=== PATIENT | male | born 1960 | race Two or more races ===

== ENCOUNTER 2020-01-08 14:11 | Outpatient (REF) | payer MEDICAID, SELFPAY ==
--- NOTE | 2020-01-08 14:20 | XR_ITS ---
EXAMINATION: XR KNEE, RIGHT CLINICAL INFORMATION: Pain COMPARISON: None TECHNIQUE: Four views of the right knee. FINDINGS: No acute fracture or dislocation. Moderate medial tibiofemoral compartment joint space narrowing, with associated subchondral sclerosis within the medial femoral condyle and medial tibial plateau.. Small tricompartmental marginal osteophytes. Small quadriceps tendon enthesophyte. IMPRESSION: No acute fracture or dislocation. Tricompartmental degenerative changes, worst within the medial tibiofemoral compartment as described.
== END 2020-01-08 14:12 | disposition home or self-care (01) ==
LOC: HO.XRAY 14:11
PROVIDERS: PCP Internal Medicine Geriatric Medicine; Visit Provider Internal Medicine Geriatric Medicine
DX: M25.561 Pain in right knee (principal)
CPT/HCPCS: 73564

== ENCOUNTER 2020-01-24 11:15 | Outpatient (REF) | payer MEDICAID, SELFPAY ==
--- NOTE | 2020-01-24 11:17 | XR_ITS ---
EXAMINATION: XR KNEE AP STANDING CLINICAL INFORMATION: Unilateral primary osteoarthritis, right knee. COMPARISON: 01/08/2020 TECHNIQUE: AP bilateral standing view of the knees was obtained. FINDINGS: No acute fracture or dislocation is evident on this single AP film. There is mild narrowing of the medial joint space compartment of the left knee with moderate narrowing of the medial space compartment of the right knee. There is some mild spurring about the right medial joint space compartment with marginal sclerosis.. XR/XR knee standing BI IMPRESSION: Mild left and moderate right medial joint space compartment degenerative change.
== END 2020-01-24 11:16 | disposition home or self-care (01) ==
LOC: HO.HOSX 11:15
PROVIDERS: Visit Provider Orthopaedic Surgery
DX: M17.11 Unilateral primary osteoarthritis, right knee (principal); M95.8 Other specified acquired deformities of musculoskeletal system
CPT/HCPCS: 73565; 99212

== ENCOUNTER → 2020-02-11 08:37 | Outpatient (BNVA) | payer MEDICAID, SELFPAY | PROVIDERS: Visit Provider Orthopaedic Surgery | DX: M17.11 Unilateral primary osteoarthritis, right knee (principal); M95.8 Other specified acquired deformities of musculoskeletal system | CPT/HCPCS: 20610; 99202; J1100 ==

== ENCOUNTER → 2020-06-20 11:06 | Outpatient (BNVA) | payer MEDICAID, SELFPAY | PROVIDERS: PCP Internal Medicine Geriatric Medicine; Visit Provider Orthopaedic Surgery | DX: Z13.89 Encounter for screening for other disorder (principal) | CPT/HCPCS: 99212 ==

== ENCOUNTER 2020-07-04 17:59 | Outpatient (REF) | payer MEDICAID, SELFPAY ==
--- NOTE | ~2020-07-04 | MR_ITS ---
EXAMINATION: MR KNEE WITHOUT CONTRAST, RIGHT CLINICAL INFORMATION: Right knee pain. History of meniscal surgery. COMPARISON: Radiographs 01/08/2020 TECHNIQUE: MRI of the knee without contrast was performed using routine sequences on a high-field scanner. FINDINGS: MENISCI: Medial Meniscus: Inner margin blunting at the junction of the body and posterior horn likely represents the postsurgical result. No definite recurrent tear. Lateral Meniscus: Intact LIGAMENTS: Cruciate: Intact Collateral: Intact EXTENSOR MECHANISM: Intact ARTICULAR CARTILAGE/BONE: Patellofemoral Compartment: Mild cartilage thinning and surface irregularity throughout the patella. Medial Compartment: Cartilage thinning and surface irregularity throughout the weightbearing femoral condyle with foci of near full-thickness loss. There is a region of mild surface flattening with degenerative cysts and marrow edema possibly the sequela of a remote subchondral insufficiency fracture. Peripheral cartilage thinning of the tibia medially. Lateral Compartment: Normal JOINT FLUID AND BURSAE: No significant joint effusion. Incidental note is made of mild/moderate fatty infiltration of the biceps femoris muscle as well as the medial and lateral gastrocnemius, soleus and popliteus muscles. MR/MR knee RT wo con IMPRESSION: Postsurgical changes of the medial meniscus with no definite meniscal tear. Moderate medial compartment osteoarthritis with subtle surface flattening and irregularity at the central weightbearing aspect of the femoral condyle, possibly the sequela of a prior subchondral insufficiency fracture. No significant joint effusion. Incidental note is made of mild/moderate fatty atrophy of the biceps femoris muscle and the visualized posterior calf muscles.
== END 2020-07-04 18:00 | disposition home or self-care (01) ==
LOC: HO.MRI 17:59
PROVIDERS: Visit Provider Orthopaedic Surgery
DX: M95.8 Other specified acquired deformities of musculoskeletal system (principal)
CPT/HCPCS: 73721

== ENCOUNTER → 2020-07-17 09:55 | Outpatient (BNVA) | payer MEDICAID, SELFPAY | PROVIDERS: PCP Internal Medicine Geriatric Medicine; Visit Provider Orthopaedic Surgery | DX: Z01.812 Encounter for preprocedural laboratory examination (principal); Z01.810 Encounter for preprocedural cardiovascular examination; M17.11 Unilateral primary osteoarthritis, right knee | CPT/HCPCS: 36415; 80048; 85025; 93005 ==

== ENCOUNTER 2020-08-08 15:00 | Outpatient (RCR) | payer MEDICAID, SELFPAY ==
--- NOTE | 2020-08-01 12:33 | MHC.PT.EP ---
[facility] [place] Office [place] Office [place] Office [address] [phone] F: [phone] F: [phone] F: [phone] F: [phone] Physical Therapy Plan of Care Date of Evaluation: Date of Surgery: 08/19/20 Diagnosis: OA R KNEE. PREHAB FOR UKA 08/19/20 Assessment: Pt IS 50 YO M REFERRED TO PT FROM [facility] FOR PREHAB R UKA ON July PER DR ASHFORD. Pt PRESENTS WITH LIMITED R KNEE FLEX AND LIMITED ANKLE PF STRENGTH. Pt LIVES WITH HIS DTR 3 STEPS WITH 2 RAILS TO GET IN. I WITH ADLS, DRIVES, SHOULD BENEFIT FROM 1-2 MORE PRE-OP VISITS TO REV TKR PROTOCOL, EXS, TRANSF, STAIRS, USE CANE AND WW. Frequency and Duration: The patient will be seen 1-2 VISITS Short Term Goals: 1. I HEP FOR UKA EXS 2. MOD I GT WITH WW AND ST CANE 3. MOD I STAIRS WITH 2 RAILS/1 RAIL AND CANE 4. Pt WITH UNDERSTANDING OF PO UKA KNEE CARE Shelter Goals: Treatment Plan: Modalities to reduce pain, spasms and effusion. Manual therapy to restore motion and function. Therapeutic exercise to improve strength and flexibility. Neuromuscular re-education for posture and balance. Therapeutic activities to return to functional activities of daily living. Electronically signed by: KIZZY SERRANO PT Please sign and return to therapist. Thank you for your referral.
--- NOTE | 2020-09-26 16:27 | MHC.PT.DC ---
[facility] [place] Office [place] Office [place] Office [address] Shasha Smith [address] [phone] F: [phone] F: [phone] F: [phone] F: [phone] Physical Therapy Discharge Report Diagnosis: OA R KNEE. PREHAB FOR UKA 08/19/20 Date of Surgery: 08/19/20 Date of Evaluation: 08/01/20 Date of Discharge: 08/08/20 Treatments to Date: 2 Cancellations to Date: No Shows to Date: Discharge Status: Independent with HEP Discharge Summary: Pt LAST SEEN FOR PRE-HAB VISIT ON 08/08/20. PER THAT NOTE BY LETICIA POTTS,PT,DPT[- Pt arrived with no new complaints. He has been performing his HEPs and has no issues with them. All exercises reviewed with him again today. Transfer training and stair training reviewed as well. Pt demonstrates good understanding of this. Review transfers, gait training and teach standing exercises in next session. No adverse response noted to any exercise.] OF NOTE, Pt HAS BEGUN PT PO UKA Electronically signed by: KIZZY SERRANO PT Please sign and return to therapist. Thank you for your referral.
== END 2020-09-26 16:27 | disposition home or self-care (01) ==
LOC: HO.PT 15:00
PROVIDERS: PCP Internal Medicine Geriatric Medicine; Visit Provider Orthopaedic Surgery
DX: M17.11 Unilateral primary osteoarthritis, right knee (principal)
CPT/HCPCS: 97110; 97116; 97161; 97530

== ENCOUNTER → 2020-08-14 13:07 | Outpatient (BNVA) | payer MEDICAID, SELFPAY | PROVIDERS: Visit Provider Physician Assistant | DX: Z96.651 Presence of right artificial knee joint (principal); M17.11 Unilateral primary osteoarthritis, right knee; M25.561 Pain in right knee; M95.8 Other specified acquired deformities of musculoskeletal system; E78.00 Pure hypercholesterolemia, unspecified; I10 Essential (primary) hypertension; R73.03 Prediabetes; Z88.8 Allergy status to other drugs, medicaments and biological substances; Z79.899 Other long term (current) drug therapy | CPT/HCPCS: 99212 ==

== ENCOUNTER 2020-08-19 10:41 | Inpatient (IN) | payer MEDICAID, SELFPAY ==
--- NOTE | 2020-07-17 11:06 | ECG_ITS ---
Test Reason : PREOP Blood Pressure : / mmHG Vent. Rate : 081 BPM Atrial Rate : 081 BPM P-R Int : 196 ms QRS Dur : 088 ms QT Int : 358 ms P-R-T Axes : 054 -15 012 degrees QTc Int : 415 ms Normal sinus rhythm Minimal voltage criteria for LVH, may be normal variant Borderline ECG When compared with ECG of 14-DEC-2019 12:32, No significant change was found Referred By: Abran Jones Electronically Signed By:Grover Gustafson
[2020-07-17 12:04] LABS: MANUAL DIFF FLAG NO
[2020-07-17 12:12] LABS: Basophils Percent Auto 0.5 % (0-2); Eosinophils Absolute Auto 0.2 X10*3/uL (0.0-0.4); Eosinophils Percent Auto 3.4 % (0-4); Hematocrit 45.8 % (42-52); Hemoglobin 15.3 g/dl (14.0-18.0); Imm Gran Abs Auto 0.02 X10*3/uL (0.00-0.03); Imm Gran Pct Auto 0.4 % (0.0-0.4); Lymphocytes Absolute Auto 1.6 X10*3/uL (1.2-4.9); Lymphocytes Percent Auto 27.9 % (20-40); Mean Corpuscular HGB Conc 33.4 g/dl (31.0-36.0); Mean Corpuscular Volume 92.9 fL (80-98); Mean Platelet Volume 9.3 fL (9.4-12.4); Monocytes Absolute Auto 0.7 X10*3/uL (0.1-1.2); Monocytes Percent Auto 12.9 % (2-11); Neutrophils Absolute Auto 3.1 X10*3/uL (2.0-8.3); Neutrophils Percent Auto 54.9 % (45-73); Platelet Count 236 X10*3/uL (160-400); Red Blood Count 4.93 X10*6/uL (4.60-5.80); Red Cell Distribution Width 12.7 % (11.0-16.0); White Blood Count 5.6 X10*3/uL (4.8-10.8)
[2020-07-17 13:51] LABS: Anion Gap 13 (12-20); Blood Urea Nitrogen 13 mg/dL (9-16); Calcium 10.1 mg/dL (8.4-10.2); Carbon Dioxide 25 mmol/L (22-29); Chloride 104 mmol/L (96-108); Estimated Glomerular Filt Rate > 60; Glucose Random 101 mg/dL (60-115); Potassium 4.5 mmol/L (3.3-5.1); Sodium 137 mmol/L (135-145)
--- NOTE | 2020-08-15 09:51 | P.CONAN_ITS ---
Documented by User: Viri Mccann 08/18/20 09:34 HPI - Anesthesia Eval Consult details Narrative: 59yo M for Right Uni-Compartmental Knee Replacement PCP Cleared Murmur noted at PAT. No hx. Not noted on clearance. Pt asymptomatic. Reviewed with Dr Prisca ball to proceed. [facility] Active Problems Active Problems: All Active Problems (Updated 08/14/20 @ 09:25 by Susan Pacheco) Osteochondral defect of femoral condyle (Acute) Osteoarthritis of right knee (Acute) Past Medical History Medical History Arthritis Asthma COVID-19 vaccine administered Elevated cholesterol GERD (gastroesophageal reflux disease) Heart murmur History of BPH HTN (hypertension) Hx of varicose veins Osteoarthritis of right knee Osteochondral defect of femoral condyle Pre-diabetes Family History Family History Mother No problems noted. Father No problems noted. Family history of problems with anesthesia: No Surgical History Surgical History H/O colonoscopy History of right knee surgery Hx of meniscectomy of right knee History of Problems with Anesthesia: No Social History Social History Are you a primary career center director to a significant other at home: No Alcohol intake: current Alcohol intake frequency: holidays/special occasions only Smoking Status: Never smoker Use of substances other than those prescribed or required for medical reasons: No Have you been hit, kicked, punched, or otherwise hurt by someone within the past year? If so, by whom?: No Are you DNR?: No Advance Directives: No Advance Directives Information Provided: No Recently lost weight without trying: No Eating poorly because of decreased appetite: No Nutrition Risks: No Nutritional Risk Poor oral hygiene: No Current occupational status: unemployed Current occupation: right handed Narrative Narrative: No recent illness. No CP/SOB with walking Meds Allergies Allergy/AdvReac Type Severity Reaction Status Date / Time amlodipine AdvReac Intermediate Nausea Verified 08/14/20 13:16 Home Medications Medication Instructions Recorded Confirmed Last Taken Type famotidine 20 mg PO BID PRN 08/14/20 08/19/20 08/19/20 10:30 History lisinopril 5 mg PO DAILY 08/14/20 08/14/20 Unknown History tamsulosin [Flomax] 0.4 mg PO QAM 08/14/20 08/15/20 Unknown History ascorbic acid (vitamin C) [Vitamin 1,000 mg PO DAILY 08/15/20 08/15/20 Unknown History C] aspirin [Aspirin Low Dose] 81 mg PO DAILY 08/15/20 08/15/20 Unknown History cholecalciferol (vitamin D3) 50 mcg PO DAILY 08/15/20 08/15/20 Unknown History [Vitamin D3] cyanocobalamin (vitamin B-12) 50 mcg PO DAILY 08/15/20 08/15/20 Unknown History [Vitamin B-12] montelukast [Singulair] 10 mg PO DAILY PRN 08/15/20 08/15/20 Unknown History rosuvastatin [Crestor] 10 mg PO DAILY 08/15/20 08/15/20 Unknown History zinc 50 mg PO DAILY 08/15/20 08/15/20 Unknown History Exam Exam Date and Time: August 15, 2020 0991 Pertinent Lab Results Pertinent Lab Results: Lab Results 07/17/20 07/17/20 08/15/20 Range/Units 11:35 11:35 12:30 WBC 5.6 (4.8-10.8) X10*3/uL RBC 4.93 (4.60-5.80) X10*6/uL Hgb 15.3 (14.0-18.0) g/dl Hct 45.8 (42-52) % MCV 92.9 (80-98) fL MCH 31.0 (27.0-33.0) pg MCHC 33.4 (31.0-36.0) g/dl RDW 12.7 (11.0-16.0) % Plt Count 236 (160-400) X10*3/uL MPV 9.3 L (9.4-12.4) fL Immature Gran % (Auto) 0.4 (0.0-0.4) % Neut % (Auto) 54.9 (45-73) % Lymph % (Auto) 27.9 (20-40) % [place] % (Auto) 12.9 H (2-11) % Eos % (Auto) 3.4 (0-4) % Baso % (Auto) 0.5 (0-2) % Lymph # (Auto) 1.6 (1.2-4.9) X10*3/uL [place] # (Auto) 0.7 (0.1-1.2) X10*3/uL Eos # (Auto) 0.2 (0.0-0.4) X10*3/uL Baso # (Auto) 0.0 (0.0-0.2) X10*3/uL Abs Immat Gran (auto) 0.02 (0.00-0.03) X10*3/uL Absolute Neuts (auto) 3.1 (2.0-8.3) X10*3/uL Absolute Nucleated RBC 0.000 (0.0-0.012) X10*3/uL Nucleated RBC % (auto) 0.0 (0.0-0.2) /100WBC Sodium 137 (135-145) mmol/L Potassium 4.5 (3.3-5.1) mmol/L Chloride 104 (96-108) mmol/L Carbon Dioxide 25 (22-29) mmol/L Anion Gap 13 (12-20) BUN 13 (9-16) mg/dL Creatinine 0.75 (0.5-1.4) mg/dL Estim Creat Clear Calc TNP Estimated GFR > 60 Random Glucose 101 (60-115) mg/dL Calcium 10.1 (8.4-10.2) mg/dL Nasal Screen MRSA (PCR) NEGATIVE (Negative) Nasal S. aureus Screen NEGATIVE (Negative) Nasal MRSA/S.aureus Interp SEE NOTE Blood Type Antibody Screen 08/15/20 Range/Units 13:50 WBC (4.8-10.8) X10*3/uL RBC (4.60-5.80) X10*6/uL Hgb (14.0-18.0) g/dl Hct (42-52) % MCV (80-98) fL MCH (27.0-33.0) pg MCHC (31.0-36.0) g/dl RDW (11.0-16.0) % Plt Count (160-400) X10*3/uL MPV (9.4-12.4) fL Immature Gran % (Auto) (0.0-0.4) % Neut % (Auto) (45-73) % Lymph % (Auto) (20-40) % [place] % (Auto) (2-11) % Eos % (Auto) (0-4) % Baso % (Auto) (0-2) % Lymph # (Auto) (1.2-4.9) X10*3/uL [place] # (Auto) (0.1-1.2) X10*3/uL Eos # (Auto) (0.0-0.4) X10*3/uL Baso # (Auto) (0.0-0.2) X10*3/uL Abs Immat Gran (auto) (0.00-0.03) X10*3/uL Absolute Neuts (auto) (2.0-8.3) X10*3/uL Absolute Nucleated RBC (0.0-0.012) X10*3/uL Nucleated RBC % (auto) (0.0-0.2) /100WBC Sodium (135-145) mmol/L Potassium (3.3-5.1) mmol/L Chloride (96-108) mmol/L Carbon Dioxide (22-29) mmol/L Anion Gap (12-20) BUN (9-16) mg/dL Creatinine (0.5-1.4) mg/dL Estim Creat Clear Calc Estimated GFR Random Glucose (60-115) mg/dL Calcium (8.4-10.2) mg/dL Nasal Screen MRSA (PCR) (Negative) Nasal S. aureus Screen (Negative) Nasal MRSA/S.aureus Interp Blood Type A Positive Antibody Screen NEGATIVE Narrative Narrative: EKG 06/2020 Vent. Rate : 081 BPM Atrial Rate : 081 BPM P-R Int : 196 ms QRS Dur : 088 ms QT Int : 358 ms P-R-T Axes : 054 -15 012 degrees QTc Int : 415 ms Normal sinus rhythm Minimal voltage criteria for LVH, may be normal variant Borderline ECG When compared with ECG of 14-DEC-2019 12:32, No significant change was found Airway Mallampati Class: II TM Dist: >3cm Neck ROM: Full Loose/Missing/Broken Teeth: No (Crowned molars) Heart: RRR +M Lungs: CTAB Assessment and Plan Assessment Anesthesia Assessment: Anesthesia Plan Discussed and PAT Visit Documented by User: Zackery Sullivan MD 08/19/20 13:34 PMFSH Past Medical History Medical History Arthritis Asthma COVID-19 vaccine administered Elevated cholesterol GERD (gastroesophageal reflux disease) Heart murmur History of BPH HTN (hypertension) Hx of varicose veins Osteoarthritis of right knee Osteochondral defect of femoral condyle Pre-diabetes Family History Family History Mother No problems noted. Father No problems noted. Surgical History Surgical History H/O colonoscopy History of right knee surgery Hx of meniscectomy of right knee Social History Social History Are you a primary career center director to a significant other at home: No Alcohol intake: current Alcohol intake frequency: holidays/special occasions only Smoking Status: Never smoker Use of substances other than those prescribed or required for medical reasons: No Have you been hit, kicked, punched, or otherwise hurt by someone within the past year? If so, by whom?: No Are you DNR?: No Advance Directives: No Advance Directives Information Provided: No Recently lost weight without trying: No Eating poorly because of decreased appetite: No Nutrition Risks: No Nutritional Risk Poor oral hygiene: No Current occupational status: unemployed Current occupation: right handed Meds Allergies Allergy/AdvReac Type Severity Reaction Status Date / Time amlodipine AdvReac Intermediate Nausea Verified 08/14/20 13:16 Home Medications Medication Instructions Recorded Confirmed Last Taken Type famotidine 20 mg PO BID PRN 08/14/20 08/19/20 08/19/20 10:30 History lisinopril 5 mg PO DAILY 08/14/20 08/14/20 Unknown History tamsulosin [Flomax] 0.4 mg PO QAM 08/14/20 08/15/20 Unknown History ascorbic acid (vitamin C) [Vitamin 1,000 mg PO DAILY 08/15/20 08/15/20 Unknown History C] aspirin [Aspirin Low Dose] 81 mg PO DAILY 08/15/20 08/15/20 Unknown History cholecalciferol (vitamin D3) 50 mcg PO DAILY 08/15/20 08/15/20 Unknown History [Vitamin D3] cyanocobalamin (vitamin B-12) 50 mcg PO DAILY 08/15/20 08/15/20 Unknown History [Vitamin B-12] montelukast [Singulair] 10 mg PO DAILY PRN 08/15/20 08/15/20 Unknown History rosuvastatin [Crestor] 10 mg PO DAILY 08/15/20 08/15/20 Unknown History zinc 50 mg PO DAILY 08/15/20 08/15/20 Unknown History Assessment and Plan Assessment Anesthesia Assessment: Anesthesia Plan Discussed and Chart Reviewed Final Anesthetic Review NPO: Yes ASA Class: II Final Preanesthetic Review: No Changes in Pt Med Stat, Meds/Allgs Chart Reviewed, Consent Obtained/Reviewed and Anes Risks/Benef Reviewed Patient Risk: Intermediate Procedure Risk: Low Anesthetic Plan Anesthetic Plan: MAC: and Regional Block Disposition: Standard PACU
[2020-08-15 11:59] VITALS: BP 137/92; PULSE 96; RESP 20; BMI 36.0
[2020-08-16 09:30] LABS: MRSA Nasal PCR NEGATIVE (Negative); SA Nasal PCR NEGATIVE (Negative)
[2020-08-19] VITALS (11 sets, daily range): BP systolic 117–137; BP diastolic 71–86; PULSE 75–112; RESP 12–18; TEMP 36.2–37; O2SAT 94–97
--- NOTE | ~2020-08-19 | XR_ITS ---
EXAMINATION: XR KNEE, RIGHT CLINICAL INFORMATION: Status post right UKA COMPARISON: None TECHNIQUE: 2 of the right knee. FINDINGS: Status post knee replacement of the medial femoral tibial joint of the right knee. Orthopedic components in place. No fracture. Surgical clips in the skin in the anterior knee. Air in the joint space from surgery. There is spur of the patella the patellofemoral joint. XR/XR knee RT 2V IMPRESSION: Status post knee replacement of the medial femoral tibial joint.
[2020-08-19] MEDS: Gabapentin 600 MG TABLET PO (11:33)
[2020-08-19 11:53] LABS: COVID-19 Test Negative (Negative)
[2020-08-19] MEDS: Lactated Ringers 1,000 ML 100 ML IVCONT (12:26)
--- NOTE | 2020-08-19 12:58 | MHC.SHP ---
Pre-Procedural Eval Section A The patient is an INPATIENT: No Changes since office visit: Yes Patient answered all questions; No Cold of Flu in the past 2 weeks, No New Medical Problems and No Changes in Medication The History & Physical has been completed within 30 days and I have reviewed it.: Yes Section B Chief Complaint: s/p unicompartmental knee replacement right Allergies: Allergies Allergy/AdvReac Type Severity Reaction Status Date / Time amlodipine AdvReac Intermediate Nausea Verified 08/14/20 13:16 Plan I have reviewed the history and physical and performed a pertinent physical examination on my patient. No changes have occurred unless specified.
--- NOTE | 2020-08-19 15:28 | PM.OP ---
Brief Operative Note Date of Service: 08/19/20 Pre-op diagnosis: right knee OA Post-op diagnosis: same Procedure: Right UKA Implants: [employer]hew Surgeon: Abran Jones MD Anesthesia: regional and spinal Was an Cargo Checker used for this Procedure?: Yes Cargo Checker: Clayton Torres Estimated blood loss (mL): 50 Tourniquet time (min): 78 IV fluids (mL): 1,000 Pathology: other Condition: stable Disposition: PACU
[2020-08-19] MEDS: Ketorolac Tromethamine 15 MG/ML VIAL IVPUSH (15:48)
[2020-08-19] MEDS: 0.9 % Sodium Chloride Flush 3 ML SYRINGE IVFLUSH (17:14)
[2020-08-19] MEDS: Dextrose 5 % and 0.45 % NaCl 1,000 ML 80 ML IVCONT (17:14)
[2020-08-19] MEDS: ceFAZolin Sodium/Dextrose,Iso 2 GM/50 ML PIGGYBACK IV (18:35)
[2020-08-19] MEDS: Celecoxib 200 MG CAPSULE PO (20:30)
[2020-08-19] MEDS: Docusate Sodium 100 MG CAPSULE PO (20:30)
[2020-08-19] MEDS: oxyCODONE HCl ER 10 MG TAB.ER.12H PO (20:30)
[2020-08-20] MEDS: Dextrose 5 % and 0.45 % NaCl 1,000 ML 80 ML IVCONT ×2 (05:05→16:58)
[2020-08-20 07:00] LABS: MANUAL DIFF FLAG NO
[2020-08-20 07:08] LABS: Basophils Percent Auto 0.2 % (0-2); Eosinophils Percent Auto 0.1 % (0-4); Hematocrit 39.2 % (42-52); Hemoglobin 13.1 g/dl (14.0-18.0); Imm Gran Abs Auto 0.05 X10*3/uL (0.00-0.03); Imm Gran Pct Auto 0.4 % (0.0-0.4); Lymphocytes Absolute Auto 1.2 X10*3/uL (1.2-4.9); Lymphocytes Percent Auto 9.6 % (20-40); Mean Corpuscular HGB Conc 33.4 g/dl (31.0-36.0); Mean Corpuscular Hemoglobin 30.9 pg (27.0-33.0); Mean Corpuscular Volume 92.5 fL (80-98); Mean Platelet Volume 9.3 fL (9.4-12.4); Monocytes Absolute Auto 1.2 X10*3/uL (0.1-1.2); Monocytes Percent Auto 8.9 % (2-11); Neutrophils Absolute Auto 10.4 X10*3/uL (2.0-8.3); Neutrophils Percent Auto 80.8 % (45-73); Platelet Count 250 X10*3/uL (160-400); Red Blood Count 4.24 X10*6/uL (4.60-5.80); Red Cell Distribution Width 12.4 % (11.0-16.0); White Blood Count 12.9 X10*3/uL (4.8-10.8)
[2020-08-20 07:27] VITALS: BP 128/71; PULSE 93; RESP 17; TEMP 36.8; O2SAT 95
[2020-08-20 07:33] LABS: Anion Gap 12 (12-20); Blood Urea Nitrogen 12 mg/dL (9-16); Calcium 8.9 mg/dL (8.4-10.2); Carbon Dioxide 23 mmol/L (22-29); Chloride 105 mmol/L (96-108); Creatinine Clr Calc Pharmacy 147.7; Estimated Glomerular Filt Rate > 60; Glucose Fasting 184 mg/dL (60-99); Potassium 4.5 mmol/L (3.3-5.1); Sodium 135 mmol/L (135-145)
--- NOTE | 2020-08-20 07:48 | P.PNOP_ITS ---
Subjective Subjective Date of Service: 08/20/20 Interval history: Postop day 1 status post right UKA No overnight events. Resting in bed comfortably. Has minimal pain. Tolerating medication. Denies chest pain shortness of breath or palpitations. Physical Exam Vital Signs: Vital Signs: Last Vital Signs Temp 98.2 F 08/20/20 07:27 Pulse 93 08/20/20 07:27 Resp 17 08/20/20 07:27 BP 128/71 08/20/20 07:27 Pulse Ox 95 08/20/20 07:27 Body Mass Index 36.0 Const: General: cooperative, healthy appearing and no acute distress Resp: Effort & Inspection: normal respiratory effort and able to speak in complete sentences Cardio: Rate: regular rate Peripheral pulses: Peripheral pulses 2+ throughout GI: Palpation (GI): Soft to palpation Skin: General skin exam: no rashes or lesions noted Extrem: Other: Right knee bandage clean dry and intact. No erythema. Mild swelling. Calf supple nontender. Neurovascularly intact. Progress Note: A&P Assessment and plan (1) Status post unicompartmental knee replacement, right: Status: Acute Assessment and Plan: * Continue pain mgmnt * Begin Aspirin for dvt ppx * begin PT for RT TKA * Dispo planning-Pending PT eval, pain mgmnt Fall Risk Details Current Medications: Current Medications Generic Name Dose Route Start Last Admin Trade Name Freq PRN Reason Stop Dose Admin Acetaminophen 650 mg 08/19/20 16:54 Acetaminophen 325 Mg Tablet PO Q6H PRN Pain, Mild (Pain Scale 1-3) Celecoxib 200 mg 08/19/20 21:00 08/19/20 20:30 Celecoxib 200 Mg Capsule PO 200 mg BID DONA Administration Docusate Sodium 100 mg 08/19/20 21:00 08/19/20 20:30 Docusate Sodium 100 Mg Capsule PO 100 mg BID DONA Administration Hydromorphone HCl 0.25 mg 08/19/20 16:54 Hydromorphone Hcl 0.5 Mg/0.5 Ml Syringe IVPUSH Q4H PRN Pain, Severe (Pain Scale 7-10) Dextrose/Sodium Chloride 1,000 mls @ 80 mls/hr 08/19/20 16:54 08/20/20 05:05 D51/2ns IVCONT 80 mls/hr .[id number] DONA Administration Montelukast Sodium 10 mg 08/19/20 16:54 Montelukast Sodium 10 Mg Tablet PO DAILY PRN Wheezing Naloxone HCl 0.2 mg 08/19/20 16:54 Naloxone Hcl 0.4 Mg/Ml Vial IVPUSH Q2M PRN Excessive sedation or RR < 8 Ondansetron HCl 4 mg 08/19/20 16:54 Ondansetron Hcl 4 Mg/2 Ml Vial IVPUSH Q8H PRN Nausea and Vomiting Oxycodone HCl 5 mg 08/19/20 16:54 Oxycodone Hcl Immed Release 5 Mg Tablet PO Q4H PRN Pain, Moderate (Pain Scale 4-6 Oxycodone HCl 10 mg 08/19/20 21:00 08/19/20 20:30 Oxycodone Hcl Er 10 Mg Tab.Er.12h PO 10 mg BID DONA Administration Sodium Chloride 3 ml 08/19/20 16:54 08/20/20 00:32 0.9 % Sodium Chloride Flush 3 Ml Syringe IVFLUSH Not Given QSHIFT [facility] Zinc Sulfate 220 mg 08/20/20 09:00 Zinc Sulfate 220 Mg Capsule PO DAILY [facility] Time Spent With Patient Time: Total time spent is greater than 50% in coordination of care (as documented) at patient's floor/unit and/or counseling patient: Time with patient: less than 15 minutes Procedures Date of Service Date of Service: 08/20/20
[2020-08-20] MEDS: Celecoxib 200 MG CAPSULE PO ×2 (07:49→20:23)
[2020-08-20] MEDS: oxyCODONE HCl ER 10 MG TAB.ER.12H PO ×2 (07:49→20:23)
[2020-08-20] MEDS: Docusate Sodium 100 MG CAPSULE PO ×2 (07:49→20:23)
--- NOTE | 2020-08-20 08:21 | W.PM.OPN ---
Operative Note Operative Note Date of Service: 08/20/20 Narrative: Pre-op diagnosis: right knee OA Post-op diagnosis: same Procedure: Right UKA Implants: [employer]hew Surgeon: Abran Jones MD Anesthesia: regional and spinal Was an Cardiothoracic Anesthesia Technician used for this Procedure?: Yes Cardiothoracic Anesthesia Technician: Clayton Torres Estimated blood loss (mL): 50 Tourniquet time (min): 78 IV fluids (mL): 1,000 Pathology: other Condition: stable Disposition: PACU Procedure in detail: Patient was brought to the operating room and placed supine on the surgical table. He was prepped and draped in standard sterile fashion and a time out was called to identify proper site, proper procedure and IV antibiotics per weight were administered. I began by making a medial parapatellar incision, approximately 5 cm long over the medial compartment just medial to the patellar tendon and patella. An arthrotomy was performed and a medial peel and a Z retractor was placed. I performed a medial meniscectomy and then examined the anterior and lateral compartment and they were free of chondral damage. The medial femoral condyle was notable for a large central defect with chondromalacia and area of scattered eburnation. Using the tibial guide I made my tibial cut in line with the tibial crest and the third ray. 4 mm of medial bone was removed I then made my saggital cut just medial to the ACL insertion and removed all excess bone. An 8 mm ext block was placed and alignment with checked with a chente. My distal femoral cutting guide was placed and the distal femoral cut was made. The knee was flexed up and all excess bone was removed. I then sized a 6 femur which was 2-3 mm from the throchlear cartilage. My chamfer cuts were performed and a size 7 tibial trial was placed with full tibial coverage. With the femoral trial in place the knee was taken through a full range of motion. There was no overcorrection of his varus deformity and there was stability as all ranges with no change in PF tracking. I then drilled by femoral and tibial lug holes and mixed one bag of Pal[place]os bone cement on the back table. I then cemented in the tibia and femur in standard fashion and axial compression was performed until the cement was dry. All excess cement was removed and an 8 and 9 poly were trialed and the 9 was selected. The final polyethylene implant was placed and the tourniquet was let down. There was no brisk bleeding. A 3 minute iodine soak and 1 gm of local TXA was applied. Closure with #2 Quill, 2.0 Vicryl and flora was performed. Sterile dressings were applied and the patient was extubated and brought to the recovery room in stable condition. there were no known complications.
[2020-08-20] MEDS: Tamsulosin HCL 0.4 MG CAPSULE PO (09:21)
[2020-08-20] MEDS: Aspirin 81 MG TAB.CHEW PO ×2 (09:21→20:23)
[2020-08-20] MEDS: Famotidine 20 MG TABLET PO (09:28)
[2020-08-20] MEDS: HYDROmorphone HCl 0.5 MG/0.5 ML SYRINGE 0.25 MG IVPUSH (09:28)
--- NOTE | 2020-08-20 09:51 | MHC.CM.PN ---
nurse interior plant caretaker note electronic medical record reviewed along with case discussed with staff nurse. met with patient . confirmed his pcp dr fareed chan, he lives with his son in [place], independently in all adls and mobility, he will be going to his daughters house s/p r-tka once discharged [place] [phone], [address] [facility] (house). he had no vna /no dme services in the home. reviewed vna agencies and he chose the [place] [facility] since he will be in [place] and had his surgery hEre. iniated referral to them discharge plan home to stay at his dtrs house (see address above) WITH NEW REFERRAL TO THE [facility] FOR HOME PHYSICAL [facility]APRY (PATIENT WILL ONLY BE ON ASA, FOR ANTICOAGULANT PCP DR NICOLÁS [place], ORTHOPEDIC SURGICAL FOLLOW UP PER DISCHARGE INSTRUCTIONS TRANSP -FAMILY
--- NOTE | 2020-08-20 10:45 | PM.IMCN ---
History of Present Illness Data of Consult Service Date: 08/20/20 Primary Care Provider: Irvin Elena MD HPI Reason for consult: Medical management A 59 years old patient with PMH of HTN, HLD, BPH and GERD who presented to the hospital for elective knee surgery. Medical team was asked to evaluate the patient for medical problems. The patient reported that he feels well overall with no complaints of chest pain, shortness of breath or lethargy recently. Review of Systems Review of Systems: No fever, chills or weakness No chest pain, palpitation No shortness of breath or coughing No abdominal pain, nausea or vomiting No urinary symptoms No any rash or wounds PMFSH Medical History (Updated 08/20/20 @ 10:48 by Halima Snow MD) Arthritis Asthma COVID-19 vaccine administered Elevated cholesterol GERD (gastroesophageal reflux disease) Heart murmur History of BPH HTN (hypertension) Hx of varicose veins Osteoarthritis of right knee Osteochondral defect of femoral condyle Pre-diabetes Family History Mother No problems noted. Father No problems noted. Surgical History H/O colonoscopy History of right knee surgery Hx of meniscectomy of right knee Social History Household Members: Family Housing: House Are you a primary care manager to a significant other at home: No Alcohol intake: current Alcohol intake frequency: holidays/special occasions only Substance Use Type: Marijuana service: No Current occupational status: unemployed Current occupation: right handed Meds Allergies Allergy/AdvReac Type Severity Reaction Status Date / Time amlodipine AdvReac Intermediate Nausea Verified 08/14/20 13:16 Active Medications: Current Medications Generic Name Dose Route Start Last Admin Trade Name Freq PRN Reason Stop Dose Admin Acetaminophen 650 mg 08/19/20 16:54 Acetaminophen 325 Mg Tablet PO Q6H PRN Pain, Mild (Pain Scale 1-3) Aspirin 81 mg 08/20/20 10:00 08/20/20 09:21 Aspirin 81 Mg Tab.Chew PO 81 mg BID DONA Administration Celecoxib 200 mg 08/19/20 21:00 08/20/20 07:49 Celecoxib 200 Mg Capsule PO 200 mg BID DONA Administration Docusate Sodium 100 mg 08/19/20 21:00 08/20/20 07:49 Docusate Sodium 100 Mg Capsule PO 100 mg BID DONA Administration Famotidine 20 mg 08/20/20 08:12 08/20/20 09:28 Famotidine 20 Mg Tablet PO 20 mg BID PRN Administration Acid Reflux Hydromorphone HCl 0.25 mg 08/19/20 16:54 08/20/20 09:28 Hydromorphone Hcl 0.5 Mg/0.5 Ml Syringe IVPUSH 0.25 mg Q4H PRN Administration Pain, Severe (Pain Scale 7-10) Dextrose/Sodium Chloride 1,000 mls @ 80 mls/hr 08/19/20 16:54 08/20/20 05:05 D51/2ns IVCONT 80 mls/hr .[id number] DONA Administration Montelukast Sodium 10 mg 08/19/20 16:54 Montelukast Sodium 10 Mg Tablet PO DAILY PRN Wheezing Naloxone HCl 0.2 mg 08/19/20 16:54 Naloxone Hcl 0.4 Mg/Ml Vial IVPUSH Q2M PRN Excessive sedation or RR < 8 Ondansetron HCl 4 mg 08/19/20 16:54 Ondansetron Hcl 4 Mg/2 Ml Vial IVPUSH Q8H PRN Nausea and Vomiting Oxycodone HCl 5 mg 08/19/20 16:54 Oxycodone Hcl Immed Release 5 Mg Tablet PO Q4H PRN Pain, Moderate (Pain Scale 4-6 Oxycodone HCl 10 mg 08/19/20 21:00 08/20/20 07:49 Oxycodone Hcl Er 10 Mg Tab.Er.12h PO 10 mg BID [facility] Administration Sodium Chloride 3 ml 08/19/20 16:54 08/20/20 07:50 0.9 % Sodium Chloride Flush 3 Ml Syringe IVFLUSH Not Given QSHIFT [facility] Tamsulosin HCl 0.4 mg 08/20/20 08:15 08/20/20 09:24 Tamsulosin Hcl 0.4 Mg Capsule PO Not Given DAILY [facility] Zinc Sulfate 220 mg 08/20/20 09:00 08/20/20 07:54 Zinc Sulfate 220 Mg Capsule PO Not Given DAILY [facility] Home Medications Medication Instructions Recorded Confirmed Last Taken Type famotidine 20 mg PO BID PRN 08/14/20 08/19/20 08/19/20 10:30 History lisinopril 5 mg PO DAILY 08/14/20 08/19/20 08/18/20 09:00 History tamsulosin [Flomax] 0.4 mg PO QAM 08/14/20 08/19/20 08/19/20 10:30 History ascorbic acid (vitamin C) [Vitamin 1,000 mg PO DAILY 08/15/20 08/19/20 08/18/20 09:00 History C] aspirin [Aspirin Low Dose] 81 mg PO DAILY 08/15/20 08/19/20 08/11/20 09:00 History cholecalciferol (vitamin D3) 50 mcg PO DAILY 08/15/20 08/19/20 08/18/20 09:00 History [Vitamin D3] cyanocobalamin (vitamin B-12) 50 mcg PO DAILY 08/15/20 08/19/20 08/18/20 09:00 History [Vitamin B-12] montelukast [Singulair] 10 mg PO DAILY PRN 08/15/20 08/19/20 08/09/20 22:00 History rosuvastatin [Crestor] 10 mg PO DAILY 08/15/20 08/19/20 08/19/20 09:00 History Physical Exam Vital Signs and Narrative: Vital Signs: Last Vital Signs Temp 98.2 F 08/20/20 07:27 Pulse 93 08/20/20 07:27 Resp 17 08/20/20 07:27 BP 128/71 08/20/20 07:27 Pulse Ox 95 08/20/20 07:27 Body Mass Index 36.0 Const: Other: Constitutional : Alert, oriented, not in distress Neck : Normal inspection, Supple Cardiovascular : RRR, S1 S2, no lower extremity edema Respiratory : Good bilateral air entry, no crackles, wheezes or rhonchi Gastrointestinal: soft, lax, Normal bowel sounds, Non tender Skin : Warm/Dry, No rash, right knee covered with dressing with no drainage noted Neurological : Alert & oriented x3, No focal deficit Results Labs CBC and Chem 7: 08/20/20 06:25 08/20/20 06:25 Labs: Laboratory Results - last 24 hr 08/19/20 08/20/20 08/20/20 11:24 06:25 06:25 MCV 92.5 MCH 30.9 MCHC 33.4 RDW 12.4 Plt Count 250 MPV 9.3 L Immature Gran % (Auto) 0.4 Neut % (Auto) 80.8 H Lymph % (Auto) 9.6 L [place] % (Auto) 8.9 Eos % (Auto) 0.1 Baso % (Auto) 0.2 Lymph # (Auto) 1.2 [place] # (Auto) 1.2 Eos # (Auto) 0.0 Baso # (Auto) 0.0 Abs Immat Gran (auto) 0.05 H Absolute Neuts (auto) 10.4 H Absolute Nucleated RBC 0.000 Nucleated RBC % (auto) 0.0 Anion Gap 12 Estim Creat Clear Calc 147.7 Estimated GFR > 60 Fasting Glucose 184 H Calcium 8.9 D COVID-19 (BABATUNDE) Negative COVID-19 Clin Com See Note Imaging Radiologist's Impressions: Impressions Knee X-Ray 08/19/20 15:56 IMPRESSION: Status post knee replacement of the medial femoral tibial joint. Assessment and Plan (1) Asthma: Status: Acute (2) Status post unicompartmental knee replacement, right: Status: Acute (3) Osteoarthritis of right knee: Status: Acute A 59 years old patient with PMH of HTN, HLD, BPH and GERD who presented to the hospital for elective knee surgery. Post knee surgery Management per surgical team Asthma Not in exacerbation Use inhaler as needed p.r.n. HTN, HLD Continue lisinopril, aspirin and statin BPH Continue tamsulosin DVT PPX Aspirin per orthopedic team Thank you for the consult, will continue to monitor the patient with you.
[2020-08-20 11:10] VITALS: BP 131/66; PULSE 90; RESP 18; TEMP 36.6; O2SAT 97
--- NOTE | 2020-08-20 13:51 | HO.POSTANES ---
Post Anesthesia Evaluation Post Anesthesia Evaluation Vital Signs: Vital Signs Temp Pulse Resp BP Pulse Ox 08/20/20 11:10 97.8 F 90 18 131/66 97 08/20/20 07:27 98.2 F 93 17 128/71 95 Anesthesia: Spinal and Nerve Block Mental Status: Awake Pain Control: Satisfactory Nausea/Vomiting: None Hydration: Adequate Anesthesia-Related Issues: No Anes. Related Issues
[2020-08-20 15:47] VITALS: BP 143/68; PULSE 89; RESP 18; TEMP 36.4; O2SAT 96
[2020-08-20] MEDS: oxyCODONE HCl Immed Release 5 MG TABLET PO (16:31)
[2020-08-20 19:43] VITALS: BP 130/70; PULSE 92; RESP 16; TEMP 36.7; O2SAT 94
[2020-08-20 23:36] VITALS: BP 133/74; PULSE 78; RESP 18; TEMP 36.4; O2SAT 95
[2020-08-21 03:05] VITALS: BP 142/82; PULSE 73; RESP 18; TEMP 36.2; O2SAT 96
[2020-08-21] MEDS: Dextrose 5 % and 0.45 % NaCl 1,000 ML 80 ML IVCONT (05:05)
[2020-08-21 07:12] LABS: Anion Gap 12 (12-20); Blood Urea Nitrogen 10 mg/dL (9-16); Calcium 8.4 mg/dL (8.4-10.2); Carbon Dioxide 24 mmol/L (22-29); Chloride 105 mmol/L (96-108); Creatinine Clr Calc Pharmacy 145.5; Estimated Glomerular Filt Rate > 60; Glucose Fasting 118 mg/dL (60-99); Potassium 4.3 mmol/L (3.3-5.1); Sodium 137 mmol/L (135-145)
[2020-08-21 07:40] VITALS: BP 158/74; PULSE 84; RESP 19; TEMP 37.1; O2SAT 96
[2020-08-21] MEDS: Celecoxib 200 MG CAPSULE PO (08:02)
[2020-08-21] MEDS: Acetaminophen 325 MG TABLET 650 MG PO (08:02)
[2020-08-21] MEDS: oxyCODONE HCl ER 10 MG TAB.ER.12H PO (08:02)
[2020-08-21] MEDS: Docusate Sodium 100 MG CAPSULE PO (08:02)
[2020-08-21] MEDS: Famotidine 20 MG TABLET PO (08:02)
[2020-08-21] MEDS: Tamsulosin HCL 0.4 MG CAPSULE PO (08:02)
[2020-08-21] MEDS: Aspirin 81 MG TAB.CHEW PO (08:02)
--- NOTE | 2020-08-21 08:25 | P.DS_ITS ---
DS: Providers Provider Date of Service: 08/21/20 Date of admission: 08/19/20 10:41 Primary care physician: Irvin Elena MD Consults: 08/19/20 16:54 Consult to Hospitalist Routine Consulting Provider: Hospitalist Reason For Exam: post op medical managment DS: Diagnosis Discharge Diagnosis (1) Status post unicompartmental knee replacement, right: Status: Acute Problem details: This is a 59-year-old gentleman who was seen in our office for right knee pain. He was found to have right knee unicompartmental osteoarthritis. He had failed all conservative measures and continued to have difficulty with ambulation and 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 therefore he had consented to move forward with right knee arthroplasty. DS: Medications Discharge Medications Home Medications: Home Medications Medication Instructions Recorded Confirmed famotidine 20 mg PO BID PRN 08/14/20 08/19/20 lisinopril 5 mg PO DAILY 08/14/20 08/19/20 tamsulosin [Flomax] 0.4 mg PO QAM 08/14/20 08/19/20 Vitamin B-12 50 mcg PO DAILY 08/15/20 08/19/20 ascorbic acid (vitamin C) [Vitamin 1,000 mg PO DAILY 08/15/20 08/19/20 C] cholecalciferol (vitamin D3) 50 mcg PO DAILY 08/15/20 08/19/20 [Vitamin D3] montelukast [Singulair] 10 mg PO DAILY PRN 08/15/20 08/19/20 rosuvastatin [Crestor] 10 mg PO DAILY 08/15/20 08/19/20 Previous Rx's Medication Instructions Recorded walker #1 ea 07/17/20 acetaminophen 650 mg PO Q6H PRN 30 Days #240 tab 08/21/20 aspirin 81 mg PO BID 42 Days #84 tab 08/21/20 docusate sodium 100 mg PO BID 14 Days #28 cap 08/21/20 oxycodone 5 mg PO Q4H PRN 7 Days #42 tab 08/21/20 DS: Summary Hospital Course Hospital Course: The patient underwent a successful right knee unicompartmental arthroplasty, was transferred to PACU and then to the floor to recover. During their stay, their vitals were stable, afebrile at 98.7. Labs were unremarkable, H/H 13.1/39.2. POD 1 he was started on aspirin 81 mg tabs twice a day for DVT ppx, they also received physical therapy services twice a day. Prior to discharge, their dressing was change, incision clean dry and intact, new Aquacel dressing applied and the plan was to be discharged home with VNA services Time Spent with Patient Time attestation: Total time spent providing and/or coordinating discharge services: Discharge coordination time: Less than 30 minutes Quality: Stroke Does the patient have a stroke diagnosis?: No Physical Exam Vital Signs: Vital Signs: Last Vital Signs Temp 98.7 F 08/21/20 07:40 Pulse 84 08/21/20 07:40 Resp 19 08/21/20 07:40 BP 158/74 H 08/21/20 07:40 Pulse Ox 96 08/21/20 07:40 Body Mass Index 36.0 Const: General: cooperative, healthy appearing and no acute distress Resp: Effort & Inspection: normal respiratory effort and able to speak in complete sentences Cardio: Rate: regular rate Peripheral pulses: Peripheral pulses 2+ throughout GI: Palpation (GI): Soft to palpation Skin: General skin exam: no rashes or lesions noted Extrem: Other: Right knee incision clean dry and intact. [place] intact. No erythema or joint effusion. Calf supple nontender. Neurovascularly intact. DS: Data Data Completed and Pending Pending studies at discharge: Pending at discharge 08/19/20 15:21 Surgical [PTH] Routine Labs on day of discharge: Laboratory Results - last 24 hr 08/21/20 05:56 Sodium 137 Potassium 4.3 Chloride 105 Carbon Dioxide 24 Anion Gap 12 BUN 10 Creatinine 0.67 Estim Creat Clear Calc 145.5 Estimated GFR > 60 Fasting Glucose 118 H D Calcium 8.4 Discharge Plan Discharge Patient Disposition: Home Health Service Discharge Diagnosis: S/P UKA right knee Referrals: [facility] [Outside] - 1 Day (DISCHARGED TO YOUR DAUGHTERS HOME WITH NEW REFERRAL TO THE [facility] FOR HOME PHYSICAL [place] PCP DR ELENA . PLEASE CALL FOR [facility] DISCHARGE FOR FOLLOW UP TRANSPORTATION FAMILY ) Alondra Saez PA-C [Physician Neonatal Nurse] - 2 Weeks (09/05/20 12:45 [facility] [place] [facility] Surgeons Alondra Saez PA-C) Discharge Medications: New acetaminophen 325 mg Tablet 650 mg PO Q6H PRN (Reason: Pain, Mild (Pain Scale 1-3)) 30 Days Qty: 240 RF: 0 docusate sodium 100 mg Capsule 100 mg PO BID 14 Days Qty: 28 RF: 0 aspirin 81 mg Tablet,Chewable 81 mg PO BID 42 Days Qty: 84 RF: 0 oxycodone 5 mg Tablet 5 mg PO Q4H PRN (Reason: Pain, Moderate (Pain Scale 4-6) 7 Days Qty: 42 RF: 0 Continued famotidine 20 mg Tablet 20 mg PO BID PRN (Reason: Acid Reflux) RF: 0 tamsulosin [Flomax] 0.4 mg Capsule 0.4 mg PO QAM RF: 0 lisinopril 5 mg Tablet 5 mg PO DAILY RF: 0 ascorbic acid (vitamin C) [Vitamin C] 1,000 mg Tablet 1,000 mg PO DAILY RF: 0 rosuvastatin [Crestor] 10 mg Tablet 10 mg PO DAILY RF: 0 cholecalciferol (vitamin D3) [Vitamin D3] 50 mcg (2,000 unit) Capsule 50 mcg PO DAILY RF: 0 Vitamin B-12 50 mcg Tablet 50 mcg PO DAILY RF: 0 montelukast [Singulair] 10 mg Tablet 10 mg PO DAILY PRN (Reason: Wheezing) RF: 0 [facility] Inst[facility] .MEDSUPPLY Qty: 1 RF: 0 Discontinued aspirin [Aspirin Low Dose] 81 mg Tablet,Delayed Release (Dr/Ec) 81 mg PO DAILY RF: 0 Discharge Orders: Discharge Order (Routine); Ordered 08/21/20 Ordered By: Clayton Torres Diet: regular diet Activity on Discharge: Use cane or walker Stand Alone Forms: Patient Portal Discharge page Care Plan Goals: Restore function of joint Health Concerns: none Plan of Treatment: Physical Therapy Pain management DVT prophylaxis Assessment: * Physical Therapy for Total knee arthroplasty: gait training, ROM 0-12, quad strength * Limit stair climbing * No showering, no tub bath-keep dressing clean, dry and intact * No driving x6 weeks * Continue Aspirin twice a day x 6 weeks * Follow up with [facility] Orthopedics in 2 weeks
--- NOTE | 2020-08-21 08:25 | W.MHC.F2F ---
Service Date Service Date: 08/21/20 Reasons for Services Reason for physical therapy: home safety and mobility, therapeutic exercises, restore joint function, gait/transfer training and ADL training Reason for occupational therapy: home safety and mobility, therapeutic exercises, restore joint function, gait/transfer training and ADL training Overseeing Care: Abran Jones Homebound: Leaving the home is medically contraindicated at this time without the asist of a device and/or another person due th the listed conditions above and below. Reason homebound: unsteady gait / fall risk, pain with ambulation, poor balance / fall risk and unable to drive Homebound supporting statement: Pt. is considered home bound due to recent surgery. Unable to drive, poor balance, poor gait mechanics. Certification: Based on the above findings, I certify that this patient is confined to the home and needs intermittent nursing home care, physical therapy and/or speech therapy, or continues to need occupational therapy. The patient is under my care, and I have initiated the establishment of the plan of care. The patient will be followed by a physician who will periodically review the plan of care.
[2020-08-21] MEDS: HYDROmorphone HCl 0.5 MG/0.5 ML SYRINGE 0.25 MG IVPUSH (08:47)
--- NOTE | 2020-08-21 09:03 | MHC.CM.PN ---
NURSE DESKTOP SUPPORT CONSULTANT NOTE ELECTRONIC MEDICAL RECORD REVIEWED ALONG WITH CASE DISCUSSED WITH ORTHOPEDIC SURGICAL PA , MET WITH PATIENT AWARE THAT HE WILL BE DISCHARGED TODAY AND HE WILL STAYING WITH HIS DAUGHTER AND THE ADDRESS WRITTEN IN THE PRIOR NOT TRANSPORTATION FAMILY PCP NAME PATIENT INSTRUCTED TO CALL FOR APPOINTMENT POST HOSPITAL DISCHARGE
--- NOTE | 2020-08-21 09:51 | HO.PM.IMPN ---
Subjective Subjective Date of Service: 08/21/20 Interval History: Patient right leg pain improved after physical therapy, complaining of allergy symptoms due to pollen, denies shortness of breath does not have home O2 or updraft treatments at home. 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 Neck is supple no JVD. CVS regular rate rhythm, Respiratory lungs clear to auscultation, no respiratory distress, no wheeze, no rhonchi. Gastrointestinal abdomen soft, nontender, bowel sounds audible, no guarding , no rigidity. Extremities right knee mild swelling, dressing in place, no peripheral edema . Neuro nonfocal Skin no rash Objective Data Current Medications Generic Name Dose Route Start Last Admin Trade Name Freq PRN Reason Stop Dose Admin Acetaminophen 650 mg 08/19/20 16:54 08/21/20 08:02 Acetaminophen 325 Mg Tablet PO 650 mg Q6H PRN Administration Pain, Mild (Pain Scale 1-3) Aspirin 81 mg 08/20/20 10:00 08/21/20 08:02 Aspirin 81 Mg Tab.Chew PO 81 mg BID DONA Administration Celecoxib 200 mg 08/19/20 21:00 08/21/20 08:02 Celecoxib 200 Mg Capsule PO 200 mg BID DONA Administration Docusate Sodium 100 mg 08/19/20 21:00 08/21/20 08:02 Docusate Sodium 100 Mg Capsule PO 100 mg BID DONA Administration Famotidine 20 mg 08/20/20 08:12 08/21/20 08:02 Famotidine 20 Mg Tablet PO 20 mg BID PRN Administration Acid Reflux Hydromorphone HCl 0.25 mg 08/19/20 16:54 08/21/20 08:47 Hydromorphone Hcl 0.5 Mg/0.5 Ml Syringe IVPUSH 0.25 mg Q4H PRN Administration Pain, Severe (Pain Scale 7-10) Dextrose/Sodium Chloride 1,000 mls @ 80 mls/hr 08/19/20 16:54 08/21/20 05:05 D51/2ns IVCONT 80 mls/hr .[id number] DONA Administration Montelukast Sodium 10 mg 08/19/20 16:54 Montelukast Sodium 10 Mg Tablet PO DAILY PRN Wheezing Naloxone HCl 0.2 mg 08/19/20 16:54 Naloxone Hcl 0.4 Mg/Ml Vial IVPUSH Q2M PRN Excessive sedation or RR < 8 Ondansetron HCl 4 mg 08/19/20 16:54 Ondansetron Hcl 4 Mg/2 Ml Vial IVPUSH Q8H PRN Nausea and Vomiting Oxycodone HCl 5 mg 08/19/20 16:54 08/20/20 16:31 Oxycodone Hcl Immed Release 5 Mg Tablet PO 5 mg Q4H PRN Administration Pain, Moderate (Pain Scale 4-6 Oxycodone HCl 10 mg 08/19/20 21:00 08/21/20 08:02 Oxycodone Hcl Er 10 Mg Tab.Er.12h PO 10 mg BID DONA Administration Sodium Chloride 3 ml 08/19/20 16:54 08/21/20 08:03 0.9 % Sodium Chloride Flush 3 Ml Syringe IVFLUSH Not Given QSHIFT DONA Tamsulosin HCl 0.4 mg 08/20/20 08:15 08/21/20 08:02 Tamsulosin Hcl 0.4 Mg Capsule PO 0.4 mg DAILY DONA Administration Zinc Sulfate 220 mg 08/20/20 09:00 08/21/20 08:02 Zinc Sulfate 220 Mg Capsule PO Not Given DAILY DONA Labs CBC & Chem 7: 08/20/20 06:25 08/21/20 05:56 Assessment and Plan (1) Asthma: Status: Acute (2) Status post unicompartmental knee replacement, right: Status: Acute (3) Hypertension: Status: Acute Assessment and Plan: 59 years old patient with PMH of HTN, HLD, BPH and GERD who presented to the hospital for elective knee surgery. Asthma no acute exacerbation knee noted, history of seasonal allergies recommend to take anti allergy medication and singular Use albuterol inhaler p.r.n. for shortness of breath, recommend incentive spirometry HTN, Elevated blood pressure, will DC IV fluids tolerating diet well, recommend to resume home medication lisinopril 5 mg daily Status post right knee surgery Good pain control continue physical therapy BPH Continue tamsulosin DVT PPX Aspirin per orthopedic team
[2020-08-21 11:19] VITALS: BP 144/78; PULSE 86; RESP 17; TEMP 36.7; O2SAT 95
[2020-08-21] MEDS: oxyCODONE HCl Immed Release 5 MG TABLET PO (14:37)
== END 2020-08-21 14:57 | disposition home health service (06) | DRG 302 ==
LOC: HO.SSSA 11:03 → HO.S3 14:40
PROVIDERS: Physician Assistant; Admitting Provider Orthopaedic Surgery; PCP Internal Medicine Geriatric Medicine; Visit Provider Hospitalist
PROC: 0SRC0L9 Replacement of Right Knee Joint with Medial Unicondylar Synthetic Substitute, Cemented, Open Approach (ICD-10-PCS; CPT 27446; principal; 2020-08-19 12:30)
DX: M17.11 Unilateral primary osteoarthritis, right knee (principal); E78.5 Hyperlipidemia, unspecified; J45.909 Unspecified asthma, uncomplicated; I10 Essential (primary) hypertension; N40.0 Benign prostatic hyperplasia without lower urinary tract symptoms; K21.9 Gastro-esophageal reflux disease without esophagitis; Z20.822 Contact with and (suspected) exposure to COVID-19; Z79.899 Other long term (current) drug therapy
CPT/HCPCS: 36415; 73560; 80048; 85025; 86850; 86900; 86901; 87635; 87640; 87641; 88305; 88311; 97110; 97116; 97161; C1713; C1776; J0690; J1100; J1170; J1885; J2250

== ENCOUNTER → 2020-09-04 13:00 | Outpatient (BNVA) | payer MEDICAID, SELFPAY | PROVIDERS: Visit Provider Physician Assistant | DX: Z47.1 Aftercare following joint replacement surgery (principal); Z96.651 Presence of right artificial knee joint | CPT/HCPCS: 99212 ==

== ENCOUNTER → 2020-10-09 11:41 | Outpatient (BNVA) | payer MEDICAID, SELFPAY | PROVIDERS: PCP Internal Medicine Geriatric Medicine; Visit Provider Orthopaedic Surgery | DX: Z96.651 Presence of right artificial knee joint (principal); M17.11 Unilateral primary osteoarthritis, right knee; I10 Essential (primary) hypertension; E78.00 Pure hypercholesterolemia, unspecified; R73.03 Prediabetes | CPT/HCPCS: 99212 ==

== ENCOUNTER 2020-10-28 10:00 | Outpatient (RCR) | payer MEDICAID, SELFPAY ==
--- NOTE | 2020-09-23 12:34 | MHC.PT.EP ---
[facility] [place] Office [place] Office [place] Office [address] Shasha Smith [address] [phone] F: [phone] F: [phone] F: [phone] F: [phone] Physical Therapy Plan of Care Date of Evaluation: Date of Surgery: 08/19/20 Diagnosis: s/p R UKA Assessment: 59 y/o M s/p R UKA on 08/19/20. Pt received home PT for 4 weeks. 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 Examination shows decreased knee ROM 0-8-120, decreased strength of hip/knee musculature, impaired gait mechanics, edema, and decreased HS/ gastroc length. Recommend PT 2x/week for 5 weeks to address impairments, implement HEP, and optimize functional mobility. Frequency and Duration: The patient will be seen 2x/week for 5 weeks Short Term Goals: 2 weeks: 1. I with HEP 2. Demonstrate 0* R knee extension Dismantler Goals: 5 weeks: 1. I with HEP and self-management of sx 2. Pt will demonstrate step-through pattern ascending/descending stairs 3. Pt will be able to step into/out of bathtub with <3/10 pain with use of grab bars Treatment Plan: Modalities to reduce pain, spasms and effusion. Manual therapy to restore motion and function. Therapeutic exercise to improve strength and flexibility. Neuromuscular re-education for posture and balance. Therapeutic activities to return to functional activities of daily living. Electronically signed by: Razia Paul PT Please sign and return to therapist. Thank you for your referral.
--- NOTE | 2020-10-30 10:35 | MHC.PT.DC ---
[facility] [place] Office [place] Office [place] Office [address] Shasha Smith [address] [phone] F: [phone] F: [phone] F: [phone] F: [phone] Physical Therapy Discharge Report Diagnosis: s/p R UKA Date of Surgery: 08/19/20 Date of Evaluation: 09/23/20 Date of Discharge: 10/30/20 Treatments to Date: 10 Cancellations to Date: 0 No Shows to Date: 0 Discharge Status: Achieved Goals Improved Function Independent with HEP Discharge Summary: Pt is appropriate for d/c secondary to meeting goals, ROM WFL, and I with HEP. Electronically signed by: Razia Paul PT Please sign and return to therapist. Thank you for your referral.
== END 2020-10-30 10:35 | disposition home or self-care (01) ==
LOC: HO.PT 10:00
PROVIDERS: Visit Provider Orthopaedic Surgery
DX: Z96.651 Presence of right artificial knee joint (principal)
CPT/HCPCS: 97110; 97161; 97530

== ENCOUNTER 2020-11-20 08:51 | Outpatient (REF) | payer MEDICAID, SELFPAY ==
--- NOTE | ~2020-11-20 | XR_ITS ---
EXAMINATION: XR KNEE STANDING, BILATERAL XR KNEE, RIGHT CLINICAL INFORMATION: Pain right knee. COMPARISON: None TECHNIQUE: AP bilateral knees standing. Right knee 2 views. FINDINGS: AP BILATERAL KNEE: There is a partial medial compartment prosthesis right knee in normal alignment. There is mild reduction in medial and lateral compartment joint space left knee. No loose bodies seen. RIGHT KNEE: There is mild reduction in the medial compartment joint space right knee with periarticular spurring. There is mild suprapatellar joint effusion. No loose body seen. No bony erosive changes. XR/XR knee RT 2V IMPRESSION: Partial prosthesis medial compartment right knee in alignment. Mild degenerative changes medial and lateral compartment left knee and patellofemoral compartment right knee with mild suprapatellar joint effusion in right knee. No loose body seen.
--- NOTE | ~2020-11-20 | XR_ITS ---
EXAMINATION: XR KNEE STANDING, BILATERAL XR KNEE, RIGHT CLINICAL INFORMATION: Pain right knee. COMPARISON: None TECHNIQUE: AP bilateral knees standing. Right knee 2 views. FINDINGS: AP BILATERAL KNEE: There is a partial medial compartment prosthesis right knee in normal alignment. There is mild reduction in medial and lateral compartment joint space left knee. No loose bodies seen. RIGHT KNEE: There is mild reduction in the medial compartment joint space right knee with periarticular spurring. There is mild suprapatellar joint effusion. No loose body seen. No bony erosive changes. XR/XR knee standing BI IMPRESSION: Partial prosthesis medial compartment right knee in alignment. Mild degenerative changes medial and lateral compartment left knee and patellofemoral compartment right knee with mild suprapatellar joint effusion in right knee. No loose body seen.
== END 2020-11-20 08:52 | disposition home or self-care (01) ==
LOC: HO.HOSX 08:51
PROVIDERS: Visit Provider Orthopaedic Surgery
DX: Z47.1 Aftercare following joint replacement surgery (principal); Z96.651 Presence of right artificial knee joint
CPT/HCPCS: 73560; 73565; 99212

== ENCOUNTER → 2021-02-11 10:36 | Outpatient (BNVA) | payer MEDICAID, SELFPAY | PROVIDERS: PCP Internal Medicine Geriatric Medicine; Referring Provider Internal Medicine Geriatric Medicine; Visit Provider Nurse Practitioner Family | DX: K21.9 Gastro-esophageal reflux disease without esophagitis (principal); Z88.8 Allergy status to other drugs, medicaments and biological substances; Z79.891 Long term (current) use of opiate analgesic; Z79.899 Other long term (current) drug therapy | CPT/HCPCS: 99202 ==

== ENCOUNTER 2021-04-02 08:14 | Day surgery (SDC) | payer MEDICAID, SELFPAY ==
--- NOTE | 2021-04-01 13:15 | P.CONAN_ITS ---
Documented by User: Viri Mccann NP 04/01/21 13:16 HPI - Anesthesia Eval Consult details Narrative: 60yo M for Upper Endoscopy and Colonoscopy s/p TKA 07/2020 with spinal/block PMFSH Active Problems Active Problems: All Active Problems (Updated 08/22/20 @ 00:02 by Javier Hinojosa) Arthritis (Acute) Status post unicompartmental knee replacement, right (Acute) Osteochondral defect of femoral condyle (Acute) Past Medical History Medical History Arthritis Asthma COVID-19 vaccine administered Elevated cholesterol GERD (gastroesophageal reflux disease) Heart murmur History of BPH HTN (hypertension) Hx of varicose veins Hypertension Osteoarthritis of right knee Osteochondral defect of femoral condyle Pre-diabetes Family History Family History Mother No problems noted. Father No problems noted. Family history of problems with anesthesia: No Surgical History Surgical History H/O colonoscopy History of right knee surgery Hx of meniscectomy of right knee History of Problems with Anesthesia: No Social History Social History Household Members: Family Housing: House Are you a primary complex care nurse practitioner to a significant other at home: No Alcohol intake: current Alcohol intake frequency: holidays/special occasions only Patient Tobacco Use Status: Never used Tobacco Use of substances other than those prescribed or required for medical reasons: No Substance Use Type: Marijuana Are you DNR?: No Advance Directives: No Advance Directives Information Provided: Yes service: No Current occupational status: unemployed Current occupation: right handed Meds Allergies Allergy/AdvReac Type Severity Reaction Status Date / Time amlodipine AdvReac Intermediate Nausea Verified 11/20/20 11:00 Home Medications Medication Instructions Recorded Confirmed Last Taken Type famotidine 20 mg tablet 20 mg PO BID PRN 08/14/20 08/19/20 08/19/20 10:30 History lisinopril 5 mg tablet 5 mg PO DAILY 08/14/20 08/19/20 04/02/21 07:00 History tamsulosin 0.4 mg capsule (Flomax) 0.4 mg PO QAM 08/14/20 08/19/20 08/19/20 10:30 History ascorbic acid (vitamin C) 1,000 mg 1,000 mg PO DAILY 08/15/20 08/19/20 08/18/20 09:00 History tablet (Vitamin C) cholecalciferol (vitamin D3) 50 50 mcg PO DAILY 08/15/20 08/19/20 08/18/20 09:00 History mcg (2,000 unit) capsule (Vitamin D3) cyanocobalamin (vitamin B-12) 50 50 mcg PO DAILY 08/15/20 08/19/20 08/18/20 09:00 History mcg tablet (Vitamin B-12) montelukast 10 mg tablet 10 mg PO DAILY PRN 08/15/20 08/19/20 08/09/20 22:00 History (Singulair) rosuvastatin 10 mg tablet (Crestor) 10 mg PO DAILY 08/15/20 08/19/20 08/19/20 09:00 History Exam Exam Date and Time: April 01, 2021 1315 Narrative Narrative: EKG 07/2020 Vent. Rate : 081 BPM ? ? Atrial Rate : 081 BPM ?? P-R Int : 196 ms? QRS Dur : 088 ms ? ? QT Int : 358 ms ? ? ? P-R-T Axes : 054 -15 012 degrees ?? QTc Int : 415 ms ? Normal sinus rhythm Minimal voltage criteria for LVH, may be normal variant Borderline ECG When compared with ECG of 14-DEC-2019 12:32, No significant change was found Assessment and Plan Assessment Anesthesia Assessment: Chart Reviewed Final Anesthetic Review Family History of Problems with Anesthesia: No History of Problems with Anesthesia: No Documented by User: Yesica Martinez MD 04/02/21 09:13 [facility] Past Medical History Medical History Arthritis Asthma COVID-19 vaccine administered Elevated cholesterol GERD (gastroesophageal reflux disease) Heart murmur History of BPH HTN (hypertension) Hx of varicose veins Hypertension Osteoarthritis of right knee Osteochondral defect of femoral condyle Pre-diabetes Family History Family History Mother No problems noted. Father No problems noted. Surgical History Surgical History H/O colonoscopy History of right knee surgery Hx of meniscectomy of right knee Social History Social History Household Members: Family Housing: House Are you a primary complex care nurse practitioner to a significant other at home: No Alcohol intake: current Alcohol intake frequency: holidays/special occasions only Patient Tobacco Use Status: Never used Tobacco Use of substances other than those prescribed or required for medical reasons: No Substance Use Type: Marijuana Are you DNR?: No Advance Directives: No Advance Directives Information Provided: Yes service: No Current occupational status: unemployed Current occupation: right handed Meds Allergies Allergy/AdvReac Type Severity Reaction Status Date / Time amlodipine AdvReac Intermediate Nausea Verified 11/20/20 11:00 Home Medications Medication Instructions Recorded Confirmed Last Taken Type famotidine 20 mg tablet 20 mg PO BID PRN 08/14/20 08/19/20 08/19/20 10:30 History lisinopril 5 mg tablet 5 mg PO DAILY 08/14/20 08/19/20 04/02/21 07:00 History tamsulosin 0.4 mg capsule (Flomax) 0.4 mg PO QAM 08/14/20 08/19/20 08/19/20 10:30 History ascorbic acid (vitamin C) 1,000 mg 1,000 mg PO DAILY 08/15/20 08/19/20 08/18/20 09:00 History tablet (Vitamin C) cholecalciferol (vitamin D3) 50 50 mcg PO DAILY 08/15/20 08/19/20 08/18/20 09:00 History mcg (2,000 unit) capsule (Vitamin D3) cyanocobalamin (vitamin B-12) 50 50 mcg PO DAILY 08/15/20 08/19/20 08/18/20 09:00 History mcg tablet (Vitamin B-12) montelukast 10 mg tablet 10 mg PO DAILY PRN 08/15/20 08/19/20 08/09/20 22:00 History (Singulair) rosuvastatin 10 mg tablet (Crestor) 10 mg PO DAILY 08/15/20 08/19/20 08/19/20 09:00 History Exam Airway Mallampati Class: III TM Dist: >3cm Neck ROM: Full Loose/Missing/Broken Teeth: No Heart: RRR Lungs: CTA Assessment and Plan Assessment Anesthesia Assessment: Anesthesia Plan Discussed Final Anesthetic Review NPO: Yes ASA Class: II Final Preanesthetic Review: Meds/Allgs Chart Reviewed, Consent Obtained/Reviewed and Anes Risks/Benef Reviewed Patient Risk: Low Procedure Risk: Intermediate Anesthetic Plan Anesthetic Plan: MAC: Disposition: Standard PACU
[2021-04-02 08:41] VITALS: BP 138/84; PULSE 96; RESP 16; TEMP 36.8; O2SAT 97; BMI 36.3
[2021-04-02] MEDS: Lactated Ringers 1,000 ML 100 ML IVCONT (08:50)
--- NOTE | 2021-04-02 09:04 | P.HPSUR_ITS ---
Pre-Procedural Eval Section A Date of Service: 04/02/21 Section B Chief Complaint: screening,reflux disease Relevant Family History (Specify if Yes): No Relevant Social History: Other (specify) (THC) Present Medications: see Short Stay Collaborative assessment Medical History: Significant History (Arthritis Asthma COVID-19 vaccine administered Elevated cholesterol GERD (gastroesophageal reflux disease) Heart murmur History of BPH HTN (hypertension) Hx of varicose veins Hypertension Osteoarthritis of right knee Osteochondral defect of femoral condyle Pre- diabetes) History of Previous Operations: Relevant previous surgery/procedure and date(s) (H/O colonoscopy History of right knee surgery Hx of meniscectomy of right knee) Allergies: Allergies Allergy/AdvReac Type Severity Reaction Status Date / Time amlodipine AdvReac Intermediate Nausea Verified 11/20/20 11:00 Review of Systems Sugical H&P ROS: Negative: Constitution, Cardiovascular, Respiratory, Neurological, Psychiatric, Hem-Onc, Allergic/Immunologic, Gastrointestinal, Genitourinary, Musculoskeletal, Integumentary, Endocrine and Eyes/Ears/Nose/Throat Exam Surgical H&P Exam: Normal: HEENT, Normal: Heart, Normal: Lungs, Normal: Extremities, Normal: Abdomen, Normal: Skin and Normal: Neurological Plan Diagnosis/Plan: Unchanged I have reviewed the history and physical and performed a pertinent physical examination on my patient. No changes have occurred unless specified.
--- NOTE | 2021-04-02 09:35 | P.BOP_ITS ---
Brief Operative Note Date of Service: 04/02/21 Pre-op diagnosis: gerd, adn colon screening Post-op diagnosis: same Procedure: see op note Surgeon: Raffi King MD Anesthesia: MAC Was an Training Consultant used for this Procedure?: No Estimated blood loss (mL): 0 Condition: stable Disposition: PACU
--- NOTE | 2021-04-02 09:35 | W.PM.OPN ---
Operative Note Operative Note Date of Service: 04/02/21 Narrative: Operative Information Procedure Description: EGD, Colonoscopy FLEXIBLE TRANSORAL UPPER GASTROINTESTINAL ENDOSCOPY AND COLONOSCOPY PROCEDURE NOTE UPPER ENDOSCOPY Consent: Indications for the procedure and potential complications of bleeding, perforation, reaction to medications and missed diagnosis were discussed with the patient and informed consent was obtained. Instrument: Olympus GIF H 190 J mid size upper endoscope Monitoring: Vital signs and clinical assessment, continuous EKG monitoring, Pulse oximetry, Carbon Dioxide monitoring and blood pressure monitoring were done throughout the procedure. Procedure: The patient was placed in the left lateral decubitis position and pre-procedure medications were administered and a bite block was placed. The endoscope was inserted into the mouth and advanced under direct vision to the third part of duodenum. A careful inspection was made as the upper endoscope was withdrawn including a retroflexed examination of the proximal stomach; Findings and interventions are described below. Findings: Larynx:normal Esophagus: GE junction at 41 cm, diaphragm hiatus at 43 cm, consistent with 2 cm sliding hiatal hernia, bogginess and edema with erythema at GEJ, bx taken as well as random esophagus in separate jars. Stomach: Patchy erythema and linear erosions. Biopsies were obtained. Grade 2 flap valve on retroflexed examination of the cardia. Duodenum: Normal bulb and descending duodenum, Intervention: Biopsies as noted above COLONOSCOPY Instrument: Olympus variable stiffness pediatric scope 190L Colonoscopy Monitoring: Vital signs and clinical assessment, continuous EKG monitoring, Pulse oximetry, Carbon Dioxide monitoring and blood pressure monitoring were done throughout the procedure. Colon withdrawal time was 17 minutes. Procedure: The patient was placed in the left lateral decubitis position and pre-procedure medications were administered. After a digital rectal examination of the ano-rectum, the video colonoscope was inserted into the rectum and advanced through the colon to the cecum/TI. The colonoscope was slowly withdrawn in a retrograde panoramic fashion and the colon mucosa was carefully examined including a retroflexed view of the rectum. Findings and interventions are described below. Procedure Difficulty:moderate, pressure applied RLQ Findings: Terminal Ileum-normal Cecum:normal Ascending Colon:x 3 sessile polyps removed, ranging from 5-12 mm. x 2 removed with forceps and x 1 with cold snare Transverse Colon - x 1 sessile polyp 10 mm removed with cold snare, x 1 small lipoma noted. Descending Colon: x 1 sessile polyp removed with cold snare, 10 mm Sigmoid Colon: normal Rectum: Retroflexion with small internal hemorrhoids, grade I, 10 mm sessile polyp removed with cold snare Anorectum - normal Colon preparation: [place] Bowel Preparation Scale Right colon; 2 Transverse colon: 2 Left colon; 2 (0 = Unprepared colon segment with mucosa not seen due to solid stool that cannot be cleared. 1 = Portion of mucosa of the colon segment seen, but other areas of the colon segment not well seen due to staining, residual stool and/or opaque liquid. 2 = Minor amount of residual staining, small fragments of stool and/or opaque liquid, but mucosa of colon segment seen well. 3 = Entire mucosa of colon segment seen well with no residual staining, small fragments of stool or opaque liquid) Impression and Post Procedure Diagnosis: Endoscopy Findings: esophagitis hiatal hernia gastritis Colonoscopy Findings: polyps internal hemorrhoids Plan: Await Pathology results Repeat Colonoscopy in 1-2 years due to polyp volume or earlier if clinically indicated High fiber diet leaflet avoid straining at stool, epsom salts and sitz bath, anusol supps or cream reflux precautions, if h pylori pos treat Above findings were reviewed with the patient and relevant handouts were provided if indicated.
[2021-04-02 10:12] VITALS: BP 105/64; PULSE 83; RESP 18; TEMP 37.1; O2SAT 97
[2021-04-02 10:30] VITALS: BP 113/71; PULSE 80; RESP 16; TEMP 37.1; O2SAT 96
== END 2021-04-02 11:30 | disposition home or self-care (01) ==
PROVIDERS: PCP Internal Medicine Geriatric Medicine; Visit Provider Internal Medicine Gastroenterology
PROC: (CPT 45385; principal; 2021-04-02 09:20)
DX: Z12.11 Encounter for screening for malignant neoplasm of colon (principal); D12.2 Benign neoplasm of ascending colon; D12.3 Benign neoplasm of transverse colon; D12.8 Benign neoplasm of rectum; K64.0 First degree hemorrhoids; D17.5 Benign lipomatous neoplasm of intra-abdominal organs; K21.9 Gastro-esophageal reflux disease without esophagitis; K29.60 Other gastritis without bleeding; K20.80 Other esophagitis without bleeding; K44.9 Diaphragmatic hernia without obstruction or gangrene; I10 Essential (primary) hypertension; E78.00 Pure hypercholesterolemia, unspecified; J45.909 Unspecified asthma, uncomplicated; R73.03 Prediabetes; Z79.82 Long term (current) use of aspirin; Z79.899 Other long term (current) drug therapy; F12.90 Cannabis use, unspecified, uncomplicated; Z88.8 Allergy status to other drugs, medicaments and biological substances
CPT/HCPCS: 45385; 45380; 43239; 88305; 88342; J2250; J2405

== ENCOUNTER → 2021-04-06 10:04 | Outpatient (BNVA) | payer MEDICAID, SELFPAY | PROVIDERS: PCP Internal Medicine Geriatric Medicine; Visit Provider Orthopaedic Surgery | DX: Z47.1 Aftercare following joint replacement surgery (principal); Z96.651 Presence of right artificial knee joint | CPT/HCPCS: 99212 ==

== ENCOUNTER → 2021-04-16 08:30 | Outpatient (BNVA) | payer MEDICAID, SELFPAY | PROVIDERS: PCP Internal Medicine Geriatric Medicine; Referring Provider Internal Medicine Geriatric Medicine; Visit Provider Nurse Practitioner Family | DX: K21.9 Gastro-esophageal reflux disease without esophagitis (principal); D36.9 Benign neoplasm, unspecified site; Z98.890 Other specified postprocedural states | CPT/HCPCS: 99212 ==

== ENCOUNTER 2021-05-15 11:00 | Outpatient (RCR) | payer MEDICAID, SELFPAY ==
--- NOTE | 2021-04-17 13:00 | MHC.PT.EP ---
[facility] [place] Office [place] Office [place] Office [address] [place] [address] [address] [phone] F: [phone] F: [phone] F: [phone] F: [phone] Physical Therapy Plan of Care Date of Evaluation: Date of Surgery: R UKA 08/20/20 Diagnosis: R TKR (UKA)08/20/20 Assessment: Pt IS 60 YO M REFERRED TO PT FROM [facility] (DR ASHFORD) S/P R UKA 08/20/20. REPORTS HE WAS DOING WELL UNTIL ABOUT 1.5 MONTH AGO WHEN HE STARTED TO FEEL IMBALANCE (Pt ALSO REPORTS HE ALSO FELL AROUND THAT TIME..MISSED A STEP). PRESENTS WITH SIGNIF WEAKNESS IN CALF MMS (?Pt REPORTS HE HAS HERNIATED DISC..?S1 INVOLVEMENT). SLIGHT LLD (L APPEARS LONGER, DECREASED FULL EXTENSION ON R)Pt WITH ANTALGIC GT (NO PF) AND LIMITED SLS BALANCE. SOME DECREASED HIP/CORE STRENGTH. SHOULD BENEFIT FROM PT TO ADDRESS THESE ISSUE WITH LE STRETCH/STRENGTHEN, GT TRNG, BAL TRNG MAY BENEFIT FROM NEURO CONSULT IF NO SIGNIF CHANGE IN CALF STRENGTH/GT NOTED Frequency and Duration: The patient will be seen 2X/WK X 6 WKS Short Term Goals: 1. Pt ABLE TO PERF B HEEL RAISE WITHOUT SUPPORT 2. I HEP WITH DC EX PLAN (Pt TO TRANSITION STRENGTHENING EXS TO GYM) Fdc Goals: 1. DECREASED IMBALANCE FEELING WITH GT REPORTED 2. IMPROVED GT PATTERN (INCREASED PF) 3. IMPROVED LEFI Treatment Plan: Modalities to reduce pain, spasms and effusion. Manual therapy to restore motion and function. Therapeutic exercise to improve strength and flexibility. Neuromuscular re-education for posture and balance. Therapeutic activities to return to functional activities of daily living. Electronically signed by: KIZZY SERRANO PT Please sign and return to therapist. Thank you for your referral.
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
== END 2021-06-11 14:13 | disposition home or self-care (01) ==
LOC: HO.PT 11:00
PROVIDERS: PCP Internal Medicine Geriatric Medicine; Visit Provider Orthopaedic Surgery
DX: Z96.651 Presence of right artificial knee joint (principal)
CPT/HCPCS: 97110; 97116; 97162; 97530; 97535

== ENCOUNTER 2021-06-08 09:23 | Outpatient (REF) | payer MEDICAID, SELFPAY ==
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
== END 2021-06-08 09:24 | disposition home or self-care (01) ==
LOC: HO.SH 09:23
PROVIDERS: Visit Provider Nurse Practitioner
DX: Z01.118 Encounter for examination of ears and hearing with other abnormal findings (principal); H90.3 Sensorineural hearing loss, bilateral; H93.11 Tinnitus, right ear
CPT/HCPCS: 92557; 92567

== ENCOUNTER 2021-08-07 08:56 | Outpatient (REF) | payer MEDICAID, SELFPAY | END 2021-08-07 08:57 | disposition home or self-care (01) | LOC: HO.MRI 08:56 | PROVIDERS: Visit Provider Internal Medicine Geriatric Medicine | DX: Z13.89 Encounter for screening for other disorder (principal) ==

== ENCOUNTER 2021-08-10 07:09 | Outpatient (REF) | payer MEDICAID, SELFPAY ==
--- NOTE | ~2021-08-10 | XR_ITS ---
EXAMINATION: XR knee RT 2V, XR knee standing BI CLINICAL INFORMATION: Reason for Exam M25.569 - Pain in unspecified knee COMPARISON: 11/20/2020 TECHNIQUE: Standing AP view both knees, lateral and sunrise views of the right knee FINDINGS: Status post medial hemiarthroplasty of the right knee. Components in the expected positions. No evidence of hardware failure or complication. Mild narrowing of the medial tibiofemoral compartment joint space on the left. Moderate right patellofemoral compartment marginal osteophytes and small lateral tibiofemoral compartment marginal osteophytes. Small joint effusion. XR/XR knee standing BI IMPRESSION: * No acute fracture or traumatic malalignment. * Stable right medial tibiofemoral compartment hemiarthroplasty. * Small right knee joint effusion. * Degenerative changes as described.
--- NOTE | ~2021-08-10 | XR_ITS ---
EXAMINATION: XR knee RT 2V, XR knee standing BI CLINICAL INFORMATION: Reason for Exam M25.569 - Pain in unspecified knee COMPARISON: 11/20/2020 TECHNIQUE: Standing AP view both knees, lateral and sunrise views of the right knee FINDINGS: Status post medial hemiarthroplasty of the right knee. Components in the expected positions. No evidence of hardware failure or complication. Mild narrowing of the medial tibiofemoral compartment joint space on the left. Moderate right patellofemoral compartment marginal osteophytes and small lateral tibiofemoral compartment marginal osteophytes. Small joint effusion. XR/XR knee RT 2V IMPRESSION: * No acute fracture or traumatic malalignment. * Stable right medial tibiofemoral compartment hemiarthroplasty. * Small right knee joint effusion. * Degenerative changes as described.
== END 2021-08-10 07:10 | disposition home or self-care (01) ==
LOC: HO.HOSX 07:09
PROVIDERS: Visit Provider Orthopaedic Surgery
DX: Z96.651 Presence of right artificial knee joint (principal)
CPT/HCPCS: 73560; 73565; 99212

== ENCOUNTER 2021-10-01 09:28 | Outpatient (REF) | payer MEDICAID, SELFPAY ==
--- NOTE | 2021-10-01 09:30 | EMG_ITS ---
Bilateral tibial and peroneal motor studies were performed. Bilateral superficial peroneal and sural sensory studies were performed. Bilateral tibial H reflexes were obtained and paraspinal muscles were tested with a needle. 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 A formal neurological consultation is recommended for further evaluation and exploration for causes. MD JONATHON Kenyon/MILO / [phone]
== END 2021-10-01 09:29 | disposition home or self-care (01) ==
LOC: HO.NEURO 09:28
PROVIDERS: Visit Provider Internal Medicine Geriatric Medicine
DX: M62.81 Muscle weakness (generalized) (principal)
CPT/HCPCS: 95886; 95911

== ENCOUNTER → 2021-11-03 10:13 | Outpatient (BNVA) | payer MEDICAID, SELFPAY | PROVIDERS: PCP Internal Medicine Geriatric Medicine; Referring Provider Internal Medicine Geriatric Medicine; Visit Provider Nurse Practitioner Family | DX: K21.9 Gastro-esophageal reflux disease without esophagitis (principal); D12.2 Benign neoplasm of ascending colon; D12.3 Benign neoplasm of transverse colon; D12.4 Benign neoplasm of descending colon | CPT/HCPCS: 99212 ==

== ENCOUNTER 2021-11-04 14:55 | Outpatient (REF) | payer MEDICAID, SELFPAY ==
[2021-11-04 16:19] LABS: Erythrocyte Sedimentation Rate 2 MM/HR (0-15)
[2021-11-04 16:38] LABS: Folate 15.7 ng/mL (> or = 4.0); Vitamin B12 582 pg/mL (200-900)
[2021-11-05 13:26] LABS: Lyme Abs Screen <0.90 index
[2021-11-06 22:17] LABS: IgA 213 mg/dL (47-310); IgG 875 mg/dL (600-1640); IgM 29 mg/dL (50-300)
[2021-11-10 14:57] LABS: Anti Nuclear Antibody Pattern Nuclear, Homogeneous; Anti Nuclear Antibody Screen POSITIVE (NEGATIVE); Anti Nuclear Antibody Titer 1:40 titer
== END 2021-11-04 14:56 | disposition home or self-care (01) ==
LOC: HO.LAB 14:55
PROVIDERS: PCP Internal Medicine Geriatric Medicine; Visit Provider Psychiatry & Neurology Neurology
DX: G62.9 Polyneuropathy, unspecified (principal)
CPT/HCPCS: 36415; 82607; 82746; 82784; 85652; 86038; 86039; 86334; 86617; 86618

== ENCOUNTER 2021-11-11 11:02 | Outpatient (REF) | payer MEDICAID, SELFPAY ==
[2021-11-14 16:21] LABS: Arsenic, 24H Urine <10 mcg/L (<=80); Cadmium, 24H Urine <0.5 mcg/L (<=5.0); Lead, 24H Urine <10 mcg/L (<80); Mercury, 24H Urine <4 mcg/L (<=20)
== END 2021-11-11 11:03 | disposition home or self-care (01) ==
LOC: HO.LNP 11:02
PROVIDERS: Visit Provider Psychiatry & Neurology Neurology
DX: G62.9 Polyneuropathy, unspecified (principal)
CPT/HCPCS: 82175; 82300; 83655; 83825

== ENCOUNTER 2022-02-23 10:19 | Outpatient (REF) | payer MEDICAID, SELFPAY | END 2022-02-23 10:20 | disposition home or self-care (01) | LOC: HO.SH 10:19 | PROVIDERS: Visit Provider Internal Medicine Geriatric Medicine | DX: Z13.89 Encounter for screening for other disorder (principal) ==

== ENCOUNTER 2022-03-11 14:49 | Outpatient (REF) | payer MEDICAID, SELFPAY ==
--- NOTE | ~2022-03-11 | XR_ITS ---
EXAMINATION: XR CHEST CLINICAL INFORMATION: Chest pain COMPARISON: Chest radiographs 12/14/2019 TECHNIQUE: 2 views of the chest were obtained. FINDINGS: No pneumothorax or pleural reaction. No subcutaneous emphysema. The lungs are clear and there is no airspace consolidation or groundglass opacity or effusion. Heart size normal. Vascularity normal. The hilar and mediastinal contours are unremarkable. No acute bony abnormality. XR/XR chest 2V IMPRESSION: Unremarkable examination.
== END 2022-03-11 14:50 | disposition home or self-care (01) ==
LOC: HO.XRAY 14:49
PROVIDERS: PCP Family Medicine; Visit Provider Family Medicine
DX: R07.9 Chest pain, unspecified (principal)
CPT/HCPCS: 71046

== ENCOUNTER → 2022-04-21 09:29 | Outpatient (BNVA) | payer MEDICAID, SELFPAY | PROVIDERS: PCP Internal Medicine Geriatric Medicine; Visit Provider Urology | DX: N52.9 Male erectile dysfunction, unspecified (principal) | CPT/HCPCS: 99202 ==

== ENCOUNTER 2022-06-09 09:22 | Outpatient (REF) | payer MEDICAID, SELFPAY | END 2022-06-09 09:23 | disposition home or self-care (01) | LOC: HO.SH 09:22 | PROVIDERS: Visit Provider Internal Medicine Geriatric Medicine | DX: Z01.118 Encounter for examination of ears and hearing with other abnormal findings (principal); H90.3 Sensorineural hearing loss, bilateral; H93.11 Tinnitus, right ear | CPT/HCPCS: 92557 ==

== ENCOUNTER → 2022-07-05 10:06 | Outpatient (BNVA) | payer MEDICAID, SELFPAY | PROVIDERS: PCP Internal Medicine Geriatric Medicine; Visit Provider Nurse Practitioner Family | DX: K21.9 Gastro-esophageal reflux disease without esophagitis (principal); Z79.899 Other long term (current) drug therapy | CPT/HCPCS: 99212 ==

== ENCOUNTER 2022-07-18 07:33 | Emergency (ER) | payer MEDICAID, SELFPAY ==
--- NOTE | ~2022-07-18 | XR_ITS ---
EXAMINATION: XR CHEST CLINICAL INFORMATION: Chest discomfort. COMPARISON: 03/11/2022 chest radiographs. TECHNIQUE: Frontal view of the chest was obtained. FINDINGS: No significant abnormality is noted involving the heart, lungs, mediastinum, bony thorax or soft tissues. XR/XR chest 1V IMPRESSION: No acute cardiopulmonary process.
--- NOTE | 2022-07-18 07:37 | ECG_ITS ---
Test Reason : Chest Pain Blood Pressure : / mmHG Vent. Rate : 078 BPM Atrial Rate : 078 BPM P-R Int : 194 ms QRS Dur : 096 ms QT Int : 368 ms P-R-T Axes : 042 -19 008 degrees QTc Int : 419 ms Normal sinus rhythm Minimal voltage criteria for LVH, may be normal variant ( R in aVL ) Borderline ECG When compared with ECG of 17-JUL-2020 10:14, No significant change was found Referred By: Generic ED Physician Electronically Signed By:ATIF MEEK
[2022-07-18 07:40] VITALS: BP 153/79; PULSE 75; RESP 19; TEMP 36.6; O2SAT 98; BMI 36.6
[2022-07-18 07:46] VITALS: BP 146/81; PULSE 77; RESP 20; O2SAT 95
[2022-07-18 09:27] LABS: MANUAL DIFF FLAG NO
[2022-07-18 09:28] LABS: Basophils Percent Auto 0.7 % (0-2); Eosinophils Absolute Auto 0.1 X10*3/uL (0.0-0.4); Eosinophils Percent Auto 2.4 % (0-4); Hematocrit 44.4 % (42.0-52.0); Hemoglobin 14.9 g/dl (14.0-18.0); Imm Gran Abs Auto 0.01 X10*3/uL (0.00-0.03); Imm Gran Pct Auto 0.2 % (0.0-0.4); Lymphocytes Absolute Auto 1.3 X10*3/uL (1.2-4.9); Lymphocytes Percent Auto 32.2 % (20-40); Mean Corpuscular HGB Conc 33.6 g/dl (31.0-36.0); Mean Corpuscular Hemoglobin 30.8 pg (27.0-33.0); Mean Corpuscular Volume 91.9 fL (80.0-98.0); Mean Platelet Volume 9.1 fL (9.4-12.4); Monocytes Absolute Auto 0.4 X10*3/uL (0.1-1.2); Monocytes Percent Auto 10.2 % (2-11); Neutrophils Absolute Auto 2.2 x10*3/uL (2.0-8.3); Neutrophils Percent Auto 54.3 % (45-73); Platelet Count 234 X10*3/uL (160-400); Red Blood Count 4.83 X10*6/uL (4.60-5.80); Red Cell Distribution Width 13.2 % (11.0-16.0); White Blood Count 4.1 X10*3/uL (4.8-10.8)
[2022-07-18 09:36] LABS: D Dimer High Sensitivity < 150 NG/ML
[2022-07-18 09:42] LABS: Alanine Aminotransferase 38 U/L (0-40); Albumin Level 4.6 g/dL (3.5-5.0); Alkaline Phosphatase 89 U/L (39-117); Anion Gap 11 (12-20); Aspartate Amino Transferase 23 U/L (5-37); Bilirubin Total 1.4 mg/dL (0.0-1.0); Blood Urea Nitrogen 12 mg/dL (9-16); Calcium 9.6 mg/dL (8.4-10.2); Carbon Dioxide 27 mmol/L (22-29); Chloride 107 mmol/L (96-108); Estimated Glomerular Filt Rate > 60; Glucose Random 112 mg/dL (60-115); Magnesium 2.1 mg/dL (1.6-2.6); Potassium 4.6 mmol/L (3.3-5.1); Sodium 140 mmol/L (135-145); Total Protein 6.6 g/dL (6.5-8.0)
[2022-07-18 09:49] LABS: Troponin-I High Sensitivity < 2.7 ng/L (<3.5-35.0)
--- NOTE | 2022-07-18 10:10 | PC.NURSE ---
pt AOx3, reporting intermiitant upper back and neck pain that radiates to his chest, tender on palpation. cardiac rn on, vitals stable.
--- NOTE | 2022-07-18 10:15 | ED_ITS ---
HPI - General Adult General Chief complaint: General Medical Stated complaint: HBP/Neck pain & Chest pain Time Seen by Provider: 07/18/22 08:11 Source: patient Mode of arrival: ambulatory Limitations: language barrier History of Present Illness HPI narrative: 61-year-old male with a past medical history GERD, HTN, known cardiac murmur, arthritis, and asthma presents to the emergency department with complaints of right-sided neck and anterior shoulder pain radiating into his right chest since Tuesday. He describes the pain as an ache that is reproducible with palpation, 3/10 on the pain score. He denies taking any talk-eqw-[id number] analgesics to manage chest discomfort. He is unaware of any known trauma, injury, or strenuous activity that could have caused discomfort. He denies any upper respiratory symptoms such as cough, nasal congestion, rhinorrhea fever, chills. He otherwise denies shortness of breath, nausea, vomiting, diarrhea, constipation, melena, hematochezia, headache, vision changes, paresthesias, or weakness. Pertinent positives and negatives discussed in HPI. Related Data Home Medications Medication Instructions Recorded Confirmed lisinopril 5 mg tablet 5 mg PO DAILY 08/14/20 08/19/20 tamsulosin 0.4 mg capsule (Flomax) 0.4 mg PO QAM 08/14/20 08/19/20 ascorbic acid (vitamin C) 1,000 mg 1,000 mg PO DAILY 08/15/20 08/19/20 tablet (Vitamin C) cholecalciferol (vitamin D3) 50 50 mcg PO DAILY 08/15/20 08/19/20 mcg (2,000 unit) capsule (Vitamin D3) cyanocobalamin (vitamin B-12) 50 50 mcg PO DAILY 08/15/20 08/19/20 mcg tablet (Vitamin B-12) montelukast 10 mg tablet 10 mg PO DAILY PRN Wheezing 08/15/20 08/19/20 (Singulair) rosuvastatin 10 mg tablet (Crestor) 10 mg PO DAILY 08/15/20 08/19/20 lisinopril 10 mg tablet 10 mg PO DAILY 04/21/22 Previous Rx's Medication Instructions Recorded walker #1 ea 07/17/20 acetaminophen 325 mg tablet 650 mg PO Q6H PRN Pain, Mild (Pain 08/21/20 Scale 1-3) 30 days #240 tabs aspirin 81 mg chewable tablet 81 mg PO BID 42 days #84 tabs 08/21/20 docusate sodium 100 mg capsule 100 mg PO BID 14 days #28 caps 08/21/20 hydrocortisone 2.5 % topical cream 1 appl [place] BID-QID PRN hemorrhoids 04/16/21 with perineal applicator #30 grams (Proctosol HC) omeprazole 40 mg capsule,delayed 40 mg PO DAILY #90 caps 07/05/22 release Allergies Allergy/AdvReac Type Severity Reaction Status Date / Time amlodipine AdvReac Intermediate Nausea Verified 07/18/22 07:40 Review of Systems Review of Systems: Yes all other systems are reviewed and are negative PMFSH Past Medical History Attestation statement: The following information was validated with the patient. Source: old records reviewed and nursing notes reviewed Medical History Arthritis Asthma COVID-19 vaccine administered Elevated cholesterol GERD (gastroesophageal reflux disease) Heart murmur History of BPH HTN (hypertension) Hx of varicose veins Hypertension Osteoarthritis of right knee Osteochondral defect of femoral condyle Pre-diabetes Surgical History H/O colonoscopy History of esophagogastroduodenoscopy (EGD) History of right knee surgery Hx of meniscectomy of right knee Family History Family History Mother No problems noted. Father No problems noted. Social History Social History Household Members: Family Housing: House Are you a primary primary care nurse practitioner to a significant other at home: No Alcohol intake: never Patient Tobacco Use Status: Never used Tobacco Smoked in Last 30 Days: No Use of substances other than those prescribed or required for medical reasons: No Substance Use Type: Marijuana Advance Directives: No Advance Directives Information Provided: No service: No Current occupational status: unemployed Current occupation: right handed Physical Exam ED Vital Signs: Vital Signs - 24 hr 07/18/22 07:40 07/18/22 07:46 07/18/22 10:52 Temperature 98 F 98.3 F Pulse Rate 75 77 75 Respiratory Rate 19 20 23 H Blood Pressure 153/79 H 146/81 H 144/79 H Pulse Oximetry 98 95 96 Oxygen Delivery Method Room Air Room Air Room Air 07/18/22 11:15 Temperature Pulse Rate 78 Respiratory Rate Blood Pressure 141/81 H Pulse Oximetry 96 Oxygen Delivery Method BMI result Body Mass Index 36.6 Nursing notes and vital signs reviewed. GENERAL APPEARANCE: A&0 x 4, generally well appearing, no acute distress HENMT: Normal to inspection, atraumatic, face symmetrical. Normal external ears, nose, and oropharynx clear. EYE: PERRLA, EOM intact, structures appear normal NECK: Supple without lymphadenopathy. No stiffness or restricted ROM. CHEST: Normal to inspection, right chest tender with palpation HEART: Normal rate and regular rhythm, normal S1/S2, no M/R/G LUNGS: LS CTA, moving air well. Able to speak in complete sentences. No crackles, wheezes, or rhonchi auscultated ABDOMEN: Soft, nontender, nondistended. Normal bowel sounds noted BACK: No CVAT, no obvious deformity EXTREMITIES: Moving all extremities without difficulty. No cyanosis, clubbing, or edema. Normal capillary refill. NEUROLOGICAL: Alert and oriented, moving all 4 extremities with equal strength. CN not formally tested but appearing grossly intact. Observed to ambulate with normal gait. Cognition normal SKIN: Warm and dry without any lesions, rash, or visible sores PSYCH: Cooperative, normal affect, normal thought process Medical Decision Making Medical Decision Making MDM Narrative: 0900: Old records reviewed for previous imaging, lab studies, ECGs, or notes. Patient was assessed the emergency department. No acute distress or toxicity noted. Patient is A&O x4, LS CTA, KAUR x4 with good strength. Based on HPI and PE plan for CXR in blood work including troponin and D-dimer. EKG completed prior to patient cyst min. A have independently interpreted this EKG is normal sinus rhythm at 70 beats per minute with no signs of acute ischemic changes. When compared to previous EKG done on 07/18/2020 no significant changes noted. 0940: I have independently interpreted the chest x-ray as negative for acute cardiopulmonary processes. 1030: Hematology showing slight leukopenia with WBC is 4.1, otherwise unremarkable without signs of anemia or thrombocytopenia. Chemistries showing slight elevation in total bilirubin. Troponin less than 2.7. Heart score 2 indicating low risk of major adverse cardiac event. D-dimer less than 150. Wells score for PE low risk. Based on heart score and wells score, no further workup needed for cardiac event or PE. Patient is safe for discharge at this time with plan for [id number] Tylenol and/or NSAID such as ibuprofen or naproxen for fever/discomfort with dosing as per packaging. HPI, PE, diagnostics, and plan discussed with patient with no unanswered questions at this time. Strict return precautions given to return to the emergency department with new, worsening, or concerning emergent symptoms. Recommended to follow-up with there primary care provider in 24-48 hours for further treatment and management. Differential Diagnosis Differential Diagnoses: The differential diagnosis associated with the presentation includes Atypical chest pain Admission/Observation Consideration of admission/observation: Escalation of care including admission/observation considered Based on HPI, PE, and diagnostics admission was considered been deemed unnecessary at this time. Lab Data MDM Lab Attestation statement: I reviewed the patient's lab results. 07/18/22 09:07/18/22 09:23 Labs: Lab Results 07/18/22 07/18/22 07/18/22 Range/Units 09:23 09:23 09:23 WBC 4.1 L (4.8-10.8) X10*3/uL RBC 4.83 (4.60-5.80) X10*6/uL Hgb 14.9 (14.0-18.0) g/dl Hct 44.4 (42.0-52.0) % MCV 91.9 (80.0-98.0) fL MCH 30.8 (27.0-33.0) pg MCHC 33.6 (31.0-36.0) g/dl RDW 13.2 (11.0-16.0) % Plt Count 234 (160-400) X10*3/uL MPV 9.1 L (9.4-12.4) fL Immature Gran % (Auto) 0.2 (0.0-0.4) % Neut % (Auto) 54.3 (45-73) % Lymph % (Auto) 32.2 (20-40) % [place] % (Auto) 10.2 (2-11) % Eos % (Auto) 2.4 (0-4) % Baso % (Auto) 0.7 (0-2) % Lymph # (Auto) 1.3 (1.2-4.9) X10*3/uL [place] # (Auto) 0.4 (0.1-1.2) X10*3/uL Eos # (Auto) 0.1 (0.0-0.4) X10*3/uL Baso # (Auto) 0.0 (0.0-0.2) X10*3/uL Abs Immat Gran (auto) 0.01 (0.00-0.03) X10*3/uL Absolute Neuts (auto) 2.2 (2.0-8.3) x10*3/uL Absolute Nucleated RBC 0.000 (0.0-0.012) X10*3/uL Nucleated RBC % (auto) 0.0 (0.0-0.2) /100WBC D-Dimer High Sensitivty < 150 NG/ML Sodium 140 (135-145) mmol/L Potassium 4.6 (3.3-5.1) mmol/L Chloride 107 (96-108) mmol/L Carbon Dioxide 27 (22-29) mmol/L Anion Gap 11 L (12-20) BUN 12 (9-16) mg/dL Creatinine 0.71 (0.5-1.4) mg/dL Estim Creat Clear Calc 135.0 Estimated GFR > 60 Random Glucose 112 (60-115) mg/dL Calcium 9.6 D (8.4-10.2) mg/dL Magnesium 2.1 (1.6-2.6) mg/dL Total Bilirubin 1.4 H (0.0-1.0) mg/dL AST 23 (5-37) U/L ALT 38 (0-40) U/L Alkaline Phosphatase 89 (39-117) U/L Troponin I High Sens (<3.5-35.0) ng/L Total Protein 6.6 (6.5-8.0) g/dL Albumin 4.6 (3.5-5.0) g/dL 07/18/22 Range/Units 09:23 WBC (4.8-10.8) X10*3/uL RBC (4.60-5.80) X10*6/uL Hgb (14.0-18.0) g/dl Hct (42.0-52.0) % MCV (80.0-98.0) fL MCH (27.0-33.0) pg MCHC (31.0-36.0) g/dl RDW (11.0-16.0) % Plt Count (160-400) X10*3/uL MPV (9.4-12.4) fL Immature Gran % (Auto) (0.0-0.4) % Neut % (Auto) (45-73) % Lymph % (Auto) (20-40) % [place] % (Auto) (2-11) % Eos % (Auto) (0-4) % Baso % (Auto) (0-2) % Lymph # (Auto) (1.2-4.9) X10*3/uL [place] # (Auto) (0.1-1.2) X10*3/uL Eos # (Auto) (0.0-0.4) X10*3/uL Baso # (Auto) (0.0-0.2) X10*3/uL Abs Immat Gran (auto) (0.00-0.03) X10*3/uL Absolute Neuts (auto) (2.0-8.3) x10*3/uL Absolute Nucleated RBC (0.0-0.012) X10*3/uL Nucleated RBC % (auto) (0.0-0.2) /100WBC D-Dimer High Sensitivty NG/ML Sodium (135-145) mmol/L Potassium (3.3-5.1) mmol/L Chloride (96-108) mmol/L Carbon Dioxide (22-29) mmol/L Anion Gap (12-20) BUN (9-16) mg/dL Creatinine (0.5-1.4) mg/dL Estim Creat Clear Calc Estimated GFR Random Glucose (60-115) mg/dL Calcium (8.4-10.2) mg/dL Magnesium (1.6-2.6) mg/dL Total Bilirubin (0.0-1.0) mg/dL AST (5-37) U/L ALT (0-40) U/L Alkaline Phosphatase (39-117) U/L Troponin I High Sens < 2.7 (<3.5-35.0) ng/L Total Protein (6.5-8.0) g/dL Albumin (3.5-5.0) g/dL Independent Interpretation I performed an independent interpretation of an: Plain X-Ray Radiology Impression Discussion of test interpretation with radiology: I have reviewed the radiologist's reading. Discharge Plan Discharge Clinical Impression: Atypical chest pain Patient Disposition: Home, Self-Care Instructions: Noncardiac Chest Pain (ED), Chest Wall Pain (ED) Additional Instructions: Your seen in the emergency department for concerns of chest pain. Your blood work showed no signs of blood clots or cardiac muscle damage. Her EKG was normal with no signs heart attack. Your chest x-ray was normal with no signs of infection or abnormalities. Your chest pain is most likely due to a muscle/skeletal strain as your pain can be reproduced when touching your chest. You are safe for discharge at this time with plan for management of fever or discomfort with [id number] Tylenol and/or NSAID such as ibuprofen or naproxen with dosing as per packaging. Please return to the emergency department with new, worsening, or concerning emergent symptoms. Recommended to follow-up with your primary care provider in 24-48 hours for further treatment and management. Thank you for choosing [facility]. Prescriptions: No Action tamsulosin [Flomax] 0.4 mg Capsule 0.4 mg PO QAM lisinopril 5 mg Tablet 5 mg PO DAILY ascorbic acid (vitamin C) [Vitamin C] 1,000 mg Tablet 1,000 mg PO DAILY rosuvastatin [Crestor] 10 mg Tablet 10 mg PO DAILY cholecalciferol (vitamin D3) [Vitamin D3] 50 mcg (2,000 unit) Capsule 50 mcg PO DAILY Vitamin B-12 50 mcg Tablet 50 mcg PO DAILY montelukast [Singulair] 10 mg Tablet 10 mg PO DAILY PRN (Reason: Wheezing) acetaminophen 325 mg Tablet 650 mg PO Q6H PRN (Reason: Pain, Mild (Pain Scale 1-3)) 30 Days Qty: 240 0RF docusate sodium 100 mg Capsule 100 mg PO BID 14 Days Qty: 28 0RF aspirin 81 mg Tablet,Chewable 81 mg PO BID 42 Days Qty: 84 0RF (DME) [facility] [place]MEDSUPPLY Qty: 1 0RF Rx Instructions: Nick Front wheeled walker omeprazole 40 mg capsule,delayed release(DR/EC) 40 mg PO DAILY Qty: 90 3RF lisinopril 10 mg tablet 10 mg PO DAILY hydrocortisone [Proctosol HC] 2.5 % cream with perineal applicator 1 appl [place] BID-QID PRN (Reason: hemorrhoids) Qty: 30 0RF Referrals: Name,MD Irvin [Primary Care Provider] - Interventions: ED Discharge Assessment Last Done: 07/18/22 11:17 Print Language: Kazakh
[2022-07-18 10:52] VITALS: BP 144/79; PULSE 75; RESP 23; TEMP 36.8; O2SAT 96
[2022-07-18 11:15] VITALS: BP 141/81; PULSE 78; O2SAT 96
== END 2022-07-18 11:17 | disposition home or self-care (01) ==
PROVIDERS: Nurse Practitioner Family; Emergency Provider Emergency Medicine Emergency Medical Services; PCP Internal Medicine Geriatric Medicine
DX: R07.89 Other chest pain (principal); M54.2 Cervicalgia; I10 Essential (primary) hypertension; Z79.899 Other long term (current) drug therapy
CPT/HCPCS: 36415; 71045; 80053; 83735; 84484; 85025; 85379; 93005; 99284

== ENCOUNTER 2022-09-30 07:53 | Outpatient (REF) | payer MEDICAID, SELFPAY | END 2022-09-30 07:54 | disposition home or self-care (01) | LOC: HO.MAMMO 07:53 | PROVIDERS: PCP Family Medicine; Visit Provider Family Medicine | DX: Z13.820 Encounter for screening for osteoporosis (principal); I73.9 Peripheral vascular disease, unspecified; M85.89 Other specified disorders of bone density and structure, multiple sites | CPT/HCPCS: 77080; 93923; 93925 ==

== ENCOUNTER 2022-10-01 09:11 | Emergency (ER) | payer MEDICAID, SELFPAY ==
[2022-10-01 10:18] VITALS: BP 129/73; PULSE 68; RESP 16; TEMP 36.6; O2SAT 96; BMI 36.7
--- NOTE | 2022-10-01 10:29 | PC.NURSE ---
pt alert and oriented, vss, ic designer custom used for inital assessment, pt states that he has a 7/10 pain in the right side of his neck as well as the inside of his right ear, call neville placed within reach.
--- NOTE | 2022-10-01 10:33 | ED.GENADULT ---
HPI - General Adult General Chief complaint: General Medical Stated complaint: neck pain 1x week Time Seen by Provider: 10/01/22 09:29 History of Present Illness HPI narrative: Patient is a 61-year-old male with a history of right-sided neck pain. The pain is been ongoing. Patient denies any fever chills. No chest pain or shortness of breath. The pain is worse with movement. There is no pain on flexion of the neck. Pain is way worse with turning his head to the left and right. Been seen for the same pain at [facility] for the last week. Patient initially had some earache as well. Was given amoxicillin. State that the antibiotic and medication was not helping. Came to the ED for further evaluation. Related Data Home Medications Medication Instructions Recorded Confirmed lisinopril 5 mg tablet 5 mg PO DAILY 08/14/20 08/19/20 tamsulosin 0.4 mg capsule (Flomax) 0.4 mg PO QAM 08/14/20 08/19/20 ascorbic acid (vitamin C) 1,000 mg 1,000 mg PO DAILY 08/15/20 08/19/20 tablet (Vitamin C) cholecalciferol (vitamin D3) 50 50 mcg PO DAILY 08/15/20 08/19/20 mcg (2,000 unit) capsule (Vitamin D3) cyanocobalamin (vitamin B-12) 50 50 mcg PO DAILY 08/15/20 08/19/20 mcg tablet (Vitamin B-12) montelukast 10 mg tablet 10 mg PO DAILY PRN Wheezing 08/15/20 08/19/20 (Singulair) rosuvastatin 10 mg tablet (Crestor) 10 mg PO DAILY 08/15/20 08/19/20 lisinopril 10 mg tablet 10 mg PO DAILY 04/21/22 Previous Rx's Medication Instructions Recorded walker #1 ea 07/17/20 acetaminophen 325 mg tablet 650 mg PO Q6H PRN Pain, Mild (Pain 08/21/20 Scale 1-3) 30 days #240 tabs aspirin 81 mg chewable tablet 81 mg PO BID 42 days #84 tabs 08/21/20 docusate sodium 100 mg capsule 100 mg PO BID 14 days #28 caps 08/21/20 hydrocortisone 2.5 % topical cream 1 appl [place] BID-QID PRN hemorrhoids 04/16/21 with perineal applicator #30 grams (Proctosol HC) omeprazole 40 mg capsule,delayed 40 mg PO DAILY #90 caps 07/05/22 release cyclobenzaprine 10 mg tablet 10 mg PO TID PRN pain #14 tabs 10/01/22 Allergies Allergy/AdvReac Type Severity Reaction Status Date / Time amlodipine AdvReac Intermediate Nausea Verified 10/01/22 10:10 Review of Systems Review of Systems: Positive pain to the right neck Yes all other systems are reviewed and are negative [facility] Past Medical History Attestation statement: The following information was validated with the patient. Medical History Arthritis Asthma COVID-19 vaccine administered Elevated cholesterol GERD (gastroesophageal reflux disease) Heart murmur History of BPH HTN (hypertension) Hx of varicose veins Hypertension Osteoarthritis of right knee Osteochondral defect of femoral condyle Pre-diabetes Surgical History H/O colonoscopy History of esophagogastroduodenoscopy (EGD) History of right knee surgery Hx of meniscectomy of right knee Family History Family History Mother No problems noted. Father No problems noted. Social History Social History Household Members: Family Housing: House Are you a primary day care aide to a significant other at home: No Alcohol intake: never Patient Tobacco Use Status: Never used Tobacco Smoked in Last 30 Days: No Use of substances other than those prescribed or required for medical reasons: No Substance Use Type: Marijuana Advance Directives: No service: No Current occupational status: unemployed Current occupation: right handed Physical Exam ED Vital Signs: Vital Signs - 24 hr 10/01/22 10:18 Temperature 97.9 F Pulse Rate 68 Respiratory Rate 16 Blood Pressure 129/73 Pulse Oximetry 96 Oxygen Delivery Method Room Air BMI result Body Mass Index 36.7 Appearance: Alert. Oriented X3. No acute distress. Eyes: Pupils equal, round and reactive to light. ENT: Pharynx normal. TMs intact bilaterally. Light reflex present bilaterally. There is pain in the sternocleidomastoid muscle on the right side. There is no spinal tenderness elicited. The neck was supple. Neck: Normal inspection. Neck supple. No lymph nodes noted. No crepitus CVS: Normal heart rate and rhythm. Pulses normal. Normal S1 and S2 Respiratory: No respiratory distress. Breath sounds normal. No Wheezing. No rales Abdomen: Soft and nontender. No rigidity. No distention. good BS x4 Skin: Skin warm and dry. Normal skin color. Normal skin turgor. Extremities: No lower extremity edema. Neurovascular intact to all extremities. No Lacerations. No Rash Neuro: Oriented X 3. No motor deficit. No sensory deficit. Moving all extermities. No slurred speech Medical Decision Making Medical Decision Making MDM Narrative: Patient has symptoms consistent with torticollis. Will give some muscle relaxant. Patient has a long history of gastritis will try to avoid giving patient NSAIDs as patient has been getting worse reflux while being on NSAIDs. Small meals. In stable condition. Follow up on an outpatient basis Differential Diagnosis Otitis media, torticollis, meningitis Prescription Management I considered prescription management with: Pain Medication Discharge Plan Discharge Clinical Impression: Torticollis Patient Disposition: Home, Self-Care Instructions: Neck Pain (ED) Prescriptions: New cyclobenzaprine 10 mg tablet 10 mg PO TID PRN (Reason: pain) Qty: 14 0RF No Action tamsulosin [Flomax] 0.4 mg Capsule 0.4 mg PO QAM lisinopril 5 mg Tablet 5 mg PO DAILY ascorbic acid (vitamin C) [Vitamin C] 1,000 mg Tablet 1,000 mg PO DAILY rosuvastatin [Crestor] 10 mg Tablet 10 mg PO DAILY cholecalciferol (vitamin D3) [Vitamin D3] 50 mcg (2,000 unit) Capsule 50 mcg PO DAILY Vitamin B-12 50 mcg Tablet 50 mcg PO DAILY montelukast [Singulair] 10 mg Tablet 10 mg PO DAILY PRN (Reason: Wheezing) acetaminophen 325 mg Tablet 650 mg PO Q6H PRN (Reason: Pain, Mild (Pain Scale 1-3)) 30 Days Qty: 240 0RF docusate sodium 100 mg Capsule 100 mg PO BID 14 Days Qty: 28 0RF aspirin 81 mg Tablet,Chewable 81 mg PO BID 42 Days Qty: 84 0RF (DME) walker Misc See Rx Instructions .MEDSUPPLY Qty: 1 0RF Rx Instructions: Folding Front wheeled walker omeprazole 40 mg capsule,delayed release(DR/EC) 40 mg PO DAILY Qty: 90 3RF lisinopril 10 mg tablet 10 mg PO DAILY hydrocortisone [Proctosol HC] 2.5 % cream with perineal applicator 1 appl [place] BID-QID PRN (Reason: hemorrhoids) Qty: 30 0RF Referrals: Carmina Narayan MD [Primary Care Provider] - 10/04/22 Print Language: Russian
== END 2022-10-01 11:37 | disposition home or self-care (01) ==
PROVIDERS: Emergency Provider Emergency Medicine Emergency Medical Services; PCP Family Medicine
DX: M43.6 Torticollis (principal); M54.2 Cervicalgia; Z79.899 Other long term (current) drug therapy
CPT/HCPCS: 99283; 99284

== ENCOUNTER 2022-10-04 16:11 | Outpatient (REF) | payer MEDICAID, SELFPAY ==
--- NOTE | ~2022-10-04 | XR_ITS ---
EXAMINATION: XR CERVICAL SPINE CLINICAL INFORMATION: Right-sided neck pain for one week and headaches COMPARISON: None available. TECHNIQUE: 6 views of the cervical spine, inclusive of flexion and extension views, were obtained. FINDINGS: Despite swimmer's view, there is still inadequate evaluation of C7. Mild vertebral body height losses of C5 and C6 likely degenerative. C5-C6 disc space narrowing is seen. Moderately severe C5-C6 neuroforaminal narrowings are seen, right greater than left. Odontoid is intact, posterior elements are aligned and no prevertebral soft tissue swelling is seen. XR/XR cervical spine 5V IMPRESSION: C5-C6 disc space narrowing and bilateral moderately severe C5-C6 neuroforaminal narrowings.
== END 2022-10-04 16:12 | disposition home or self-care (01) ==
LOC: HO.HHCX 16:11
PROVIDERS: Visit Provider Family Medicine
DX: R51.9 Headache, unspecified (principal); M54.2 Cervicalgia
CPT/HCPCS: 72050

== ENCOUNTER 2022-10-05 15:11 | Inpatient (IN) | payer MEDICAID, SELFPAY ==
--- NOTE | ~2022-10-05 | XR_ITS ---
EXAMINATION: XR CHEST CLINICAL INFORMATION: Shortness of breath. COMPARISON: Chest radiograph 07/18/2022. TECHNIQUE: Frontal view of the chest was obtained. FINDINGS: Stable prominence of the cardiomediastinal silhouette. Diffuse interstitial thickening, not significantly changed. No new focal airspace opacity, pleural effusion or pneumothorax. No acute osseous findings. The visualized upper abdomen is within normal limits. XR/XR chest 1V IMPRESSION: Mild chronic interstitial thickening, not significantly changed. No acute cardiopulmonary findings.
--- NOTE | ~2022-10-05 | CT_ITS ---
EXAMINATION: CT ABDOMEN AND PELVIS WITH CONTRAST CLINICAL INFORMATION: Hypotension, UTI COMPARISON: None available. TECHNIQUE: Multidetector volumetric images were obtained from the superior aspect of the liver through the pubic symphysis following administration 85 mL of Omnipaque 350 intravenous contrast. Sagittal and coronal reformatted images were obtained on the technologist's workstation. Oral contrast: No This CT examination was performed using dose optimization techniques as appropriate, variously including the following: *Automated exposure control *Adjustment of mA and/or kV according to patient size (this includes techniques or standardized protocols for targeted exams where dose is matched to indication/reason for exam; i.e. extremities or head) *Use of iterative reconstruction technique DLP: 2274 mGy-cm FINDINGS: LUNG BASES: Dependent bibasilar atelectasis. LIVER, GALLBLADDER, AND BILIARY TREE: The liver is normal in size, shape, and attenuation. No focal hepatic lesion or biliary ductal dilatation is present. The gallbladder is unremarkable with no evidence of radiopaque gallstones, gallbladder wall thickening, or obvious pericholecystic inflammatory changes. PANCREAS: Unremarkable. SPLEEN: Unremarkable. ADRENAL GLANDS: Unremarkable. KIDNEYS AND URETERS: No hydronephrosis or obstructing calculus identified bilaterally. A few tiny bilateral renal calculi are noted. Small hypoattenuating focus in the right kidney statistically favors a cyst; no follow-up recommended. Bilateral nephrograms appear symmetric, and there is bilateral perinephric stranding. BLADDER: Minimally distended, with a thick-walled appearance. GASTROINTESTINAL TRACT: No evidence of bowel obstruction or significant wall thickening. The appendix is unremarkable. No free fluid or free air is seen. ABDOMINAL WALL: No significant hernia is appreciated. LYMPH NODES: Normal. VASCULAR: Scattered atherosclerotic calcifications. PELVIC VISCERA: The prostate gland is enlarged, measuring 6.9 cm in transverse diameter. OSSEOUS STRUCTURES: Degenerative changes are noted in the spine. CT/CT abdomen pelvis w IV con IMPRESSION: 1. Thick-walled appearance of the urinary bladder, which could be secondary to cystitis in the proper clinical setting. Bilateral perinephric stranding is nonspecific and could be indicative of pyelonephritis. Correlation with urinalysis and laboratory values is recommended. 2. Enlarged prostate gland. 3. Tiny bilateral renal calculi without hydronephrosis.
--- NOTE | ~2022-10-05 | CT_ITS ---
EXAMINATION: CT HEAD WITHOUT CONTRAST CLINICAL INFORMATION: Headache COMPARISON: 12/14/2019 TECHNIQUE: Contiguous axial imaging was performed from the skull base to vertex without intravenous administration of contrast. This CT examination was performed using dose optimization techniques as appropriate, variously including the following: *Automated exposure control *Adjustment of mA and/or kV according to patient size (this includes techniques or standardized protocols for targeted exams where dose is matched to indication/reason for exam; i.e. extremities or head) *Use of iterative reconstruction technique DLP: 2274 mGy-cm FINDINGS: There is no evidence of acute intracranial hemorrhage or territorial infarction. No abnormal mass-effect or midline shift is seen. Parmar to white matter differentiation is well preserved. No extra-axial fluid collections are identified. The ventricles are normal in size. There is no abnormal attenuation within the brain parenchyma. The osseous structures and soft tissues are normal. Slight mucosal thickening of the maxillary sinuses. The mastoid air cells are well-aerated. CT/CT head/brain wo IV con IMPRESSION: No acute intracranial pathology.
[2022-10-05 15:17] VITALS: BP 127/72; PULSE 135; RESP 19; TEMP 36.8; O2SAT 97; BMI 36.2
--- NOTE | 2022-10-05 15:28 | ECG_ITS ---
Test Reason : TACHY Blood Pressure : / mmHG Vent. Rate : 127 BPM Atrial Rate : 127 BPM P-R Int : 178 ms QRS Dur : 080 ms QT Int : 276 ms P-R-T Axes : 027 -15 062 degrees QTc Int : 401 ms Sinus tachycardia Minimal voltage criteria for LVH, may be normal variant ( R in aVL ) Possible Anterior infarct , age undetermined Abnormal ECG When compared with ECG of 18-JUL-2022 07:51, Vent. rate has increased BY 49 BPM T wave inversion no longer evident in Inferior leads Referred By: Generic ED Physician Electronically Signed By:KIKO CLARK MD
--- NOTE | 2022-10-05 15:36 | ED.GENADULT ---
HPI - General Adult General Chief complaint: General Medical Stated complaint: Neck pain/back pain Time Seen by Provider: 10/06/22 01:22 Source: patient Mode of arrival: ambulatory Limitations: no limitations History of Present Illness HPI narrative: Patient been having neck muscle spasm taking baclofen today toward his lower back pain with frequency and dysuria shivering and low-grade fever no abdominal pain no nausea no vomiting patient came to the ER at 15:00 of 10/05 evaluated by me at at 01:22 of 10/06 at the time of my examination patient temperature was 101.8 degrees pulse rate of 110 with white count of 15.7 meeting the criteria for sepsis with urine showing WBC no history of frequent UTIs in the past Related Data Home Medications Medication Instructions Recorded Confirmed lisinopril 5 mg tablet 5 mg PO DAILY 08/14/20 08/19/20 tamsulosin 0.4 mg capsule (Flomax) 0.4 mg PO QAM 08/14/20 08/19/20 ascorbic acid (vitamin C) 1,000 mg 1,000 mg PO DAILY 08/15/20 08/19/20 tablet (Vitamin C) cholecalciferol (vitamin D3) 50 50 mcg PO DAILY 08/15/20 08/19/20 mcg (2,000 unit) capsule (Vitamin D3) cyanocobalamin (vitamin B-12) 50 50 mcg PO DAILY 08/15/20 08/19/20 mcg tablet (Vitamin B-12) montelukast 10 mg tablet 10 mg PO DAILY PRN Wheezing 08/15/20 08/19/20 (Singulair) rosuvastatin 10 mg tablet (Crestor) 10 mg PO DAILY 08/15/20 08/19/20 lisinopril 10 mg tablet 10 mg PO DAILY 04/21/22 Previous Rx's Medication Instructions Recorded walker #1 ea 07/17/20 acetaminophen 325 mg tablet 650 mg PO Q6H PRN Pain, Mild (Pain 08/21/20 Scale 1-3) 30 days #240 tabs aspirin 81 mg chewable tablet 81 mg PO BID 42 days #84 tabs 08/21/20 docusate sodium 100 mg capsule 100 mg PO BID 14 days #28 caps 08/21/20 hydrocortisone 2.5 % topical cream 1 appl VA BID-QID PRN hemorrhoids 04/16/21 with perineal applicator #30 grams (Proctosol HC) omeprazole 40 mg capsule,delayed 40 mg PO DAILY #90 caps 07/05/22 release cyclobenzaprine 10 mg tablet 10 mg PO TID PRN pain #14 tabs 10/01/22 Allergies Allergy/AdvReac Type Severity Reaction Status Date / Time amlodipine AdvReac Intermediate Nausea Verified 10/01/22 10:10 Review of Systems Review of Systems: Yes all other systems are reviewed and are negative [facility] Past Medical History Medical History Arthritis Asthma COVID-19 vaccine administered Elevated cholesterol GERD (gastroesophageal reflux disease) Heart murmur History of BPH HTN (hypertension) Hx of varicose veins Hypertension Osteoarthritis of right knee Osteochondral defect of femoral condyle Pre-diabetes Surgical History H/O colonoscopy History of esophagogastroduodenoscopy (EGD) History of right knee surgery Hx of meniscectomy of right knee Family History Family History Mother No problems noted. Father No problems noted. Social History Social History Household Members: Family Housing: House Are you a primary palliative care specialist to a significant other at home: No Alcohol intake: never Patient Tobacco Use Status: Never used Tobacco Smoked in Last 30 Days: No Use of substances other than those prescribed or required for medical reasons: No Substance Use Type: Marijuana Advance Directives: No Advance Directives Information Provided: No service: No Current occupational status: unemployed Current occupation: right handed Physical Exam ED Vital Signs: Vital Signs - 24 hr 10/05/22 15:17 10/06/22 00:12 10/06/22 01:02 Temperature 98.2 F 98.8 F 99.8 F Pulse Rate 135 H 121 H 106 H Pulse Rate [Monitor] Respiratory Rate 19 18 18 Blood Pressure 127/72 135/72 123/72 Pulse Oximetry 97 97 98 Oxygen Delivery Method Room Air Room Air 10/06/22 01:07 10/06/22 02:00 10/06/22 06:16 Temperature 99.9 F 99.0 F Pulse Rate 111 H 91 Pulse Rate [Monitor] 107 H Respiratory Rate 16 18 Blood Pressure 107/77 107/60 Pulse Oximetry 98 Oxygen Delivery Method Room Air Room Air 10/06/22 06:38 10/06/22 06:39 10/06/22 06:41 Temperature Pulse Rate 86 86 93 Pulse Rate [Monitor] Respiratory Rate Blood Pressure 106/59 L 114/59 L 91/58 L Pulse Oximetry Oxygen Delivery Method BMI result Body Mass Index 36.2 Appearance: Alert. Oriented X3. No acute distress. ENT: Pharynx normal. Oral Mucosa moist Neck: Normal inspection. Neck supple. No midline tenderness slight tenderness at base of skull CVS: Normal heart rate and rhythm. Pulses normal. Respiratory: No respiratory distress. Equal air entry bilateral, no wheezing/rales/rhonchi Abdomen: Soft and nontender. Bowel sounds are present, no mass palpable, mild right CVA and lumbar spinal tenderness Skin: Skin warm and dry. Normal skin color. Normal skin turgor. Extremities: No lower extremity edema. No calf tenderness Neuro: Oriented X 3. No motor deficit. No sensory deficit.No cerebellar signs , cranial nerves II-XII intact Course Course Course Narrative: This is an RME: Additional HPI, ROS, PE not included below will be deferred to primary provider.61-year-old male presenting with neck pain and headache for the past 7 days, seen here recently for the same complaint. Also reporting lower back pain, Center, and frequent urination. Patient is noted to be tachycardic there for EKG ordered. No history of kidney stones. Plan urine, labs. Medications Administered Discontinued Medications Generic Name Dose Route Start Last Admin Trade Name Evanq PRN Reason Stop Dose Admin Acetaminophen 650 mg 10/06/22 01:29 10/06/22 01:51 Acetaminophen 325 Mg Tablet PO 10/06/22 01:30 650 mg ONCE ONE Administration Sodium Chloride 1,000 mls @ 999 mls/hr 10/06/22 01:23 10/06/22 05:47 Ns IV 10/06/22 02:23 Infused .Q1H1M ONE Infusion Ceftriaxone Sodium 1 gm/ 50 mls @ 100 mls/hr 10/06/22 01:23 10/06/22 05:47 Sodium Chloride IV 10/06/22 01:52 Infused ONCE ONE Infusion Sodium Chloride 1,000 mls @ 999 mls/hr 10/06/22 01:37 10/06/22 05:47 Ns IV 10/06/22 02:37 Infused .Q1H1M ONE Infusion Sodium Chloride 1,000 mls @ 999 mls/hr 10/06/22 05:09 10/06/22 05:47 Ns IV 10/06/22 06:09 999 mls/hr .Q1H1M ONE Administration Iohexol 85 ml 10/06/22 06:16 10/06/22 06:17 Iohexol 350 Mg/Ml 100 Ml Infus..Btl IV 10/06/22 06:17 85 ml ONCE ONE Administration Ketorolac Tromethamine 30 mg 10/06/22 01:29 10/06/22 01:51 Ketorolac Tromethamine 30 Mg/Ml Vial IVPUSH 10/06/22 01:30 30 mg ONCE ONE Administration Medical Decision Making Medical Decision Making [facility] Narrative: Patient with persistent hypertension spite of receiving 3 L of IV fluids and antibiotics orthostatic was positive patient had CT was negative after CT was also negative except for thick urinary bladder wall. Will admit patient for persistent hypotension SIRS Differential Diagnosis Differential Diagnoses: The differential diagnosis associated with the presentation includes UTI/sepsis/SIRS/hypotension Consult Healthcare Provider Management of the patient was discussed with: Hospitalist Lab Data [facility] Lab Attestation statement: I reviewed the patient's lab results. 10/05/22 15:42 10/05/22 15:42 Labs: Lab Results 10/05/22 10/05/22 10/05/22 Range/Units 15:42 15:42 15:48 WBC 15.7 H (4.8-10.8) X10*3/uL RBC 4.98 (4.60-5.80) X10*6/uL Hgb 15.4 (14.0-18.0) g/dl Hct 45.5 (42.0-52.0) % MCV 91.4 (80.0-98.0) fL MCH 30.9 (27.0-33.0) pg MCHC 33.8 (31.0-36.0) g/dl RDW 12.9 (11.0-16.0) % Plt Count 233 (160-400) X10*3/uL MPV 9.4 (9.4-12.4) fL Immature Gran % (Auto) 0.4 (0.0-0.4) % Neut % (Auto) 82.4 H (45-73) % Lymph % (Auto) 7.8 L (20-40) % [place] % (Auto) 9.0 (2-11) % Eos % (Auto) 0.1 (0-4) % Baso % (Auto) 0.3 (0-2) % Lymph # (Auto) 1.2 (1.2-4.9) X10*3/uL [place] # (Auto) 1.4 H (0.1-1.2) X10*3/uL Eos # (Auto) 0.0 (0.0-0.4) X10*3/uL Baso # (Auto) 0.0 (0.0-0.2) X10*3/uL Abs Immat Gran (auto) 0.06 H (0.00-0.03) X10*3/uL Absolute Neuts (auto) 13.0 H (2.0-8.3) x10*3/uL Absolute Nucleated RBC 0.000 (0.0-0.012) X10*3/uL Nucleated RBC % (auto) 0.0 (0.0-0.2) /100WBC Sodium 136 (135-145) mmol/L Potassium 4.0 (3.3-5.1) mmol/L Chloride 104 (96-108) mmol/L Carbon Dioxide 24 (22-29) mmol/L Anion Gap 12 (12-20) BUN 15 (9-16) mg/dL Creatinine 0.82 (0.5-1.4) mg/dL Estim Creat Clear Calc 116.2 Estimated GFR > 60 Random Glucose 110 (60-115) mg/dL Lactic Acid (0.5-2.0) mmol/L Calcium 10.5 H D (8.4-10.2) mg/dL Total Bilirubin 2.2 H (0.0-1.0) mg/dL Direct Bilirubin 0.6 H (0.0-0.5) mg/dL AST 20 (5-37) U/L ALT 33 (0-40) U/L Alkaline Phosphatase 90 (39-117) U/L Total Creatine Kinase 106 (38-174) U/L Troponin I High Sens (<3.5-35.0) ng/L Total Protein 7.2 (6.5-8.0) g/dL Albumin 4.6 (3.5-5.0) g/dL Lipase 11 (8-78) U/L Urine Color Yellow Urine Appearance Cloudy Urine pH 6.0 (5.0-9.0) Ur Specific [place] 1.020 (1.005-1.025) Urine Protein Trace (Neg-Trace) mg/dL Urine Glucose (UA) Negative (Negative) mg/dL Urine Ketones Trace (Negative) mg/dL Urine Blood Small (1+) H (Negative) Urine Nitrite Positive H (Negative) Ur Leukocyte Esterase Large (3+) H (Negative) Urine RBC 11-20 H (0-2) /HPF Urine WBC >50 H (0-5) /HPF Ur Squamous Epith Cells 0-2 (0-2) /HPF Calcium Oxalate Crystal Present Urine Bacteria 2+ (None Seen) Hyaline Casts 3-5 (0-2) /LPF 10/06/22 10/06/22 10/06/22 Range/Units 01:50 05:43 05:44 WBC (4.8-10.8) X10*3/uL RBC (4.60-5.80) X10*6/uL Hgb (14.0-18.0) g/dl Hct (42.0-52.0) % MCV (80.0-98.0) fL MCH (27.0-33.0) pg MCHC (31.0-36.0) g/dl RDW (11.0-16.0) % Plt Count (160-400) X10*3/uL MPV (9.4-12.4) fL Immature Gran % (Auto) (0.0-0.4) % Neut % (Auto) (45-73) % Lymph % (Auto) (20-40) % [place] % (Auto) (2-11) % Eos % (Auto) (0-4) % Baso % (Auto) (0-2) % Lymph # (Auto) (1.2-4.9) X10*3/uL [place] # (Auto) (0.1-1.2) X10*3/uL Eos # (Auto) (0.0-0.4) X10*3/uL Baso # (Auto) (0.0-0.2) X10*3/uL Abs Immat Gran (auto) (0.00-0.03) X10*3/uL Absolute Neuts (auto) (2.0-8.3) x10*3/uL Absolute Nucleated RBC (0.0-0.012) X10*3/uL Nucleated RBC % (auto) (0.0-0.2) /100WBC Sodium (135-145) mmol/L Potassium (3.3-5.1) mmol/L Chloride (96-108) mmol/L Carbon Dioxide (22-29) mmol/L Anion Gap (12-20) BUN (9-16) mg/dL Creatinine (0.5-1.4) mg/dL Estim Creat Clear Calc Estimated GFR Random Glucose (60-115) mg/dL Lactic Acid 1.1 1.6 (0.5-2.0) mmol/L Calcium (8.4-10.2) mg/dL Total Bilirubin (0.0-1.0) mg/dL Direct Bilirubin (0.0-0.5) mg/dL AST (5-37) U/L ALT (0-40) U/L Alkaline Phosphatase (39-117) U/L Total Creatine Kinase (38-174) U/L Troponin I High Sens < 2.7 (<3.5-35.0) ng/L Total Protein (6.5-8.0) g/dL Albumin (3.5-5.0) g/dL Lipase (8-78) U/L Urine Color Urine Appearance Urine pH (5.0-9.0) Ur Specific [place] (1.005-1.025) Urine Protein (Neg-Trace) mg/dL Urine Glucose (UA) (Negative) mg/dL Urine Ketones (Negative) mg/dL Urine Blood (Negative) Urine Nitrite (Negative) Ur Leukocyte Esterase (Negative) Urine RBC (0-2) /HPF Urine WBC (0-5) /HPF Ur Squamous Epith Cells (0-2) /HPF Calcium Oxalate Crystal Urine Bacteria (None Seen) Hyaline Casts (0-2) /LPF Discharge Plan Discharge Clinical Impression: Acute UTI, SIRS (systemic inflammatory response syndrome) Patient Disposition: Admitted As Inpatient
[2022-10-05 15:46] LABS: MANUAL DIFF FLAG NO
[2022-10-05 16:03] LABS: Appearance Urine Cloudy; Color Urine Yellow; Glucose Urine UA Negative (Negative); Leukocyte Esterase Urine Large (3+) (Negative); Nitrite Urine Positive (Negative); UMIC TRIGGER UACC YES; Urine Blood Small (1+) (Negative); Urine Ketones Trace mg/dL (Negative); Urine Protein Trace mg/dL (Neg-Trace)
[2022-10-05 16:07] LABS: Basophils Percent Auto 0.3 % (0-2); Eosinophils Percent Auto 0.1 % (0-4); Hematocrit 45.5 % (42.0-52.0); Hemoglobin 15.4 g/dl (14.0-18.0); Imm Gran Abs Auto 0.06 X10*3/uL (0.00-0.03); Imm Gran Pct Auto 0.4 % (0.0-0.4); Lymphocytes Absolute Auto 1.2 X10*3/uL (1.2-4.9); Lymphocytes Percent Auto 7.8 % (20-40); Mean Corpuscular HGB Conc 33.8 g/dl (31.0-36.0); Mean Corpuscular Hemoglobin 30.9 pg (27.0-33.0); Mean Corpuscular Volume 91.4 fL (80.0-98.0); Mean Platelet Volume 9.4 fL (9.4-12.4); Monocytes Absolute Auto 1.4 X10*3/uL (0.1-1.2); Neutrophils Percent Auto 82.4 % (45-73); Platelet Count 233 X10*3/uL (160-400); Red Blood Count 4.98 X10*6/uL (4.60-5.80); Red Cell Distribution Width 12.9 % (11.0-16.0); White Blood Count 15.7 X10*3/uL (4.8-10.8)
[2022-10-05 16:18] LABS: Alanine Aminotransferase 33 U/L (0-40); Albumin Level 4.6 g/dL (3.5-5.0); Alkaline Phosphatase 90 U/L (39-117); Anion Gap 12 (12-20); Aspartate Amino Transferase 20 U/L (5-37); Bilirubin Direct 0.6 mg/dL (0.0-0.5); Bilirubin Total 2.2 mg/dL (0.0-1.0); Blood Urea Nitrogen 15 mg/dL (9-16); Calcium 10.5 mg/dL (8.4-10.2); Carbon Dioxide 24 mmol/L (22-29); Chloride 104 mmol/L (96-108); Creatinine Clr Calc Pharmacy 116.2; Estimated Glomerular Filt Rate > 60; Glucose Random 110 mg/dL (60-115); Lipase 11 U/L (8-78); Sodium 136 mmol/L (135-145); Total Protein 7.2 g/dL (6.5-8.0)
[2022-10-05 16:20] LABS: Bacteria Urine 2+ (None Seen); Calcium Oxalate Crystals Urine Present; Squamous Epithelial Cell Urine 0-2 /HPF (0-2); UACC Culture Trigger YES; WBC Urine >50 /HPF (0-5)
[2022-10-06] VITALS (13 sets, daily range): BP systolic 91–135; BP diastolic 58–77; PULSE 83–121; RESP 16–29; TEMP 37.1–37.9; O2SAT 94–99
--- NOTE | 2022-10-06 01:19 | PC.NURSE ---
Assumed care of patient at 0107. Patient alert and oriented. Reports urinary incontinence and dribbling that began 10/05/22. Labs drawn. Patient WBC 15.7, temp 99.8, pulse 107. Dr. Pruitt and charge nurse aware. No new orders at this time. Will continue to follow plan of care
[2022-10-06] MEDS: cefTRIAXone sodium 1 GM in 0.9 % Sodium Chloride 50 ML IV ×2 (01:50→23:40)
[2022-10-06] MEDS: Ketorolac Tromethamine 30 MG/ML VIAL IVPUSH (01:51)
[2022-10-06] MEDS: Acetaminophen 325 MG TABLET 650 MG PO ×4 (01:51→23:44)
[2022-10-06] MEDS: 0.9 % Sodium Chloride 1,000 ML 999 ML IV ×3 (01:51→05:47)
--- NOTE | 2022-10-06 01:56 | MHC.EDTECH ---
PATIENT 1ST SETS OF BLOOD CULTURE AND LACTIC ACID DRAWN AND SENT TO LAB ,VITALS SIGN TAKEN ,RN IN ROOM PUTTING IN IV LINE .
[2022-10-06 02:09] LABS: Lactic Acid 1.1 mmol/L (0.5-2.0)
--- NOTE | 2022-10-06 02:17 | PC.NURSE ---
Patient alert and oriented. 20 gauge IV placed in left AC- patent and intact. Labs drawn,medications administered as per MAY. Will continue to follow plan of care
--- NOTE | 2022-10-06 02:26 | MHC.EDTECH ---
PATIENT 2ND SETS OF BLOOD CULTURE DRAWN AND SENT TO LAB .
--- NOTE | 2022-10-06 04:07 | PC.NURSE ---
Addendum entered by Marcella Markhamarnacion 10/06/22 04:14: Added to note- IV positional and slow to ifused. Second bag now running. Will continue to follow plan of care Original Note: Patient alert and oriented. o2 at 92%, placed pt on nasal cannula 2lpm, pulse 95, bp 90/56. aware
--- NOTE | 2022-10-06 05:22 | ECG_ITS ---
Test Reason : low bp Blood Pressure : / mmHG Vent. Rate : 090 BPM Atrial Rate : 090 BPM P-R Int : 206 ms QRS Dur : 100 ms QT Int : 358 ms P-R-T Axes : 020 -14 033 degrees QTc Int : 437 ms Normal sinus rhythm Normal ECG When compared with ECG of 05-OCT-2022 15:47, No significant change was found Referred By: Jamshid Mike Electronically Signed By:KIKO CLARK MD
--- NOTE | 2022-10-06 05:49 | PC.NURSE ---
third bag of fluids infusing. bp 104/58 patient in trendelenburg postion
[2022-10-06 05:59] LABS: Lactic Acid 1.6 mmol/L (0.5-2.0)
[2022-10-06 06:12] LABS: Troponin-I High Sensitivity < 2.7 ng/L (<3.5-35.0)
[2022-10-06] MEDS: iohexoL 350 MG/ML 100 ML INFUS..BTL 85 ML IV (06:17)
--- NOTE | 2022-10-06 07:30 | PC.NURSE ---
Patient alert and oriented, patient requesting to use bathroom, walked with staff to the bathroom without incident.
--- NOTE | 2022-10-06 09:50 | PC.NURSE ---
Patient requesting coffee which was provided for him. Hospitalist seeing patient now.
--- NOTE | 2022-10-06 10:36 | P.HPHOSP_ITS ---
History of Present Illness Date of Service: 10/06/22 Attending physician on admission: Rajinder English Chief Complaint: sepsis ,pyelonephritis 61-year-old male with history of asthma, arthritis, HLP, BPH, hypertension-came to the hospital because of back pain, dysuria. He says that the he is having these symptoms from few days. As per ED note from yesterday-patient also has fever tachycardia and was having leukocytosis and meeting criteria for sepsis, he says that he had UTI history but many years ago. In addition patient has neck pain/headaches and he also says has uncontrolled blood pressure-he was in ED few days back and was given muscle relaxant and NSAIDs-he still has neck muscle pain. has suprpubic discomfort. Denies any new complaint of chest pain or shortness of breath or abdominal pain or fever or chills or nausea or vomiting or visual changes or dizziness . Denies any cough Denies any weakness or numbness. Labs, imaging reviewed:10/05/22: CBC: WBC is 15.7, sodium 136 BUN 15 creatinine 0.82 calcium 10.5 Total bilirubin 2.2 and [address]ure[address]irubin 0[address]6 [address]/CT head/brain wo IV con IMPRESSION: No acute intracranial pathology. CT/CT abdomen pelvis w IV con IMPRESSION: 1.? Thick-walled appearance of the urinary bladder, which could be secondary to cystitis in the proper clinical setting. Bilateral perinephric stranding is nonspecific and could be indicative of pyelonephritis. Correlation with urinalysis and laboratory values is recommended. 2.? Enlarged prostate gland. 3.? Tiny bilateral renal calculi without hydronephrosis Review of Systems Review of Systems: as above. [facility] Medical History Arthritis Asthma COVID-19 vaccine administered Elevated cholesterol GERD (gastroesophageal reflux disease) Heart murmur History of BPH HTN (hypertension) Hx of varicose veins Hypertension Osteoarthritis of right knee Osteochondral defect of femoral condyle Pre-diabetes Family History Mother No problems noted. Father No problems noted. Surgical History H/O colonoscopy History of esophagogastroduodenoscopy (EGD) History of right knee surgery Hx of meniscectomy of right knee Social History Household Members: Family Housing: House Are you a primary critical care clinical nurse specialist to a significant other at home: No Alcohol intake: never Patient Tobacco Use Status: Never used Tobacco Smoked in Last 30 Days: No Use of substances other than those prescribed or required for medical reasons: No Substance Use Type: Marijuana Advance Directives: No Advance Directives Information Provided: No service: No Current occupational status: unemployed Current occupation: right handed Meds Allergies Allergy/AdvReac Type Severity Reaction Status Date / Time amlodipine AdvReac Intermediate Nausea Verified 10/01/22 10:10 Active Medications: Current Medications Acetaminophen (Acetaminophen 325 Mg Tablet) 650 mg PO Q6H PRN PRN Reason: Pain, Mild (Pain Scale 1-3) Albuterol Sulfate (Albuterol Sulfate 90 Mcg 8 Gm Inhaler) 2 puff INHALE Q4H PRN PRN Reason: wheezing Ascorbic Acid (Ascorbic Acid 500 Mg Tablet) 1,000 mg PO DAILY [facility] Aspirin (Aspirin Enteric Coated 81 Mg Tablet.) 81 mg PO QAM [facility] Docusate Sodium (Docusate Sodium 100 Mg Capsule) 100 mg PO BID [facility] Enoxaparin Sodium (Enoxaparin Sodium 40 Mg/0.4 Ml Syringe) 40 mg SUBCUT Q24H DONA Hydrocortisone (Hydrocortisone 2.5 % Rectal Cr 30 Gm Tube) 1 appl [place] BID-QID PRN PRN Reason: hemorrhoids Ceftriaxone Sodium 1 gm/ (Sodium Chloride) 50 mls @ 100 mls/hr IV Q24H DONA Loratadine (Loratadine 10 Mg Tablet) 10 mg PO QAM DONA Montelukast Sodium (Montelukast Sodium 10 Mg Tablet) 10 mg PO DAILY PRN PRN Reason: Wheezing Non-Formulary Medication (Calcium Carbonate [Calcium 600]) 600 mg PO DAILY [facility] Non-Formulary Medication (Lidocaine) 1 patch TOPICAL DAILY [facility] Non-Formulary Medication (Rosuvastatin [Crestor]) 10 mg PO DAILY DONA Omeprazole (Omeprazole 40 Mg Capsule.) 40 mg PO DAILY PRN PRN Reason: Gastric Reflux Sodium Chloride (0.9 % Sodium Chloride Flush 3 Ml Syringe) 3 ml IVFLUSH QSHIFT DONA Tamsulosin HCl (Tamsulosin Hcl 0.4 Mg Capsule) 0.4 mg PO QAM DONA Vitamin D (Cholecalciferol (Vitamin D3) 25 Mcg Tablet) 50 mcg PO DAILY [facility] Home Medications Medication Instructions Recorded Confirmed Last Taken Type tamsulosin 0.4 mg capsule (Flomax) 0.4 mg PO QAM 08/14/20 10/06/22 08/19/20 10:30 History ascorbic acid (vitamin C) 1,000 mg 1,000 mg PO DAILY 08/15/20 10/06/22 08/18/20 09:00 History tablet (Vitamin C) cholecalciferol (vitamin D3) 50 50 mcg PO DAILY 08/15/20 10/06/22 08/18/20 09:00 History mcg (2,000 unit) capsule (Vitamin D3) montelukast 10 mg tablet 10 mg PO DAILY PRN Wheezing 08/15/20 10/06/22 08/09/20 22:00 History (Singulair) rosuvastatin 10 mg tablet (Crestor) 10 mg PO DAILY 08/15/20 10/06/22 08/19/20 09:00 History albuterol sulfate 90 mcg/actuation 2 puff inhalation Q4H PRN wheezing 10/06/22 10/06/22 Unknown History aerosol inhaler (Ventolin HFA) aspirin 81 mg tablet,delayed 81 mg PO QAM 10/06/22 10/06/22 Unknown History release baclofen 10 mg tablet 10 mg PO TID PRN Muscle Spasm 10/06/22 10/06/22 Unknown History calcium carbonate 600 mg calcium 600 mg PO DAILY 10/06/22 10/06/22 Unknown History (1,500 mg) tablet (Calcium) cetirizine 10 mg tablet 10 mg PO QAM 10/06/22 10/06/22 Unknown History ibuprofen 600 mg tablet 600 mg PO TID PRN Pain 10/06/22 10/06/22 Unknown History lidocaine 5 % topical patch 1 patch topical DAILY 10/06/22 10/06/22 Unknown History lisinopril 20 mg tablet 20 mg PO QAM 10/06/22 10/06/22 Unknown History omeprazole 40 mg capsule,delayed 40 mg PO DAILY PRN Gastric Reflux 10/06/22 10/06/22 Unknown History release Physical Exam Vital Signs and Narrative: Vital Signs: Last Vital Signs Temp 98.9 F 10/06/22 09:38 Pulse 107 H 10/06/22 09:38 Resp 22 H 10/06/22 09:38 BP 101/60 10/06/22 09:38 Pulse Ox 98 10/06/22 09:38 O2 Del Method Room Air 10/06/22 09:38 BMI result Body Mass Index 36.2 Appearance: Alert.? Oriented X3.? not in distress.? Eyes: Pupils equal, round and reactive to light.? Sclera nonicteric.? ENT: Pharynx normal.? Moist mucous membranes. neck -pain with movement ,more muscular , rom -limited. cvs: [id number], [id number] . res: clear to auscultation ,no rhonchii or wheezing abd: no rebound or guarding ,nt, bs present. cva mild dicomfort b/l , lower back muscle area pain . ext pulses present , no cyanosis . neuro: axo3 , nonfocal. Results Labs 10/05/22 15:42 10/05/22 15:42 Labs: Laboratory Results - last 24 hr 10/05/22 10/05/22 10/05/22 15:42 15:42 15:48 MCV 91.4 MCH 30.9 MCHC 33.8 RDW 12.9 Plt Count 233 MPV 9.4 Immature Gran % (Auto) 0.4 Neut % (Auto) 82.4 H Lymph % (Auto) 7.8 L [place] % (Auto) 9.0 Eos % (Auto) 0.1 Baso % (Auto) 0.3 Lymph # (Auto) 1.2 [place] # (Auto) 1.4 H Eos # (Auto) 0.0 Baso # (Auto) 0.0 Abs Immat Gran (auto) 0.06 H Absolute Neuts (auto) 13.0 H Absolute Nucleated RBC 0.000 Nucleated RBC % (auto) 0.0 Anion Gap 12 Estim Creat Clear Calc 116.2 Estimated GFR > 60 Random Glucose 110 Lactic Acid Calcium 10.5 H D Total Bilirubin 2.2 H Direct Bilirubin 0.6 H AST 20 ALT 33 Alkaline Phosphatase 90 Total Creatine Kinase 106 Troponin I High Sens Total Protein 7.2 Albumin 4.6 Lipase 11 Urine Color Yellow Urine Appearance Cloudy Urine pH 6.0 Ur Specific [place] 1.020 Urine Protein Trace Urine Glucose (UA) Negative Urine Ketones Trace Urine Blood Small (1+) H Urine Nitrite Positive H Ur Leukocyte Esterase Large (3+) H Urine RBC 11-20 H Urine WBC >50 H Ur Squamous Epith Cells 0-2 Calcium Oxalate Crystal Present Urine Bacteria 2+ Hyaline Casts 3-5 10/06/22 10/06/22 10/06/22 01:50 05:43 05:44 MCV MCH MCHC RDW Plt Count MPV Immature Gran % (Auto) Neut % (Auto) Lymph % (Auto) [place] % (Auto) Eos % (Auto) Baso % (Auto) Lymph # (Auto) [place] # (Auto) Eos # (Auto) Baso # (Auto) Abs Immat Gran (auto) Absolute Neuts (auto) Absolute Nucleated RBC Nucleated RBC % (auto) Anion Gap Estim Creat Clear Calc Estimated GFR Random Glucose Lactic Acid 1.1 1.6 Calcium Total Bilirubin Direct Bilirubin AST ALT Alkaline Phosphatase Total Creatine Kinase Troponin I High Sens < 2.7 Total Protein Albumin Lipase Urine Color Urine Appearance Urine pH Ur Specific [place] Urine Protein Urine Glucose (UA) Urine Ketones Urine Blood Urine Nitrite Ur Leukocyte Esterase Urine RBC Urine WBC Ur Squamous Epith Cells Calcium Oxalate Crystal Urine Bacteria Hyaline Casts Imaging Radiologist's Impressions: Impressions Abdomen/Pelvis CT 10/06/22 06:10 IMPRESSION: 1. Thick-walled appearance of the urinary bladder, which could be secondary to cystitis in the proper clinical setting. Bilateral perinephric stranding is nonspecific and could be indicative of pyelonephritis. Correlation with urinalysis and laboratory values is recommended. 2. Enlarged prostate gland. 3. Tiny bilateral renal calculi without hydronephrosis. Head CT 10/06/22 06:10 IMPRESSION: No acute intracranial pathology. Assessment and Plan (1) Acute UTI: Status: Acute (2) Sepsis: Status: Acute Plan 61-year-old male with history of asthma, arthritis, HLP, BPH, hypertension-came to the hospital because of back pain, dysuria. sepsis -pyelonephritis Has leukocytosis, tachycardia ua-pyuria ,bacteruria Lactic acid normal ct abd:Thick-walled appearance of the urinary bladder, which could be secondary to cystitis in the proper clinical setting. Bilateral perinephric stranding is nonspecific and could be indicative of pyelonephritis. Urine culture and blood culture pending Patient is started on IV antibiotics, will add urology evaluation Neck pain: will add ativan ,continue baclofen added nsaids for pain htn : hold lisinopril, bp patline. HLP: contineu statin. bph:continue flomax. asthma :seems stable. continue home albuterol. dvt prophylax: s/c lovenox. Patient has sepsis and pyelonephritis-need IV antibiotics as well as workup including blood cultures and urine culture. Patient will benefit from 2 to midnight stays. Time Spent With Patient Time: Total time managing care of this patient today ____ minutes. Quality Stroke Does the patient have a stroke diagnosis?: No VTE Prior VTE?: No VTE Risk Level:: Medical - moderate - high VTE Device Contraindication: N/A - Device Ordered VTE Drug Contraindication: N/A - Med Ordered
--- NOTE | 2022-10-06 10:38 | PHA.MEDREC ---
Pharmacy Consult ? Medication Reconciliation Pharmacy has completed the medication reconciliation. Patient confirmed medicaitons. 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 Kristin Anthony, PharmD
[2022-10-06] MEDS: Aspirin Enteric Coated 81 MG TABLET.DR PO (11:30)
[2022-10-06] MEDS: Enoxaparin Sodium 40 MG/0.4 ML SYRINGE SUBCUT (11:30)
[2022-10-06] MEDS: Loratadine 10 MG TABLET PO (11:30)
[2022-10-06] MEDS: Tamsulosin HCL 0.4 MG CAPSULE PO (11:31)
[2022-10-06] MEDS: Lactated Ringers 1,000 ML 80 ML IVCONT ×2 (11:34→23:42)
[2022-10-06] MEDS: Omeprazole 40 MG CAPSULE.DR PO (18:05)
[2022-10-07 03:22] VITALS: BP 107/56; PULSE 84; RESP 20; TEMP 37.1; O2SAT 95
[2022-10-07] MEDS: Omeprazole 40 MG CAPSULE.DR PO ×2 (05:34→17:20)
[2022-10-07 06:57] LABS: Basophils Percent Auto 0.2 % (0-2); Eosinophils Percent Auto 0.2 % (0-4); Hematocrit 38.5 % (42.0-52.0); Imm Gran Pct Auto 1.1 % (0.0-0.4); Lymphocytes Absolute Auto 1.1 X10*3/uL (1.2-4.9); Lymphocytes Percent Auto 6.3 % (20-40); MANUAL DIFF FLAG SCAN; Mean Corpuscular HGB Conc 33.8 g/dl (31.0-36.0); Mean Corpuscular Volume 91.7 fL (80.0-98.0); Mean Platelet Volume 9.3 fL (9.4-12.4); Monocytes Absolute Auto 1.5 X10*3/uL (0.1-1.2); Monocytes Percent Auto 8.5 % (2-11); Neutrophils Percent Auto 83.7 % (45-73); Red Cell Distribution Width 13.4 % (11.0-16.0); SCAN SMEAR FLAG 1
[2022-10-07 07:41] LABS: Anion Gap 9 (12-20); Blood Urea Nitrogen 17 mg/dL (9-16); Calcium 9.2 mg/dL (8.4-10.2); Carbon Dioxide 22 mmol/L (22-29); Chloride 105 mmol/L (96-108); Creatinine Clr Calc Pharmacy 128.8; Estimated Glomerular Filt Rate > 60; Glucose Random 133 mg/dL (60-115); Potassium 4.2 mmol/L (3.3-5.1); Sodium 132 mmol/L (135-145)
[2022-10-07 07:52] VITALS: BP 121/65; PULSE 82; RESP 20; TEMP 37.2; O2SAT 95
[2022-10-07 07:56] LABS: Platelet Count 138 X10*3/uL (160-400)
[2022-10-07 07:57] LABS: SLIDE REVIEW VERIFIED
[2022-10-07] MEDS: Cholecalciferol (Vitamin D3) 25 MCG TABLET 50 MCG PO (09:56)
[2022-10-07] MEDS: Atorvastatin Calcium 40 MG TABLET PO (09:57)
[2022-10-07] MEDS: Aspirin Enteric Coated 81 MG TABLET.DR PO (09:57)
[2022-10-07] MEDS: Ascorbic Acid 500 MG TABLET 1000 MG PO (09:57)
[2022-10-07] MEDS: Loratadine 10 MG TABLET PO (09:57)
[2022-10-07] MEDS: Tamsulosin HCL 0.4 MG CAPSULE PO (09:57)
[2022-10-07] MEDS: Docusate Sodium 100 MG CAPSULE PO ×2 (09:58→21:49)
[2022-10-07] MEDS: Enoxaparin Sodium 40 MG/0.4 ML SYRINGE SUBCUT (10:00)
[2022-10-07] MEDS: 0.9 % Sodium Chloride Flush 3 ML SYRINGE IVFLUSH ×2 (10:02→21:57)
--- NOTE | 2022-10-07 11:02 | MHC.CM.PN ---
EMR REVIEWED, PT ADMITTED W/UIT/SEPSIS. CM MET W/PT VIA [employer], PT REPORTS HE LIVES ALONE, IS INDEP W/ALL CARE, DENIES USE OF DME/HOME SERVICES, PT DENIES NEED FOR SERVICES ON D/C AND WILL LIKELY D/C HOME NO SERVICES W/ORAL ABX. PT VERIFIES COVID VACC X3, PCP KESHAV AMBROCIO AND PT HAS BEEN EDUCATED ON AND COMPLETED A HCP NAMING HIS DTR GISELA [phone] HIS [facility] AND SON HEAVEN AMAYA [phone] HIS ALTERNATE, PT PROVIDED W/ESTONIAN HANDOUT, ORIGINAL AND 2 COPIES, AND COPY UPLOADED TO [facility] AND PLACED IN CHART.
[2022-10-07 11:27] VITALS: BP 131/71; PULSE 96; RESP 18; TEMP 36.8; O2SAT 94
--- NOTE | 2022-10-07 13:39 | HO.PM.IMPN ---
Subjective Subjective Date of Service: 10/07/22 Interval History: sepsis ,pyelonephritis Review of Systems dysuria and pain seems slightly improvin no fevers Physical Exam Vital Signs: Vital Signs: Last Vital Signs Temp 98.2 F 10/07/22 11:27 Pulse 96 10/07/22 11:27 Resp 18 10/07/22 11:27 BP 131/71 10/07/22 11:27 Pulse Ox 94 10/07/22 11:27 O2 Del Method Room Air 10/07/22 11:27 BMI result Body Mass Index 36.2 Appearance: Alert.? Oriented X3.? not in distress.? neck -pain with movement ,more muscular , rom -improving. cvs: rrr, [id number] . res: clear to auscultation ,no rhonchii or wheezing abd: no rebound or guarding ,nt, bs present. cva mild dicomfort b/l , lower back muscle area pain . ext pulses present , no cyanosis . neuro: axo3 , nonfocal. Objective Data Active Medications Acetaminophen (Acetaminophen 325 Mg Tablet) 650 mg PO Q6H PRN PRN Reason: Pain, Mild (Pain Scale 1-3) Last Admin: 10/06/22 23:44 Dose: 650 mg Documented By: ARIK Albuterol Sulfate (Albuterol Sulfate 90 Mcg 8 Gm Inhaler) 2 puff INHALE Q4H PRN PRN Reason: wheezing Ascorbic Acid (Ascorbic Acid 500 Mg Tablet) 1,000 mg PO DAILY [facility] Last Admin: 10/07/22 09:57 Dose: 1,000 mg Documented By: MANDI Aspirin (Aspirin Enteric Coated 81 Mg Tablet.) 81 mg PO DAILY [facility] Last Admin: 10/07/22 09:57 Dose: 81 mg Documented By: MANDI Atorvastatin Calcium (Atorvastatin Calcium 40 Mg Tablet) 40 mg PO DAILY [facility] Last Admin: 10/07/22 09:57 Dose: 40 mg Documented By: MANDI Baclofen (Baclofen 10 Mg Tablet) 10 mg PO TID PRN PRN Reason: Muscle Spasm Calcium Carbonate (Calcium Carbonate 500 Mg Tablet) 500 mg PO DAILY [facility] Last Admin: 10/07/22 09:57 Dose: 500 mg Documented By: MANDI Docusate Sodium (Docusate Sodium 100 Mg Capsule) 100 mg PO BID [facility] Last Admin: 10/07/22 09:58 Dose: 100 mg Documented By: MANDI Enoxaparin Sodium (Enoxaparin Sodium 40 Mg/0.4 Ml Syringe) 40 mg SUBCUT Q24H [facility] Last Admin: 10/07/22 10:00 Dose: 40 mg Documented By: MANDI Hydrocortisone (Hydrocortisone 2.5 % Rectal Cr 30 Gm Tube) 1 appl [place] QID PRN PRN Reason: hemorrhoids Ceftriaxone Sodium 1 gm/ (Sodium Chloride) 50 mls @ 100 mls/hr IV Q24H [facility] Last Infusion: 10/07/22 00:16 Dose: 0 mls/hr Documented By: ARIK Lactated Ringer's (Lr) 1,000 mls @ 80 mls/hr IVCONT .[id number] [facility] Last Admin: 10/06/22 23:42 Dose: 80 mls/hr Documented By: ARIK Lidocaine (Lidocaine 4 % Patch Adh..Patch) 1 patch TRANSDERMA DAILY [facility] Last Admin: 10/07/22 10:03 Dose: Not Given Documented By: MANDI Non-Admin Reason: Patient Refused Loratadine (Loratadine 10 Mg Tablet) 10 mg PO DAILY [facility] Last Admin: 10/07/22 09:57 Dose: 10 mg Documented By: MANDI Montelukast Sodium (Montelukast Sodium 10 Mg Tablet) 10 mg PO DAILY PRN PRN Reason: Wheezing Omeprazole (Omeprazole 40 Mg Capsule.Dr) 40 mg PO BID@0630,1630 [facility] Last Admin: 10/07/22 05:34 Dose: 40 mg Documented By: EDWARD Sodium Chloride (0.9 % Sodium Chloride Flush 3 Ml Syringe) 3 ml IVFLUSH QSHIFT [facility] Last Admin: 10/07/22 10:02 Dose: 3 ml Documented By: MANDI Tamsulosin HCl (Tamsulosin Hcl 0.4 Mg Capsule) 0.4 mg PO DAILY [facility] Last Admin: 10/07/22 09:57 Dose: 0.4 mg Documented By: MANDI Vitamin D (Cholecalciferol (Vitamin D3) 25 Mcg Tablet) 50 mcg PO DAILY [facility] Last Admin: 10/07/22 09:56 Dose: 50 mcg Documented By: MANDI Labs 10/07/22 06:42 10/07/22 06:42 Labs: Laboratory Results - last 24 hr 10/07/22 10/07/22 06:42 06:42 MCV 91.7 MCH 31.0 MCHC 33.8 RDW 13.4 Plt Count 138 L D MPV 9.3 L Immature Gran % (Auto) 1.1 H Neut % (Auto) 83.7 H Lymph % (Auto) 6.3 L [place] % (Auto) 8.5 Eos % (Auto) 0.2 Baso % (Auto) 0.2 Lymph # (Auto) 1.1 L [place] # (Auto) 1.5 H Eos # (Auto) 0.0 Baso # (Auto) 0.0 Abs Immat Gran (auto) 0.20 H Absolute Neuts (auto) 15.0 H Absolute Nucleated RBC 0.000 Nucleated RBC % (auto) 0.0 Smear Tech's Comments VERIFIED Anion Gap 9 L Estim Creat Clear Calc 128.8 Estimated GFR > 60 Random Glucose 133 H Calcium 9.2 D Microbiology Microbiology Results: Microbiology 10/05/22 16:21 Urine Culture - Final Urine clean catch - Urine miles top Escherichia coli 10/06/22 02:25 Blood Culture - Preliminary Blood - Venous No growth after 24 hours. 10/06/22 01:50 Blood Culture - Preliminary Blood - Venous No growth after 24 hours. Assessment and Plan (1) Acute UTI: Status: Acute (2) Sepsis: Status: Acute Plan 61-year-old male with history of asthma, arthritis, HLP, BPH, hypertension-came to the hospital because of back pain, dysuria. ?sepsis -pyelonephritis Has leukocytosis, tachycardia ua-pyuria ,bacteruria Lactic acid normal ct abd:Thick-walled appearance of the urinary bladder, which could be secondary to cystitis in the proper clinical setting. Bilateral perinephric stranding is nonspecific and could be indicative of pyelonephritis. Urine culture and blood culture pending Patient is started on IV antibiotics, w urology evaluation Neck pain: ativan prn ,continue baclofen, nsaids for pain htn : hold lisinopril, bp boderline. HLP: continue statin. bph:continue flomax. asthma :seems stable. continue home albuterol. dvt? prophylax: s/c lovenox. Patient has sepsis and pyelonephritis-need IV antibiotics as well as workup including blood cultures and urine culture. Time Spent With Patient Time: Total time managing care of this patient today ____ minutes. Quality Stroke Does the patient have a stroke diagnosis?: No VTE Prior VTE?: No VTE Risk Level:: Medical - moderate - high VTE Device Contraindication: N/A - Device Ordered VTE Drug Contraindication: N/A - Med Ordered
[2022-10-07] MEDS: Acetaminophen 325 MG TABLET 650 MG PO ×2 (14:06→21:48)
[2022-10-07 15:30] VITALS: BP 131/69; PULSE 90; RESP 15; TEMP 37.5; O2SAT 94
[2022-10-07 19:30] VITALS: BP 131/64; PULSE 90; RESP 14; TEMP 36.6; O2SAT 94
[2022-10-07] MEDS: Lactated Ringers 1,000 ML 80 ML IVCONT (21:49)
[2022-10-07] MEDS: Baclofen 10 MG TABLET PO (21:49)
[2022-10-07] MEDS: cefTRIAXone sodium 1 GM in 0.9 % Sodium Chloride 50 ML IV (22:39)
[2022-10-07 23:55] VITALS: BP 135/80; PULSE 98; RESP 20; TEMP 36.9; O2SAT 95
[2022-10-08 03:19] VITALS: BP 130/78; PULSE 86; RESP 20; TEMP 37; O2SAT 94
[2022-10-08] MEDS: Omeprazole 40 MG CAPSULE.DR PO ×2 (05:31→17:04)
[2022-10-08 07:55] VITALS: BP 150/89; PULSE 89; RESP 20; TEMP 36.9; O2SAT 95
[2022-10-08] MEDS: Docusate Sodium 100 MG CAPSULE PO ×2 (08:56→20:05)
[2022-10-08] MEDS: Tamsulosin HCL 0.4 MG CAPSULE PO (08:56)
[2022-10-08] MEDS: Cholecalciferol (Vitamin D3) 25 MCG TABLET 50 MCG PO (08:56)
[2022-10-08] MEDS: Loratadine 10 MG TABLET PO (08:57)
[2022-10-08] MEDS: Acetaminophen 325 MG TABLET 650 MG PO ×2 (08:57→20:05)
[2022-10-08] MEDS: Aspirin Enteric Coated 81 MG TABLET.DR PO (08:57)
[2022-10-08] MEDS: Ascorbic Acid 500 MG TABLET 1000 MG PO (08:57)
[2022-10-08] MEDS: 0.9 % Sodium Chloride Flush 3 ML SYRINGE IVFLUSH (08:59)
[2022-10-08] MEDS: Atorvastatin Calcium 40 MG TABLET PO (09:23)
[2022-10-08 11:43] VITALS: BP 142/82; PULSE 84; RESP 20; TEMP 36.7; O2SAT 98
[2022-10-08] MEDS: Enoxaparin Sodium 40 MG/0.4 ML SYRINGE SUBCUT (12:49)
--- NOTE | 2022-10-08 13:32 | P.PNIM_ITS ---
Subjective Subjective Date of Service: 10/08/22 Interval History: sepsis ,pyelonephritis Review of Systems dysuria and pain seems slightly improvin no fevers Physical Exam Vital Signs: Vital Signs: Last Vital Signs Temp 98.0 F 10/08/22 11:43 Pulse 84 10/08/22 11:43 Resp 20 10/08/22 11:43 BP 142/82 H 10/08/22 11:43 Pulse Ox 98 10/08/22 11:43 O2 Del Method Room Air 10/08/22 11:43 BMI result Body Mass Index 36.2 Appearance: Alert.? Oriented X3.? not in distress.? neck -pain with movement ,more muscular , rom -improving. cvs: rrr, [id number] . res: clear to auscultation ,no rhonchii or wheezing abd: no rebound or guarding ,nt, bs present. cva mild dicomfort b/l , lower back muscle area pain . ext pulses present , no cyanosis . neuro: axo3 , nonfocal. Objective Data Active Medications Acetaminophen (Acetaminophen 325 Mg Tablet) 650 mg PO Q6H PRN PRN Reason: Pain, Mild (Pain Scale 1-3) Last Admin: 10/08/22 08:57 Dose: 650 mg Documented By: MANDI Albuterol Sulfate (Albuterol Sulfate 90 Mcg 8 Gm Inhaler) 2 puff INHALE Q4H PRN PRN Reason: wheezing Ascorbic Acid (Ascorbic Acid 500 Mg Tablet) 1,000 mg PO DAILY [facility] Last Admin: 10/08/22 08:57 Dose: 1,000 mg Documented By: MANDI Aspirin (Aspirin Enteric Coated 81 Mg Tablet.) 81 mg PO DAILY [facility] Last Admin: 10/08/22 08:57 Dose: 81 mg Documented By: MANDI Atorvastatin Calcium (Atorvastatin Calcium 40 Mg Tablet) 40 mg PO DAILY [facility] Last Admin: 10/08/22 09:23 Dose: 40 mg Documented By: MANDI Baclofen (Baclofen 10 Mg Tablet) 10 mg PO TID PRN PRN Reason: Muscle Spasm Last Admin: 10/07/22 21:49 Dose: 10 mg Documented By: JOHN Calcium Carbonate (Calcium Carbonate 500 Mg Tablet) 500 mg PO DAILY [facility] Last Admin: 10/08/22 08:57 Dose: 500 mg Documented By: MANDI Docusate Sodium (Docusate Sodium 100 Mg Capsule) 100 mg PO BID [facility] Last Admin: 10/08/22 08:56 Dose: 100 mg Documented By: MANDI Enoxaparin Sodium (Enoxaparin Sodium 40 Mg/0.4 Ml Syringe) 40 mg SUBCUT Q24H [facility] Last Admin: 10/08/22 12:49 Dose: 40 mg Documented By: MANDI Hydrocortisone (Hydrocortisone 2.5 % Rectal Cr 30 Gm Tube) 1 appl [place] QID PRN PRN Reason: hemorrhoids Ceftriaxone Sodium 1 gm/ (Sodium Chloride) 50 mls @ 100 mls/hr IV Q24H [facility] Last Infusion: 10/07/22 23:48 Dose: 0 mls/hr Documented By: JOHN Lactated Ringer's (Lr) 1,000 mls @ 80 mls/hr IVCONT .[id number] [facility] Last Infusion: 10/08/22 12:50 Dose: 0 mls/hr Documented By: MANDI Lidocaine (Lidocaine 4 % Patch Adh..Patch) 1 patch TRANSDERMA DAILY [facility] Last Admin: 10/08/22 10:05 Dose: Not Given Documented By: MANDI Non-Admin Reason: Patient Refused Loratadine (Loratadine 10 Mg Tablet) 10 mg PO DAILY [facility] Last Admin: 10/08/22 08:57 Dose: 10 mg Documented By: MANDI Lorazepam (Lorazepam 0.5 Mg Tablet) 0.5 mg PO Q12H PRN PRN Reason: Anxiety Montelukast Sodium (Montelukast Sodium 10 Mg Tablet) 10 mg PO DAILY PRN PRN Reason: Wheezing Omeprazole (Omeprazole 40 Mg Capsule.) 40 mg PO BID@0630,1630 [facility] Last Admin: 10/08/22 05:31 Dose: 40 mg Documented By: JOHN Sodium Chloride (0.9 % Sodium Chloride Flush 3 Ml Syringe) 3 ml IVFLUSH QSHIFT [facility] Last Admin: 10/08/22 08:59 Dose: 3 ml Documented By: MANDI Tamsulosin HCl (Tamsulosin Hcl 0.4 Mg Capsule) 0.4 mg PO DAILY [facility] Last Admin: 10/08/22 08:56 Dose: 0.4 mg Documented By: HO.DOBROB Vitamin D (Cholecalciferol (Vitamin D3) 25 Mcg Tablet) 50 mcg PO DAILY [facility] Last Admin: 10/08/22 08:56 Dose: 50 mcg Documented By: MANDI Labs 10/07/22 06:42 10/07/22 06:42 Microbiology Microbiology Results: Microbiology 10/06/22 02:25 Blood Culture - Preliminary Blood - Venous No growth after 48 hours. 10/06/22 01:50 Blood Culture - Preliminary Blood - Venous No growth after 48 hours. Assessment and Plan (1) Acute UTI: Status: Acute (2) Sepsis: Status: Acute Plan 61-year-old male with history of asthma, arthritis, HLP, BPH, hypertension-came to the hospital because of back pain, dysuria. ?sepsis -pyelonephritis leukocytosis worsening, tachycardia improved. ua-pyuria ,bacteruria,Lactic acid normal ct abd:Thick-walled appearance of the urinary bladder, which could be secondary to cystitis in the proper clinical setting. Bilateral perinephric stranding is nonspecific and could be indicative of pyelonephritis. Urine culture and blood culture pending Patient is started on IV antibiotics, w urology evaluation Neck pain: ativan prn ,continue baclofen, nsaids for pain htn : hold lisinopril, bp boderline. HLP: continue statin. bph:continue flomax. asthma :seems stable. continue home albuterol. dvt? prophylax: s/c lovenox. Patient has sepsis and pyelonephritis-need IV antibiotics ,need urology input - ?b/l nephric standing /possible prostatitis . Time Spent With Patient Time: Total time managing care of this patient today ____ minutes. Quality Stroke Does the patient have a stroke diagnosis?: No VTE Prior VTE?: No VTE Risk Level:: Medical - moderate - high VTE Device Contraindication: N/A - Device Ordered VTE Drug Contraindication: N/A - Med Ordered
--- NOTE | 2022-10-08 13:37 | MHC.CM.PN ---
EMR REVIEWED, PT W/PYELONEPHRITIS/SEPSIS, PT WILL REMAIN INPT FOR IV ABX/IV FLUIDS, NO PLAN FOR D/C AT THIS TIME, ANTIC PT WILL RETURN HOME NO SERVICES WHEN MEDICALLY CLEARED, CM WILL CONT TO FOLLOW D/C NEEDS.
[2022-10-08] MEDS: Lactated Ringers 1,000 ML 80 ML IVCONT (15:05)
[2022-10-08 16:00] VITALS: BP 129/67; PULSE 83; RESP 15; TEMP 37.1; O2SAT 94
--- NOTE | 2022-10-08 16:33 | P.CNID_ITS ---
History of Present Illness Data of Consult Service Date: 10/08/22 Requesting physician: Rajinder English Primary Care Provider: Carmina Narayan MD [facility] Reason for consult: dysuria He has dysuria and symptoms for three days. Urine E coli and blood cultures negative so far. Review of Systems Review of Systems: Yes all other systems are reviewed and are negative [facility] Past Medical History Medical History Arthritis Asthma COVID-19 vaccine administered Elevated cholesterol GERD (gastroesophageal reflux disease) Heart murmur History of BPH HTN (hypertension) Hx of varicose veins Hypertension Osteoarthritis of right knee Osteochondral defect of femoral condyle Pre-diabetes Family History Family History Mother No problems noted. Father No problems noted. Family history: reviewed and not pertinent Surgical History Surgical History H/O colonoscopy History of esophagogastroduodenoscopy (EGD) History of right knee surgery Hx of meniscectomy of right knee Social History Social History Household Members: None Housing: Apartment Are you a primary critical care physician assistant to a significant other at home: No Do you presently have visiting nurse or other home services: No Alcohol intake: never Patient Tobacco Use Status: Never used Tobacco Smoked in Last 30 Days: No e-Cigarette/Vaping Use: Never Used Use of substances other than those prescribed or required for medical reasons: No Substance Use Type: Marijuana Currently Displaying Signs/Symptoms of Drug Intoxication Withdrawal: No Have you been hit, kicked, punched, or otherwise hurt by someone within the past year? If so, by whom?: No Do you feel safe in your current relationship?: No Current Relationship Is there a partner from a previous relationship who is making you feel unsafe now?: No Are you made to feel afraid or neglected: No Spiritual Healthcare Practices: none [facility] Practices: none Cultural Healthcare Practices: none Advance Directives: No Advance Directives Information Provided: No Do you have thoughts of harming others: None Do you have a plan to hurt others: No Plan Recently lost weight without trying: No How much weight loss: Not applicable Nutrition Risks: No Nutritional Risk Poor oral hygiene: No service: No Current occupational status: unemployed Current occupation: right handed Meds Allergies Allergy/AdvReac Type Severity Reaction Status Date / Time amlodipine AdvReac Intermediate Nausea Verified 10/01/22 10:10 Active Medications: Current Medications Acetaminophen (Acetaminophen 325 Mg Tablet) 650 mg PO Q6H PRN PRN Reason: Pain, Mild (Pain Scale 1-3) Last Admin: 10/08/22 08:57 Dose: 650 mg Albuterol Sulfate (Albuterol Sulfate 90 Mcg 8 Gm Inhaler) 2 puff INHALE Q4H PRN PRN Reason: wheezing Ascorbic Acid (Ascorbic Acid 500 Mg Tablet) 1,000 mg PO DAILY [facility] Last Admin: 10/08/22 08:57 Dose: 1,000 mg Aspirin (Aspirin Enteric Coated 81 Mg Tablet.Dr) 81 mg PO DAILY [facility] Last Admin: 10/08/22 08:57 Dose: 81 mg Atorvastatin Calcium (Atorvastatin Calcium 40 Mg Tablet) 40 mg PO DAILY [facility] Last Admin: 10/08/22 09:23 Dose: 40 mg Baclofen (Baclofen 10 Mg Tablet) 10 mg PO TID PRN PRN Reason: Muscle Spasm Last Admin: 10/07/22 21:49 Dose: 10 mg Calcium Carbonate (Calcium Carbonate 500 Mg Tablet) 500 mg PO DAILY [facility] Last Admin: 10/08/22 08:57 Dose: 500 mg Docusate Sodium (Docusate Sodium 100 Mg Capsule) 100 mg PO BID [facility] Last Admin: 10/08/22 08:56 Dose: 100 mg Enoxaparin Sodium (Enoxaparin Sodium 40 Mg/0.4 Ml Syringe) 40 mg SUBCUT Q24H [facility] Last Admin: 10/08/22 12:49 Dose: 40 mg Hydrocortisone (Hydrocortisone 2.5 % Rectal Cr 30 Gm Tube) 1 appl LA QID PRN PRN Reason: hemorrhoids Lactated Ringer's (Lr) 1,000 mls @ 80 mls/hr IVCONT .[id number] [facility] Last Admin: 10/08/22 15:05 Dose: 80 mls/hr Ceftriaxone Sodium 2 gm/ (Sodium Chloride) 50 mls @ 100 mls/hr IV Q24H [facility] Lidocaine (Lidocaine 4 % Patch Adh..Patch) 1 patch TRANSDERMA DAILY [facility] Last Admin: 10/08/22 10:05 Dose: Not Given Loratadine (Loratadine 10 Mg Tablet) 10 mg PO DAILY [facility] Last Admin: 10/08/22 08:57 Dose: 10 mg Lorazepam (Lorazepam 0.5 Mg Tablet) 0.5 mg PO Q12H PRN PRN Reason: Anxiety Montelukast Sodium (Montelukast Sodium 10 Mg Tablet) 10 mg PO DAILY PRN PRN Reason: Wheezing Omeprazole (Omeprazole 40 Mg Capsule.Dr) 40 mg PO BID@0630,1630 [facility] Last Admin: 10/08/22 05:31 Dose: 40 mg Sodium Chloride (0.9 % Sodium Chloride Flush 3 Ml Syringe) 3 ml IVFLUSH QSHIFT [facility] Last Admin: 10/08/22 15:05 Dose: Not Given Tamsulosin HCl (Tamsulosin Hcl 0.4 Mg Capsule) 0.4 mg PO DAILY [facility] Last Admin: 10/08/22 08:56 Dose: 0.4 mg Vitamin D (Cholecalciferol (Vitamin D3) 25 Mcg Tablet) 50 mcg PO DAILY [facility] Last Admin: 10/08/22 08:56 Dose: 50 mcg Home Medications Medication Instructions Recorded Confirmed Last Taken Type tamsulosin 0.4 mg capsule (Flomax) 0.4 mg PO QA 08/14/20 10/06/22 08/19/20 10:30 History ascorbic acid (vitamin C) 1,000 mg 1,000 mg PO DAILY 08/15/20 10/06/22 08/18/20 09:00 History tablet (Vitamin C) cholecalciferol (vitamin D3) 50 50 mcg PO DAILY 08/15/20 10/06/22 08/18/20 09:00 History mcg (2,000 unit) capsule (Vitamin D3) montelukast 10 mg tablet 10 mg PO DAILY PRN Wheezing 08/15/20 10/06/22 08/09/20 22:00 History (Singulair) rosuvastatin 10 mg tablet (Crestor) 10 mg PO DAILY 08/15/20 10/06/22 08/19/20 09:00 History albuterol sulfate 90 mcg/actuation 2 puff inhalation Q4H PRN wheezing 10/06/22 10/06/22 Unknown History aerosol inhaler (Ventolin HFA) aspirin 81 mg tablet,delayed 81 mg PO QAM 10/06/22 10/06/22 Unknown History release baclofen 10 mg tablet 10 mg PO TID PRN Muscle Spasm 10/06/22 10/06/22 Unknown History calcium carbonate 600 mg calcium 600 mg PO DAILY 10/06/22 10/06/22 Unknown History (1,500 mg) tablet (Calcium) cetirizine 10 mg tablet 10 mg PO QAM 10/06/22 10/06/22 Unknown History ibuprofen 600 mg tablet 600 mg PO TID PRN Pain 10/06/22 10/06/22 Unknown History lidocaine 5 % topical patch 1 patch topical DAILY 10/06/22 10/06/22 Unknown History lisinopril 20 mg tablet 20 mg PO QAM 10/06/22 10/06/22 Unknown History omeprazole 40 mg capsule,delayed 40 mg PO DAILY PRN Gastric Reflux 10/06/22 10/06/22 Unknown History release Physical Exam Vital Signs: Vital Signs: Last Vital Signs Temp 98.7 F 10/08/22 16:00 Pulse 83 10/08/22 16:00 Resp 15 10/08/22 16:00 BP 129/67 10/08/22 16:00 Pulse Ox 94 10/08/22 16:00 O2 Del Method Room Air 10/08/22 16:00 BMI result Body Mass Index 36.2 Const: General: cooperative HEENT: Head: Yes normal to inspection Face and sinus: Yes normal facial exam Mouth: Normal oral and palatal mucosa present Teeth and gingiva: dentition normal Eyes: General: appearance normal, both eyes and all related structures Pupils: Equal, round and reactive pupils present Resp: Effort & Inspection: normal respiratory effort Cardio: Rate: regular rate Rhythm: regular rhythm GI: Palpation (GI): Soft to palpation and nontender : General: Yes no CVA tenderness Back/Spine/Pelvis: Back: no CVA tenderness Skin: General skin exam: no rashes or lesions noted Neuro: General: moves all extremities Cranial nerves: Yes Equal, round and reactive pupils present Extrem: General: Yes normal to inspection Psych: Appearance: grossly normal Results Labs 10/07/22 06:42 10/07/22 06:42 Microbiology Microbiology Results: Microbiology 10/06/22 02:25 Blood - Venous Blood Culture - Preliminary No growth after 48 hours. 10/06/22 01:50 Blood - Venous Blood Culture - Preliminary No growth after 48 hours. 10/05/22 16:21 Urine clean catch - Urine miles top Urine Culture - Final Escherichia coli Assessment and Plan (1) Sepsis: Status: Acute (2) Acute UTI: Status: Acute He may have some prostatis as well NKDA Plan Continue Ceftriaxone Po Ceftin likely three week total treat prostate as well. Time Spent With Patient Time: Total time managing care of this patient today ____ minutes.
--- NOTE | 2022-10-08 18:38 | PC.NURSE ---
At 1600 bladder scan was performed post void and 260ml was noted, reported findings to provider informing also that patient is frequently walking to the bathroom to urinate as well as using urinal without. Per Dr. Pires no need to stray cath at this time. Patient was educated re: urinary retention and we will contiune to monitor.
[2022-10-08 19:18] VITALS: BP 125/66; PULSE 90; RESP 15; TEMP 37; O2SAT 93
--- NOTE | 2022-10-08 22:10 | PC.NURSE ---
Pt out of bed independently. A&X4. Lung sounds dim denies SOB or CP, NSR on tele. BS+X4 abdomen soft non-tender colace given in evening. c/o headache 5/10 tylenol given with good effect. Continues on IV fluids per order. Requesting to take shower. Dr Arriaga paged ok to be off monitor for shower. After shower pt breathing heavy with exertion when asked states he is feeling a little bit more short of breath. 2+ edema noted to feet and ankles. Dr Ceballos notified of findings. Will continue to monitor and report changes
[2022-10-08 23:44] VITALS: BP 122/72; PULSE 89; RESP 20; TEMP 36.8; O2SAT 93
[2022-10-09] MEDS: cefTRIAXone sodium 2 GM in 0.9 % Sodium Chloride 50 ML IV (00:16)
[2022-10-09] MEDS: 0.9 % Sodium Chloride Flush 3 ML SYRINGE IVFLUSH ×2 (00:17→07:52)
[2022-10-09 00:40] LABS: B Type Natriuretic Peptide 31 pg/mL (<100)
[2022-10-09] MEDS: Ibuprofen 600 MG TABLET PO (01:41)
[2022-10-09] MEDS: LORazepam 0.5 MG TABLET PO (01:42)
[2022-10-09 03:28] VITALS: BP 122/69; PULSE 81; RESP 20; TEMP 37; O2SAT 93
[2022-10-09] MEDS: Omeprazole 40 MG CAPSULE.DR PO (05:31)
[2022-10-09] MEDS: Lactated Ringers 1,000 ML 80 ML IVCONT (05:32)
[2022-10-09] MEDS: Loratadine 10 MG TABLET PO (07:48)
[2022-10-09] MEDS: Aspirin Enteric Coated 81 MG TABLET.DR PO (07:48)
[2022-10-09] MEDS: Docusate Sodium 100 MG CAPSULE PO (07:48)
[2022-10-09] MEDS: Cholecalciferol (Vitamin D3) 25 MCG TABLET 50 MCG PO (07:48)
[2022-10-09] MEDS: Atorvastatin Calcium 40 MG TABLET PO (07:48)
[2022-10-09] MEDS: Tamsulosin HCL 0.4 MG CAPSULE PO (07:49)
[2022-10-09] MEDS: Ascorbic Acid 500 MG TABLET 1000 MG PO (07:49)
[2022-10-09] MEDS: Lidocaine 4 % Patch ADH..PATCH 1 PATCH TRANSDERMA (07:52)
[2022-10-09 08:00] VITALS: BP 141/77; PULSE 75; RESP 20; TEMP 36.6; O2SAT 95
[2022-10-09 08:09] LABS: Hematocrit 35.4 % (42.0-52.0); Hemoglobin 12.3 g/dl (14.0-18.0); Mean Corpuscular HGB Conc 34.7 g/dl (31.0-36.0); Mean Corpuscular Hemoglobin 31.5 pg (27.0-33.0); Mean Corpuscular Volume 90.5 fL (80.0-98.0); Mean Platelet Volume 9.8 fL (9.4-12.4); Platelet Count 163 X10*3/uL (160-400); Red Blood Count 3.91 X10*6/uL (4.60-5.80); Red Cell Distribution Width 13.5 % (11.0-16.0); White Blood Count 10.4 X10*3/uL (4.8-10.8)
[2022-10-09 08:22] LABS: Anion Gap 11 (12-20); Blood Urea Nitrogen 12 mg/dL (9-16); Calcium 9.4 mg/dL (8.4-10.2); Carbon Dioxide 25 mmol/L (22-29); Chloride 106 mmol/L (96-108); Creatinine Clr Calc Pharmacy 156.2; Estimated Glomerular Filt Rate > 60; Glucose Random 112 mg/dL (60-115); Potassium 3.9 mmol/L (3.3-5.1); Sodium 138 mmol/L (135-145)
[2022-10-09] MEDS: Furosemide 20 MG/2 ML VIAL IVPUSH (09:21)
--- NOTE | 2022-10-09 09:57 | MHC.CM.PN ---
Patient has been medically cleared for dc to home today, self care.
--- NOTE | 2022-10-09 10:28 | P.DS_ITS ---
DS: Providers Provider Date of Service: 10/09/22 Date of admission: 10/06/22 09:51 Date of discharge: 10/09/22 Primary care physician: Carmina Narayan MD Consults: 10/06/22 10:34 Consult to Urology Routine Consulting Provider: [facility] Reason for consultation: pyelonephritis/sepsis -?prstatitis (hx of bph) Has provider been notified: No 10/08/22 13:34 Consult to Infectious Diseases Routine Consulting Provider: [facility] Reason for consultation: uti/pyelonpehritis Attending physician on discharge: Rajinder English Discharging clinician: Rajinder English DS: Diagnosis Discharge Diagnosis (1) Sepsis: Status: Acute (2) Acute UTI: Status: Acute DS: Summary Hospital Course Hospital Course: 61-year-old male with history of asthma, arthritis, HLP, BPH, hypertension-came to the hospital because of back pain, dysuria.? He says that the he is having these symptoms from few days.? As per ED note from yesterday-patient also has fever tachycardia and was having leukocytosis and meeting criteria for sepsis, he says that he had UTI history but many years ago. In addition patient has neck pain/headaches and he also says has uncontrolled blood pressure-he was in ED few days back and was given muscle relaxant and NSAIDs-he still has neck muscle pain. has suprpubic discomfort. Denies any new complaint of chest pain or shortness of breath or abdominal pain or fever or chills or nausea or vomiting or visual changes or dizziness . Denies any cough Denies any weakness or numbness. Labs, imaging reviewed:10/05/22: CBC:? WBC is 15.7, sodium 136 BUN 15 creatinine 0.82 calcium 10.5 Total bilirubin 2.[address]/CT head/brain wo IV con IMPRESSION: No acute intracranial pathology. CT/CT abdomen pelvis w IV con IMPRESSION: 1.? Thick-walled appearance of the urinary bladder, which could be secondary to cystitis in the proper clinical setting. Bilateral perinephric stranding is nonspecific and could be indicative of pyelonephritis. Correlation with urinalysis and laboratory values is recommended. 2.? Enlarged prostate gland. 3.? Tiny bilateral renal calculi without hydronephrosis hospital course: Patient was admitted for dysuria and back pain- started on IV antibiotics and blood cultures sent, in addition patient had CT abdomen showed bilateral perinephric standing, also UA likely pyuria and bacteriuria-subsequently pain was improved with pain management and also dysuria is improving with IV antibi otics, blood culture negative at 48 hours. Urine culture-E coli sensitive to ceftriaxone. Patient was seen by Urology and ID -for possible prostatitis : Patient is improving recommended to switch to p.o. antibiotics for 3 weeks. Patient is to follow-up with Urology out patiently. Consider monitoring CBC, BMP, LFTs Q weekly while on antibiotics. Neck muscle spasm: Seems significantly better ,range of motion is better: Continue home muscle relaxer and pain medications. Above management discussed with the patient the lengthy understand and in agreement with the above plan, time spent 50 minute. Time Spent with Patient Time attestation: Total time managing care of this patient today ____ minutes. Discharge coordination time: Greater than 30 minutes Quality: Safe Use of Opioids Does Pt have an Active Cancer Diagnosis on the Problem List?: No Quality: Stroke Does the patient have a stroke diagnosis?: No Physical Exam Vital Signs: Vital Signs: Last Vital Signs Temp 97.8 F 10/09/22 08:00 Pulse 75 10/09/22 08:00 Resp 20 10/09/22 08:00 BP 141/77 H 10/09/22 08:00 Pulse Ox 95 10/09/22 08:00 O2 Del Method Room Air 10/09/22 08:00 BMI result Body Mass Index 36.2 Appearance: Alert.? Oriented X3.? not in distress.? neck -pain with movement ,more muscular , rom -improving. cvs: rrr, [id number] . res: clear to auscultation ,no rhonchii or wheezing abd: no rebound or guarding ,nt, bs present. cva mild dicomfort b/l , lower back muscle area pain . ext pulses present , no cyanosis . neuro: axo3 , nonfocal. DS: Data Data Completed and Pending Completed studies during hospitalization [Text1]: Procedures Replacement of Right Knee Joint with Medial Unicondylar Synthetic Substitute, Cemented, Open Approach (08/19/20) Labs on day of discharge: Laboratory Results - last 24 hr 10/08/22 10/09/22 10/09/22 23:35 07:53 07:53 WBC 10.4 RBC 3.91 L Hgb 12.3 L Hct 35.4 L MCV 90.5 MCH 31.5 MCHC 34.7 RDW 13.5 Plt Count 163 MPV 9.8 Absolute Nucleated RBC 0.000 Nucleated RBC % (auto) 0.0 Sodium 138 Potassium 3.9 Chloride 106 Carbon Dioxide 25 Anion Gap 11 L BUN 12 Creatinine 0.61 Estim Creat Clear Calc 156.2 Estimated GFR > 60 Random Glucose 112 Calcium 9.4 B-Natriuretic Peptide 31 Preliminary micro results at discharge 10/06/22 02:25 Blood Culture - Preliminary Blood - Venous No growth after 48 hours. 10/06/22 01:50 Blood Culture - Preliminary Blood - Venous No growth after 48 hours. Imaging Chest x-ray: Radiologist's impression: ITS Impressions Abdomen/Pelvis CT 10/06/22 06:10 IMPRESSION: 1. Thick-walled appearance of the urinary bladder, which could be secondary to cystitis in the proper clinical setting. Bilateral perinephric stranding is nonspecific and could be indicative of pyelonephritis. Correlation with urinalysis and laboratory values is recommended. 2. Enlarged prostate gland. 3. Tiny bilateral renal calculi without hydronephrosis. Head CT 10/06/22 06:10 IMPRESSION: No acute intracranial pathology. Chest X-Ray 10/08/22 23:20 IMPRESSION: Mild chronic interstitial thickening, not significantly changed. No acute cardiopulmonary findings. Discharge Plan Discharge Anticipated Discharge Date/Time: 10/09/22 07:52 Patient Disposition: Home, Self-Care Discharge Diagnosis: sepsis -pyelonephritis, neck muscle spasm Referrals: Tommie Del Cid MD [Physician] - 1 Week Carmina Narayan MD [Primary Care Provider] - 1 Week Discharge Medications: New cefuroxime axetil 500 mg tablet 500 mg PO BID Qty: 40 0RF Continued tamsulosin [Flomax] 0.4 mg Capsule 0.4 mg PO QAM ascorbic acid (vitamin C) [Vitamin C] 1,000 mg Tablet 1,000 mg PO DAILY rosuvastatin [Crestor] 10 mg Tablet 10 mg PO DAILY cholecalciferol (vitamin D3) [Vitamin D3] 50 mcg (2,000 unit) Capsule 50 mcg PO DAILY montelukast [Singulair] 10 mg Tablet 10 mg PO DAILY PRN (Reason: Wheezing) acetaminophen 325 mg Tablet 650 mg PO Q6H PRN (Reason: Pain, Mild (Pain Scale 1-3)) 30 Days Qty: 240 0RF docusate sodium 100 mg Capsule 100 mg PO BID 14 Days Qty: 28 0RF cetirizine 10 mg tablet 10 mg PO QAM lisinopril 20 mg tablet 20 mg PO QAM aspirin 81 mg tablet,delayed release (DR/EC) 81 mg PO QAM lidocaine 5 % adhesive patch,medicated 1 patch topical DAILY ibuprofen 600 mg tablet 600 mg PO TID PRN (Reason: Pain) albuterol sulfate [Ventolin HFA] 90 mcg/actuation HFA aerosol inhaler 2 puff INHALATION Q4H PRN (Reason: wheezing) omeprazole 40 mg capsule,delayed release(DR/EC) 40 mg PO DAILY PRN (Reason: Gastric Reflux) calcium carbonate [Calcium 600] 600 mg calcium (1,500 mg) Tablet 600 mg PO DAILY baclofen 10 mg Tablet 10 mg PO TID PRN (Reason: Muscle Spasm) (DME) rubens Misc See Rx Instructions .MEDSUPPLY Qty: 1 0RF Rx Instructions: Folding Front wheeled walker hydrocortisone [Proctosol HC] 2.5 % cream with perineal applicator 1 appl FL BID-QID PRN (Reason: hemorrhoids) Qty: 30 0RF Discharge Orders: Discharge Order (Routine); Ordered 10/09/22 Ordered By: Rajinder English Diet: Advance to usual diet Activity on Discharge: As tolerated Stand Alone Forms: Patient Portal Discharge page Care Plan Goals: Patient was admitted for dysuria and back pain- started on IV antibiotics and blood cultures sent, in addition patient had CT abdomen showed bilateral perinephric standing, also UA likely pyuria and bacteriuria-subsequently pain was improved with pain management and also dysuria is improving with IV antibiotics, blood culture negative at 48 hours. Urine culture-E coli sensitive to ceftriaxone. Patient was seen by Urology and ID -for possible prostatitis : Patient is improving recommended to switch to p.o. antibiotics for 3 weeks. Patient is to follow-up with Urology out patiently. Consider monitoring CBC, BMP, LFTs Q weekly while on antibiotics. Neck muscle spasm: Seems significantly better ,range of motion is better: Continue home muscle relaxer and pain medication. Health Concerns: As above. Plan of Treatment: As above. Assessment: as above.
[2022-10-09 11:34] VITALS: BP 122/66; PULSE 84; RESP 20; TEMP 37.1; O2SAT 94
[2022-10-09] MEDS: Enoxaparin Sodium 40 MG/0.4 ML SYRINGE SUBCUT (12:14)
== END 2022-10-09 12:48 | disposition home or self-care (01) | DRG 720 ==
LOC: HO.ED 10-06 07:01 → HO.EDOVER 10-06 12:06 → HO.IMC 10-06 15:09
PROVIDERS: Internal Medicine; Admitting Provider Internal Medicine; Emergency Provider Internal Medicine; PCP Family Medicine; Visit Provider Internal Medicine
DX: A41.9 Sepsis, unspecified organism (principal); I10 Essential (primary) hypertension; J45.909 Unspecified asthma, uncomplicated; N40.0 Benign prostatic hyperplasia without lower urinary tract symptoms; B96.20 Unspecified Escherichia coli [E. coli] as the cause of diseases classified elsewhere; N39.0 Urinary tract infection, site not specified; Z79.82 Long term (current) use of aspirin; Z79.899 Other long term (current) drug therapy
CPT/HCPCS: 36415; 70450; 71045; 74177; 80048; 80076; 81001; 81003; 82550; 83605; 83690; 83880; 84484; 85025; 85027; 87040; 87086; 87088; 87186; 93005; 99285; J0696; J1650; J1885; J1940; Q9967

== ENCOUNTER → 2022-10-05 15:28 | Outpatient (BNV) | payer MEDICAID, SELFPAY | PROVIDERS: Emergency Provider Internal Medicine; PCP Family Medicine; Visit Provider Internal Medicine Cardiovascular Disease | DX: R00.0 Tachycardia, unspecified (principal); R94.31 Abnormal electrocardiogram [ECG] [EKG] | CPT/HCPCS: 93010 ==

== ENCOUNTER → 2022-10-06 01:10 | Outpatient (BNV) | payer MEDICAID, SELFPAY | PROVIDERS: Emergency Provider Internal Medicine; PCP Family Medicine; Visit Provider Internal Medicine | DX: N39.0 Urinary tract infection, site not specified (principal); A41.9 Sepsis, unspecified organism | CPT/HCPCS: 99222; 99232; 99239 ==

== ENCOUNTER → 2022-10-06 05:22 | Outpatient (BNV) | payer MEDICAID, SELFPAY | PROVIDERS: Emergency Provider Internal Medicine; PCP Family Medicine; Visit Provider Internal Medicine Cardiovascular Disease | DX: R94.31 Abnormal electrocardiogram [ECG] [EKG] (principal) | CPT/HCPCS: 93010 ==

== ENCOUNTER → 2022-10-06 09:51 | Outpatient (BNV) | payer MEDICAID, SELFPAY | PROVIDERS: Admitting Provider Internal Medicine; Emergency Provider Internal Medicine; PCP Family Medicine; Visit Provider Internal Medicine | DX: A41.9 Sepsis, unspecified organism (principal); N39.0 Urinary tract infection, site not specified | CPT/HCPCS: 99222 ==

== ENCOUNTER 2022-10-11 14:18 | Outpatient (REF) | payer MEDICAID, SELFPAY ==
[2022-10-11 17:44] LABS: MANUAL DIFF FLAG NO
[2022-10-11 17:58] LABS: Basophils Absolute Auto 0.1 X10*3/uL (0.0-0.2); Basophils Percent Auto 0.5 % (0-2); Eosinophils Absolute Auto 0.1 X10*3/uL (0.0-0.4); Eosinophils Percent Auto 1.5 % (0-4); Hematocrit 38.4 % (42.0-52.0); Hemoglobin 13.1 g/dl (14.0-18.0); Imm Gran Abs Auto 0.14 X10*3/uL (0.00-0.03); Imm Gran Pct Auto 1.5 % (0.0-0.4); Lymphocytes Absolute Auto 1.3 X10*3/uL (1.2-4.9); Lymphocytes Percent Auto 14.3 % (20-40); Mean Corpuscular HGB Conc 34.1 g/dl (31.0-36.0); Mean Corpuscular Hemoglobin 31.1 pg (27.0-33.0); Mean Corpuscular Volume 91.2 fL (80.0-98.0); Mean Platelet Volume 9.8 fL (9.4-12.4); Monocytes Absolute Auto 1.1 X10*3/uL (0.1-1.2); Monocytes Percent Auto 11.7 % (2-11); Neutrophils Absolute Auto 6.6 x10*3/uL (2.0-8.3); Neutrophils Percent Auto 70.5 % (45-73); Platelet Count 252 X10*3/uL (160-400); Red Blood Count 4.21 X10*6/uL (4.60-5.80); Red Cell Distribution Width 13.9 % (11.0-16.0); White Blood Count 9.3 X10*3/uL (4.8-10.8)
[2022-10-11 18:32] LABS: Anion Gap 16 (12-20); Blood Urea Nitrogen 11 mg/dL (9-16); Calcium 9.8 mg/dL (8.4-10.2); Carbon Dioxide 22 mmol/L (22-29); Chloride 103 mmol/L (96-108); Estimated Glomerular Filt Rate > 60; Glucose Random 128 mg/dL (60-115); Potassium 3.7 mmol/L (3.3-5.1); Sodium 137 mmol/L (135-145)
== END 2022-10-11 14:19 | disposition home or self-care (01) ==
LOC: HO.CHCLDS 14:18
PROVIDERS: Visit Provider Registered Nurse
DX: N41.0 Acute prostatitis (principal)
CPT/HCPCS: 36415; 80048; 85025

== ENCOUNTER 2022-10-20 09:01 | Outpatient (AMB) | payer MEDICAID, SELFPAY ==
--- NOTE | 2022-10-20 10:02 | A.OFFVIS_ITS ---
Intake Intake Visit Reasons: 6m follow up Intake Note: Patient is present for Follow Up Urology Med: Tamsulosin Antibiotic Allergy: none Blood Thinner: Aspirin Allergies amlodipine Adverse Reaction (Intermediate, Verified 11/23/22 09:58) Nausea terazosin Adverse Reaction (Intermediate, Uncoded 11/23/22 09:58) Hypotension HPI HPI Comments History of Present Illness Details Donny is a pleasant Kinyarwanda-speaking male. He is a patient of Dr. Elena. He is seen for the following urologic conditions - erectile dysfunction - Peyronie's - lower urinary tract symptoms Kinyarwanda translation provided in office by qualified medical consultant Continue with daily 10 mg tadalafil Discussed venous leak May benefit from constriction band Lower urinary tract symptoms Reporting weakness of stream Nocturia x2 No prior prostate medications Trial Flomax Erectile dysfunction Has been progressive Response to Cialis 10 mg on demand Noted to have curvature that he says happened after trauma as a child Is noting that blood flow to penis does not allow maintenance of erection PFSH Medical History Arthritis Asthma COVID-19 vaccine administered Elevated cholesterol GERD (gastroesophageal reflux disease) Heart murmur History of BPH HTN (hypertension) Hx of varicose veins Hypertension Osteoarthritis of right knee Osteochondral defect of femoral condyle Pre-diabetes Surgical History H/O colonoscopy History of esophagogastroduodenoscopy (EGD) History of right knee surgery Hx of meniscectomy of right knee Family History Mother No problems noted. Father No problems noted. Social History Household Members: None Housing: Apartment Are you a primary clinical manager home care to a significant other at home: No Do you presently have visiting nurse or other home services: No Alcohol intake: never Patient Tobacco Use Status: Never used Tobacco e-Cigarette/Vaping Use: Never Used Substance Use Type: Marijuana Advance Directives Date on File: 10/11/22 service: No Current occupational status: unemployed Current occupation: right handed Review of Systems Const Denies chills and Denies fever(s) Card Reports no additional complaints and Denies syncope Resp Denies cough GI Denies abdominal pain and Denies heartburn Reports as per HPI and Denies change in libido Neuro Denies syncope Psych Denies change in libido Endo Denies change in libido Physical Exam Const General: cooperative, healthy appearing, comfortable and no acute distress Orientation/consciousness: patient oriented x3 HEENT Face and sinus: Yes normal facial exam Mouth: moist mucous membranes Neck Neck: Yes normal visual inspection, Yes full ROM and Yes trachea midline Chest Chest palpation & inspection: normal inspection of the chest Resp Effort & Inspection: normal respiratory effort, able to speak in complete sentences and no respiratory distress GI Inspection: Yes normal to inspection Back/Spine/Pelvis Cervical Spine: normal cervical lordosis Thoracic/Lumbar Spine: thoracic and lumbar spine normal to inspection Skin General skin exam: no rashes or lesions noted Neuro General: patient oriented x3, gait normal, tone normal and moves all extremities Extrem General: Yes normal to inspection and Yes capillary refill normal Assessment & Plan Assessment & Plan (1) Bladder outlet obstruction: Code(s): N32.0 - Bladder-neck obstruction Plan Trial terazosin 5 mg Medications: New terazosin 5 mg PO BEDTIME 30 caps 1RF 30 days N32.0 - Bladder-neck obstruction, N40.1 - Benign prostatic hyperplasia with lower urinary tract symptoms, R35.0 - Frequency of micturition Patient Instructions: Imaging studies, laboratory and physical exam results were discussed and reviewed in detail. No major barriers to patient understanding were identified. An opportunity to ask questions regarding the treatment plan was provided. All questions were answered. The patient expressed understanding and agreement with the above treatment plan. The patient is aware they should contact our office by phone for worsening of their current condition or the appearance of new urologic symptoms. Compliance i s encouraged with any medications and followup testing that is ordered. It is a privilege to participate in the urologic care of your patient. If you have any questions or concerns regarding treatment for the above conditions, or other urologic issues, please do not hesitate to contact me. The office telephone contact is [phone]. This note is constructed using voice recognition software. While every effort has been made to ensure accuracy family and consumer science professor errors may have been included. Yours sincerely, Dr Tommie Del Cid MD, ESME [facility] - Urology Providers of Expert, Compassionate Care for the Genitourinary System Coding Level of Care Code Est Pt Level 4 (74074) Diagnoses Bladder outlet obstruction N32.0
== END 2022-10-20 11:32 | disposition home or self-care (01) ==
PROVIDERS: Visit Provider Urology
DX: N32.0 Bladder-neck obstruction (principal)
CPT/HCPCS: 99214

== ENCOUNTER → 2022-10-20 09:01 | Outpatient (BNVA) | payer MEDICAID, SELFPAY | PROVIDERS: Visit Provider Urology | DX: N32.0 Bladder-neck obstruction (principal) | CPT/HCPCS: 99212 ==

== ENCOUNTER 2022-11-05 14:13 | Outpatient (REF) | payer MEDICAID, SELFPAY ==
[2022-11-05 17:55] LABS: Appearance Urine Clear; Color Urine Yellow; Glucose Urine UA Negative (Negative); Leukocyte Esterase Urine Small (1+) (Negative); Nitrite Urine Negative (Negative); PH 8.5 (5.0-9.0); Specific Gravity - Urine 1.015 (1.005-1.025); UMIC TRIGGER UA YES; Urine Blood Negative (Negative); Urine Ketones Negative (Negative); Urine Protein Negative (Neg-Trace)
[2022-11-05 18:00] LABS: Bacteria Urine 3+ (None Seen); Hyaline Casts Urine 0-2 /LPF (0-2); RBC Urine 0-2 /HPF (0-2); Squamous Epithelial Cell Urine 0-2 /HPF (0-2)
== END 2022-11-05 14:14 | disposition home or self-care (01) ==
LOC: HO.CHCLDS 14:13
PROVIDERS: Visit Provider Family Medicine
DX: N12 Tubulo-interstitial nephritis, not specified as acute or chronic (principal)
CPT/HCPCS: 81001; 87086; 87088; 87186

== ENCOUNTER 2022-11-08 13:13 | Outpatient (REF) | payer MEDICAID, SELFPAY | END 2022-11-08 13:14 | disposition home or self-care (01) | LOC: HO.CHCLNP 13:13 | PROVIDERS: Visit Provider Family Medicine | DX: R30.0 Dysuria (principal) | CPT/HCPCS: 87086; 87088; 87186 ==

== ENCOUNTER 2022-11-09 03:23 | Emergency (ER) | payer MEDICAID, SELFPAY ==
[2022-11-09 03:30] VITALS: BP 171/91; PULSE 103; RESP 18; TEMP 37.4; O2SAT 96; BMI 35.9
--- NOTE | 2022-11-09 04:14 | ED.MALEGU ---
HPI - Male Genitourinary General Chief complaint: Urogenital-Male Stated complaint: Low back pain, painful urine Time Seen by Provider: 11/09/22 04:14 Source: patient Mode of arrival: ambulatory Limitations: no limitations History of Present Illness HPI Narrative: Patient history of recurrent UTI had E coli in the culture on 10/17 CT scan of the abdomen was negative for stones comes here for similar symptoms for last 10 days seen PCP yesterday who prescribed antibiotic Bactrim but has not taken it yet. Pain having dysuria frequency for last 10 days now having pain in the right flank area with nausea no fever no chills Related Data Home Medications Medication Instructions Recorded Confirmed ascorbic acid (vitamin C) 1,000 mg 1,000 mg PO DAILY 08/15/20 10/06/22 tablet (Vitamin C) cholecalciferol (vitamin D3) 50 50 mcg PO DAILY 08/15/20 10/06/22 mcg (2,000 unit) capsule (Vitamin D3) montelukast 10 mg tablet 10 mg PO DAILY PRN Wheezing 08/15/20 10/06/22 (Singulair) rosuvastatin 10 mg tablet (Crestor) 10 mg PO DAILY 08/15/20 10/06/22 albuterol sulfate 90 mcg/actuation 2 puff inhalation Q4H PRN wheezing 10/06/22 10/06/22 aerosol inhaler (Ventolin HFA) aspirin 81 mg tablet,delayed 81 mg PO QAM 10/06/22 10/06/22 release baclofen 10 mg tablet 10 mg PO TID PRN Muscle Spasm 10/06/22 10/06/22 calcium carbonate 600 mg calcium 600 mg PO DAILY 10/06/22 10/06/22 (1,500 mg) tablet (Calcium) cetirizine 10 mg tablet 10 mg PO QAM 10/06/22 10/06/22 ibuprofen 600 mg tablet 600 mg PO TID PRN Pain 10/06/22 10/06/22 lidocaine 5 % topical patch 1 patch topical DAILY 10/06/22 10/06/22 lisinopril 20 mg tablet 20 mg PO QAM 10/06/22 10/06/22 omeprazole 40 mg capsule,delayed 40 mg PO DAILY PRN Gastric Reflux 10/06/22 10/06/22 release Previous Rx's Medication Instructions Recorded walker #1 ea 07/17/20 acetaminophen 325 mg tablet 650 mg PO Q6H PRN Pain, Mild (Pain 08/21/20 Scale 1-3) 30 days #240 tabs docusate sodium 100 mg capsule 100 mg PO BID 14 days #28 caps 08/21/20 hydrocortisone 2.5 % topical cream 1 appl ID BID-QID PRN hemorrhoids 04/16/21 with perineal applicator #30 grams (Proctosol HC) cefuroxime axetil 500 mg tablet 500 mg PO BID #40 tabs 10/09/22 tadalafil 5 mg tablet 5 mg PO DAILY 30 days #30 tabs 10/21/22 tamsulosin 0.4 mg capsule 0.4 mg PO DAILY 90 days #90 caps 11/03/22 Allergies Allergy/AdvReac Type Severity Reaction Status Date / Time amlodipine AdvReac Intermediate Nausea Verified 10/20/22 10:07 terazosin AdvReac Intermediate Hypotension Uncoded 11/03/22 11:30 Review of Systems Review of Systems: Yes all other systems are reviewed and are negative [facility] Past Medical History Medical History Arthritis Asthma COVID-19 vaccine administered Elevated cholesterol GERD (gastroesophageal reflux disease) Heart murmur History of BPH HTN (hypertension) Hx of varicose veins Hypertension Osteoarthritis of right knee Osteochondral defect of femoral condyle Pre-diabetes Surgical History H/O colonoscopy History of esophagogastroduodenoscopy (EGD) History of right knee surgery Hx of meniscectomy of right knee Family History Family History Mother No problems noted. Father No problems noted. Social History Social History Household Members: None Housing: Apartment Are you a primary resident care aid to a significant other at home: No Do you presently have visiting nurse or other home services: No Alcohol intake: never Patient Tobacco Use Status: Never used Tobacco e-Cigarette/Vaping Use: Never Used Substance Use Type: Marijuana Advance Directives: No Advance Directives Information Provided: Yes service: No Current occupational status: unemployed Current occupation: right handed Physical Exam Vital Signs: Vital Signs: Last Vital Signs Temp 98.5 F 11/09/22 05:42 Pulse 81 11/09/22 05:42 Resp 17 11/09/22 05:42 BP 152/95 H 11/09/22 05:42 Pulse Ox 95 11/09/22 05:42 O2 Del Method Room Air 11/09/22 05:42 BMI result Body Mass Index 35.9 Appearance: Alert. Oriented X3. No acute distress. ENT: Pharynx normal. Oral Mucosa moist Neck: Normal inspection. Neck supple. CVS: Normal heart rate and rhythm. Pulses normal. Respiratory: No respiratory distress. Equal air entry bilateral, no wheezing/rales/rhonchi Abdomen: Soft and nontender. Bowel sounds are present, no mass palpable, mild right CVA tenderness Skin: Skin warm and dry. Normal skin color. Normal skin turgor. Extremities: No lower extremity edema. No calf tenderness Neuro: Oriented X 3. No motor deficit. Medications Administered Discontinued Medications Generic Name Dose Route Start Last Admin Trade Name Freq PRN Reason Stop Dose Admin Cefuroxime Axetil 500 mg 11/09/22 04:22 11/09/22 05:25 Cefuroxime Axetil 500 Mg Tablet PO 11/09/22 04:23 500 mg ONCE ONE Administration Ondansetron HCl 4 mg 11/09/22 04:22 11/09/22 05:25 Ondansetron Odt 4 Mg Tab.Rapdis TRANSLINGU 11/09/22 04:23 4 mg ONCE ONE Administration Tramadol HCl 50 mg 11/09/22 04:22 11/09/22 05:25 Tramadol Hcl 50 Mg Tablet PO 11/09/22 04:23 50 mg ONCE ONE Administration Medical Decision Making Medical Decision Making [facility] Narrative: Patient with uncomplicated UTI already has a prescription of Bactrim but has not taken it will take the medicine at home Lab Data [facility] Lab Attestation statement: I reviewed the patient's lab results. 11/09/22 04:25 11/09/22 04:25 Labs: Lab Results 11/09/22 11/09/22 11/09/22 Range/Units 04:25 04:25 05:07 WBC 11.7 H (4.8-10.8) X10*3/uL RBC 4.05 L (4.60-5.80) X10*6/uL Hgb 12.5 L (14.0-18.0) g/dl Hct 36.4 L (42.0-52.0) % MCV 89.9 (80.0-98.0) fL MCH 30.9 (27.0-33.0) pg MCHC 34.3 (31.0-36.0) g/dl RDW 13.4 (11.0-16.0) % Plt Count 161 D (160-400) X10*3/uL MPV 8.7 L (9.4-12.4) fL Immature Gran % (Auto) 0.4 (0.0-0.4) % Neut % (Auto) 69.3 (45-73) % Lymph % (Auto) 18.5 L (20-40) % [place] % (Auto) 11.1 H (2-11) % Eos % (Auto) 0.4 (0-4) % Baso % (Auto) 0.3 (0-2) % Lymph # (Auto) 2.2 (1.2-4.9) X10*3/uL [place] # (Auto) 1.3 H (0.1-1.2) X10*3/uL Eos # (Auto) 0.1 (0.0-0.4) X10*3/uL Baso # (Auto) 0.0 (0.0-0.2) X10*3/uL Abs Immat Gran (auto) 0.05 H (0.00-0.03) X10*3/uL Absolute Neuts (auto) 8.1 (2.0-8.3) x10*3/uL Absolute Nucleated RBC 0.000 (0.0-0.012) X10*3/uL Nucleated RBC % (auto) 0.0 (0.0-0.2) /100WBC Sodium 136 (135-145) mmol/L Potassium 3.8 (3.3-5.1) mmol/L Chloride 104 (96-108) mmol/L Carbon Dioxide 24 (22-29) mmol/L Anion Gap 12 (12-20) BUN 12 (9-16) mg/dL Creatinine 0.66 (0.5-1.4) mg/dL Estim Creat Clear Calc 141.9 Estimated GFR > 60 Random Glucose 132 H (60-115) mg/dL Calcium 9.8 (8.4-10.2) mg/dL Total Bilirubin 0.8 (0.0-1.0) mg/dL Direct Bilirubin 0.3 (0.0-0.5) mg/dL AST 17 (5-37) U/L ALT 29 (0-40) U/L Alkaline Phosphatase 60 (39-117) U/L Total Protein 6.6 (6.5-8.0) g/dL Albumin 3.9 (3.5-5.0) g/dL Lipase 14 (8-78) U/L Urine Color Yellow Urine Appearance Turbid Urine pH 7.0 (5.0-9.0) Ur Specific Veteran 1.015 (1.005-1.025) Urine Protein Trace (Neg-Trace) mg/dL Urine Glucose (UA) Negative (Negative) mg/dL Urine Ketones Negative (Negative) mg/dL Urine Blood Large (3+) H (Negative) Urine Nitrite Negative (Negative) Ur Leukocyte Esterase Large (3+) H (Negative) Urine RBC >20 H (0-2) /HPF Urine WBC >50 H (0-5) /HPF Ur Squamous Epith Cells 0-2 (0-2) /HPF Urine Bacteria None Seen (None Seen) Hyaline Casts 0-2 (0-2) /LPF Discharge Plan Discharge Clinical Impression: Urinary tract infection Patient Disposition: Home, Self-Care Instructions: Urinary Tract Infection in Men (ED) Additional Instructions: Drink plenty of fluid Take your antibiotics as prescribed by your PCP Prescriptions: No Action tadalafil 5 mg tablet 5 mg PO DAILY 30 Days Qty: 30 1RF tamsulosin 0.4 mg capsule 0.4 mg PO DAILY 90 Days Qty: 90 1RF ascorbic acid (vitamin C) [Vitamin C] 1,000 mg Tablet 1,000 mg PO DAILY rosuvastatin [Crestor] 10 mg Tablet 10 mg PO DAILY cholecalciferol (vitamin D3) [Vitamin D3] 50 mcg (2,000 unit) Capsule 50 mcg PO DAILY montelukast [Singulair] 10 mg Tablet 10 mg PO DAILY PRN (Reason: Wheezing) acetaminophen 325 mg Tablet 650 mg PO Q6H PRN (Reason: Pain, Mild (Pain Scale 1-3)) 30 Days Qty: 240 0RF docusate sodium 100 mg Capsule 100 mg PO BID 14 Days Qty: 28 0RF cetirizine 10 mg tablet 10 mg PO QAM lisinopril 20 mg tablet 20 mg PO QAM aspirin 81 mg tablet,delayed release (DR/EC) 81 mg PO QAM lidocaine 5 % adhesive patch,medicated 1 patch topical DAILY ibuprofen 600 mg tablet 600 mg PO TID PRN (Reason: Pain) albuterol sulfate [Ventolin HFA] 90 mcg/actuation HFA aerosol inhaler 2 puff INHALATION Q4H PRN (Reason: wheezing) omeprazole 40 mg capsule,delayed release(DR/EC) 40 mg PO DAILY PRN (Reason: Gastric Reflux) calcium carbonate [Calcium 600] 600 mg calcium (1,500 mg) Tablet 600 mg PO DAILY baclofen 10 mg Tablet 10 mg PO TID PRN (Reason: Muscle Spasm) cefuroxime axetil 500 mg tablet 500 mg PO BID Qty: 40 0RF (DME) rub[place] Misc See Rx Instructions .MEDSUPPLY Qty: 1 0RF Rx Instructions: Nick Euceda wheeled [place] hydrocortisone [Proctosol HC] 2.5 % cream with perineal applicator 1 appl ID BID-QID PRN (Reason: hemorrhoids) Qty: 30 0RF
[2022-11-09 04:23] VITALS: BP 144/80; PULSE 90; RESP 16; TEMP 36.9; O2SAT 95
[2022-11-09 04:34] LABS: MANUAL DIFF FLAG NO
[2022-11-09 04:35] LABS: Basophils Percent Auto 0.3 % (0-2); Eosinophils Absolute Auto 0.1 X10*3/uL (0.0-0.4); Eosinophils Percent Auto 0.4 % (0-4); Hematocrit 36.4 % (42.0-52.0); Hemoglobin 12.5 g/dl (14.0-18.0); Imm Gran Abs Auto 0.05 X10*3/uL (0.00-0.03); Imm Gran Pct Auto 0.4 % (0.0-0.4); Lymphocytes Absolute Auto 2.2 X10*3/uL (1.2-4.9); Lymphocytes Percent Auto 18.5 % (20-40); Mean Corpuscular HGB Conc 34.3 g/dl (31.0-36.0); Mean Corpuscular Hemoglobin 30.9 pg (27.0-33.0); Mean Corpuscular Volume 89.9 fL (80.0-98.0); Mean Platelet Volume 8.7 fL (9.4-12.4); Monocytes Absolute Auto 1.3 X10*3/uL (0.1-1.2); Monocytes Percent Auto 11.1 % (2-11); Neutrophils Absolute Auto 8.1 x10*3/uL (2.0-8.3); Neutrophils Percent Auto 69.3 % (45-73); Platelet Count 161 X10*3/uL (160-400); Red Blood Count 4.05 X10*6/uL (4.60-5.80); Red Cell Distribution Width 13.4 % (11.0-16.0); White Blood Count 11.7 X10*3/uL (4.8-10.8)
[2022-11-09 04:49] LABS: Alanine Aminotransferase 29 U/L (0-40); Albumin Level 3.9 g/dL (3.5-5.0); Alkaline Phosphatase 60 U/L (39-117); Anion Gap 12 (12-20); Aspartate Amino Transferase 17 U/L (5-37); Bilirubin Direct 0.3 mg/dL (0.0-0.5); Bilirubin Total 0.8 mg/dL (0.0-1.0); Blood Urea Nitrogen 12 mg/dL (9-16); Calcium 9.8 mg/dL (8.4-10.2); Carbon Dioxide 24 mmol/L (22-29); Chloride 104 mmol/L (96-108); Creatinine Clr Calc Pharmacy 141.9; Estimated Glomerular Filt Rate > 60; Glucose Random 132 mg/dL (60-115); Lipase 14 U/L (8-78); Potassium 3.8 mmol/L (3.3-5.1); Sodium 136 mmol/L (135-145); Total Protein 6.6 g/dL (6.5-8.0)
[2022-11-09 05:12] LABS: Appearance Urine Turbid; Color Urine Yellow; Glucose Urine UA Negative (Negative); Leukocyte Esterase Urine Large (3+) (Negative); Nitrite Urine Negative (Negative); Specific Gravity - Urine 1.015 (1.005-1.025); UMIC TRIGGER UACC YES; Urine Blood Large (3+) (Negative); Urine Ketones Negative (Negative); Urine Protein Trace mg/dL (Neg-Trace)
[2022-11-09 05:20] LABS: Bacteria Urine None Seen (None Seen); Hyaline Casts Urine 0-2 /LPF (0-2); RBC Urine >20 /HPF (0-2); Squamous Epithelial Cell Urine 0-2 /HPF (0-2); UACC Culture Trigger YES; WBC Urine >50 /HPF (0-5)
[2022-11-09] MEDS: traMADoL HCL 50 MG TABLET PO (05:25)
[2022-11-09] MEDS: Ondansetron ODT 4 MG TAB.RAPDIS TRANSLINGU (05:25)
[2022-11-09 05:42] VITALS: BP 152/95; PULSE 81; RESP 17; TEMP 36.9; O2SAT 95
== END 2022-11-09 06:51 | disposition home or self-care (01) ==
PROVIDERS: Emergency Provider Internal Medicine; PCP Family Medicine
DX: N39.0 Urinary tract infection, site not specified (principal); R73.03 Prediabetes; I10 Essential (primary) hypertension; E78.5 Hyperlipidemia, unspecified; Z79.82 Long term (current) use of aspirin; Z79.899 Other long term (current) drug therapy
CPT/HCPCS: 36415; 80048; 80076; 81001; 83690; 85025; 99283

== ENCOUNTER 2022-11-10 15:51 | Outpatient (REF) | payer MEDICAID, SELFPAY | END 2022-11-10 15:52 | disposition home or self-care (01) | LOC: HO.CHCLNP 15:51 | PROVIDERS: Visit Provider General Practice | DX: N30.00 Acute cystitis without hematuria (principal) | CPT/HCPCS: 87086 ==

== ENCOUNTER 2022-11-11 16:44 | Emergency (ER) | payer MEDICAID, SELFPAY ==
--- NOTE | ~2022-11-11 | XR_ITS ---
EXAMINATION: XR CHEST CLINICAL INFORMATION: Chest pain. Shortness of breath. COMPARISON: 10/08/2022 TECHNIQUE: Frontal view of the chest was obtained. FINDINGS: The cardiomediastinal silhouette is normal. There is no focal lung consolidation or pleural effusion. The bony structures and soft tissues are unremarkable. XR/XR chest 1V IMPRESSION: No active cardiopulmonary disease.
--- NOTE | 2022-11-11 16:46 | ECG_ITS ---
Test Reason : cp Blood Pressure : / mmHG Vent. Rate : 125 BPM Atrial Rate : 125 BPM P-R Int : 174 ms QRS Dur : 078 ms QT Int : 280 ms P-R-T Axes : 031 -32 048 degrees QTc Int : 404 ms Sinus tachycardia Left axis deviation Minimal voltage criteria for LVH, may be normal variant ( R in aVL ) Anterior infarct , age undetermined Abnormal ECG When compared with ECG of 06-OCT-2022 05:24, Nonspecific T wave abnormality, improved in Lateral leads Heart rate has increased Referred By: Nidia Saucedo Electronically Signed By:RUI CABRERA
[2022-11-11 17:01] VITALS: BP 113/72; PULSE 127; RESP 19; TEMP 36.4; O2SAT 98; BMI 35.6
[2022-11-11 17:30] LABS: MANUAL DIFF FLAG NO
[2022-11-11 17:35] LABS: Basophils Percent Auto 0.4 % (0-2); Eosinophils Absolute Auto 0.2 X10*3/uL (0.0-0.4); Eosinophils Percent Auto 3.7 % (0-4); Hematocrit 40.5 % (42.0-52.0); Hemoglobin 13.9 g/dl (14.0-18.0); Imm Gran Abs Auto 0.03 X10*3/uL (0.00-0.03); Imm Gran Pct Auto 0.6 % (0.0-0.4); Lymphocytes Absolute Auto 1.4 X10*3/uL (1.2-4.9); Lymphocytes Percent Auto 26.2 % (20-40); Mean Corpuscular HGB Conc 34.3 g/dl (31.0-36.0); Mean Corpuscular Hemoglobin 30.7 pg (27.0-33.0); Mean Corpuscular Volume 89.4 fL (80.0-98.0); Mean Platelet Volume 8.7 fL (9.4-12.4); Monocytes Absolute Auto 0.8 X10*3/uL (0.1-1.2); Monocytes Percent Auto 14.6 % (2-11); Neutrophils Absolute Auto 2.8 x10*3/uL (2.0-8.3); Neutrophils Percent Auto 54.5 % (45-73); Platelet Count 202 X10*3/uL (160-400); Red Blood Count 4.53 X10*6/uL (4.60-5.80); Red Cell Distribution Width 13.3 % (11.0-16.0); White Blood Count 5.2 X10*3/uL (4.8-10.8)
[2022-11-11 17:48] LABS: Alanine Aminotransferase 32 U/L (0-40); Albumin Level 4.4 g/dL (3.5-5.0); Alkaline Phosphatase 69 U/L (39-117); Anion Gap 13 (12-20); Aspartate Amino Transferase 19 U/L (5-37); Bilirubin Direct 0.3 mg/dL (0.0-0.5); Bilirubin Total 0.7 mg/dL (0.0-1.0); Blood Urea Nitrogen 10 mg/dL (9-16); Calcium 10.1 mg/dL (8.4-10.2); Carbon Dioxide 23 mmol/L (22-29); Chloride 102 mmol/L (96-108); Creatinine Clr Calc Pharmacy 109.8; Estimated Glomerular Filt Rate > 60; Glucose Random 242 mg/dL (60-115); Lipase 19 U/L (8-78); Potassium 4.4 mmol/L (3.3-5.1); Sodium 134 mmol/L (135-145); Total Protein 7.3 g/dL (6.5-8.0)
[2022-11-11 18:04] LABS: Troponin-I High Sensitivity < 2.7 ng/L (<3.5-35.0)
[2022-11-11 18:05] VITALS: BP 125/84; PULSE 101; RESP 18; TEMP 36.8; O2SAT 93
--- NOTE | 2022-11-11 18:17 | PC.NURSE ---
This RN spoke with patient, reports having some chest pain x a few days , abdominal pain and recent UTI on abx. Pt placed on monitor, sinus tach on monitor. awaiting MD to evaluate patient at this time. no apparent distress, respirations even and unlabored, skin pwd, alert and oriented x4.
--- NOTE | 2022-11-11 18:42 | ED.GENADULT ---
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 Patient reports that he woke up with the symptoms this morning. He has had these in the past and ?they told me it was stressed. ? He is currently on Bactrim for a UTI He denies any history of coronary artery disease. Denies any leg swelling, history of DVT/PE or recent travel Related Data Home Medications Medication Instructions Recorded Confirmed ascorbic acid (vitamin C) 1,000 mg 1,000 mg PO DAILY 08/15/20 10/06/22 tablet (Vitamin C) cholecalciferol (vitamin D3) 50 50 mcg PO DAILY 08/15/20 10/06/22 mcg (2,000 unit) capsule (Vitamin D3) montelukast 10 mg tablet 10 mg PO DAILY PRN Wheezing 08/15/20 10/06/22 (Singulair) rosuvastatin 10 mg tablet (Crestor) 10 mg PO DAILY 08/15/20 10/06/22 albuterol sulfate 90 mcg/actuation 2 puff inhalation Q4H PRN wheezing 10/06/22 10/06/22 aerosol inhaler (Ventolin HFA) aspirin 81 mg tablet,delayed 81 mg PO QAM 10/06/22 10/06/22 release baclofen 10 mg tablet 10 mg PO TID PRN Muscle Spasm 10/06/22 10/06/22 calcium carbonate 600 mg calcium 600 mg PO DAILY 10/06/22 10/06/22 (1,500 mg) tablet (Calcium) cetirizine 10 mg tablet 10 mg PO QAM 10/06/22 10/06/22 ibuprofen 600 mg tablet 600 mg PO TID PRN Pain 10/06/22 10/06/22 lidocaine 5 % topical patch 1 patch topical DAILY 10/06/22 10/06/22 lisinopril 20 mg tablet 20 mg PO QAM 10/06/22 10/06/22 omeprazole 40 mg capsule,delayed 40 mg PO DAILY PRN Gastric Reflux 10/06/22 10/06/22 release Previous Rx's Medication Instructions Recorded walker #1 ea 07/17/20 acetaminophen 325 mg tablet 650 mg PO Q6H PRN Pain, Mild (Pain 08/21/20 Scale 1-3) 30 days #240 tabs docusate sodium 100 mg capsule 100 mg PO BID 14 days #28 caps 08/21/20 hydrocortisone 2.5 % topical cream 1 appl UT BID-QID PRN hemorrhoids 04/16/21 with perineal applicator #30 grams (Proctosol HC) cefuroxime axetil 500 mg tablet 500 mg PO BID #40 tabs 10/09/22 tadalafil 5 mg tablet 5 mg PO DAILY 30 days #30 tabs 10/21/22 tamsulosin 0.4 mg capsule 0.4 mg PO DAILY 90 days #90 caps 11/03/22 Allergies Allergy/AdvReac Type Severity Reaction Status Date / Time amlodipine AdvReac Intermediate Nausea Verified 10/20/22 10:07 terazosin AdvReac Intermediate Hypotension Uncoded 11/03/22 11:30 Review of Systems Constitutional: Constitutional: Denies chills and Denies fever(s) Cardiovascular: Cardiovascular: Reports chest pain and Reports dyspnea Respiratory: Respiratory: Reports cough and Reports dyspnea Gastrointestinal: Gastrointestinal: Denies abdominal pain, Denies nausea and Denies vomiting Musculoskeletal: Musculoskeletal: Denies back pain Integumentary/Breasts: Skin/Breast: Denies rash PMFSH Past Medical History Medical History Arthritis Asthma COVID-19 vaccine administered Elevated cholesterol GERD (gastroesophageal reflux disease) Heart murmur History of BPH HTN (hypertension) Hx of varicose veins Hypertension Osteoarthritis of right knee Osteochondral defect of femoral condyle Pre-diabetes Surgical History H/O colonoscopy History of esophagogastroduodenoscopy (EGD) History of right knee surgery Hx of meniscectomy of right knee Family History Family History Mother No problems noted. Father No problems noted. Social History Social History Household Members: None Housing: Apartment Are you a primary critical care physician to a significant other at home: No Do you presently have visiting nurse or other home services: No Alcohol intake: never Patient Tobacco Use Status: Never used Tobacco Smoked in Last 30 Days: No e-Cigarette/Vaping Use: Never Used Use of substances other than those prescribed or required for medical reasons: No Substance Use Type: Marijuana Advance Directives: Yes Advance Directives on File: Yes Advance Directives Date on File: 10/11/22 service: No Current occupational status: unemployed Current occupation: right handed Physical Exam ED Vital Signs: Vital Signs - 24 hr 11/11/22 17:01 11/11/22 18:05 Temperature 97.6 F 98.3 F Pulse Rate 127 H 101 H Respiratory Rate 19 18 Blood Pressure 113/72 125/84 Pulse Oximetry 98 93 Oxygen Delivery Method Room Air Room Air BMI result Body Mass Index 35.6 Const General: healthy appearing, comfortable, no acute distress, alert and awake Nutritional Appearance: well nourished Orientation/consciousness: patient oriented x3 HENMT Head: Yes normocephalic and Yes atraumatic Eyes Eyelids: Yes eyelids normal Conjunctivae: conjunctivae normal Sclerae: sclerae normal Corneas: corneas normal Pupils: Equal, round and reactive pupils present EOM: EOMs intact bilaterally Resp Effort & Inspection: normal respiratory effort, able to speak in complete sentences, no audible wheezes and not labored Auscultation: clear to auscultation bilaterally Cardio Rate: regular rate Rhythm: regular rhythm GI Inspection: No distended Palpation (GI): Soft to palpation, not firm, nontender, no guarding and not rigid Skin General skin exam: no rashes or lesions noted and elasticity normal Neuro General: patient oriented x3 Cranial nerves: Yes Equal, round and reactive pupils present and Yes Bilaterally intact EOM present Cognition (Neuro): normal cognition Extrem Other: Moving all extremities well without any obvious deformities Course Reevaluation(s) Reevaluation #1: D-dimer negative, the patient is low risk for PE, he is stable for discharge Time: 20:52 Medical Decision Making Medical Decision Making MDM Narrative: 62-year-old male past medical history significant for hypertension and prediabetes presents for evaluation of chest pain and shortness of breath. His vital signs are stable and he is not hypoxic. Chest x-ray is clear. I will add on a COVID I do now as well as a D-dimer as the patient is somewhat tachycardic. He does not have any risk factors for PE. If negative I feel he can safely be discharged Differential Diagnosis Differential Diagnoses: The differential diagnosis associated with the presentation includes Pneumonia Bronchitis Viral syndrome PE Anxiety Lab Data MDM Lab Attestation statement: I reviewed the patient's lab results. No leukocytosis with a white count of only 5.2. He has a mild anemia that is consistent with his recent labs with a hemoglobin of 13.9 hematocrit of 40.5. Sodium is 134, however given the glucose is 242 this actually corrects to within normal limits. There is no evidence of DKA electrolytes are within normal limits. 11/11/22 17:25 11/11/22 17:25 Labs: Lab Results 11/11/22 11/11/22 11/11/22 Range/Units 17:25 17:25 17:25 WBC 5.2 (4.8-10.8) X10*3/uL RBC 4.53 L (4.60-5.80) X10*6/uL Hgb 13.9 L (14.0-18.0) g/dl Hct 40.5 L (42.0-52.0) % MCV 89.4 (80.0-98.0) fL MCH 30.7 (27.0-33.0) pg MCHC 34.3 (31.0-36.0) g/dl RDW 13.3 (11.0-16.0) % Plt Count 202 D (160-400) X10*3/uL MPV 8.7 L (9.4-12.4) fL Immature Gran % (Auto) 0.6 H (0.0-0.4) % Neut % (Auto) 54.5 (45-73) % Lymph % (Auto) 26.2 (20-40) % [place] % (Auto) 14.6 H (2-11) % Eos % (Auto) 3.7 (0-4) % Baso % (Auto) 0.4 (0-2) % Lymph # (Auto) 1.4 (1.2-4.9) X10*3/uL [place] # (Auto) 0.8 (0.1-1.2) X10*3/uL Eos # (Auto) 0.2 (0.0-0.4) X10*3/uL Baso # (Auto) 0.0 (0.0-0.2) X10*3/uL Abs Immat Gran (auto) 0.03 (0.00-0.03) X10*3/uL Absolute Neuts (auto) 2.8 (2.0-8.3) x10*3/uL Absolute Nucleated RBC 0.000 (0.0-0.012) X10*3/uL Nucleated RBC % (auto) 0.0 (0.0-0.2) /100WBC D-Dimer High Sensitivty NG/ML Sodium 134 L (135-145) mmol/L Potassium 4.4 (3.3-5.1) mmol/L Chloride 102 (96-108) mmol/L Carbon Dioxide 23 (22-29) mmol/L Anion Gap 13 (12-20) BUN 10 (9-16) mg/dL Creatinine 0.85 (0.5-1.4) mg/dL Estim Creat Clear Calc 109.8 Estimated GFR > 60 Random Glucose 242 H (60-115) mg/dL Calcium 10.1 (8.4-10.2) mg/dL Total Bilirubin 0.7 (0.0-1.0) mg/dL Direct Bilirubin 0.3 (0.0-0.5) mg/dL AST 19 (5-37) U/L ALT 32 (0-40) U/L Alkaline Phosphatase 69 (39-117) U/L Troponin I High Sens < 2.7 (<3.5-35.0) ng/L Total Protein 7.3 (6.5-8.0) g/dL Albumin 4.4 (3.5-5.0) g/dL Lipase 19 (8-78) U/L COVID-19 (BABATUNDE) (Negative) COVID-19 Clin Com 11/11/22 11/11/22 Range/Units 19:39 19:41 WBC (4.8-10.8) X10*3/uL RBC (4.60-5.80) X10*6/uL Hgb (14.0-18.0) g/dl Hct (42.0-52.0) % MCV (80.0-98.0) fL MCH (27.0-33.0) pg MCHC (31.0-36.0) g/dl RDW (11.0-16.0) % Plt Count (160-400) X10*3/uL MPV (9.4-12.4) fL Immature Gran % (Auto) (0.0-0.4) % Neut % (Auto) (45-73) % Lymph % (Auto) (20-40) % [place] % (Auto) (2-11) % Eos % (Auto) (0-4) % Baso % (Auto) (0-2) % Lymph # (Auto) (1.2-4.9) X10*3/uL [place] # (Auto) (0.1-1.2) X10*3/uL Eos # (Auto) (0.0-0.4) X10*3/uL Baso # (Auto) (0.0-0.2) X10*3/uL Abs Immat Gran (auto) (0.00-0.03) X10*3/uL Absolute Neuts (auto) (2.0-8.3) x10*3/uL Absolute Nucleated RBC (0.0-0.012) X10*3/uL Nucleated RBC % (auto) (0.0-0.2) /100WBC D-Dimer High Sensitivty 192 NG/ML Sodium (135-145) mmol/L Potassium (3.3-5.1) mmol/L Chloride (96-108) mmol/L Carbon Dioxide (22-29) mmol/L Anion Gap (12-20) BUN (9-16) mg/dL Creatinine (0.5-1.4) mg/dL Estim Creat Clear Calc Estimated GFR Random Glucose (60-115) mg/dL Calcium (8.4-10.2) mg/dL Total Bilirubin (0.0-1.0) mg/dL Direct Bilirubin (0.0-0.5) mg/dL AST (5-37) U/L ALT (0-40) U/L Alkaline Phosphatase (39-117) U/L Troponin I High Sens (<3.5-35.0) ng/L Total Protein (6.5-8.0) g/dL Albumin (3.5-5.0) g/dL Lipase (8-78) U/L COVID-19 (BABATUNDE) Negative (Negative) COVID-19 Clin Com See Note Discharge Plan Discharge Clinical Impression: Acute dyspnea Patient Disposition: Home, Self-Care Instructions: Dyspnea (ED) Additional Instructions: Your workup in the emergency department today was reassuring. Syncope is your EKG, chest x-ray, labs You tested negative for COVID-19 Follow-up with your primary doctor Prescriptions: No Action tadalafil 5 mg tablet 5 mg PO DAILY 30 Days Qty: 30 1RF tamsulosin 0.4 mg capsule 0.4 mg PO DAILY 90 Days Qty: 90 1RF ascorbic acid (vitamin C) [Vitamin C] 1,000 mg Tablet 1,000 mg PO DAILY rosuvastatin [Crestor] 10 mg Tablet 10 mg PO DAILY cholecalciferol (vitamin D3) [Vitamin D3] 50 mcg (2,000 unit) Capsule 50 mcg PO DAILY montelukast [Singulair] 10 mg Tablet 10 mg PO DAILY PRN (Reason: Wheezing) acetaminophen 325 mg Tablet 650 mg PO Q6H PRN (Reason: Pain, Mild (Pain Scale 1-3)) 30 Days Qty: 240 0RF docusate sodium 100 mg Capsule 100 mg PO BID 14 Days Qty: 28 0RF cetirizine 10 mg tablet 10 mg PO QAM lisinopril 20 mg tablet 20 mg PO QAM aspirin 81 mg tablet,delayed release (DR/EC) 81 mg PO QAM lidocaine 5 % adhesive patch,medicated 1 patch topical DAILY ibuprofen 600 mg tablet 600 mg PO TID PRN (Reason: Pain) albuterol sulfate [Ventolin HFA] 90 mcg/actuation HFA aerosol inhaler 2 puff INHALATION Q4H PRN (Reason: wheezing) omeprazole 40 mg capsule,delayed release(DR/EC) 40 mg PO DAILY PRN (Reason: Gastric Reflux) calcium carbonate [Calcium 600] 600 mg calcium (1,500 mg) Tablet 600 mg PO DAILY baclofen 10 mg Tablet 10 mg PO TID PRN (Reason: Muscle Spasm) cefuroxime axetil 500 mg tablet 500 mg PO BID Qty: 40 0RF (DME) [place] Misc See Rx Instructions .MEDSUPPLY Qty: 1 0RF Rx Instructions: Nick Front wheeled [place] hydrocortisone [Proctosol HC] 2.5 % cream with perineal applicator 1 appl [place] BID-QID PRN (Reason: hemorrhoids) Qty: 30 0RF
[2022-11-11 19:57] LABS: D Dimer High Sensitivity 192 NG/ML
[2022-11-11 20:05] LABS: COVID-19 Test Negative (Negative); IDNOW Serial# 55D5AD1C
[2022-11-11 20:58] VITALS: BP 121/76; PULSE 90; RESP 18; TEMP 36.8; O2SAT 97
== END 2022-11-11 21:04 | disposition home or self-care (01) ==
PROVIDERS: Physician Assistant; Emergency Provider Emergency Medicine; PCP Family Medicine
DX: R06.00 Dyspnea, unspecified (principal); Z20.822 Contact with and (suspected) exposure to COVID-19; R00.0 Tachycardia, unspecified; R06.02 Shortness of breath; R73.03 Prediabetes; I10 Essential (primary) hypertension; E78.5 Hyperlipidemia, unspecified; Z79.82 Long term (current) use of aspirin; Z79.899 Other long term (current) drug therapy
CPT/HCPCS: 36415; 71045; 80048; 80076; 83690; 84484; 85025; 85379; 87635; 93005; 99283; 99284

== ENCOUNTER 2022-11-23 09:28 | Outpatient (AMB) | payer MEDICAID, SELFPAY ==
--- NOTE | 2022-11-23 09:55 | A.OFFVIS_ITS ---
Intake Vital Signs 11/23/22 09:56 Height 5 ft 9 in Weight 238 lb 1.588 oz BMI 35.2 BP 124/72 Blood Pressure Location Lt brachial Position Sitting Pulse 82 Intake Visit Reasons: 4 month follow up Intake Note: Donny presents in office as a est.patient for a 4month f/u for GERD PT CC: pt reports having GERD, Nausea , pt denies any other GI Issues Certified Nurse Operating Room Required: Yes Certified Nurse Operating Room Language: Vietnamese Accompanied by: Self / Same As Patient Allergies amlodipine Adverse Reaction (Intermediate, Verified 11/23/22 09:58) Nausea terazosin Adverse Reaction (Intermediate, Uncoded 11/23/22 09:58) Hypotension HPI 4 month follow up HPI Details LAST VISIT: 1) GERD (gastroesophageal reflux disease): ?Code(s): K21.9 - Gastro-esophageal reflux disease without esophagitis ?Qualifiers: ?Esophagitis presence:?esophagitis presence not specified? Qualified Code(s):?K21.9 - Gastro-esophageal reflux disease without esophagitis ?Plan: Continue current therapy with omeprazole.? Patient can stop famotidine.? Discussed with patient avoiding dietary triggers and late night snacking.? Staying upright for minimal 3 hours after meals discussed with patient.? Patient will return in 4 months we will discuss him going for colonoscopy.? Patient is agreeable to this plan and verbalizes understanding of instructions.? He was given the opportunity to ask questions all questions answered TODAY'S VISIT Patient is here today for follow-up and to discuss going for colonoscopy again. Patient is due to go for colonoscopy. Last colonoscopy showed multiple polyps and recommendation was made to repeat colonoscopy in 1-2 years. Patient denies melena, hematochezia, unintentional weight loss or ribbon like stools. Patient denies any dyspepsia, dysphagia or odynophagia.. Patient denies any cardiac or respiratory symptoms. Patient denies any issues with anesthesia in the past. No history of sleep apnea. Patient is on low-dose aspirin. No history of infectious diseases in the past or present. [facility] Medical History Arthritis Asthma COVID-19 vaccine administered Elevated cholesterol GERD (gastroesophageal reflux disease) Heart murmur History of BPH HTN (hypertension) Hx of varicose veins Hypertension Osteoarthritis of right knee Osteochondral defect of femoral condyle Pre-diabetes Surgical History H/O colonoscopy History of esophagogastroduodenoscopy (EGD) History of right knee surgery Hx of meniscectomy of right knee Family History Mother No problems noted. Father No problems noted. Social History Household Members: None Housing: Apartment Are you a primary point of care technician to a significant other at home: No Do you presently have visiting nurse or other home services: No Alcohol intake: never Patient Tobacco Use Status: Never used Tobacco e-Cigarette/Vaping Use: Never Used Substance Use Type: Marijuana Advance Directives Date on File: 10/11/22 service: No Current occupational status: unemployed Current occupation: right handed Review of Systems Const Denies weight gain and Denies weight loss ENT Reports no additional complaints, Denies dysphagia and Denies odynophagia Card Reports no additional complaints Resp Reports no additional complaints GI Denies abdominal pain, Denies belching, Denies melena, Denies bloating, Denies change in bowel habits, Denies dysphagia, Denies excessive flatus, Denies dyspepsia, Denies heartburn, Denies diarrhea, Denies loose stools, Denies nausea, Denies odynophagia and Denies vomiting Reports no additional complaints Musc Reports no additional complaints Neuro Reports no additional complaints Psych Reports no additional complaints Endo Reports no additional complaints Physical Exam Vital Signs: Last Vital Signs Pulse 82 11/23/22 09:56 BP 124/72 11/23/22 09:56 BMI result Body Mass Index 35.2 Const General: healthy appearing, no acute distress and well developed Nutritional Appearance: obese Orientation/consciousness: patient oriented x3 HEENT Head: Yes normal to inspection, Yes normocephalic and Yes atraumatic Face and sinus: Yes normal facial exam Mouth: Normal oral and palatal mucosa present Throat: Yes posterior oropharynx normal, Yes tonsils normal and Yes uvula midline Eyes General: appearance normal, both eyes and all related structures Neck Neck: Yes normal visual inspection, Yes full ROM and Yes trachea midline Thyroid: Thyroid normal Resp Effort & Inspection: normal respiratory effort, able to speak in complete sentences, no tracheal deviation and symmetric chest movement Auscultation: clear to auscultation bilaterally Cardio Rate: regular rate Heart sounds: S1 normal heart sound present and S2 normal heart sound present GI Inspection: Yes normal to inspection, No distended and Yes obesity Palpation (GI): Soft to palpation, not firm, nontender and No hepatosplenomegaly present Auscultation: normal bowel sounds General: Yes no CVA tenderness Back/Spine/Pelvis Back: no CVA tenderness Skin General skin exam: elasticity normal, turgor normal and dry skin Neuro General: patient oriented x3 Psych Appearance: grossly normal Mental Status: mental status grossly normal Speech and movement: Normal speech and movement present Assessment & Plan Assessment & Plan (1) GERD (gastroesophageal reflux disease): Code(s): K21.9 - Gastro-esophageal reflux disease without esophagitis Qualifiers: Esophagitis presence: esophagitis presence not specified Qualified Code(s): K21.9 - Gastro-esophageal reflux disease without esophagitis Plan: Continue omeprazole daily. Patient was encouraged to avoid dietary triggers and late night snacking. Staying upright for minimum 3 hours after meals discussed with patient. (2) Screen for colon cancer: Code(s): Z12.11 - Encounter for screening for malignant neoplasm of colon Plan: Last colonoscopy in March of 2021 multiple medium size polyps. Five polyps show fragments of tubular adenoma. Patient denies melena, hematochezia, unintentional weight loss or ribbon like stools. Patient will be scheduled for colonoscopy. Denies any issues with anesthesia in the past. No history of sleep apnea. Patient is on low-dose aspirin. Denies any cardiac or respiratory symptoms. What to expect before during and after procedure discussed with patient. Discussed with patient the importance of good bowel prep and clear liquid diet day before the procedure. I will see him after the procedure, sooner on as needed basis. He is agreeable to this plan and verbalizes understanding of instructions. He was given the opportunity to ask questions and all questions answered. Thank you for allowing me to participate in his care Medications: New bisacodyl (Dulcolax (bisacodyl)) take 2 tabs at noon the day before your colonoscopy 10 mg (2 x 5 mg) PO ONCE 1 day 2 tabs 0RF Z12.11 - Encounter for screening for malignant neoplasm of colon polyethylene glycol 3350 (Miralax) As directed by gastroenterology department at [facility] 238 grams PO ONCE 238 grams 0RF Z12.11 - Encounter for screening for malignant neop lasm of colon Discontinued omeprazole 40 mg PO DAILY 90 caps 3RF K21.9 - Gastro-esophageal reflux disease without esophagitis Coding Level of Care Code Est Pt Level 3 (07094) Diagnoses GERD (gastroesophageal reflux disease) K21.9 Esophagitis presence: esophagitis presence not specified Screen for colon cancer Z12.11 Time Spent (min) 30 Comment 20 minutes spent with patient and additional 10 minutes spent reviewing his records
[2022-11-23 09:56] VITALS: BP 124/72; PULSE 82; BMI 35.2
== END 2022-11-23 13:29 | disposition home or self-care (01) ==
PROVIDERS: PCP Family Medicine; Visit Provider Nurse Practitioner Family
DX: K21.9 Gastro-esophageal reflux disease without esophagitis (principal); Z12.11 Encounter for screening for malignant neoplasm of colon
CPT/HCPCS: 99213

== ENCOUNTER → 2022-11-23 09:28 | Outpatient (BNVA) | payer MEDICAID, SELFPAY | PROVIDERS: PCP Family Medicine; Visit Provider Nurse Practitioner Family | DX: Z01.818 Encounter for other preprocedural examination (principal); K21.9 Gastro-esophageal reflux disease without esophagitis; Z79.899 Other long term (current) drug therapy | CPT/HCPCS: 99212 ==

== ENCOUNTER 2022-11-24 11:33 | Outpatient (REF) | payer MEDICAID, SELFPAY ==
[2022-11-24 15:41] LABS: Appearance Urine Clear; Color Urine Yellow; Glucose Urine UA Negative (Negative); Leukocyte Esterase Urine Trace (Negative); Nitrite Urine Negative (Negative); UMIC TRIGGER UA YES; Urine Blood Negative (Negative); Urine Ketones Negative (Negative); Urine Protein Negative (Neg-Trace)
[2022-11-24 15:44] LABS: Bacteria Urine None Seen (None Seen); Hyaline Casts Urine 0-2 /LPF (0-2); RBC Urine 0-2 /HPF (0-2); Squamous Epithelial Cell Urine 0-2 /HPF (0-2); WBC Urine 0-5 /HPF (0-5)
== END 2022-11-24 11:34 | disposition home or self-care (01) ==
LOC: HO.CHCLDS 11:33
PROVIDERS: Visit Provider Family Medicine
DX: R30.0 Dysuria (principal)
CPT/HCPCS: 81001; 87086; 87088; 87186

== ENCOUNTER 2022-12-07 10:30 | Outpatient (REF) | payer MEDICAID, SELFPAY ==
[2022-12-07 14:40] LABS: Appearance Urine Clear; Color Urine Yellow; Glucose Urine UA Negative (Negative); Leukocyte Esterase Urine Negative (Negative); Nitrite Urine Negative (Negative); Specific Gravity - Urine 1.015 (1.005-1.025); Urine Blood Negative (Negative); Urine Ketones Negative (Negative); Urine Protein Negative (Neg-Trace)
== END 2022-12-07 10:31 | disposition home or self-care (01) ==
LOC: HO.CHCLDS 10:30
PROVIDERS: Visit Provider Family Medicine
DX: R30.0 Dysuria (principal)
CPT/HCPCS: 81003; 87086

== ENCOUNTER → 2022-12-20 09:04 | Outpatient (REF) | payer MEDICAID, SELFPAY ==
--- NOTE | 2022-12-20 09:16 | HM_ITS ---
* Total monitoring time 1 day. * Underlying rhythm is sinus. Average ventricular rate 80/Min. Range 56 to 114/Min. * Rare supraventricular and ventricular ectopy with minimal burden. * No sustained arrhythmias. * No significant pauses or AV blocks. * No patient markers or events in diary. MTDD
== END ==
LOC: HO.CARD 09:04
PROVIDERS: PCP Family Medicine; Visit Provider Family Medicine
DX: R00.2 Palpitations (principal)
CPT/HCPCS: 93225

== ENCOUNTER 2023-01-13 09:45 | Outpatient (AMB) | payer MEDICAID, SELFPAY ==
--- NOTE | 2023-01-13 09:51 | A.OFFVIS_ITS ---
Intake Intake Visit Reasons: 2m/PVR Intake Note: Patient is Present for Follow Up PVR Urology Medication: Tadalafil, Tamsulosin Antibiotic Allergies:None Blood Thinners: Aspirin Pharmacy: [facility] PVR: 0ml Compliants: Patient states that he is getting twice during the night to urinate Allergies amlodipine Adverse Reaction (Intermediate, Verified 01/13/23 10:02) Nausea terazosin Adverse Reaction (Intermediate, Uncoded 01/13/23 10:02) Hypotension Medication List - Last Reconciled 01/13/23 by Tommie Del Cid MD acetaminophen 650 mg (2 x 325 mg) PO Q6H PRN 30 days albuterol sulfate 90 mcg/actuation (Ventolin HFA) 2 puffs inhalation Q4H PRN ascorbic acid (vitamin C) (Vitamin C) 1,000 mg PO DAILY aspirin 81 mg PO QAM baclofen 10 mg PO TID PRN bisacodyl (Dulcolax (bisacodyl)) 10 mg (2 x 5 mg) PO ONCE 1 day calcium carbonate (Calcium) 600 mg PO DAILY cefuroxime axetil 500 mg PO BID cetirizine 10 mg PO QAM cholecalciferol (vitamin D3) (Vitamin D3) 50 mcg PO DAILY docusate sodium 100 mg PO BID 14 days hydrocortisone 2.5% (Proctosol HC) 1 appl LA BID-QID PRN ibuprofen 600 mg PO TID PRN lidocaine 5% 1 patch topical DAILY lisinopril 20 mg PO QAM montelukast (Singulair) 10 mg PO DAILY PRN nitrofurantoin monohyd/m-cryst 100 mg (Macrobid) 100 mg PO BID 7 days omeprazole 40 mg PO DAILY PRN polyethylene glycol 3350 (Miralax) 238 grams PO ONCE rosuvastatin (Crestor) 10 mg PO DAILY tadalafil 10 mg PO DAILY 90 days tamsulosin 0.4 mg PO DAILY 90 days walker Folding Front wheeled walker HPI HPI Comments History of Present Illness Details Donny is a pleasant Malay-speaking male. He is a patient of Dr. Elena. He is seen for the following urologic conditions - erectile dysfunction - Peyronie's - lower urinary tract symptoms Continue with daily 10 mg tadalafil - good effect Prior discussion - venous leak, constriction band recommended PVR 0 cc Lower urinary tract symptoms Reporting weakness of stream Nocturia x2 No prior prostate medications Continue Flomax Erectile dysfunction Has been progressive Response to Cialis 10 mg daily Noted to have curvature that he says happened after trauma as a child Is noting that blood flow to penis does not allow maintenance of erection PFSH Medical History Arthritis Asthma COVID-19 vaccine administered Elevated cholesterol GERD (gastroesophageal reflux disease) Heart murmur History of BPH HTN (hypertension) Hx of varicose veins Hypertension Osteoarthritis of right knee Osteochondral defect of femoral condyle Pre-diabetes Surgical History H/O colonoscopy History of esophagogastroduodenoscopy (EGD) History of right knee surgery Hx of meniscectomy of right knee Family History Mother No problems noted. Father No problems noted. Social History Household Members: None Housing: Apartment Are you a primary care information associate to a significant other at home: No Do you presently have visiting nurse or other home services: No Alcohol intake: never Patient Tobacco Use Status: Never used Tobacco e-Cigarette/Vaping Use: Never Used Substance Use Type: Marijuana Advance Directives Date on File: 10/11/22 service: No Current occupational status: unemployed Current occupation: right handed Review of Systems Const Denies chills and Denies fever(s) Card Reports no additional complaints and Denies syncope Resp Denies cough GI Denies abdominal pain and Denies heartburn Reports as per HPI and Denies change in libido Neuro Denies syncope Psych Denies change in libido Endo Denies change in libido Physical Exam Const General: cooperative, healthy appearing, comfortable and no acute distress Orientation/consciousness: patient oriented x3 HEENT Face and sinus: Yes normal facial exam Mouth: moist mucous membranes Neck Neck: Yes normal visual inspection, Yes full ROM and Yes trachea midline Chest Chest palpation & inspection: normal inspection of the chest Resp Effort & Inspection: normal respiratory effort, able to speak in complete sentences and no respiratory distress GI Inspection: Yes normal to inspection Back/Spine/Pelvis Cervical Spine: normal cervical lordosis Thoracic/Lumbar Spine: thoracic and lumbar spine normal to inspection Skin General skin exam: no rashes or lesions noted Neuro General: patient oriented x3, gait normal, tone normal and moves all extremities Extrem General: Yes normal to inspection and Yes capillary refill normal Office Procedures Post Void Residual Post Residual Void Post Void Residual (PVR): 0 [id number] Void Residual by ultrasound Results AMB Urinalysis, Automated UA Leukoctes 0 Jose F/uL Last Edit by Kirstie Renteria, [facility] on 01/13/23 10:04 UA Nitrite Negative Last Edit by Kirstie Renteria, A on 01/13/23 10:04 UA Urobilinogen 0.2 mg/dL Last Edit by Kirstie Renteria, A on 01/13/23 10:0 4 UA Protein 0 mg/dL Last Edit by Kirstie Renteria, A on 01/13/23 10:04 UA pH 7.0 Last Edit by Kirstie Renteria, A on 01/13/23 10:04 UA Blood 0 Michael/uL Last Edit by Kirstie Renteria, [facility] on 01/13/23 10:04 UA Specific Pierron 1.020 Last Edit by Kirstie Renteria, [facility] on 01/13/23 10: 04 UA Ketone Negative Last Edit by Kirstie Renteria, [facility] on 01/13/23 10:04 UA Bilirubin 0 mg/dL Last Edit by Kirstie Renteria, A on 01/13/23 10:04 UA Glucose 0 mg/dL Last Edit by Kirstie Renteria, [facility] on 01/13/23 10:04 Assessment & Plan Assessment & Plan (1) Bladder outlet obstruction: Code(s): N32.0 - Bladder-neck obstruction (2) Erectile dysfunction: Code(s): N52.9 - Male erectile dysfunction, unspecified Qualifiers: Erectile dysfunction type: vasculogenic Vasculogenic erectile dysfunction type: due to combined arterial insufficiency and corporo-venous occlusion Qualified Code(s): N52.03 - Combined arterial insufficiency and corporo-venous occlusive erectile dysfunction Plan Six month follow-up Orders: Orders AMB Urinalysis Automated Today Z13.9 - Encounter for screening, unspecified AMB Post Void Residual by ultrasound Today N32.0 - Bladder-neck obstruction Medications: Changed From tadalafil 5 mg PO DAILY 30 days 30 tabs 1RF To tadalafil 10 mg PO DAILY 90 days 90 tabs 1RF Patient Instructions: Imaging studies, laboratory and physical exam results were discussed and reviewed in detail. No major barriers to patient understanding were identified. An opportunity to ask questions regarding the treatment plan was provided. All questions were answered. The patient expressed understanding and agreement with the above treatment plan. The patient is aware they should contact our office by phone for worsening of their current condition or the appearance of new urologic symptoms. Compliance is encouraged with any medications and followup testing that is ordered. It is a privilege to participate in the urologic care of your patient. If you have any questions or concerns regarding treatment for the above conditions, or other urologic issues, please do not hesitate to contact me. The office telephone contact is [phone]. This note is constructed using voice recognition software. While every effort has been made to ensure accuracy blender/braze applicator errors may have been included. Yours sincerely, Dr Tommie Del Cid MD, [facility] - Urology Providers of Expert, Compassionate Care for the Genitourinary System Coding Level of Care Code Est Pt Level 3 (67143) Diagnoses Bladder outlet obstruction N32.0 Combined arterial insufficiency and corporo-venous occlusive erectile dysfunction N52.03 Erectile dysfunction type: vasculogenic Vasculogenic erectile dysfunction type: due to combined arterial insufficiency and corporo-venous occlusion CPT Codes Post Residual Void - PVR CPT Code: [id number]-[id number] Void Residual by ultrasound ([id number])
== END 2023-01-13 10:12 | disposition home or self-care (01) ==
PROVIDERS: PCP Family Medicine; Visit Provider Urology
DX: N32.0 Bladder-neck obstruction (principal); N52.03 Combined arterial insufficiency and corporo-venous occlusive erectile dysfunction; Z13.9 Encounter for screening, unspecified
CPT/HCPCS: 99213

== ENCOUNTER → 2023-01-13 09:45 | Outpatient (BNVA) | payer MEDICAID, SELFPAY | PROVIDERS: PCP Family Medicine; Visit Provider Urology | DX: N32.0 Bladder-neck obstruction (principal); N52.03 Combined arterial insufficiency and corporo-venous occlusive erectile dysfunction | CPT/HCPCS: 51798; 81003; 99212 ==

== ENCOUNTER 2023-02-08 08:14 | Day surgery (SDC) | payer MEDICAID, SELFPAY ==
--- NOTE | 2023-02-07 10:55 | HO.ANESPROP2 ---
Documented by User: Viri Mccann NP 02/07/23 10:58 HPI - Anesthesia Eval Consult details Narrative: 62yo M for Colonoscopy PMFSH Active Problems Active Problems: All Active Problems (Updated 01/13/23 @ 10:13 by Tommie Del Cid MD) Bladder outlet obstruction (Acute) Sepsis (Acute) Acute UTI (Acute) SIRS (systemic inflammatory response syndrome) (Acute) Erectile dysfunction (Acute) Arthritis (Acute) Status post unicompartmental knee replacement, right (Acute) Osteochondral defect of femoral condyle (Acute) Past Medical History Medical History Hypertension Heart murmur Hx of varicose veins Arthritis Asthma Pre-diabetes History of BPH GERD (gastroesophageal reflux disease) Elevated cholesterol HTN (hypertension) COVID-19 vaccine administered Osteochondral defect of femoral condyle Osteoarthritis of right knee Family History Family History Mother No problems noted. Father No problems noted. Family history of problems with anesthesia: No Surgical History Surgical History History of esophagogastroduodenoscopy (EGD) Hx of meniscectomy of right knee H/O colonoscopy History of right knee surgery History of Problems with Anesthesia: No Social History Social History Household Members: None Housing: Apartment Are you a primary medical care administrator to a significant other at home: No Do you presently have visiting nurse or other home services: No Alcohol intake: never Patient Tobacco Use Status: Never used Tobacco e-Cigarette/Vaping Use: Never Used Substance Use Type: Marijuana Advance Directives: No Advance Directives Information Provided: Yes Advance Directives Date on File: 10/11/22 service: No Current occupational status: unemployed Current occupation: right handed Meds Allergies Allergy/AdvReac Type Severity Reaction Status Date / Time amlodipine AdvReac Intermediate Nausea Verified 01/13/23 10:02 terazosin AdvReac Intermediate Hypotension Uncoded 01/13/23 10:02 Home Medications Medication Instructions Recorded Confirmed Last Taken Type ascorbic acid (vitamin C) 1,000 mg 1,000 mg PO DAILY 08/15/20 01/13/23 08/18/20 09:00 History tablet (Vitamin C) cholecalciferol (vitamin D3) 50 50 mcg PO DAILY 08/15/20 01/13/23 08/18/20 09:00 History mcg (2,000 unit) capsule (Vitamin D3) montelukast 10 mg tablet 10 mg PO DAILY PRN Wheezing 08/15/20 01/13/23 08/09/20 22:00 History (Singulair) rosuvastatin 10 mg tablet (Crestor) 10 mg PO DAILY 08/15/20 01/13/23 08/19/20 09:00 History albuterol sulfate 90 mcg/actuation 2 puff inhalation Q4H PRN wheezing 10/06/22 01/13/23 Unknown History aerosol inhaler (Ventolin HFA) aspirin 81 mg tablet,delayed 81 mg PO QAM 10/06/22 01/13/23 Unknown History release baclofen 10 mg tablet 10 mg PO TID PRN Muscle Spasm 10/06/22 01/13/23 Unknown History calcium carbonate 600 mg calcium 600 mg PO DAILY 10/06/22 01/13/23 Unknown History (1,500 mg) tablet (Calcium) cetirizine 10 mg tablet 10 mg PO QAM 10/06/22 01/13/23 Unknown History ibuprofen 600 mg tablet 600 mg PO TID PRN Pain 10/06/22 01/13/23 Unknown History lidocaine 5 % topical patch 1 patch topical DAILY 10/06/22 01/13/23 Unknown History lisinopril 20 mg tablet 20 mg PO QAM 10/06/22 01/13/23 Unknown History omeprazole 40 mg capsule,delayed 40 mg PO DAILY PRN Gastric Reflux 10/06/22 01/13/23 Unknown History release Exam Exam Date and Time: February 07, 2023 1055 Pertinent Lab Results Pertinent Lab Results: Laboratory Tests 11/11/22 17:25 WBC 5.2 Hgb 13.9 L Hct 40.5 L Plt Count 202 D Sodium 134 L Potassium 4.4 Chloride 102 Carbon Dioxide 23 BUN 10 Creatinine 0.85 Narrative Narrative: 24 hour Holter 11/2022 Total monitoring time 1 day. Underlying rhythm is sinus. Average ventricular rate 80/Min. Range 56 to 114/Min. Rare supraventricular and ventricular ectopy with minimal burden. No sustained arrhythmias. No significant pauses or AV blocks. No patient markers or events in diary. EKG 10/2022 Vent. Rate : 125 BPM Atrial Rate : 125 BPM P-R Int : 174 ms QRS Dur : 078 ms QT Int : 280 ms P-R-T Axes : 031 -32 048 degrees QTc Int : 404 ms Sinus tachycardia Left axis deviation Minimal voltage criteria for LVH, may be normal variant ( R in aVL ) Anterior infarct , age undetermined Abnormal ECG When compared with ECG of 06-OCT-2022 05:24, Nonspecific T wave abnormality, improved in Lateral leads Heart rate has increased Assessment and Plan Assessment Anesthesia Assessment: Chart Reviewed Final Anesthetic Review Family History of Problems with Anesthesia: No History of Problems with Anesthesia: No Documented by User: Wilfredo Tolbert MD 02/08/23 09:20 [facility] Past Medical History Medical History Hypertension Heart murmur Hx of varicose veins Arthritis Asthma Pre-diabetes History of BPH GERD (gastroesophageal reflux disease) Elevated cholesterol HTN (hypertension) COVID-19 vaccine administered Osteochondral defect of femoral condyle Osteoarthritis of right knee Family History Family History Mother No problems noted. Father No problems noted. Surgical History Surgical History History of esophagogastroduodenoscopy (EGD) Hx of meniscectomy of right knee H/O colonoscopy History of right knee surgery Social History Social History Household Members: None Housing: Apartment Are you a primary medical care administrator to a significant other at home: No Do you presently have visiting nurse or other home services: No Alcohol intake: never Patient Tobacco Use Status: Never used Tobacco e-Cigarette/Vaping Use: Never Used Substance Use Type: Marijuana Advance Directives: No Advance Directives Information Provided: Yes Advance Directives Date on File: 10/11/22 service: No Current occupational status: unemployed Current occupation: right handed Meds Allergies Allergy/AdvReac Type Severity Reaction Status Date / Time amlodipine AdvReac Intermediate Nausea Verified 01/13/23 10:02 terazosin AdvReac Intermediate Hypotension Uncoded 01/13/23 10:02 Home Medications Medication Instructions Recorded Confirmed Last Taken Type ascorbic acid (vitamin C) 1,000 mg 1,000 mg PO DAILY 08/15/20 01/13/23 08/18/20 09:00 History tablet (Vitamin C) cholecalciferol (vitamin D3) 50 50 mcg PO DAILY 08/15/20 01/13/23 08/18/20 09:00 History mcg (2,000 unit) capsule (Vitamin D3) montelukast 10 mg tablet 10 mg PO DAILY PRN Wheezing 08/15/20 01/13/23 08/09/20 22:00 History (Singulair) rosuvastatin 10 mg tablet (Crestor) 10 mg PO DAILY 08/15/20 01/13/23 08/19/20 09:00 History albuterol sulfate 90 mcg/actuation 2 puff inhalation Q4H PRN wheezing 10/06/22 01/13/23 Unknown History aerosol inhaler (Ventolin HFA) aspirin 81 mg tablet,delayed 81 mg PO QAM 10/06/22 01/13/23 Unknown History release baclofen 10 mg tablet 10 mg PO TID PRN Muscle Spasm 10/06/22 01/13/23 Unknown History calcium carbonate 600 mg calcium 600 mg PO DAILY 10/06/22 01/13/23 Unknown History (1,500 mg) tablet (Calcium) cetirizine 10 mg tablet 10 mg PO QAM 10/06/22 01/13/23 Unknown History ibuprofen 600 mg tablet 600 mg PO TID PRN Pain 10/06/22 01/13/23 Unknown History lidocaine 5 % topical patch 1 patch topical DAILY 10/06/22 01/13/23 Unknown History lisinopril 20 mg tablet 20 mg PO QAM 10/06/22 01/13/23 Unknown History omeprazole 40 mg capsule,delayed 40 mg PO DAILY PRN Gastric Reflux 10/06/22 01/13/23 Unknown History release Exam Airway Mallampati Class: II TM Dist: >3cm Neck ROM: Limited Heart: rrr Lungs: cta Assessment and Plan Assessment Anesthesia Assessment: Anesthesia Plan Discussed Final Anesthetic Review NPO: Yes ASA Class: III Final Preanesthetic Review: No Changes in Pt Med Stat, Meds/Allgs Chart Reviewed, Consent Obtained/Reviewed and Anes Risks/Benef Reviewed Patient Risk: Intermediate Procedure Risk: Low Anesthetic Plan Anesthetic Plan: MAC: Disposition: Standard PACU
[2023-02-08 08:33] VITALS: BP 138/80; PULSE 94; RESP 16; TEMP 37.7; O2SAT 96; BMI 34.7
--- NOTE | 2023-02-08 09:17 | MHC.SHP ---
Pre-Procedural Eval Section A Date of Service: 02/08/23 Section B Chief Complaint: Encounter for screening for malignant neoplasm Relevant Family History (Specify if Yes): No Relevant Social History: None Present Medications: see Short Stay Collaborative assessment Medical History: Significant History (Hypertension Heart murmur Hx of varicose veins Arthritis Asthma Pre-diabetes History of BPH GERD (gastroesophageal reflux disease) Elevated cholesterol HTN (hypertension) COVID-19 vaccine administered Osteochondral defect of femoral condyle Osteoarthritis of right knee) History of Previous Operations: Relevant previous surgery/procedure and date(s) (History of esophagogastroduodenoscopy (EGD) Hx of meniscectomy of right knee H/O colonoscopy History of right knee surgery) Allergies: Allergies Allergy/AdvReac Type Severity Reaction Status Date / Time amlodipine AdvReac Intermediate Nausea Verified 01/13/23 10:02 terazosin AdvReac Intermediate Hypotension Uncoded 01/13/23 10:02 Review of Systems Sugical H&P ROS: Negative: Constitution, Cardiovascular, Respiratory, Neurological, Psychiatric, Hem-Onc, Allergic/Immunologic, Gastrointestinal, Genitourinary, Musculoskeletal, Integumentary, Endocrine and Eyes/Ears/Nose/Throat Exam Surgical H&P Exam: Normal: HEENT, Normal: Heart, Normal: Lungs, Normal: Extremities, Normal: Abdomen, Normal: Skin and Normal: Neurological Plan Diagnosis/Plan: Unchanged I have reviewed the history and physical and performed a pertinent physical examination on my patient. No changes have occurred unless specified. Time Spent With Patient Time: Total time managing care of this patient today ____ minutes.
[2023-02-08 10:03] VITALS: BP 101/67; PULSE 83; RESP 18; TEMP 37; O2SAT 94
--- NOTE | 2023-02-08 10:04 | W.PM.OPN ---
Operative Note Operative Note Date of Service: 02/08/23 Narrative: Operative Information Procedure Description: Colonoscopy Indication: screening Anesthesia: MAC COLONOSCOPY Instrument: Olympus variable stiffness pediatric scope 190L Colonoscopy Monitoring: Vital signs and clinical assessment, continuous EKG monitoring, Pulse oximetry, Carbon Dioxide monitoring and blood pressure monitoring were done throughout the procedure. Colon withdrawal time was 8 minutes. Procedure: The patient was placed in the left lateral decubitis position and pre-procedure medications were administered. After a digital rectal examination of the ano-rectum, the video colonoscope was inserted into the rectum and advanced through the colon to the cecum/TI. The colonoscope was slowly withdrawn in a retrograde panoramic fashion and the colon mucosa was carefully examined including a retroflexed view of the rectum. Findings and interventions are described below. Procedure Difficulty: easy Findings: Terminal Ileum-normal Cecum:normal Ascending Colon: normal Transverse Colon - 6-8 mm sessile poylp removed with cold snare Descending Colon:normal Sigmoid Colon: mild diverticulosis Rectum: Retroflexion with small internal hemorrhoids, grade I Anorectum - normal Colon preparation: [place] Bowel Preparation Scale Right colon; 2 Transverse colon: 2 Left colon; 2 (0 = Unprepared colon segment with mucosa not seen due to solid stool that cannot be cleared. 1 = Portion of mucosa of the colon segment seen, but other areas of the colon segment not well seen due to staining, residual stool and/or opaque liquid. 2 = Minor amount of residual staining, small fragments of stool and/or opaque liquid, but mucosa of colon segment seen well. 3 = Entire mucosa of colon segment seen well with no residual staining, small fragments of stool or opaque liquid) Impression and Post Procedure Diagnosis: polyp internal hemorrhoids diverticular disease Plan: High fiber diet leaflet Avoid straining at stool, epsom salts and sitz bath, anusol supps or cream Repeat Colonoscopy in 5 years due to hx of polyps or earlier if clinically indicated Above findings were reviewed with the patient and relevant handouts were provided if indicated.
[2023-02-08 10:18] VITALS: BP 122/79; PULSE 77; RESP 18; TEMP 37; O2SAT 95
== END 2023-02-08 11:06 | disposition home or self-care (01) ==
PROVIDERS: PCP Family Medicine; Visit Provider Internal Medicine Gastroenterology
PROC: 0DJD8ZZ Inspection of Lower Intestinal Tract, Via Natural or Artificial Opening Endoscopic (ICD-10-PCS; CPT 45378; principal; 2023-02-08 09:40)
DX: Z12.11 Encounter for screening for malignant neoplasm of colon (principal); K63.5 Polyp of colon; K57.30 Diverticulosis of large intestine without perforation or abscess without bleeding; K64.0 First degree hemorrhoids; K21.9 Gastro-esophageal reflux disease without esophagitis; I10 Essential (primary) hypertension; R73.03 Prediabetes; E78.00 Pure hypercholesterolemia, unspecified; J45.909 Unspecified asthma, uncomplicated; Z79.51 Long term (current) use of inhaled steroids; Z79.82 Long term (current) use of aspirin; Z79.899 Other long term (current) drug therapy; Z88.8 Allergy status to other drugs, medicaments and biological substances; F12.90 Cannabis use, unspecified, uncomplicated
CPT/HCPCS: 45385; 88305; J2704

== ENCOUNTER → 2023-02-08 08:14 | Outpatient (BNV) | payer MEDICAID, SELFPAY | PROVIDERS: PCP Family Medicine; Visit Provider Internal Medicine Gastroenterology | DX: Z12.11 Encounter for screening for malignant neoplasm of colon (principal); D12.3 Benign neoplasm of transverse colon; K57.30 Diverticulosis of large intestine without perforation or abscess without bleeding; K64.0 First degree hemorrhoids | CPT/HCPCS: 45385 ==

== ENCOUNTER 2023-02-10 08:36 | Outpatient (AMB) | payer MEDICAID, SELFPAY ==
--- NOTE | 2023-02-10 08:41 | MHC.OFFVIS ---
Intake Vital Signs 02/10/23 08:46 Height 5 ft 9 in Weight 241 lb BMI 35.6 BP 155/78 H Blood Pressure Location Rt brachial Position Sitting Pulse 87 Intake Visit Reasons: abscess of back Intake Note: This patient presents for an assessment for abscess of the back. Patient c/o; Onset 1 week, reports pain, reports taking abx doxycycline hyclate 100 mg x 7 days BID. 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: Yes Professor Of Musicology Language: Biodiesel Engineering Manager Name: Alex Information Interpreted: non-clinical & clinical Accompanied by: Self / Same As Patient Allergies amlodipine Adverse Reaction (Intermediate, Verified 02/10/23 08:47) Nausea terazosin Adverse Reaction (Intermediate, Uncoded 02/10/23 08:47) Hypotension Medication List - Last Reconciled 02/10/23 by Cornelio Root MD acetaminophen 650 mg (2 x 325 mg) PO Q6H PRN 30 days albuterol sulfate 90 mcg/actuation (Ventolin HFA) 2 puffs inhalation Q4H PRN ascorbic acid (vitamin C) (Vitamin C) 1,000 mg PO DAILY aspirin 81 mg PO QAM baclofen 10 mg PO TID PRN bisacodyl (Dulcolax (bisacodyl)) 10 mg (2 x 5 mg) PO ONCE 1 day calcium carbonate (Calcium) 600 mg PO DAILY cefuroxime axetil 500 mg PO BID cetirizine 10 mg PO QAM cholecalciferol (vitamin D3) (Vitamin D3) 50 mcg PO DAILY docusate sodium 100 mg PO BID 14 days doxycycline hyclate 100 mg PO BID hydrocortisone 2.5% (Proctosol HC) 1 appl [place] BID-QID PRN ibuprofen 600 mg PO TID PRN lidocaine 5% 1 patch topical DAILY lisinopril 20 mg PO QAM montelukast (Singulair) 10 mg PO DAILY PRN nitrofurantoin monohyd/m-cryst 100 mg (Macrobid) 100 mg PO BID 7 days omeprazole 40 mg PO DAILY PRN polyethylene glycol 3350 (Miralax) 238 grams PO ONCE rosuvastatin (Crestor) 10 mg PO DAILY tadalafil 10 mg PO DAILY 90 days tamsulosin 0.4 mg PO DAILY 90 days walker Folding Front wheeled walker HPI abscess of back HPI Details 62-year-old male referred for a back abscess. He says that he has noticed this for almost a week now. He describes swelling and tenderness. He denies any drainage He said he has had a history of multiple abscess as well in the past. He is not a diabetic. He denies any bug bite or trauma. He denies any fever or chills. [facility] Medical History (Updated 02/10/23 @ 09:19 by Cornelio Root MD) Back abscess Hypertension Heart murmur Hx of varicose veins Arthritis Asthma Pre-diabetes History of BPH GERD (gastroesophageal reflux disease) Elevated cholesterol HTN (hypertension) COVID-19 vaccine administered Osteochondral defect of femoral condyle Osteoarthritis of right knee Surgical History History of esophagogastroduodenoscopy (EGD) Hx of meniscectomy of right knee H/O colonoscopy History of right knee surgery Family History Mother No problems noted. Father No problems noted. Social History Household Members: None Housing: Apartment Are you a primary rehab care assistant to a significant other at home: No Do you presently have visiting nurse or other home services: No Alcohol intake: never Patient Tobacco Use Status: Never used Tobacco e-Cigarette/Vaping Use: Never Used Substance Use Type: Marijuana Advance Directives Date on File: 10/11/22 service: No Current occupational status: unemployed Current occupation: right handed Review of Systems Const Denies chills and Denies fever(s) Card Denies chest pain, Denies dyspnea and Denies dyspnea on exertion Resp Denies cough, Denies dyspnea and Denies dyspnea on exertion GI Denies hematochezia and Denies change in bowel habits Denies hematuria and Denies difficulty urinating Musc Denies back pain and Denies limited range of motion Neuro Denies focal weakness and Denies convulsions Psych Denies depression and Denies mood swings Physical Exam Vital Signs: Last Vital Signs Pulse 87 02/10/23 08:46 BP 155/78 H 02/10/23 08:46 BMI result Body Mass Index 35.6 Back/Spine/Pelvis Other: large area of induration about 4 cm, with central fluctuance consistent with an abscess, no drainage Office Procedures I&D Drain Details: he was in prone position. The area of the abscess was prepped and draped. Lidocaine 1% was used for local anesthesia. A cruciate incision was made on the skin overlying the abscess using a blade 11. This was carried down through the full-thickness of the skin until this cavity was entered. Pus was drained. I bluntly debrided the abscess cavity with Q-tips. I applied a light packing. Dressings were placed. He tolerated procedure well. There were no immediate complications. 49972-Jhsmkyta of Skin Abscess, complex All charges added?: Procedure code (CPT) selection complete Assessment & Plan Assessment & Plan (1) Back abscess: Code(s): L02.212 - Cutaneous abscess of back [any part, except buttock] Plan: he had a large back abscess as described I and D under local anesthesia was done he tolerated procedure well he was given wound care instructions complete oral antibiotic course I instructed him to call the office for follow-up if he continues to have problems Coding Level of Care Code New Pt Level 3 (15959) Diagnoses Back abscess L02.212 CPT Codes I&D Drain - Drain 2: 59433-Ranwpqxk of Skin Abscess, complex ([id number])
[2023-02-10 08:46] VITALS: BP 155/78; PULSE 87; BMI 35.6
== END 2023-02-10 09:18 | disposition home or self-care (01) ==
PROVIDERS: PCP Family Medicine; Visit Provider Surgery
DX: L02.212 Cutaneous abscess of back [any part, except buttock and flank] (principal)
CPT/HCPCS: 10060; 99203

== ENCOUNTER → 2023-02-10 08:36 | Outpatient (BNVA) | payer MEDICAID, SELFPAY | PROVIDERS: PCP Family Medicine; Visit Provider Surgery | DX: L02.212 Cutaneous abscess of back [any part, except buttock and flank] (principal) | CPT/HCPCS: 10060; 99202 ==

== ENCOUNTER 2023-02-21 08:22 | Outpatient (REF) | payer MEDICAID, SELFPAY ==
[2023-02-21 11:37] LABS: Glucose Fasting 105 mg/dL (60-99)
[2023-02-21 11:43] LABS: Estimated Average Glucose 123 mg/dL; Hemoglobin A1c % 5.9 % (<6.0)
== END 2023-02-21 08:23 | disposition home or self-care (01) ==
LOC: HO.HHCL 08:22
PROVIDERS: Visit Provider Emergency Medicine
DX: L02.212 Cutaneous abscess of back [any part, except buttock and flank] (principal)
CPT/HCPCS: 36415; 82947; 83036

== ENCOUNTER 2023-04-01 11:07 | Outpatient (AMB) | payer MEDICAID, SELFPAY ==
--- NOTE | 2023-04-01 11:11 | MHC.OFFVIS ---
Intake Vital Signs 04/01/23 11:13 Height 5 ft 9 in Weight 240 lb 4.862 oz BMI 35.5 BP 136/80 Blood Pressure Location Lt brachial Position Sitting Pulse 80 Intake Visit Reasons: s/p colon Intake Note: Donny returns to in office post operative follow up s/p colonoscopy. CC: Patient underwent colonoscopy by Dr. King on 02/08/23. Patient report doing well and states medications are working well for his GERD and nausea symptoms. 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 Patient was encouraged to avoid dietary triggers and late night snacking. Staying upright for minimum 3 hours after meals discussed with patient. Screen for colon cancer Last colonoscopy in March of 2021 multiple medium size polyps. Five polyps show fragments of tubular adenoma. Patient denies melena, hematochezia, unintentional weight loss or ribbon like stools. Patient will be scheduled for colonoscopy. Denies any issues with anesthesia in the past. No history of sleep apnea. Patient is on low-dose aspirin. Denies any cardiac or respiratory symptoms. What to expect before during and after procedure discussed with patient. Discussed with patient the importance of good bowel prep and clear liquid diet day before the procedure. I will see him after the procedure, sooner on as needed basis. He is agreeable to this plan and verbalizes understanding of instructions. He was given the opportunity to ask questions and all questions answered. ? Thank you for allowing me to participate in his care Plan Medications New bisacodyl (Dulcolax (bisacodyl)) take 2 tabs at noon the day before your colonoscopy 10 mg (2 x 5 mg) PO ONCE 1 day 2 tabs 0RF Z12.11 - Encounter for screening for malignant neoplasm of colon polyethylene glycol 3350 (Miralax) As directed by gastroenterology department at [facility] 238 grams PO ONCE 238 grams 0RF Z12.11 - Encounter for screening for malignant neoplasm of colon Discontinued omeprazole 40 mg PO DAILY 90 caps 3RF K21.9 - Gastro-esophageal reflux disease without esophagitis COLONOSCOPY Findings: Terminal Ileum-normal Cecum:normal Ascending Colon: normal Transverse Colon - 6-8 mm sessile poylp removed with cold snare Descending Colon:normal Sigmoid Colon: mild diverticulosis Rectum: Retroflexion with small internal hemorrhoids, grade I Anorectum - normal Colon preparation: [place] Bowel Preparation Scale Right colon; 2 Transverse colon: 2 Left colon; 2 (0 = Unprepared colon segment with mucosa not seen due to solid stool that cannot be cleared. 1 = Portion of mucosa of the colon segment seen, but other areas of the colon segment not well seen due to staining, residual stool and/or opaque liquid. 2 = Minor amount of residual staining, small fragments of stool and/or opaque liquid, but mucosa of colon segment seen well. 3 = Entire mucosa of colon segment seen well with no residual staining, small fragments of stool or opaque liquid) Impression and Post Procedure Diagnosis: polyp internal hemorrhoids diverticular disease Plan: High fiber diet leaflet Avoid straining at stool, epsom salts and sitz bath, anusol supps or cream Repeat Colonoscopy in 5 years due to hx of polyps or earlier if clinically indicated PATHOLOGY Diagnosis Colon, transverse, polypectomy: Hyperplastic mucosal polyp TODAY'S VISIT: Patient is here today for follow-up and to discuss colonoscopy results. Patient denies any ill effects from the prep, anesthesia or procedure itself. Patient reports that he has been feeling well. Denies any melena, hematochezia, unintentional weight loss or ribbon like stools. Patient had hyperplastic polyps, however due to previous history of polyps patient will need to return for colorectal screening in 5 years. Patient reports that omeprazole has been working for him. Denies any dyspepsia, dysphagia or odynophagia. Denies any abdominal pain or discomfort. Denies any GI concerning symptoms at this moment. [facility] Medical History (Updated 04/09/23 @ 19:56 by Chiquita Ellington, SLURRY WORKER-) Diverticulosis Back abscess Hypertension Heart murmur Hx of varicose veins Arthritis Asthma Pre-diabetes History of BPH GERD (gastroesophageal reflux disease) Elevated cholesterol HTN (hypertension) COVID-19 vaccine administered Osteochondral defect of femoral condyle Osteoarthritis of right knee Surgical History History of esophagogastroduodenoscopy (EGD) Hx of meniscectomy of right knee H/O colonoscopy History of right knee surgery Family History Mother No problems noted. Father No problems noted. Social History Household Members: None Housing: Apartment Are you a primary client care specialist to a significant other at home: No Do you presently have visiting nurse or other home services: No Alcohol intake: never Patient Tobacco Use Status: Never used Tobacco e-Cigarette/Vaping Use: Never Used Substance Use Type: Marijuana Advance Directives Date on File: 10/11/22 service: No Current occupational status: unemployed Current occupation: right handed Review of Systems Const Denies weight gain and Denies weight loss ENT Reports no additional complaints, Denies dysphagia and Denies odynophagia Card Reports no additional complaints Resp Reports no additional complaints GI Denies abdominal pain, Denies belching, Denies melena, Denies bloating, Denies change in bowel habits, Denies dysphagia, Denies excessive flatus, Denies dyspepsia, Denies heartburn, Denies diarrhea, Denies loose stools, Denies nausea, Denies odynophagia and Denies vomiting Reports no additional complaints Musc Reports no additional complaints Neuro Reports no additional complaints Psych Reports no additional complaints Endo Reports no additional complaints Physical Exam Vital Signs: Last Vital Signs Pulse 80 04/01/23 11:13 BP 136/80 04/01/23 11:13 BMI result Body Mass Index 35.5 Const General: healthy appearing, no acute distress and well developed Nutritional Appearance: well nourished Orientation/consciousness: patient oriented x3 HEENT Head: Yes normal to inspection, Yes normocephalic and Yes atraumatic Face and sinus: Yes normal facial exam Mouth: Normal oral and palatal mucosa present Throat: Yes posterior oropharynx normal, Yes tonsils normal and Yes uvula midline Eyes General: appearance normal, both eyes and all related structures Neck Neck: Yes normal visual inspection, Yes full ROM and Yes trachea midline Thyroid: Thyroid normal Resp Effort & Inspection: normal respiratory effort, able to speak in complete sentences, no tracheal deviation and symmetric chest movement Auscultation: clear to auscultation bilaterally Cardio Rate: regular rate GI Inspection: Yes normal to inspection, No distended and Yes obesity Palpation (GI): Soft to palpation, not firm, nontender and No hepatosplenomegaly present Auscultation: normal bowel sounds General: Yes no CVA tenderness Back/Spine/Pelvis Back: no CVA tenderness Skin General skin exam: elasticity normal, turgor normal and dry skin Neuro General: patient oriented x3 Psych Appearance: grossly normal Mental Status: mental status grossly normal Assessment & Plan Assessment & Plan (1) Diverticulosis: Code(s): K57.90 - Diverticulosis of intestine, part unspecified, without perforation or abscess without bleeding (2) Hemorrhoids without complication: Code(s): K64.9 - Unspecified hemorrhoids (3) GERD (gastroesophageal reflux disease): Code(s): K21.9 - Gastro-esophageal reflux disease without esophagitis Qualifiers: Esophagitis presence: esophagitis presence not specified Qualified Code(s): K21.9 - Gastro-esophageal reflux disease without esophagitis Plan Continue omeprazole. Discussed with patient avoiding dietary triggers and late night snacking. Staying upright for minimum 3 hours after meals discussed with patient. Patient will increase fiber in his diet. Patient can start taking [id number] fiber is well as probiotic. Colonoscopy in 5 years, sooner if clinically necessary. Patient will follow-up in our office on as needed basis. He is agreeable to this plan and verbalizes understanding of instructions. He was given the opportunity to ask questions and all questions answered. Thank you for allowing me to participate in his care Medications: New methylcellulose (laxative) (Citrucel) take it with full glass of water 500 mg PO DAILY 90 tabs 2RF K59.00 - Constipation, unspecified Lactobacillus rhamnosus GG (Probiotic Digestive Care) ONE CAP orally DAILY 90 caps 2RF Coding Level of Care Code Est Pt Level 3 (63251) Diagnoses Diverticulosis K57.90 Hemorrhoids without complication K64.9 Gastroesophageal reflux disease, unspecified whether esophagitis present K21.9 Esophagitis presence: esophagitis presence not specified Time Spent (min) 25 Comment 15 minutes spent with patient and additional 10 minutes spent reviewing his records
[2023-04-01 11:13] VITALS: BP 136/80; PULSE 80; BMI 35.5
== END 2023-04-01 12:08 | disposition home or self-care (01) ==
PROVIDERS: PCP Family Medicine; Visit Provider Nurse Practitioner Family
DX: K57.90 Diverticulosis of intestine, part unspecified, without perforation or abscess without bleeding (principal); K64.9 Unspecified hemorrhoids; K21.9 Gastro-esophageal reflux disease without esophagitis
CPT/HCPCS: 99213

== ENCOUNTER → 2023-04-01 11:07 | Outpatient (BNVA) | payer MEDICAID, SELFPAY | PROVIDERS: PCP Family Medicine; Visit Provider Nurse Practitioner Family | DX: K57.90 Diverticulosis of intestine, part unspecified, without perforation or abscess without bleeding (principal); K64.9 Unspecified hemorrhoids; K21.9 Gastro-esophageal reflux disease without esophagitis | CPT/HCPCS: 99212 ==

== ENCOUNTER → 2023-04-14 13:59 | Outpatient (BNVA) | payer SELFPAY | PROVIDERS: PCP Family Medicine; Visit Provider Physician Assistant | DX: Z02.79 Encounter for issue of other medical certificate (principal) ==

== ENCOUNTER 2023-04-25 13:46 | Outpatient (AMB) | payer MEDICAID, SELFPAY ==
--- NOTE | 2023-04-25 13:50 | MHC.OFFVIS ---
Intake Vital Signs 04/25/23 13:51 Height 5 ft 9 in Weight 242 lb 1.081 oz BMI 35.7 BP 136/74 Blood Pressure Location Rt brachial Position Sitting Pulse 95 Intake Visit Reasons: Abscess~ Rt axilla Intake Note: Patient is seen in office for evaluation of an abscess of the right axilla. Pt c/o: reports completed one round of abx with effectiveness, reports inflammation has improved,reports no draining. Laborer Pipeline Required: Yes Laborer Pipeline Language: Nurses Supervisor Name: Alex Information Interpreted: non-clinical & clinical Accompanied by: Self / Same As Patient Allergies terazosin Allergy (Severe, Verified 04/25/23 13:55) Hypotension amlodipine Adverse Reaction (Intermediate, Verified 04/25/23 13:55) Nausea Medication List - Last Reviewed 04/25/23 by MARIKA López acetaminophen 650 mg (2 x 325 mg) PO Q6H PRN 30 days albuterol sulfate 90 mcg/actuation (Ventolin HFA) 2 puffs inhalation Q4H PRN ascorbic acid (vitamin C) (Vitamin C) 1,000 mg PO DAILY aspirin 81 mg PO QAM baclofen 10 mg PO TID PRN bisacodyl (Dulcolax (bisacodyl)) 10 mg (2 x 5 mg) PO ONCE 1 day calcium carbonate (Calcium) 600 mg PO DAILY cefuroxime axetil 500 mg PO BID PRN cetirizine 10 mg PO QAM cholecalciferol (vitamin D3) (Vitamin D3) 50 mcg PO DAILY docusate sodium 100 mg PO BID 14 days doxycycline hyclate 100 mg PO BID hydrocortisone 2.5% (Proctosol HC) 1 appl [place] BID-QID PRN ibuprofen 600 mg PO TID PRN Lactobacillus rhamnosus GG (Probiotic Digestive Care) ONE CAP orally DAILY lidocaine 5% 1 patch topical DAILY lisinopril 20 mg PO QAM methylcellulose (laxative) (Citrucel) 500 mg PO DAILY montelukast (Singulair) 10 mg PO DAILY PRN omeprazole 40 mg PO DAILY PRN rosuvastatin (Crestor) 10 mg PO DAILY tadalafil 10 mg PO DAILY 90 days tamsulosin 0.4 mg PO DAILY 90 days walker Folding Front wheeled walker HPI Abscess~ Rt axilla HPI Details He had an area of pain and swelling on the right axilla 2 weeks ago. He was started on antibiotics by his primary care physician and was referred to me. He says that since then, this swelling and pain have improved significantly. He denies any drainage He has a history of an I and D of a back abscess last year. He has not a diabetic. [facility] Medical History (Updated 04/25/23 @ 14:06 by Corenlio Root MD) Infected cyst of skin Diverticulosis Back abscess Hypertension Heart murmur Hx of varicose veins Arthritis Asthma Pre-diabetes History of BPH GERD (gastroesophageal reflux disease) Elevated cholesterol HTN (hypertension) COVID-19 vaccine administered Osteochondral defect of femoral condyle Osteoarthritis of right knee Surgical History History of esophagogastroduodenoscopy (EGD) Hx of meniscectomy of right knee H/O colonoscopy History of right knee surgery Family History Mother No problems noted. Father No problems noted. Social History Household Members: None Housing: Apartment Are you a primary primary care sales representative to a significant other at home: No Do you presently have visiting nurse or other home services: No Alcohol intake: never Patient Tobacco Use Status: Never used Tobacco e-Cigarette/Vaping Use: Never Used Substance Use Type: Marijuana Advance Directives Date on File: 10/11/22 service: No Current occupational status: unemployed Current occupation: right handed Review of Systems Const Denies chills and Denies fever(s) Card Denies chest pain, Denies dyspnea and Denies dyspnea on exertion Resp Denies cough, Denies dyspnea and Denies dyspnea on exertion GI Denies hematochezia and Denies change in bowel habits Denies hematuria and Denies difficulty urinating Musc Denies back pain and Denies limited range of motion Neuro Denies focal weakness and Denies convulsions Psych Denies depression and Denies mood swings Physical Exam Vital Signs: Last Vital Signs Pulse 95 04/25/23 13:51 BP 136/74 04/25/23 13:51 BMI result Body Mass Index 35.7 Const General: comfortable and no acute distress Orientation/consciousness: patient oriented x3 Neck Neck: Yes no lymphadenopathy Resp Auscultation: clear to auscultation bilaterally Cardio Rhythm: regular rhythm GI Palpation (GI): Soft to palpation, nontender and no guarding Skin Other: Right axilla with note of a cystic induration about 1.5 cm diameter, currently nonfluctuant, no cellulitis Neuro General: patient oriented x3 Assessment & Plan Assessment & Plan (1) Infected cyst of skin: Code(s): L72.9 - Follicular cyst of the skin and subcutaneous tissue, unspecified; L08.9 - Local infection of the skin and subcutaneous tissue, unspecified Plan: He has what appears to be an infected epidermal cyst but this has improved with oral antibiotics. Currently, he says that the pain and swelling have improved significantly. I explained to him the option of proceeding with excision down the line. I discussed the technique of the procedure. I reviewed the risks including but not limited to bleeding and infections, as well as the benefits and alternatives He says he wants to wait a little bit as he states that the area feels much better. He will call the office when he feels he wants to go with excision under local anesthesia. Coding Level of Care Code Est Pt Level 3 (64957) Diagnoses Infected cyst of skin L72.9; L08.9
[2023-04-25 13:51] VITALS: BP 136/74; PULSE 95; BMI 35.7
== END 2023-04-25 14:05 | disposition home or self-care (01) ==
PROVIDERS: PCP Family Medicine; Referring Provider Internal Medicine; Visit Provider Surgery
DX: L72.9 Follicular cyst of the skin and subcutaneous tissue, unspecified (principal); L08.9 Local infection of the skin and subcutaneous tissue, unspecified
CPT/HCPCS: 99213

== ENCOUNTER → 2023-04-25 13:46 | Outpatient (BNVA) | payer MEDICAID, SELFPAY | PROVIDERS: PCP Family Medicine; Referring Provider Internal Medicine; Visit Provider Surgery | DX: L72.9 Follicular cyst of the skin and subcutaneous tissue, unspecified (principal); L08.9 Local infection of the skin and subcutaneous tissue, unspecified | CPT/HCPCS: 99212 ==

== ENCOUNTER 2023-05-18 17:53 | Outpatient (REF) | payer MEDICAID, SELFPAY | END 2023-05-18 17:54 | disposition home or self-care (01) | LOC: HO.HHCLNP 17:53 | PROVIDERS: Visit Provider Emergency Medicine | DX: R39.9 Unspecified symptoms and signs involving the genitourinary system (principal) | CPT/HCPCS: 87086; 87088; 87186 ==

== ENCOUNTER 2023-05-25 15:26 | Outpatient (REF) | payer MEDICAID, SELFPAY | END 2023-05-25 15:27 | disposition home or self-care (01) | LOC: HO.HHCLNP 15:26 | PROVIDERS: Visit Provider Internal Medicine | DX: N30.00 Acute cystitis without hematuria (principal) | CPT/HCPCS: 87086 ==

== ENCOUNTER 2023-05-29 12:12 | Emergency (ER) | payer MEDICAID, SELFPAY ==
--- NOTE | ~2023-05-29 | CT_ITS ---
EXAMINATION: CT ABDOMEN AND PELVIS WITHOUT CONTRAST CLINICAL INFORMATION: Right flank pain. COMPARISON: 10/06/2022. TECHNIQUE: Multidetector volumetric imaging was performed from the superior aspect of the liver through the pubic symphysis. Sagittal and coronal reformatted images were obtained on the technologist's workstation. This CT examination was performed using dose optimization techniques as appropriate, variously including the following: *Automated exposure control *Adjustment of mA and/or kV according to patient size (this includes techniques or standardized protocols for targeted exams where dose is matched to indication/reason for exam; i.e. extremities or head) *Use of iterative reconstruction technique DLP: 766 mGy-cm FINDINGS: LUNG BASES: The lung bases appear clear, with no evidence of inflammation or nodules. LIVER, GALLBLADDER, AND BILIARY TREE: The liver appears unremarkable in size, shape, and attenuation. No focal hepatic lesion or biliary ductal dilatation is appreciated. Unremarkable appearance of the gallbladder. PANCREAS: Unremarkable SPLEEN: Unremarkable ADRENAL GLANDS: Unremarkable KIDNEYS AND URETERS 0.4 cm or less, nonobstructing left lower pole collecting system stones. No stone identified in the right. No evidence of hydronephrosis or hydroureter on either side. The kidneys appear unremarkable in size, shape, and attenuation. No hydronephrosis, hydroureter, or calculi seen. BLADDER: Unremarkable GASTROINTESTINAL TRACT: Approximately 2 cm diverticulum involving the second portion of duodenum, without evidence of associated inflammation. Unremarkable appearance of the stomach and colon. No diverticulosis. Normal-appearing distal ileum and vermiform appendix. ABDOMINAL WALL: No significant hernia is appreciated. LYMPH NODES: No evidence of adenopathy by size criteria. VASCULAR: Unremarkable PELVIC VISCERA: Mildly large prostate. OSSEOUS STRUCTURES: Degenerative changes of the lower lumbar spine. CT/CT abdomen pelvis wo IV con IMPRESSION: No acute finding.
[2023-05-29 12:15] VITALS: BP 154/73; PULSE 94; RESP 16; TEMP 36.7; O2SAT 97; BMI 35.0
--- NOTE | 2023-05-29 12:24 | ED_ITS ---
HPI - General Adult General Chief complaint: Abdominal Pain Stated complaint: Lower back pain Time Seen by Provider: 05/29/23 16:12 Source: patient Mode of arrival: ambulatory Limitations: no limitations History of Present Illness HPI narrative: Patient with chronic low back pain increased pain now radiating to the abdomen was seen by PCP supposed to get a comes here as pain is not getting better patient is on tramadol for last few days no recent trauma or injury no radiation of the pain to lower extremity no paresthesia Related Data Home Medications Medication Instructions Recorded Confirmed ascorbic acid (vitamin C) 1,000 mg 1,000 mg PO DAILY 08/15/20 04/25/23 tablet (Vitamin C) cholecalciferol (vitamin D3) 50 50 mcg PO DAILY 08/15/20 04/25/23 mcg (2,000 unit) capsule (Vitamin D3) montelukast 10 mg tablet 10 mg PO DAILY PRN Wheezing 08/15/20 04/25/23 (Singulair) rosuvastatin 10 mg tablet (Crestor) 10 mg PO DAILY 08/15/20 04/25/23 albuterol sulfate 90 mcg/actuation 2 puff inhalation Q4H PRN wheezing 10/06/22 04/25/23 aerosol inhaler (Ventolin HFA) aspirin 81 mg tablet,delayed 81 mg PO QAM 10/06/22 04/25/23 release baclofen 10 mg tablet 10 mg PO TID PRN Muscle Spasm 10/06/22 04/25/23 calcium carbonate 600 mg calcium 600 mg PO DAILY 10/06/22 04/25/23 (1,500 mg) tablet (Calcium) cetirizine 10 mg tablet 10 mg PO QAM 10/06/22 04/25/23 ibuprofen 600 mg tablet 600 mg PO TID PRN Pain 10/06/22 04/25/23 lidocaine 5 % topical patch 1 patch topical DAILY 10/06/22 04/25/23 lisinopril 20 mg tablet 20 mg PO QAM 10/06/22 04/25/23 omeprazole 40 mg capsule,delayed 40 mg PO DAILY PRN Gastric Reflux 10/06/22 04/25/23 release cefuroxime axetil 500 mg tablet 500 mg PO BID PRN 04/01/23 04/25/23 doxycycline hyclate 100 mg capsule 100 mg PO BID 04/25/23 Previous Rx's Medication Instructions Recorded walker #1 ea 07/17/20 acetaminophen 325 mg tablet 650 mg (2 x 325 mg) PO Q6H PRN 08/21/20 Pain, Mild (Pain Scale 1-3) 30 days #240 tabs docusate sodium 100 mg capsule 100 mg PO BID 14 days #28 caps 08/21/20 hydrocortisone 2.5 % topical cream 1 appl NV BID-QID PRN hemorrhoids 04/16/21 with perineal applicator #30 grams (Proctosol HC) bisacodyl 5 mg tablet,delayed 10 mg (2 x 5 mg) PO ONCE 1 day #2 11/23/22 release (Dulcolax (bisacodyl)) tabs tadalafil 10 mg tablet 10 mg PO DAILY 90 days #90 tabs 01/13/23 Lactobacillus rhamnosus GG 20 See Rx Instructions PO .COMPLEX 04/01/23 billion cell capsule (Probiotic #90 caps Digestive Care) methylcellulose (laxative) 500 mg 500 mg PO DAILY #90 tabs 04/01/23 tablet (Citrucel) tamsulosin 0.4 mg capsule 0.4 mg PO DAILY 90 days #90 caps 05/02/23 cyclobenzaprine 10 mg tablet 10 mg PO Q8H #20 tabs 05/29/23 tramadol 50 mg tablet 50 mg PO Q6H PRN pain #20 tabs 05/29/23 Allergies Allergy/AdvReac Type Severity Reaction Status Date / Time terazosin Allergy Severe Hypotension Verified 04/25/23 13:55 amlodipine AdvReac Intermediate Nausea Verified 04/25/23 13:55 Review of Systems 2 Review of Systems: Yes all other systems are reviewed and are negative PMFSH Past Medical History Medical History Infected cyst of skin Diverticulosis Back abscess Hypertension Heart murmur Hx of varicose veins Arthritis Asthma Pre-diabetes History of BPH GERD (gastroesophageal reflux disease) Elevated cholesterol HTN (hypertension) COVID-19 vaccine administered Osteochondral defect of femoral condyle Osteoarthritis of right knee Surgical History History of esophagogastroduodenoscopy (EGD) Hx of meniscectomy of right knee H/O colonoscopy History of right knee surgery Family History Family History Mother No problems noted. Father No problems noted. Social History Social History Household Members: None Housing: Apartment Are you a primary childcare center administrator to a significant other at home: No Do you presently have visiting nurse or other home services: No Alcohol intake: never Patient Tobacco Use Status: Never used Tobacco e-Cigarette/Vaping Use: Never Used Substance Use Type: Marijuana Advance Directives: Yes Advance Directives on File: Yes Advance Directives Date on File: 10/11/22 service: No Current occupational status: unemployed Current occupation: right handed Physical Exam ED Vital Signs: Vital Signs - 24 hr 05/29/23 12:15 05/29/23 14:46 05/29/23 16:53 Temperature 98.1 F 98.5 F 98.6 F Pulse Rate 94 89 83 Respiratory Rate 16 16 18 Blood Pressure 154/73 H 134/71 148/86 H Pulse Oximetry 97 97 96 Oxygen Delivery Method Room Air Room Air Room Air BMI result Body Mass Index 35.0 Appearance: Alert. Oriented X3. No acute distress. Eyes: No pallor or icterus ENT: Pharynx normal. Oral Mucosa moist Neck: Normal inspection. Neck supple. CVS: Normal heart rate and rhythm. Pulses normal. Respiratory: No respiratory distress. Equal air entry bilateral, no wheezing/rales/rhonchi Abdomen: Soft and nontender. Bowel sounds are present, no mass palpable, no CVA tenderness back: Diffuse lower lumbar tenderness no focal deformity or tender , patient ambulatory in the steady gait Skin: Skin warm and dry. Normal skin color. Normal skin turgor. Extremities: No lower extremity edema. No calf tenderness Neuro: Oriented X 3. No motor deficit. No sensory deficit. Course Course Course Narrative: RME- 62 year old male presents for evaluation of right flank pain that radiates to the RLQ. Hx of kidney stones years ago. Plan for labs, UA, CT abdomen/pelvis. Patient has a history of bladder outlet obstruction, but has been urinating without any difficulty Medical Decision Making Medical Decision Making MDM Narrative: Patient with lower pain no significant abdominal tenderness CT scan negative for acute except for arthritic changes labs are patient x-ray tramadol was to follow with PCP Differential Diagnosis Differential Diagnoses: The differential diagnosis associated with the presentation includes Compression fractures/arthritis/chronic pain Lab Data MDM Lab Attestation statement: I reviewed the patient's lab results. 05/29/23 12:30 05/29/23 12:30 Labs: Lab Results 05/29/23 05/29/23 Range/Units 12:30 14:54 WBC 5.7 (4.8-10.8) X10*3/uL RBC 4.83 (4.60-5.80) X10*6/uL Hgb 14.5 (14.0-18.0) g/dl Hct 43.4 (42.0-52.0) % MCV 89.9 (80.0-98.0) fL MCH 30.0 (27.0-33.0) pg MCHC 33.4 (31.0-36.0) g/dl RDW 13.0 (11.0-16.0) % Plt Count 261 D (160-400) X10*3/uL MPV 8.5 L (9.4-12.4) fL Immature Gran % (Auto) 0.4 (0.0-0.4) % Neut % (Auto) 44.6 L (45-73) % Lymph % (Auto) 40.4 H (20-40) % [place] % (Auto) 10.7 (2-11) % Eos % (Auto) 3.2 (0-4) % Baso % (Auto) 0.7 (0-2) % Lymph # (Auto) 2.3 (1.2-4.9) X10*3/uL [place]vin # (Auto) 0.6 (0.1-1.2) X10*3/uL Eos # (Auto) 0.2 (0.0-0.4) X10*3/uL Baso # (Auto) 0.0 (0.0-0.2) X10*3/uL Abs Immat Gran (auto) 0.02 (0.00-0.03) X10*3/uL Absolute Neuts (auto) 2.6 (2.0-8.3) x10*3/uL Absolute Nucleated RBC 0.000 (0.0-0.012) X10*3/uL Nucleated RBC % (auto) 0.0 (0.0-0.2) /100WBC Sodium 134 L (135-145) mmol/L Potassium 4.0 (3.3-5.1) mmol/L Chloride 104 (96-108) mmol/L Carbon Dioxide 23 (22-29) mmol/L Anion Gap 11 L (12-20) BUN 14 (9-16) mg/dL Creatinine 0.72 (0.5-1.4) mg/dL Estim Creat Clear Calc 128.5 Estimated GFR > 60 Random Glucose 120 H (60-115) mg/dL Calcium 9.7 (8.4-10.2) mg/dL Total Bilirubin 0.9 (0.0-1.0) mg/dL AST 20 (5-37) U/L ALT 29 (0-40) U/L Alkaline Phosphatase 76 (39-117) U/L Total Protein 7.1 (6.5-8.0) g/dL Albumin 4.4 (3.5-5.0) g/dL Lipase 19 (8-78) U/L Urine Color Yellow Urine Appearance Clear Urine pH 6.0 (5.0-9.0) Ur Specific [place] 1.025 (1.005-1.025) Urine Protein Negative (Neg-Trace) mg/dL Urine Glucose (UA) Negative (Negative) mg/dL Urine Ketones Negative (Negative) mg/dL Urine Blood Negative (Negative) Urine Nitrite Negative (Negative) Ur Leukocyte Esterase Trace H (Negative) Urine RBC 0-2 (0-2) /HPF Urine WBC 0-5 (0-5) /HPF Ur Squamous Epith Cells 0-2 (0-2) /HPF Urine Bacteria None Seen (None Seen) Hyaline Casts 0-2 (0-2) /LPF Independent Interpretation I performed an independent interpretation of an: CT Scan Radiology Impression Discussion of test interpretation with radiology: I have reviewed the radiologist's reading. Discharge Plan Discharge Clinical Impression: Low back pain Patient Disposition: Home, Self-Care Instructions: Back Pain (ED) Additional Instructions: Take pain medication and muscle relaxants as prescribed Follow-up with PCP/Pain Clinic Prescriptions: New cyclobenzaprine 10 mg tablet 10 mg PO Q8H Qty: 20 0RF tramadol 50 mg tablet 50 mg PO Q6H PRN (Reason: pain) Qty: 20 0RF No Action tamsulosin 0.4 mg capsule 0.4 mg PO DAILY 90 Days Qty: 90 1RF ascorbic acid (vitamin C) [Vitamin C] 1,000 mg Tablet 1,000 mg PO DAILY rosuvastatin [Crestor] 10 mg Tablet 10 mg PO DAILY cholecalciferol (vitamin D3) [Vitamin D3] 50 mcg (2,000 unit) Capsule 50 mcg PO DAILY montelukast [Singulair] 10 mg Tablet 10 mg PO DAILY PRN (Reason: Wheezing) acetaminophen 325 mg Tablet 650 mg PO Q6H PRN (Reason: Pain, Mild (Pain Scale 1-3)) 30 Days Qty: 240 0RF docusate sodium 100 mg Capsule 100 mg PO BID 14 Days Qty: 28 0RF cetirizine 10 mg tablet 10 mg PO QAM lisinopril 20 mg tablet 20 mg PO QAM aspirin 81 mg tablet,delayed release (DR/EC) 81 mg PO QAM lidocaine 5 % adhesive patch,medicated 1 patch topical DAILY ibuprofen 600 mg tablet 600 mg PO TID PRN (Reason: Pain) albuterol sulfate [Ventolin HFA] 90 mcg/actuation HFA aerosol inhaler 2 puff INHALATION Q4H PRN (Reason: wheezing) omeprazole 40 mg capsule,delayed release(DR/EC) 40 mg PO DAILY PRN (Reason: Gastric Reflux) calcium carbonate [Calcium 600] 600 mg calcium (1,500 mg) Tablet 600 mg PO DAILY baclofen 10 mg Tablet 10 mg PO TID PRN (Reason: Muscle Spasm) (DME) [facility] Misc See Rx Instructions .MEDSUPPLY Qty: 1 0RF Rx Instructions: Folding Front wheeled [place] hydrocortisone [Proctosol HC] 2.5 % cream with perineal applicator 1 appl NV BID-QID PRN (Reason: hemorrhoids) Qty: 30 0RF bisacodyl [Dulcolax (bisacodyl)] 5 mg tablet,delayed release (DR/EC) 10 mg PO ONCE 1 Days Qty: 2 0RF Rx Instructions: take 2 tabs at noon the day before your colonoscopy cefuroxime axetil 500 mg tablet 500 mg PO BID PRN Citrucel 500 mg tablet 500 mg PO DAILY Qty: 90 2RF Rx Instructions: take it with full glass of water Probiotic Digestive Care 20 billion cell capsule See Rx Instructions PO .COMPLEX Qty: 90 2RF Rx Instructions: ONE CAP orally DAILY doxycycline hyclate 100 mg capsule 100 mg PO BID tadalafil 10 mg tablet 10 mg PO DAILY 90 Days Qty: 90 1RF
[2023-05-29 12:37] LABS: MANUAL DIFF FLAG NO
[2023-05-29 12:41] LABS: Basophils Percent Auto 0.7 % (0-2); Eosinophils Absolute Auto 0.2 X10*3/uL (0.0-0.4); Eosinophils Percent Auto 3.2 % (0-4); Hematocrit 43.4 % (42.0-52.0); Hemoglobin 14.5 g/dl (14.0-18.0); Imm Gran Abs Auto 0.02 X10*3/uL (0.00-0.03); Imm Gran Pct Auto 0.4 % (0.0-0.4); Lymphocytes Absolute Auto 2.3 X10*3/uL (1.2-4.9); Lymphocytes Percent Auto 40.4 % (20-40); Mean Corpuscular HGB Conc 33.4 g/dl (31.0-36.0); Mean Corpuscular Volume 89.9 fL (80.0-98.0); Mean Platelet Volume 8.5 fL (9.4-12.4); Monocytes Absolute Auto 0.6 X10*3/uL (0.1-1.2); Monocytes Percent Auto 10.7 % (2-11); Neutrophils Absolute Auto 2.6 x10*3/uL (2.0-8.3); Neutrophils Percent Auto 44.6 % (45-73); Platelet Count 261 X10*3/uL (160-400); Red Blood Count 4.83 X10*6/uL (4.60-5.80); White Blood Count 5.7 X10*3/uL (4.8-10.8)
[2023-05-29 12:51] LABS: Alanine Aminotransferase 29 U/L (0-40); Albumin Level 4.4 g/dL (3.5-5.0); Alkaline Phosphatase 76 U/L (39-117); Anion Gap 11 (12-20); Aspartate Amino Transferase 20 U/L (5-37); Bilirubin Total 0.9 mg/dL (0.0-1.0); Blood Urea Nitrogen 14 mg/dL (9-16); Calcium 9.7 mg/dL (8.4-10.2); Carbon Dioxide 23 mmol/L (22-29); Chloride 104 mmol/L (96-108); Creatinine Clr Calc Pharmacy 128.5; Estimated Glomerular Filt Rate > 60; Glucose Random 120 mg/dL (60-115); Lipase 19 U/L (8-78); Sodium 134 mmol/L (135-145); Total Protein 7.1 g/dL (6.5-8.0)
[2023-05-29 14:46] VITALS: BP 134/71; PULSE 89; RESP 16; TEMP 36.9; O2SAT 97
[2023-05-29 15:00] LABS: Appearance Urine Clear; Color Urine Yellow; Glucose Urine UA Negative (Negative); Leukocyte Esterase Urine Trace (Negative); Nitrite Urine Negative (Negative); Specific Gravity - Urine 1.025 (1.005-1.025); UMIC TRIGGER UACC YES; Urine Blood Negative (Negative); Urine Ketones Negative (Negative); Urine Protein Negative (Neg-Trace)
[2023-05-29 15:03] LABS: Bacteria Urine None Seen (None Seen); Hyaline Casts Urine 0-2 /LPF (0-2); RBC Urine 0-2 /HPF (0-2); Squamous Epithelial Cell Urine 0-2 /HPF (0-2); WBC Urine 0-5 /HPF (0-5)
[2023-05-29 16:53] VITALS: BP 148/86; PULSE 83; RESP 18; TEMP 37; O2SAT 96
[2023-05-29] MEDS: oxyCODONE HCl Immed Release 5 MG TABLET PO (17:22)
[2023-05-29] MEDS: Cyclobenzaprine HCl 10 MG TABLET PO (17:23)
== END 2023-05-29 17:43 | disposition home or self-care (01) ==
PROVIDERS: Physician Assistant; Emergency Provider Internal Medicine
DX: M54.50 Low back pain, unspecified (principal); R10.30 Lower abdominal pain, unspecified; Z79.899 Other long term (current) drug therapy
CPT/HCPCS: 36415; 74176; 80053; 81001; 83690; 85025; 99283; 99284

== ENCOUNTER 2023-06-10 09:29 | Outpatient (REF) | payer MEDICAID, SELFPAY ==
[2023-06-10 14:12] LABS: MANUAL DIFF FLAG NO
[2023-06-10 14:17] LABS: Basophils Percent Auto 0.8 % (0-2); Eosinophils Absolute Auto 0.1 X10*3/uL (0.0-0.4); Eosinophils Percent Auto 3.1 % (0-4); Hematocrit 43.6 % (42.0-52.0); Hemoglobin 14.8 g/dl (14.0-18.0); Imm Gran Abs Auto 0.01 X10*3/uL (0.00-0.03); Imm Gran Pct Auto 0.3 % (0.0-0.4); Lymphocytes Absolute Auto 1.5 X10*3/uL (1.2-4.9); Lymphocytes Percent Auto 37.4 % (20-40); Mean Corpuscular HGB Conc 33.9 g/dl (31.0-36.0); Mean Corpuscular Volume 91.2 fL (80.0-98.0); Mean Platelet Volume 9.4 fL (9.4-12.4); Monocytes Absolute Auto 0.5 X10*3/uL (0.1-1.2); Monocytes Percent Auto 12.7 % (2-11); Neutrophils Absolute Auto 1.8 x10*3/uL (2.0-8.3); Neutrophils Percent Auto 45.7 % (45-73); Platelet Count 238 X10*3/uL (160-400); Red Blood Count 4.78 X10*6/uL (4.60-5.80); Red Cell Distribution Width 13.2 % (11.0-16.0); White Blood Count 3.9 X10*3/uL (4.8-10.8)
[2023-06-10 15:00] LABS: Alanine Aminotransferase 29 U/L (0-40); Albumin Level 4.6 g/dL (3.5-5.0); Alkaline Phosphatase 79 U/L (39-117); Anion Gap 12 (12-20); Aspartate Amino Transferase 20 U/L (5-37); Bilirubin Total 1.2 mg/dL (0.0-1.0); Blood Urea Nitrogen 14 mg/dL (9-16); Calcium 9.6 mg/dL (8.4-10.2); Carbon Dioxide 25 mmol/L (22-29); Chloride 104 mmol/L (96-108); Cholesterol 161 mg/dL (<200); Estimated Glomerular Filt Rate > 60; Glucose Random 93 mg/dL (60-115); HDL Cholesterol 41 mg/dL (>40); LDL Cholesterol Calculated 110 mg/dL (<100); Sodium 137 mmol/L (135-145); Total Protein 7.2 g/dL (6.5-8.0); Triglycerides 53 mg/dL (<150)
[2023-06-10 15:41] LABS: Folate 10.7 ng/mL (> or = 4.0); Vitamin B12 878 pg/mL (200-900)
[2023-06-11 04:12] LABS: HIV AB/AG Nonreactive (Nonreactive); HIV Num 1 0.05 S/CO (0.00-0.99); ~HepC Num1 0.08 S/CO (0.00-0.79); ~Hepatitis C Antibody Nonreactive (Nonreactive)
[2023-06-15 19:19] LABS: Testosterone, Free 56.2 pg/mL (35.0-155.0); Testosterone, Total 382 ng/dL (250-1100)
== END 2023-06-10 09:30 | disposition home or self-care (01) ==
LOC: HO.CHCLDS 09:29
PROVIDERS: Visit Provider Family Medicine
DX: E66.9 Obesity, unspecified (principal); N52.9 Male erectile dysfunction, unspecified; Z51.81 Encounter for therapeutic drug level monitoring
CPT/HCPCS: 36415; 80053; 80061; 82306; 82607; 82746; 84402; 84403; 85025; 86803; 87389

== ENCOUNTER 2023-06-27 10:48 | Emergency (ER) | payer MEDICAID, SELFPAY ==
--- NOTE | ~2023-06-27 | CT_ITS ---
EXAMINATION: CT HEAD W/O IV CONTRAST CT CERVICAL SPINE W/O IV CONTRAST CLINICAL INFORMATION: Right-sided neck pain and right-sided headache for 10 days. COMPARISON: Brain MRI from 11/05/2021 CT imaging from 12/14/2019. TECHNIQUE: Head - Contiguous axial imaging of the head was performed from the skull base to the vertex without the administration of intravenous contrast, and axial images are reconstructed at 2 mm and 5 mm slice thickness. Cervical spine - A volumetric, helical CT acquisition of the cervical spine was obtained without contrast; in addition to the standard set of axial images, multiplanar reformatted images were provided in the coronal and sagittal imaging planes. This CT examination was performed using dose optimization techniques as appropriate, variously including the following: *Automated exposure control *Adjustment of mA and/or kV according to patient size (this includes techniques or standardized protocols for targeted exams where dose is matched to indication/reason for exam; i.e. extremities or head) *Use of iterative reconstruction technique DLP: 1284 mGy-cm (total) FINDINGS: HEAD: No acute intracranial findings. Parmar to white matter differentiation is preserved. No evidence of intracranial hemorrhage, major vascular territory infarction, focal mass effect or midline shift. The ventricles have normal size and configuration. No hydrocephalus or extra-axial fluid collections. The calvarium is intact. Mild mucosal thickening at inferior aspect of each maxillary sinus. Otherwise, the paranasal sinuses, mastoid air cells and middle ear cavities are clear. The temporomandibular joints are intact. The orbits and globes are unremarkable. CERVICAL SPINE: The craniocervical junction is normal. The occipital condyles, dens and atlantodental articulation are intact. The vertebral body heights are maintained. No fractures in the anterior or posterior elements. No prevertebral soft tissue edema or soft tissue hematoma. At C5-C6, there is chronic moderate degenerative loss of disc height, prominent vertebral osteophyte formation and negligible retrolisthesis of C5 on C6. The uncovertebral joints are hypertrophied resulting in chronic bilateral high-grade neural foraminal stenosis at this level. Posterior disc-osteophyte complex appears to cause chronic mild spinal canal stenosis at C5-C6. There appears to be a hypodense nodule of 1.1 cm AP dimension within the right thyroid lobe. No clinically significant nodules detected. No thyroid imaging follow-up recommended. The examined lung apices are clear. CT/CT cervical spine wo IV con IMPRESSION: * No intracranial mass, hemorrhage or other acute intracranial pathology. * No acute osseous injury within the cervical spine. Findings include chronic disc degenerative change, uncovertebral joint hypertrophy and bilateral neural foraminal stenosis at C5-C6.
[2023-06-27 10:55] VITALS: BP 164/86; PULSE 106; RESP 20; TEMP 36.7; O2SAT 98; BMI 35.4
--- NOTE | 2023-06-27 10:56 | ED.GENADULT ---
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 He states that this feels like his typical headache however it is lasting longer than usual. He reports pain to the right side of his head that radiates down into the neck. Endorses pain is exacerbated with turning his neck to the right. Denies injury/trauma. Admits to taking Tylenol at home without relief. His last dose of this was at 0700 this morning. Denies dizziness, vision changes, nausea or vomiting. Denies sick contacts. ring striker utilized throughout visit to communicate with patient. Related Data Home Medications Medication Instructions Recorded Confirmed ascorbic acid (vitamin C) 1,000 mg 1,000 mg PO DAILY 08/15/20 04/25/23 tablet (Vitamin C) cholecalciferol (vitamin D3) 50 50 mcg PO DAILY 08/15/20 04/25/23 mcg (2,000 unit) capsule (Vitamin D3) montelukast 10 mg tablet 10 mg PO DAILY PRN Wheezing 08/15/20 04/25/23 (Singulair) rosuvastatin 10 mg tablet (Crestor) 10 mg PO DAILY 08/15/20 04/25/23 albuterol sulfate 90 mcg/actuation 2 puff inhalation Q4H PRN wheezing 10/06/22 04/25/23 aerosol inhaler (Ventolin HFA) aspirin 81 mg tablet,delayed 81 mg PO QAM 10/06/22 04/25/23 release baclofen 10 mg tablet 10 mg PO TID PRN Muscle Spasm 10/06/22 04/25/23 calcium carbonate 600 mg calcium 600 mg PO DAILY 10/06/22 04/25/23 (1,500 mg) tablet (Calcium) cetirizine 10 mg tablet 10 mg PO QAM 10/06/22 04/25/23 ibuprofen 600 mg tablet 600 mg PO TID PRN Pain 10/06/22 04/25/23 lidocaine 5 % topical patch 1 patch topical DAILY 10/06/22 04/25/23 lisinopril 20 mg tablet 20 mg PO QAM 10/06/22 04/25/23 omeprazole 40 mg capsule,delayed 40 mg PO DAILY PRN Gastric Reflux 10/06/22 04/25/23 release cefuroxime axetil 500 mg tablet 500 mg PO BID PRN 04/01/23 04/25/23 doxycycline hyclate 100 mg capsule 100 mg PO BID 04/25/23 Previous Rx's Medication Instructions Recorded walker #1 ea 07/17/20 acetaminophen 325 mg tablet 650 mg (2 x 325 mg) PO Q6H PRN 08/21/20 Pain, Mild (Pain Scale 1-3) 30 days #240 tabs docusate sodium 100 mg capsule 100 mg PO BID 14 days #28 caps 08/21/20 hydrocortisone 2.5 % topical cream 1 appl KS BID-QID PRN hemorrhoids 04/16/21 with perineal applicator #30 grams (Proctosol HC) bisacodyl 5 mg tablet,delayed 10 mg (2 x 5 mg) PO ONCE 1 day #2 11/23/22 release (Dulcolax (bisacodyl)) tabs tadalafil 10 mg tablet 10 mg PO DAILY 90 days #90 tabs 01/13/23 Lactobacillus rhamnosus GG 20 See Rx Instructions PO .COMPLEX 04/01/23 billion cell capsule (Probiotic #90 caps Digestive Care) methylcellulose (laxative) 500 mg 500 mg PO DAILY #90 tabs 04/01/23 tablet (Citrucel) tamsulosin 0.4 mg capsule 0.4 mg PO DAILY 90 days #90 caps 05/02/23 cyclobenzaprine 10 mg tablet 10 mg PO Q8H #20 tabs 05/29/23 tramadol 50 mg tablet 50 mg PO Q6H PRN pain #20 tabs 05/29/23 qnlypatxop-mqbgxnwchcjmp-nflgrpoq 1 cap PO Q8H PRN pain (scale score 06/27/23 50 mg-300 mg-40 mg capsule 7-10) #10 caps (Fioricet) lidocaine 5 % topical patch 1 patch topical DAILY #15 ea 06/27/23 (Lidoderm) Allergies Allergy/AdvReac Type Severity Reaction Status Date / Time terazosin Allergy Severe Hypotension Verified 04/25/23 13:55 amlodipine AdvReac Intermediate Nausea Verified 04/25/23 13:55 [facility] Past Medical History Medical History Infected cyst of skin Diverticulosis Back abscess Hypertension Heart murmur Hx of varicose veins Arthritis Asthma Pre-diabetes History of BPH GERD (gastroesophageal reflux disease) Elevated cholesterol HTN (hypertension) COVID-19 vaccine administered Osteochondral defect of femoral condyle Osteoarthritis of right knee Surgical History History of esophagogastroduodenoscopy (EGD) Hx of meniscectomy of right knee H/O colonoscopy History of right knee surgery Family History Family History Mother No problems noted. Father No problems noted. Social History Social History Household Members: None Housing: Apartment Are you a primary daytime caregiver to a significant other at home: No Do you presently have visiting nurse or other home services: No Alcohol intake: never Patient Tobacco Use Status: Never used Tobacco Smoked in Last 30 Days: No e-Cigarette/Vaping Use: Never Used Use of substances other than those prescribed or required for medical reasons: No Substance Use Type: Marijuana Advance Directives: Yes Advance Directives on File: Yes Advance Directives Date on File: 10/11/22 service: No Current occupational status: unemployed Current occupation: right handed Physical Exam ED Vital Signs: Vital Signs - 24 hr 06/27/23 10:55 06/27/23 12:15 06/27/23 14:50 Temperature 98.1 F 97.2 F 98 F Pulse Rate 106 H 103 H 94 Respiratory Rate 20 18 18 Blood Pressure 164/86 H 159/80 H 136/80 Pulse Oximetry 98 98 97 Oxygen Delivery Method Room Air Room Air Room Air BMI result Body Mass Index 35.4 vital signs stable. Const General: cooperative, healthy appearing, comfortable and no acute distress Orientation/consciousness: patient oriented x3 Limitations: no limitations HENMT Head: Yes normal to inspection, Yes No palpable skull fracture present, Yes normocephalic and Yes atraumatic Ears: hearing grossly normal bilaterally, external ears normal, TM normal on the left, EAC's normal, mastoids normal and no periauricular adenopathy Eyes General: appearance normal, both eyes and all related structures Conjunctivae: conjunctivae normal Sclerae: sclerae normal Pupils: Equal, round and reactive pupils present Neck Other: + palpable spasm noted over the right cervical paraspinal muscles into the right trapezius. Full ROM intact to C-spine with pain elicited on turning head to the right. No midline spinous tenderness or step-off deformity. Neck: Yes normal visual inspection, Yes full ROM, Yes no lymphadenopathy and Yes no meningeal signs Chest Chest palpation & inspection: normal inspection of the chest and normal palpation of entire chest wall Resp Effort & Inspection: normal respiratory effort and able to speak in complete sentences Auscultation: clear to auscultation bilaterally Cardio Rate: regular rate Rhythm: regular rhythm Skin General skin exam: no rashes or lesions noted Neuro General: patient oriented x3, gait normal, no meningeal signs and no focal motor deficits Cranial nerves: Yes Equal, round and reactive pupils present Cognition (Neuro): normal cognition Gait exam (Neuro): Normal gait present Motor exam (neuro): 5/5 motor strength present throughout, Pronator motor function not present and no tremor noted Coordination: rxqlrq-jd-krda test normal, jtpq-an-jwnm test normal and Normal rapid alternating movements of the distal upper extremity present (Neuro) Pupils: Normal pupillary reactivity/response: bilateral Course Course Course Narrative: This is a rapid medical exam: Additional HPI, ROS, PE not included below will be deferred to primary provider. Patient is a 62-year-old male presenting to ED from [facility] with complaint of ongoing right sided headache and right sided neck pain for the past 10 days. No improvement with flexeril, Tylenol. Denies fall or other trauma. Plan: CT head and neck Reevaluation(s) Reevaluation #1: 1428-- CBC without leukocytosis or left shift. No anemia. H&H stable. Chemistry without acute electrolyte abnormality requiring intervention. Glucose WNL. Normal renal function. CT head/brain does not demonstrate intracranial mass, hemorrhage or infarct. CT cervical spine does not exhibit acute fracture or subluxation. There are chronic disc degenerative changes and bilateral neural foraminal stenosis at C5-C6. > on re-evaluation, patient reports symptom resolution with benadryl/ reglan/ toradol. all work up results discussed with the patient. Will send him home with fioricet and lido patches. Patient has remained stable throughout ED visit today. Discussed worrisome signs and symptoms and when to return to the ED. All questions answered at this time. Patient is agreeable with disposition and stable for discharge. Medications Administered Discontinued Medications Generic Name Dose Route Start Last Admin Trade Name Tiffanie PRN Reason Stop Dose Admin Diphenhydramine HCl 25 mg 06/27/23 13:14 06/27/23 13:28 Diphenhydramine Hcl 50 Mg/Ml Vial IVPUSH 06/27/23 13:15 25 mg ONCE ONE Administration Sodium Chloride 1,000 mls @ 999 mls/hr 06/27/23 13:15 06/27/23 13:28 Ns IV 06/27/23 14:15 999 mls/hr .Q1H1M DONA Administration Ketorolac Tromethamine 30 mg 06/27/23 13:14 06/27/23 13:28 Ketorolac Tromethamine 30 Mg/Ml Vial IVPUSH 06/27/23 13:15 30 mg ONCE ONE Administration Metoclopramide HCl 10 mg 06/27/23 13:14 06/27/23 13:29 Metoclopramide Hcl 10 Mg/2 Ml Vial IVPUSH 06/27/23 13:15 10 mg ONCE ONE Administration Medical Decision Making Medical Decision Making MDM Narrative: 62 year old Monegasque speaking male with pmhx significant for HTN, HDL, varicose veins, GERD, OA, asthma and diverticulosis presents to the ED for evaluation of headache x10 days. Patient initially hypertensive and tachycardic. Now vitals WNL. He is nontoxic-appearing and in no acute distress. Lying comfortably on the exam bed. Exam nonfocal. Cerebellum intact. PERRLA. Strength 5/5 intact throughout. No pronator drift. No slurred speech or facial droop. There is palpable spasm noted over the right cervical paraspinal muscles into the right trapezius. Full ROM intact to C-spine with pain elicited on turning head to the right. No midline spinous tenderness or step-off deformity. Differential diagnosis includes MSK sprain/strain, muscle spasm, headache, migraine, cervical radiculopathy. Lower suspicion for dissection, CVA/TIA, ICH, hypertensive urgency, hypertensive emergency, fracture, subluxation, meningitits, encephalitis. Plan for labs, imaging, pain control, re-evaluation. Differential Diagnosis Differential Diagnoses: The differential diagnosis associated with the presentation includes as above. Admission/Observation not indicated. Lab Data MDM Lab Attestation statement: I reviewed the patient's lab results. as above. 06/27/23 13:23 06/27/23 13:23 Labs: Lab Results 06/27/23 Range/Units 13:23 WBC 6.4 (4.8-10.8) X10*3/uL RBC 5.03 (4.60-5.80) X10*6/uL Hgb 15.5 (14.0-18.0) g/dl Hct 46.0 (42.0-52.0) % MCV 91.5 (80.0-98.0) fL MCH 30.8 (27.0-33.0) pg MCHC 33.7 (31.0-36.0) g/dl RDW 13.1 (11.0-16.0) % Plt Count 228 (160-400) X10*3/uL MPV 9.0 L (9.4-12.4) fL Immature Gran % (Auto) 0.3 (0.0-0.4) % Neut % (Auto) 66.3 (45-73) % Lymph % (Auto) 23.8 (20-40) % [place] % (Auto) 7.9 (2-11) % Eos % (Auto) 1.2 (0-4) % Baso % (Auto) 0.5 (0-2) % Lymph # (Auto) 1.5 (1.2-4.9) X10*3/uL [place] # (Auto) 0.5 (0.1-1.2) X10*3/uL Eos # (Auto) 0.1 (0.0-0.4) X10*3/uL Baso # (Auto) 0.0 (0.0-0.2) X10*3/uL Abs Immat Gran (auto) 0.02 (0.00-0.03) X10*3/uL Absolute Neuts (auto) 4.3 (2.0-8.3) x10*3/uL Absolute Nucleated RBC 0.000 (0.0-0.012) X10*3/uL Nucleated RBC % (auto) 0.0 (0.0-0.2) /100WBC PT 12.6 (11.1-13.3) SEC INR 1.0 (0.9-1.1) Sodium 140 (135-145) mmol/L Potassium 4.1 (3.3-5.1) mmol/L Chloride 106 (96-108) mmol/L Carbon Dioxide 26 (22-29) mmol/L Anion Gap 12 (12-20) BUN 10 (9-16) mg/dL Creatinine 0.73 (0.5-1.4) mg/dL Estim Creat Clear Calc 127.5 Estimated GFR > 60 Random Glucose 102 (60-115) mg/dL Calcium 10.2 D (8.4-10.2) mg/dL Magnesium 2.1 (1.6-2.6) mg/dL Total Bilirubin 1.4 H (0.0-1.0) mg/dL AST 23 (5-37) U/L ALT 39 (0-40) U/L Alkaline Phosphatase 90 (39-117) U/L Total Protein 7.9 (6.5-8.0) g/dL Albumin 4.8 (3.5-5.0) g/dL Influenza Type A (PCR) NEGATIVE (Negative) Influenza Type B (PCR) NEGATIVE (Negative) RSV RNA Qual (PCR) NEGATIVE (Negative) SARS-CoV-2 RNA (RT-PCR) NEGATIVE (Negative) Independent Interpretation I performed an independent interpretation of an: CT Scan Interpretation: I have personally reviewed CT scan and agree with radiologist's interpretation. Radiology Impression Radiologist Impression: EXAMINATION: CT HEAD W/O IV CONTRAST CT CERVICAL SPINE W/O IV CONTRAST CLINICAL INFORMATION: Right-sided neck pain and right-sided headache for 10 days. COMPARISON: Brain MRI from 11/05/2021 CT imaging from 12/14/2019. TECHNIQUE: Head - Contiguous axial imaging of the head was performed from the skull base to the vertex without the administration of intravenous contrast, and axial images are reconstructed at 2 mm and 5 mm slice thickness. Cervical spine - A volumetric, helical CT acquisition of the cervical spine was obtained without contrast; in addition to the standard set of axial images, multiplanar reformatted images were provided in the coronal and sagittal imaging planes. This CT examination was performed using dose optimization techniques as appropriate, variously including the following: *Automated exposure control *Adjustment of mA and/or kV according to patient size (this includes techniques or standardized protocols for targeted exams where dose is matched to indication/reason for exam; i.e. extremities or head) *Use of iterative reconstruction technique DLP: 1284 mGy-cm (total) FINDINGS: HEAD: No acute intracranial findings. Parmar to white matter differentiation is preserved. No evidence of intracranial hemorrhage, major vascular territory infarction, focal mass effect or midline shift. The ventricles have normal size and configuration. No hydrocephalus or extra-axial fluid collections. The calvarium is intact. Mild mucosal thickening at inferior aspect of each maxillary sinus. Otherwise, the paranasal sinuses, mastoid air cells and middle ear cavities are clear. The temporomandibular joints are intact. The orbits and globes are unremarkable. CERVICAL SPINE: The craniocervical junction is normal. The occipital condyles, dens and atlantodental articulation are intact. The vertebral body heights are maintained. No fractures in the anterior or posterior elements. No prevertebral soft tissue edema or soft tissue hematoma. At C5-C6, there is chronic moderate degenerative loss of disc height, prominent vertebral osteophyte formation and negligible retrolisthesis of C5 on C6. The uncovertebral joints are hypertrophied resulting in chronic bilateral high-grade neural foraminal stenosis at this level. Posterior disc-osteophyte complex appears to cause chronic mild spinal canal stenosis at C5-C6. There appears to be a hypodense nodule of 1.1 cm AP dimension within the right thyroid lobe. No clinically significant nodules detected. No thyroid imaging follow-up recommended. The examined lung apices are clear. CT/CT cervical spine wo IV con IMPRESSION: * No intracranial mass, hemorrhage or other acute intracranial pathology. * No acute osseous injury within the cervical spine. Findings include chronic disc degenerative change, uncovertebral joint hypertrophy and bilateral neural foraminal stenosis at C5-C6. Prescription Management I considered prescription management with: Pain Medication and Other (antiemetic) Chronic Conditions Patient?s care impacted by: Hypertension Social Determinants Patient?s care significantly limited by Social Determinants of Health including: Other Social Determinant of Health Critical Care Time Critical Care Time Critical Care Time: Yes Total Critical Care Time: 33 Attestation: Critical care time in the amount of 33 minutes has been provided to the patient in terms of direct patient care, frequent reevaluation, review and interpretation of medical data and results, and management of potentially life-threatening conditions. This is all outside of any medical procedures. Discharge Plan Discharge Clinical Impression: Headache Patient Disposition: Home, Self-Care Instructions: Acute Headache (ED), General Headache (ED) Additional Instructions: Your labs today are reassuring. The CT scan of your head/brain/neck does not show acute bleed or fracture. You tested negative covid, flu, rsv. Fioricet is a pain medication that has been sent to your pharmacy for you to take for severe headaches. Do not take this more than 2 days in a row as this can cause rebound headaches. Lidocaine patches have been sent to your pharmacy for your neck pain. Follow up with your PCP. Return to the ED with new or worsening symptoms. In the case of an emergency call 911. Prescriptions: New wurmxtmkij-okwxflnvmypmo-wpcb [Fioricet] 50-300-40 mg capsule 1 cap PO Q8H PRN (Reason: pain (scale score 7-10)) Qty: 10 0RF lidocaine [Lidoderm] 5 % adhesive patch,medicated 1 patch topical DAILY Qty: 15 0RF Rx Instructions: leave on most painful area for up to 12 hrs No Action tamsulosin 0.4 mg capsule 0.4 mg PO DAILY 90 Days Qty: 90 1RF ascorbic acid (vitamin C) [Vitamin C] 1,000 mg Tablet 1,000 mg PO DAILY rosuvastatin [Crestor] 10 mg Tablet 10 mg PO DAILY cholecalciferol (vitamin D3) [Vitamin D3] 50 mcg (2,000 unit) Capsule 50 mcg PO DAILY montelukast [Singulair] 10 mg Tablet 10 mg PO DAILY PRN (Reason: Wheezing) acetaminophen 325 mg Tablet 650 mg PO Q6H PRN (Reason: Pain, Mild (Pain Scale 1-3)) 30 Days Qty: 240 0RF docusate sodium 100 mg Capsule 100 mg PO BID 14 Days Qty: 28 0RF cyclobenzaprine 10 mg tablet 10 mg PO Q8H Qty: 20 0RF tramadol 50 mg tablet 50 mg PO Q6H PRN (Reason: pain) Qty: 20 0RF cetirizine 10 mg tablet 10 mg PO QAM lisinopril 20 mg tablet 20 mg PO QAM aspirin 81 mg tablet,delayed release (DR/EC) 81 mg PO QAM lidocaine 5 % adhesive patch,medicated 1 patch topical DAILY ibuprofen 600 mg tablet 600 mg PO TID PRN (Reason: Pain) albuterol sulfate [Ventolin HFA] 90 mcg/actuation HFA aerosol inhaler 2 puff INHALATION Q4H PRN (Reason: wheezing) omeprazole 40 mg capsule,delayed release(DR/EC) 40 mg PO DAILY PRN (Reason: Gastric Reflux) calcium carbonate [Calcium 600] 600 mg calcium (1,500 mg) Tablet 600 mg PO DAILY baclofen 10 mg Tablet 10 mg PO TID PRN (Reason: Muscle Spasm) (DME) rubens Misc See Rx Instructions .MEDSUPPLY Qty: 1 0RF Rx Instructions: Folding Front wheeled walker hydrocortisone [Proctosol HC] 2.5 % cream with perineal applicator 1 appl KS BID-QID PRN (Reason: hemorrhoids) Qty: 30 0RF bisacodyl [Dulcolax (bisacodyl)] 5 mg tablet,delayed release (DR/EC) 10 mg PO ONCE 1 Days Qty: 2 0RF Rx Instructions: take 2 tabs at noon the day before your colonoscopy cefuroxime axetil 500 mg tablet 500 mg PO BID PRN Citrucel 500 mg tablet 500 mg PO DAILY Qty: 90 2RF Rx Instructions: take it with full glass of water Probiotic Digestive Care 20 billion cell capsule See Rx Instructions PO .COMPLEX Qty: 90 2RF Rx Instructions: ONE CAP orally DAILY doxycycline hyclate 100 mg capsule 100 mg PO BID tadalafil 10 mg tablet 10 mg PO DAILY 90 Days Qty: 90 1RF Referrals: [facility] [Primary Care Provider] - Interventions: ED Discharge Assessment Last Done: 06/27/23 14:50 Discharge Date/Time: 06/27/23 14:55
[2023-06-27 12:15] VITALS: BP 159/80; PULSE 103; RESP 18; TEMP 36.2; O2SAT 98
[2023-06-27] MEDS: Ketorolac Tromethamine 30 MG/ML VIAL IVPUSH (13:28)
[2023-06-27] MEDS: diphenhydrAMINE HCL 50 MG/ML VIAL 25 MG IVPUSH (13:28)
[2023-06-27] MEDS: 0.9 % Sodium Chloride 1,000 ML 999 ML IV (13:28)
[2023-06-27] MEDS: Metoclopramide HCl 10 MG/2 ML VIAL IVPUSH (13:29)
[2023-06-27 13:30] LABS: MANUAL DIFF FLAG NO
[2023-06-27 13:36] LABS: Basophils Percent Auto 0.5 % (0-2); Eosinophils Absolute Auto 0.1 X10*3/uL (0.0-0.4); Eosinophils Percent Auto 1.2 % (0-4); Hemoglobin 15.5 g/dl (14.0-18.0); Imm Gran Abs Auto 0.02 X10*3/uL (0.00-0.03); Imm Gran Pct Auto 0.3 % (0.0-0.4); Lymphocytes Absolute Auto 1.5 X10*3/uL (1.2-4.9); Lymphocytes Percent Auto 23.8 % (20-40); Mean Corpuscular HGB Conc 33.7 g/dl (31.0-36.0); Mean Corpuscular Hemoglobin 30.8 pg (27.0-33.0); Mean Corpuscular Volume 91.5 fL (80.0-98.0); Monocytes Absolute Auto 0.5 X10*3/uL (0.1-1.2); Monocytes Percent Auto 7.9 % (2-11); Neutrophils Absolute Auto 4.3 x10*3/uL (2.0-8.3); Neutrophils Percent Auto 66.3 % (45-73); Platelet Count 228 X10*3/uL (160-400); Red Blood Count 5.03 X10*6/uL (4.60-5.80); Red Cell Distribution Width 13.1 % (11.0-16.0); White Blood Count 6.4 X10*3/uL (4.8-10.8)
[2023-06-27 13:43] LABS: Prothrombin Time 12.6 SEC (11.1-13.3)
[2023-06-27 13:51] LABS: Alanine Aminotransferase 39 U/L (0-40); Albumin Level 4.8 g/dL (3.5-5.0); Alkaline Phosphatase 90 U/L (39-117); Anion Gap 12 (12-20); Aspartate Amino Transferase 23 U/L (5-37); Bilirubin Total 1.4 mg/dL (0.0-1.0); Blood Urea Nitrogen 10 mg/dL (9-16); Calcium 10.2 mg/dL (8.4-10.2); Carbon Dioxide 26 mmol/L (22-29); Chloride 106 mmol/L (96-108); Creatinine Clr Calc Pharmacy 127.5; Estimated Glomerular Filt Rate > 60; Glucose Random 102 mg/dL (60-115); Magnesium 2.1 mg/dL (1.6-2.6); Potassium 4.1 mmol/L (3.3-5.1); Sodium 140 mmol/L (135-145); Total Protein 7.9 g/dL (6.5-8.0)
[2023-06-27 14:09] LABS: Influenza A PCR NEGATIVE (Negative); Influenza B PCR NEGATIVE (Negative); Resp Syncy Virus RNA Qual PCR NEGATIVE (Negative); SARS COV2 PCR INHOUSE NEGATIVE (Negative)
[2023-06-27 14:50] VITALS: BP 136/80; PULSE 94; RESP 18; TEMP 36.6; O2SAT 97
== END 2023-06-27 14:55 | disposition home or self-care (01) ==
PROVIDERS: Physician Assistant Medical; Emergency Provider Emergency Medicine
DX: R51.9 Headache, unspecified (principal); M54.2 Cervicalgia; I10 Essential (primary) hypertension; Z11.52 Encounter for screening for COVID-19; Z20.822 Contact with and (suspected) exposure to COVID-19; Z79.899 Other long term (current) drug therapy
CPT/HCPCS: 0241U; 70450; 72125; 80053; 83735; 85025; 85610; 96374; 96375; 99284; 99285; J1200; J1885; J2765

== ENCOUNTER 2023-07-07 17:24 | Outpatient (REF) | payer MEDICAID, SELFPAY | END 2023-07-07 17:25 | disposition home or self-care (01) | LOC: HO.HHCLNP 17:24 | PROVIDERS: Visit Provider Family Medicine | DX: L02.212 Cutaneous abscess of back [any part, except buttock and flank] (principal) | CPT/HCPCS: 87070; 87147; 87205 ==

== ENCOUNTER 2023-07-19 08:51 | Outpatient (AMB) | payer MEDICAID, SELFPAY ==
--- NOTE | 2023-07-19 09:32 | A.OFFVIS_ITS ---
Intake Visit Reasons: 6M PVR/Med Review(Tadalafil) Intake Note: Patient is Present for Follow Up Urology Medication: Tadalafil, Tamsulosin Antibiotic Allergies: None Blood Thinners: Aspirin PVR: 28 Allergies terazosin Allergy (Severe, Verified 07/19/23 09:34) Hypotension amlodipine Adverse Reaction (Intermediate, Verified 07/19/23 09:34) Nausea HPI Comments Details: Donny is a pleasant Tamazight-speaking male. He is a patient of Dr. Elena. He is seen for the following urologic conditions - erectile dysfunction - Peyronie's - lower urinary tract symptoms Continue with daily 10 mg tadalafil - good effect Prior discussion - venous leak, constriction band recommended PVR 0 cc Medications remain successful Lower urinary tract symptoms Reporting weakness of stream Nocturia x2 No prior prostate medications Continue Flomax Erectile dysfunction Has been progressive Response to Cialis 10 mg daily Noted to have curvature that he says happened after trauma as a child Is noting that blood flow to penis does not allow maintenance of erection PFSH Medical History Infected cyst of skin Diverticulosis Back abscess Hypertension Heart murmur Hx of varicose veins Arthritis Asthma Pre-diabetes History of BPH GERD (gastroesophageal reflux disease) Elevated cholesterol HTN (hypertension) COVID-19 vaccine administered Osteochondral defect of femoral condyle Osteoarthritis of right knee Surgical History History of esophagogastroduodenoscopy (EGD) Hx of meniscectomy of right knee H/O colonoscopy History of right knee surgery Family History Mother No problems noted. Father No problems noted. Social History Household Members: None Housing: Apartment Are you a primary medicare nurse to a significant other at home: No Do you presently have visiting nurse or other home services: No Alcohol intake: never Patient Tobacco Use Status: Never used Tobacco e-Cigarette/Vaping Use: Never Used Substance Use Type: Marijuana Advance Directives Date on File: 10/11/22 service: No Current occupational status: unemployed Current occupation: right handed Review of Systems Const Denies chills and Denies fever(s) Card Reports no additional complaints and Denies syncope Resp Denies cough GI Denies abdominal pain and Denies heartburn Reports as per HPI and Denies change in libido Neuro Denies syncope Psych Denies change in libido Endo Denies change in libido Physical Exam Const General: cooperative, healthy appearing, comfortable and no acute distress Orientation/consciousness: patient oriented x3 HEENT Face and sinus: Yes normal facial exam Mouth: moist mucous membranes Neck Neck: Yes normal visual inspection, Yes full ROM and Yes trachea midline Chest Chest palpation & inspection: normal inspection of the chest Resp Effort & Inspection: normal respiratory effort, able to speak in complete sentences and no respiratory distress GI Inspection: Yes normal to inspection Back/Spine/Pelvis Cervical Spine: normal cervical lordosis Thoracic/Lumbar Spine: thoracic and lumbar spine normal to inspection Skin General skin exam: no rashes or lesions noted Neuro General: patient oriented x3, gait normal, tone normal and moves all extremities Extrem General: Yes normal to inspection and Yes capillary refill normal Office Procedures Post Void Residual Post Residual Void Post Void Residual (PVR): 28 [id number] Void Residual by ultrasound Assessment & Plan Assessment & Plan (1) Bladder outlet obstruction: Code(s): N32.0 - Bladder-neck obstruction Category: Medical (2) Erectile dysfunction: Code(s): N52.9 - Male erectile dysfunction, unspecified Category: Medical Qualifiers: Erectile dysfunction type: vasculogenic Vasculogenic erectile dysfunction type: due to combined arterial insufficiency and corporo-venous occlusion Qualified Code(s): N52.03 - Combined arterial insufficiency and corporo-venous occlusive erectile dysfunction Plan Twelve month follow-up Orders: Orders AMB Post Void Residual by ultrasound 07/19/23 N32.0 - Bladder-neck obstruction Prostate Specific Antigen 364 Days N32.0 - Bladder-neck obstruction Patient Instructions: Imaging studies, laboratory and physical exam results were discussed and re viewed in detail. No major barriers to patient understanding were identified. An opportunity to ask questions regarding the treatment plan was provided. All questions were answered. The patient expressed understanding and agreement with the above treatment plan. The patient is aware they should contact our office by phone for worsening of their current condition or the appearance of new urologic symptoms. Compliance is encouraged with any medications and followup testing that is ordered. It is a privilege to participate in the urologic care of your patient. If you have any questions or concerns regarding treatment for the above conditions, or other urologic issues, please do not hesitate to contact me. The office telephone contact is [phone]. This note is constructed using voice recognition software. While every effort has been made to ensure accuracy memorial mason errors may have been included. Yours sincerely, Dr Tommie Del Cid MD, [facility] - Urology Providers of Expert, Compassionate Care for the Genitourinary System Coding Level of Care Code Est Pt Level 3 (86567) Diagnoses Bladder outlet obstruction N32.0 Combined arterial insufficiency and corporo-venous occlusive erectile dysfunction N52.03 Erectile dysfunction type: vasculogenic Vasculogenic erectile dysfunction type: due to combined arterial insufficiency and corporo-venous occlusion CPT Codes Post Residual Void - PVR CPT Code: 48962-[id number] Void Residual by ultrasound ([id number])
== END 2023-07-19 10:01 | disposition home or self-care (01) ==
PROVIDERS: PCP Family Medicine; Referring Provider Family Medicine; Visit Provider Urology
DX: N32.0 Bladder-neck obstruction (principal); N52.03 Combined arterial insufficiency and corporo-venous occlusive erectile dysfunction
CPT/HCPCS: 99213

== ENCOUNTER → 2023-07-19 08:51 | Outpatient (BNVA) | payer MEDICAID, SELFPAY | PROVIDERS: PCP Family Medicine; Visit Provider Urology | DX: N32.0 Bladder-neck obstruction (principal); N52.03 Combined arterial insufficiency and corporo-venous occlusive erectile dysfunction; Z79.899 Other long term (current) drug therapy | CPT/HCPCS: 51798; 99212 ==

== ENCOUNTER 2023-09-13 16:45 | Emergency (ER) | payer MEDICAID, SELFPAY ==
[2023-09-13 17:20] VITALS: BP 145/85; PULSE 86; RESP 18; TEMP 37; O2SAT 97; BMI 36.8
[2023-09-13 18:23] VITALS: BP 130/67; PULSE 81; RESP 14; TEMP 36.8; O2SAT 95
[2023-09-13 21:32] VITALS: BP 124/78; PULSE 66; RESP 16; TEMP 36.8; O2SAT 98
--- NOTE | 2023-09-13 22:48 | ED.GENADULT ---
HPI - General Adult General Chief complaint: Ear Problems Stated complaint: R ear pain Time Seen by Provider: 09/13/23 22:30 Source: patient, RN notes reviewed, old records reviewed and translator/interpreter Mode of arrival: ambulatory Limitations: language barrier History of Present Illness ED Provider: Aracely HPI narrative: 62-year-old male past medical history significant for tinnitus, arthritis presents for evaluation of bilateral ear pain. Patient states that he follows with ENT due to tinnitus. He states that last week, 5 days ago ?to ambulance is drove by with their sirens blaring. Patient states he has had ringing in both of his ears and ear pain on the right side ever since He also complains of neck pain and headache Patient is having trouble sleeping due to these symptoms He denies any fevers or chills Related Data Home Medications ?Medication ?Instructions ?Recorded ?Confirmed ascorbic acid (vitamin C) 1,000 mg 1,000 mg PO DAILY 08/15/20 04/25/23 tablet (Vitamin C) cholecalciferol (vitamin D3) 50 50 mcg PO DAILY 08/15/20 04/25/23 mcg (2,000 unit) capsule (Vitamin D3) montelukast 10 mg tablet 10 mg PO DAILY PRN Wheezing 08/15/20 04/25/23 (Singulair) rosuvastatin 10 mg tablet (Crestor) 10 mg PO DAILY 08/15/20 04/25/23 albuterol sulfate 90 mcg/actuation 2 puff inhalation Q4H PRN wheezing 10/06/22 04/25/23 aerosol inhaler (Ventolin HFA) aspirin 81 mg tablet,delayed 81 mg PO QAM 10/06/22 04/25/23 release baclofen 10 mg tablet 10 mg PO TID PRN Muscle Spasm 10/06/22 04/25/23 calcium carbonate (Calcium 600) 600 mg PO DAILY 10/06/22 04/25/23 cetirizine 10 mg tablet 10 mg PO QAM 10/06/22 04/25/23 ibuprofen 600 mg tablet 600 mg PO TID PRN Pain 10/06/22 04/25/23 lidocaine 5 % topical patch 1 patch topical DAILY 10/06/22 04/25/23 lisinopril 20 mg tablet 20 mg PO QAM 10/06/22 04/25/23 omeprazole 40 mg capsule,delayed 40 mg PO DAILY PRN Gastric Reflux 10/06/22 04/25/23 release cefuroxime axetil 500 mg tablet 500 mg PO BID PRN 04/01/23 04/25/23 doxycycline hyclate 100 mg capsule 100 mg PO BID 04/25/23 Previous Rx's ?Medication ?Instructions ?Recorded walker #1 ea 07/17/20 acetaminophen 325 mg tablet 650 mg (2 x 325 mg) PO Q6H PRN 08/21/20 Pain, Mild (Pain Scale 1-3) 30 days #240 tabs docusate sodium 100 mg capsule 100 mg PO BID 14 days #28 caps 08/21/20 hydrocortisone 2.5 % topical cream 1 appl RI BID-QID PRN hemorrhoids 04/16/21 with perineal applicator #30 grams (Proctosol HC) bisacodyl 5 mg tablet,delayed 10 mg (2 x 5 mg) PO ONCE 1 day #2 11/23/22 release (Dulcolax (bisacodyl)) tabs Lactobacillus rhamnosus GG 20 See Rx Instructions PO .COMPLEX 04/01/23 billion cell capsule (Probiotic #90 caps Digestive Care) methylcellulose (laxative) 500 mg 500 mg PO DAILY #90 tabs 04/01/23 tablet (Citrucel) cyclobenzaprine 10 mg tablet 10 mg PO Q8H #20 tabs 05/29/23 tramadol 50 mg tablet 50 mg PO Q6H PRN pain #20 tabs 05/29/23 ymxpmjogml-kwnqawbzdkonm-pxtkektc 1 cap PO Q8H PRN pain (scale score 06/27/23 50 mg-300 mg-40 mg capsule 7-10) #10 caps (Fioricet) lidocaine 5 % topical patch 1 patch topical DAILY #15 ea 06/27/23 (Lidoderm) tadalafil 10 mg tablet 10 mg PO DAILY 90 days #90 tabs 07/19/23 tamsulosin 0.4 mg capsule 0.4 mg PO DAILY 90 days #90 caps 07/19/23 cyclobenzaprine 10 mg tablet 10 mg PO TID PRN muscle spasm #15 09/13/23 tabs trazodone 50 mg tablet 50 mg PO BEDTIME PRN insomnia #14 09/13/23 tabs Allergies Allergy/AdvReac Type Severity Reaction Status Date / Time terazosin Allergy Severe Hypotension Verified 09/13/23 17:24 amlodipine AdvReac Intermediate Nausea Verified 09/13/23 17:24 Review of Systems Constitutional: Constitutional: Denies body ache(s), Denies chills, Denies fever(s) and Reports headache(s) ENT: Reports otalgia, Reports headache(s), Reports hearing loss and Reports neck pain Musculoskeletal: Musculoskeletal: Reports neck pain Neurologic: Reports headache(s) Psychiatric: Psychiatric: Reports abnormal sleep pattern [facility] Past Medical History Medical History Infected cyst of skin Diverticulosis Back abscess Hypertension Heart murmur Hx of varicose veins Arthritis Asthma Pre-diabetes History of BPH GERD (gastroesophageal reflux disease) Elevated cholesterol HTN (hypertension) COVID-19 vaccine administered Osteochondral defect of femoral condyle Osteoarthritis of right knee Surgical History History of esophagogastroduodenoscopy (EGD) Hx of meniscectomy of right knee H/O colonoscopy History of right knee surgery Family History Family History Mother No problems noted. Father No problems noted. Social History Social History Household Members: None Housing: Apartment Are you a primary rn critical care to a significant other at home: No Do you presently have visiting nurse or other home services: No Alcohol intake: never Patient Tobacco Use Status: Never used Tobacco e-Cigarette/Vaping Use: Never Used Substance Use Type: Marijuana Advance Directives: Yes Advance Directives on File: Yes Advance Directives Date on File: 10/11/22 Do you have a plan to hurt others: No Plan service: No Current occupational status: unemployed Current occupation: right handed Physical Exam ED Vital Signs: Vital Signs - 24 hr 09/13/23 17:20 09/13/23 18:23 09/13/23 21:32 Temperature 98.6 F 98.3 F 98.2 F Pulse Rate 86 81 66 Respiratory Rate 18 14 16 Blood Pressure 145/85 H 130/67 124/78 Pulse Oximetry 97 95 98 Oxygen Delivery Method Room Air Room Air Room Air BMI result Body Mass Index 36.8 Const General: healthy appearing, comfortable, no acute distress, alert and awake Nutritional Appearance: well nourished Orientation/consciousness: patient oriented x3 HENMT Other: No mastoid tenderness, no periauricular edema. He does have mild tenderness with manipulation of the tragus on the right. Head: Yes normocephalic and Yes atraumatic Ears: external ears normal, TM's normal bilaterally and EAC's normal Eyes Eyelids: Yes eyelids normal Conjunctivae: conjunctivae normal Sclerae: sclerae normal Corneas: corneas normal Pupils: Equal, round and reactive pupils present EOM: EOMs intact bilaterally Neck Neck: Yes full ROM Resp Effort & Inspection: normal respiratory effort, able to speak in complete sentences and not labored Back/Spine/Pelvis Other: Mild right-sided cervical paraspinous tenderness extending towards the right trapezius muscle group. No cervical spine tenderness. Skin General skin exam: elasticity normal Neuro General: patient oriented x3 Cranial nerves: Yes Equal, round and reactive pupils present and Yes Bilaterally intact EOM present Cognition (Neuro): normal cognition Extrem Other: Moving all extremities well without any obvious deformities Medical Decision Making Medical Decision Making MDM Narrative: 62-year-old male presents for evaluation of neck pain, insomnia and right ear pain. His physical exam is reassuring, he does not appear to have otitis media, otitis externa, or mastoiditis on exam. He does have ENT follow-up in 2 weeks per his report. He will follow this up as an outpatient. His neck pain is likely related to a cervical/trapezius strain and will be treated with cyclobenzaprine. This is likely what is the cause of his headache as well with a tension headache. I agreed to give him a short supply of trazodone to help with his insomnia until he can follow up with his outpatient providers Differential Diagnosis Differential Diagnoses: The differential diagnosis associated with the presentation includes Otitis media Otitis externa Mastoiditis Cervical strain Acute headache Tinnitus Labyrinthitis Meniere's disease Acute headache Discharge Plan Discharge Clinical Impression: Bilateral tinnitus, Insomnia, Cervical strain Patient Disposition: Home, Self-Care Instructions: Cervical Strain (ED), Tinnitus (ED) Additional Instructions: You may continue ibuprofen/Tylenol as needed for pain There is no evidence of ear infection on exam Use cyclobenzaprine as needed for muscle spasms This may make you sleepy, did not drink alcohol or drive after taking it You may take trazodone as needed to help sleep, take 30 minutes before you go to bed Follow-up with your ENT specialist as planned Prescriptions: New cyclobenzaprine 10 mg tablet 10 mg PO TID PRN (Reason: muscle spasm) Qty: 15 0RF trazodone 50 mg tablet 50 mg PO BEDTIME PRN (Reason: insomnia) Qty: 14 0RF No Action tamsulosin 0.4 mg capsule 0.4 mg PO DAILY 90 Days Qty: 90 3RF ascorbic acid (vitamin C) [Vitamin C] 1,000 mg Tablet 1,000 mg PO DAILY rosuvastatin [Crestor] 10 mg Tablet 10 mg PO DAILY cholecalciferol (vitamin D3) [Vitamin D3] 50 mcg (2,000 unit) Capsule 50 mcg PO DAILY montelukast [Singulair] 10 mg Tablet 10 mg PO DAILY PRN (Reason: Wheezing) acetaminophen 325 mg Tablet 650 mg PO Q6H PRN (Reason: Pain, Mild (Pain Scale 1-3)) 30 Days Qty: 240 0RF docusate sodium 100 mg Capsule 100 mg PO BID 14 Days Qty: 28 0RF cyclobenzaprine 10 mg tablet 10 mg PO Q8H Qty: 20 0RF tramadol 50 mg tablet 50 mg PO Q6H PRN (Reason: pain) Qty: 20 0RF cetirizine 10 mg tablet 10 mg PO QAM lisinopril 20 mg tablet 20 mg PO QAM aspirin 81 mg tablet,delayed release (DR/EC) 81 mg PO QAM lidocaine 5 % adhesive patch,medicated 1 patch topical DAILY ibuprofen 600 mg tablet 600 mg PO TID PRN (Reason: Pain) albuterol sulfate [Ventolin HFA] 90 mcg/actuation HFA aerosol inhaler 2 puff INHALATION Q4H PRN (Reason: wheezing) omeprazole 40 mg capsule,delayed release(DR/EC) 40 mg PO DAILY PRN (Reason: Gastric Reflux) calcium carbonate [Calcium 600] 600 mg calcium (1,500 mg) Tablet 600 mg PO DAILY baclofen 10 mg Tablet 10 mg PO TID PRN (Reason: Muscle Spasm) ajbzbtkfke-yqcruehjizmnm-dkxa [Fioricet] 50-300-40 mg capsule 1 cap PO Q8H PRN (Reason: pain (scale score 7-10)) Qty: 10 0RF lidocaine [Lidoderm] 5 % adhesive patch,medicated 1 patch topical DAILY Qty: 15 0RF Rx Instructions: leave on most painful area for up to 12 hrs (MARTY) rubens Misc See Rx Instructions .MEDSUPPLY Qty: 1 0RF Rx Instructions: Folding Front wheeled walker hydrocortisone [Proctosol HC] 2.5 % cream with perineal applicator 1 appl RI BID-QID PRN (Reason: hemorrhoids) Qty: 30 0RF bisacodyl [Dulcolax (bisacodyl)] 5 mg tablet,delayed release (DR/EC) 10 mg PO ONCE 1 Days Qty: 2 0RF Rx Instructions: take 2 tabs at noon the day before your colonoscopy cefuroxime axetil 500 mg tablet 500 mg PO BID PRN Citrucel 500 mg tablet 500 mg PO DAILY Qty: 90 2RF Rx Instructions: take it with full glass of water Probiotic Digestive Care 20 billion cell capsule See Rx Instructions PO .COMPLEX Qty: 90 2RF Rx Instructions: ONE CAP orally DAILY doxycycline hyclate 100 mg capsule 100 mg PO BID tadalafil 10 mg tablet 10 mg PO DAILY 90 Days Qty: 90 3RF Interventions: ED Discharge Assessment Last Done: 09/13/23 23:03 Print Language: Welsh
[2023-09-13 23:02] VITALS: BP 124/78; BP 147/74; PULSE 66; PULSE 67; RESP 16; TEMP 36.6; TEMP 36.8; O2SAT 97; O2SAT 98
[2023-09-13 23:03] VITALS: BP 147/74; PULSE 67; RESP 16; TEMP 36.6; O2SAT 97
== END 2023-09-13 23:04 | disposition home or self-care (01) ==
PROVIDERS: Emergency Provider Emergency Medicine; PCP Family Medicine
DX: H93.13 Tinnitus, bilateral (principal); G47.00 Insomnia, unspecified; S16.1XXA Strain of muscle, fascia and tendon at neck level, initial encounter; X58.XXXA Exposure to other specified factors, initial encounter; R51.9 Headache, unspecified; H92.03 Otalgia, bilateral; Y93.9 Activity, unspecified; Y92.9 Unspecified place or not applicable; Y99.9 Unspecified external cause status; I10 Essential (primary) hypertension; E78.00 Pure hypercholesterolemia, unspecified; J45.909 Unspecified asthma, uncomplicated; F12.90 Cannabis use, unspecified, uncomplicated; Z79.02 Long term (current) use of antithrombotics/antiplatelets; Z79.899 Other long term (current) drug therapy
CPT/HCPCS: 99283; 99284

== ENCOUNTER 2023-12-01 09:39 | Outpatient (REF) | payer MEDICAID, SELFPAY ==
--- NOTE | ~2023-12-01 | XR_ITS ---
EXAMINATION: XR KNEE, RIGHT XR KNEE, LEFT CLINICAL INFORMATION: Acute pain of both knees. Medial joint line pain. Findings concerning for patellofemoral syndrome. COMPARISON: None TECHNIQUE: Four views of each knee. FINDINGS: RIGHT KNEE: Medial unicompartmental prosthesis appears appropriately positioned without surrounding osteolysis or fracture. There is fyvy-zs-kvbddvvo patellofemoral compartment osteoarthritis with marginal osteophytes and slight articular cortical irregularity of the medial compartment. Small joint effusion. Mild lateral compartment osteoarthritis. No fractures. LEFT KNEE: Minimal patellofemoral and medial compartment osteoarthritis is characterized primarily by tiny marginal osteophytes. Joint space appears well-preserved. No fractures. No joint effusion. Small enthesopathic spur at the quadriceps tendon insertion. XR/XR knee RT 4V IMPRESSION: 1. Owlh-uj-eyzkkhkh patellofemoral compartment osteoarthritis in the right knee. Mild lateral compartment osteoarthritis. 2. Minimal patellofemoral and medial compartment osteoarthritis in the left knee. 3. No acute osseous findings. Electronically signed by: Anthony Adam MD 12/07/2023 02:01 PM EDT
--- NOTE | ~2023-12-01 | XR_ITS ---
EXAMINATION: XR KNEE, RIGHT XR KNEE, LEFT CLINICAL INFORMATION: Acute pain of both knees. Medial joint line pain. Findings concerning for patellofemoral syndrome. COMPARISON: None TECHNIQUE: Four views of each knee. FINDINGS: RIGHT KNEE: Medial unicompartmental prosthesis appears appropriately positioned without surrounding osteolysis or fracture. There is lgcz-ll-uflrazjc patellofemoral compartment osteoarthritis with marginal osteophytes and slight articular cortical irregularity of the medial compartment. Small joint effusion. Mild lateral compartment osteoarthritis. No fractures. LEFT KNEE: Minimal patellofemoral and medial compartment osteoarthritis is characterized primarily by tiny marginal osteophytes. Joint space appears well-preserved. No fractures. No joint effusion. Small enthesopathic spur at the quadriceps tendon insertion. XR/XR knee LT 4V IMPRESSION: 1. Gznh-ll-mtozhygl patellofemoral compartment osteoarthritis in the right knee. Mild lateral compartment osteoarthritis. 2. Minimal patellofemoral and medial compartment osteoarthritis in the left knee. 3. No acute osseous findings. Electronically signed by: Anthony Adam MD 12/07/2023 02:01 PM EDT
== END 2023-12-01 09:40 | disposition home or self-care (01) ==
LOC: HO.HHCX 09:39
PROVIDERS: Visit Provider Family Medicine
DX: M22.2X2 Patellofemoral disorders, left knee (principal); M25.561 Pain in right knee
CPT/HCPCS: 73564

== ENCOUNTER 2023-12-19 12:09 | Outpatient (AMB) | payer MEDICAID, SELFPAY ==
--- NOTE | 2023-12-19 12:16 | MHC.OFFVIS ---
Intake Visit Reasons: Newprob-B/L knee joint pain Intake Note: Donny is a 63 year old male who presents today for a follow up of his bilateral knee pain. History of RT UKA 08/19/20. Patient reports pain in bilateral knees but the right is worse. He has pain all the time, worse with acitivty. Allergies terazosin Allergy (Severe, Verified 12/19/23 12:17) Hypotension amlodipine Adverse Reaction (Intermediate, Verified 12/19/23 12:17) Nausea HPI HPI Newprob-B/L knee joint pain: Details: Donny is a 63 year old male who presents today for a follow up of his bilateral knee pain. History of RT UKA 08/19/20. Patient reports pain in bilateral knees but the right is worse. He is more worried that there is something wrong. He does not have severe pain and it is not all the time but there are occasions where she has pain. It is mostly over the medial aspect of the right knee. He states he remains active and engages in 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. He also has occasional pain in the left knee but it is not severe. It localizes to the medial aspect. [facility] Medical History Infected cyst of skin Diverticulosis Back abscess Hypertension Heart murmur Hx of varicose veins Arthritis Asthma Pre-diabetes History of BPH GERD (gastroesophageal reflux disease) Elevated cholesterol HTN (hypertension) COVID-19 vaccine administered Osteochondral defect of femoral condyle Osteoarthritis of right knee Surgical History History of esophagogastroduodenoscopy (EGD) Hx of meniscectomy of right knee H/O colonoscopy History of right knee surgery Family History Mother No problems noted. Father No problems noted. Social History Household Members: None Housing: Apartment Are you a primary assisted living care manager to a significant other at home: No Do you presently have visiting nurse or other home services: No Alcohol intake: never Patient Tobacco Use Status: Never used Tobacco e-Cigarette/Vaping Use: Never Used Substance Use Type: Marijuana Advance Directives Date on File: 10/11/22 service: No Current occupational status: unemployed Current occupation: right handed Physical Exam Extrem Other: On exam he has full range of motion of his right knee. There is mild tenderness over the medial compartment but not exquisite and not impressive and there is no effusion and the incision is well healed and he walks without a limp. There is mild medial compartment tenderness on the left but also with no effusion and does not appear to affect his motion or his gait. Results Reviewed Results Reviewed: I personally reviewed relevant radiographs. Right unicompartmental knee arthroplasty in expected post operative position with no hardware complications or evidence of loosening. Moderate medial compartment osteoarthritis in the left Assessment & Plan Assessment & Plan (1) Status post unicompartmental knee replacement, right: Code(s): Z96.651 - Presence of right artificial knee joint Category: Surgical Plan: This is a 63-year-old status post right knee unicompartmental arthroplasty doing well. There is no indication for intervention and I reassured him that nothing looks out of the ordinary. (2) Osteoarthritis of left knee: Code(s): M17.12 - Unilateral primary osteoarthritis, left knee Category: Medical Plan: I also discussed his left knee with him. His symptoms, radiographs and physical exam are also unimpressive and no intervention is warranted. Coding Level of Care Code Est Pt Level 3 (44281) Complex EM visit Add On G2211 Diagnoses Status post unicompartmental knee replacement, right Z96.651 Osteoarthritis of left knee M17.12
== END 2023-12-19 13:03 | disposition home or self-care (01) ==
PROVIDERS: PCP Family Medicine; Visit Provider Orthopaedic Surgery
DX: M17.12 Unilateral primary osteoarthritis, left knee (principal); Z96.651 Presence of right artificial knee joint
CPT/HCPCS: 99212

== ENCOUNTER → 2023-12-19 12:09 | Outpatient (BNVA) | payer MEDICAID, SELFPAY | PROVIDERS: PCP Family Medicine; Visit Provider Orthopaedic Surgery | DX: M25.561 Pain in right knee (principal); M17.12 Unilateral primary osteoarthritis, left knee; Z96.651 Presence of right artificial knee joint | CPT/HCPCS: 99212 ==

== ENCOUNTER 2024-01-12 07:12 | Emergency (ER) | payer MEDICAID, SELFPAY ==
[2024-01-12 07:16] VITALS: BP 141/78; PULSE 85; RESP 16; TEMP 36.1; O2SAT 96; BMI 36.9
--- NOTE | 2024-01-12 07:46 | ED_ITS ---
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 He states he has had this before many times. He has known herniated discs in his neck. No numbness, weakness, change in vision. He denies any other symptoms such as fever. He tried motrin without relief. He has not seen his PCP or a neurologist or had MRI of the neck. No recent manipulation to the neck reported. MD elicited complaint: headache Pertinent past history: other (headaches) Onset (ago): day(s) (3) Onset description: gradually Location: right, frontal, temporal and band-like Severity: moderate Quality & Timing: aching Exacerbating factors: movement of head/neck Relieving factors: rest and NSAIDs Context: occurred at rest Associated symptoms: neck stiffness Treatments prior to arrival: ibuprofen Related Data Home Medications ?Medication ?Instructions ?Recorded ?Confirmed ascorbic acid (vitamin C) 1,000 mg 1,000 mg PO DAILY 08/15/20 04/25/23 tablet (Vitamin C) cholecalciferol (vitamin D3) 50 50 mcg PO DAILY 08/15/20 04/25/23 mcg (2,000 unit) capsule (Vitamin D3) montelukast 10 mg tablet 10 mg PO DAILY PRN Wheezing 08/15/20 04/25/23 (Singulair) rosuvastatin 10 mg tablet (Crestor) 10 mg PO DAILY 08/15/20 04/25/23 albuterol sulfate 90 mcg/actuation 2 puff inhalation Q4H PRN wheezing 10/06/22 04/25/23 aerosol inhaler (Ventolin HFA) aspirin 81 mg tablet,delayed 81 mg PO QAM 10/06/22 04/25/23 release baclofen 10 mg tablet 10 mg PO TID PRN Muscle Spasm 10/06/22 04/25/23 calcium carbonate (Calcium 600) 600 mg PO DAILY 10/06/22 04/25/23 cetirizine 10 mg tablet 10 mg PO QAM 10/06/22 04/25/23 ibuprofen 600 mg tablet 600 mg PO TID PRN Pain 10/06/22 04/25/23 lidocaine 5 % topical patch 1 patch topical DAILY 10/06/22 04/25/23 lisinopril 20 mg tablet 20 mg PO QAM 10/06/22 04/25/23 cefuroxime axetil 500 mg tablet 500 mg PO BID PRN 04/01/23 04/25/23 doxycycline hyclate 100 mg capsule 100 mg PO BID 04/25/23 Previous Rx's ?Medication ?Instructions ?Recorded walker #1 ea 07/17/20 acetaminophen 325 mg tablet 650 mg (2 x 325 mg) PO Q6H PRN 08/21/20 Pain, Mild (Pain Scale 1-3) 30 days #240 tabs docusate sodium 100 mg capsule 100 mg PO BID 14 days #28 caps 08/21/20 hydrocortisone 2.5 % topical cream 1 appl [place] BID-QID PRN hemorrhoids 04/16/21 with perineal applicator #30 grams (Proctosol HC) bisacodyl 5 mg tablet,delayed 10 mg (2 x 5 mg) PO ONCE 1 day #2 11/23/22 release (Dulcolax (bisacodyl)) tabs Lactobacillus rhamnosus GG 20 See Rx Instructions PO .COMPLEX 04/01/23 billion cell capsule (Probiotic #90 caps Digestive Care) methylcellulose (laxative) 500 mg 500 mg PO DAILY #90 tabs 04/01/23 tablet (Citrucel) cyclobenzaprine 10 mg tablet 10 mg PO Q8H #20 tabs 05/29/23 tramadol 50 mg tablet 50 mg PO Q6H PRN pain #20 tabs 05/29/23 [id number]-gvthtydqjmvmr-elptstlt 1 cap PO Q8H PRN pain (scale score 06/27/23 50 mg-300 mg-40 mg capsule 7-10) #10 caps (Fioricet) lidocaine 5 % topical patch 1 patch topical DAILY #15 ea 06/27/23 (Lidoderm) tadalafil 10 mg tablet 10 mg PO DAILY 90 days #90 tabs 07/19/23 cyclobenzaprine 10 mg tablet 10 mg PO TID PRN muscle spasm #15 09/13/23 tabs trazodone 50 mg tablet 50 mg PO BEDTIME PRN insomnia #14 09/13/23 tabs tamsulosin 0.4 mg capsule 0.4 mg PO DAILY 90 days #90 caps 11/09/23 omeprazole 40 mg capsule,delayed 40 mg PO DAILY Gastric Reflux 90 12/05/23 release days #90 caps tramadol 50 mg tablet 50 mg PO Q8H PRN pain #14 tabs 01/12/24 Allergies Allergy/AdvReac Type Severity Reaction Status Date / Time terazosin Allergy Severe Hypotension Verified 01/12/24 07:17 amlodipine AdvReac Intermediate Nausea Verified 01/12/24 07:17 Review of Systems Review of Systems: Constitutional : No Fever, No Chills, No Fatigue ENT/Mouth : No sore throat, No Rhinorrhea Eyes: No Eye Pain, No Swelling, No Redness Cardiovascular : No Chest Pain, No SOB, No Dyspnea on Exertion Respiratory : No Cough, No Sputum Gastrointestinal : No Nausea, No Vomiting, No Diarrhea, No abdominal Pain Genitourinary : No Dysuria, No Urinary Frequency, No Hematuria, Musculoskeletal : No joint pain, No Myalgias, No Joint Swelling, pos neck pain Skin : No Skin Lesions, No rash Neuro : No Weakness, No Numbness, No Dizziness, positive Headache Psych : No Anxiety/Panic, No Depression All other systems reviewed and are negative PMFSH Past Medical History Attestation statement: The following information was validated with the patient. Source: old records reviewed Medical History Infected cyst of skin Diverticulosis Back abscess Hypertension Heart murmur Hx of varicose veins Arthritis Asthma Pre-diabetes History of BPH GERD (gastroesophageal reflux disease) Elevated cholesterol HTN (hypertension) COVID-19 vaccine administered Osteochondral defect of femoral condyle Osteoarthritis of right knee Surgical History History of esophagogastroduodenoscopy (EGD) Hx of meniscectomy of right knee H/O colonoscopy History of right knee surgery Family History Family History Mother No problems noted. Father No problems noted. Social History Social History Household Members: None Housing: Apartment Are you a primary memory care director to a significant other at home: No Do you presently have visiting nurse or other home services: No Alcohol intake: former Patient Tobacco Use Status: Never used Tobacco Smoked in Last 30 Days: No e-Cigarette/Vaping Use: Never Used Use of substances other than those prescribed or required for medical reasons: No Substance Use Type: Marijuana Advance Directives: Yes Advance Directives on File: Yes Advance Directives Date on File: 10/11/22 Do you have a plan to hurt others: No Plan service: No Current occupational status: unemployed Current occupation: right handed Physical Exam Vital Signs: Vital Signs: Last Vital Signs Temp 96.9 F 01/12/24 07:16 Pulse 85 01/12/24 07:16 Resp 16 01/12/24 07:16 BP 141/78 H 01/12/24 07:16 Pulse Ox 96 01/12/24 07:16 O2 Del Method Room Air 01/12/24 07:16 BMI result Body Mass Index 36.9 Appearance: Alert. Oriented X3. No acute distress. Eyes: Pupils equal, round and reactive to light. ENT: Pharynx normal. Neck: Normal inspection. ttp along R trapezius and R lateral cervical spine no mass felt CVS: Normal heart rate and rhythm. Pulses normal. Respiratory: No respiratory distress. Breath sounds normal. Abdomen: Soft and nontender. Skin: Skin warm and dry. Normal skin color. Normal skin turgor. Extremities: No lower extremity edema. No calf ttp Neuro: Oriented X 3. No motor deficit. No sensory deficit. no ataxia Medications Administered Discontinued Medications Generic Name Dose Route Start Last Admin Trade Name Evanq PRN Reason Stop Dose Admin Tramadol HCl 50 mg 01/12/24 07:55 01/12/24 08:11 Tramadol Hcl 50 Mg Tablet PO 01/12/24 07:56 50 mg ONCE ONE Administration Medical Decision Making Medical Decision Making MDM Narrative: 63 yo male with PMH of arthritis, HTN, asthma, chronic headaches, GERD, UTI, BPH here with c/o typical headache with R sided neck pain hx of same in the past with known disc herniation at this time he is NV intact has normal neuro exam not on thinners no fevers gradual onset - at this time given hx and typical f eatures I do not suspect SAH or [employer]OTHING [employer]ER infection. Suspect chronic headaches and cervical radicular pain. Will treat pain and refer to PCP for MRI Differential Diagnosis Differential Diagnoses: The differential diagnosis associated with the presentation includes tension headache, chronic headache, cervical radiculopathy Admission/Observation Consideration of admission/observation: Escalation of care including admission/observation considered feels better stable for DC External Record Review External record reviewed: Inpatient record, Office record, Prior outpatient labs and Prior outpatient radiology Prescription Management I considered prescription management with: Pain Medication Discharge Plan Discharge Clinical Impression: Tension headache, Cervicalgia Patient Disposition: Home, Self-Care Instructions: Tension Headache (ED), Neck Pain (ED) Additional Instructions: please follow up with your doctor for outpatient management such as possible MRI or referral to pain management return for worsening symptoms numbness, weakness, vision changes or any other concerns can also take tylenol and motrin with the pain medications Prescriptions: New tramadol 50 mg tablet 50 mg PO Q8H PRN (Reason: pain) Qty: 14 0RF No Action tamsulosin 0.4 mg capsule 0.4 mg PO DAILY 90 Days Qty: 90 3RF omeprazole 40 mg capsule,delayed release(DR/EC) 40 mg PO DAILY 90 Days Qty: 90 1RF ascorbic acid (vitamin C) [Vitamin C] 1,000 mg Tablet 1,000 mg PO DAILY rosuvastatin [Crestor] 10 mg Tablet 10 mg PO DAILY cholecalciferol (vitamin D3) [Vitamin D3] 50 mcg (2,000 unit) Capsule 50 mcg PO DAILY montelukast [Singulair] 10 mg Tablet 10 mg PO DAILY PRN (Reason: Wheezing) acetaminophen 325 mg Tablet 650 mg PO Q6H PRN (Reason: Pain, Mild (Pain Scale 1-3)) 30 Days Qty: 240 0RF docusate sodium 100 mg Capsule 100 mg PO BID 14 Days Qty: 28 0RF cyclobenzaprine 10 mg tablet 10 mg PO Q8H Qty: 20 0RF tramadol 50 mg tablet 50 mg PO Q6H PRN (Reason: pain) Qty: 20 0RF cyclobenzaprine 10 mg tablet 10 mg PO TID PRN (Reason: muscle spasm) Qty: 15 0RF trazodone 50 mg tablet 50 mg PO BEDTIME PRN (Reason: insomnia) Qty: 14 0RF cetirizine 10 mg tablet 10 mg PO QAM lisinopril 20 mg tablet 20 mg PO QAM aspirin 81 mg tablet,delayed release (DR/EC) 81 mg PO QAM lidocaine 5 % adhesive patch,medicated 1 patch topical DAILY ibuprofen 600 mg tablet 600 mg PO TID PRN (Reason: Pain) albuterol sulfate [Ventolin HFA] 90 mcg/actuation HFA aerosol inhaler 2 puff INHALATION Q4H PRN (Reason: wheezing) calcium carbonate [Calcium 600] 600 mg calcium (1,500 mg) Tablet 600 mg PO DAILY baclofen 10 mg Tablet 10 mg PO TID PRN (Reason: Muscle Spasm) [id number]-[id number]-[id number] [Fioricet] 50-300-40 mg capsule 1 cap PO Q8H PRN (Reason: pain (scale score 7-10)) Qty: 10 0RF lidocaine [Lidoderm] 5 % adhesive patch,medicated 1 patch topical DAILY Qty: 15 0RF Rx Instructions: leave on most painful area for up to 12 hrs (DME) rubens Misc See Rx Instructions .MEDSUPPLY Qty: 1 0RF Rx Instructions: Folding Front wheeled walker hydrocortisone [Proctosol HC] 2.5 % cream with perineal applicator 1 appl [place] BID-QID PRN (Reason: hemorrhoids) Qty: 30 0RF bisacodyl [Dulcolax (bisacodyl)] 5 mg tablet,delayed release (DR/EC) 10 mg PO ONCE 1 Days Qty: 2 0RF Rx Instructions: take 2 tabs at noon the day before your colonoscopy cefuroxime axetil 500 mg tablet 500 mg PO BID PRN Citrucel 500 mg tablet 500 mg PO DAILY Qty: 90 2RF Rx Instructions: take it with full glass of water Probiotic Digestive Care 20 billion cell capsule See Rx Instructions PO .COMPLEX Qty: 90 2RF Rx Instructions: ONE CAP orally DAILY doxycycline hyclate 100 mg capsule 100 mg PO BID tadalafil 10 mg tablet 10 mg PO DAILY 90 Days Qty: 90 3RF Print Language: Malay
[2024-01-12] MEDS: traMADoL HCL 50 MG TABLET PO (08:11)
[2024-01-12 08:48] VITALS: BP 121/71; PULSE 68; RESP 16; TEMP 36.5; O2SAT 94
[2024-01-12 09:23] VITALS: BP 121/71; PULSE 68; RESP 18; TEMP 36.5; O2SAT 98
== END 2024-01-12 09:25 | disposition home or self-care (01) ==
PROVIDERS: Emergency Provider Emergency Medicine; PCP Family Medicine
DX: G44.209 Tension-type headache, unspecified, not intractable (principal); M54.2 Cervicalgia
CPT/HCPCS: 99283; 99284

== ENCOUNTER 2024-01-13 09:51 | Emergency (ER) | payer MEDICAID, SELFPAY ==
--- NOTE | ~2024-01-13 | XR_ITS ---
EXAMINATION: XR CHEST CLINICAL INFORMATION: Chest pain COMPARISON: Chest radiograph 10/08/2022 TECHNIQUE: Frontal view of the chest was obtained. FINDINGS: The lungs are adequately expanded. Chronic appearing mild interstitial markings. Mild haziness in the right lung base likely secondary to overlapping vascular shadows. No dense focal consolidation. No significant pleural effusions. No pneumothorax. The cardiomediastinal silhouette is unchanged. Degenerative changes of thoracic spine. XR/XR chest 1V IMPRESSION: Mild haziness in the right lung base likely related to overlapping vascular shadows. No dense focal consolidation. Electronically signed by: Wilber Juares MD 01/13/2024 11:02 AM EDT
--- NOTE | 2024-01-13 09:52 | ECG_ITS ---
Test Reason : chest pain Blood Pressure : / mmHG Vent. Rate : 072 BPM Atrial Rate : 072 BPM P-R Int : 172 ms QRS Dur : 094 ms QT Int : 384 ms P-R-T Axes : 028 -24 026 degrees QTc Int : 420 ms Normal sinus rhythm Moderate voltage criteria for LVH, may be normal variant ( R in aVL , [employer] product ) Borderline ECG When compared with ECG of 11-NOV-2022 16:55, Vent. rate has decreased BY 53 BPM Referred By: Generic ED Physician Electronically Signed By:ATIF MEEK
[2024-01-13 10:00] VITALS: BP 142/75; PULSE 72; RESP 18; TEMP 36.4; O2SAT 94; BMI 37.3
[2024-01-13 10:18] LABS: MANUAL DIFF FLAG NO
[2024-01-13 10:19] LABS: Basophils Percent Auto 0.6 % (0-2); Eosinophils Absolute Auto 0.1 X10*3/uL (0.0-0.4); Eosinophils Percent Auto 1.8 % (0-4); Hematocrit 42.8 % (42.0-52.0); Hemoglobin 14.6 g/dl (14.0-18.0); Imm Gran Abs Auto 0.01 X10*3/uL (0.00-0.03); Imm Gran Pct Auto 0.2 % (0.0-0.4); Lymphocytes Absolute Auto 1.5 X10*3/uL (1.2-4.9); Lymphocytes Percent Auto 29.3 % (20-40); Mean Corpuscular HGB Conc 34.1 g/dl (31.0-36.0); Mean Corpuscular Hemoglobin 31.6 pg (27.0-33.0); Mean Corpuscular Volume 92.6 fL (80.0-98.0); Mean Platelet Volume 8.9 fL (9.4-12.4); Monocytes Absolute Auto 0.6 X10*3/uL (0.1-1.2); Neutrophils Absolute Auto 2.9 x10*3/uL (2.0-8.3); Neutrophils Percent Auto 57.1 % (45-73); Platelet Count 200 X10*3/uL (160-400); Red Blood Count 4.62 X10*6/uL (4.60-5.80); Red Cell Distribution Width 13.2 % (11.0-16.0)
[2024-01-13 10:51] LABS: Alanine Aminotransferase 46 U/L (0-40); Albumin Level 4.6 g/dL (3.5-5.0); Alkaline Phosphatase 72 U/L (39-117); Anion Gap 13 (12-20); Aspartate Amino Transferase 30 U/L (5-37); Bilirubin Total 1.4 mg/dL (0.0-1.0); Blood Urea Nitrogen 14 mg/dL (9-16); Calcium 9.5 mg/dL (8.4-10.2); Carbon Dioxide 24 mmol/L (22-29); Chloride 103 mmol/L (96-108); Creatinine Clr Calc Pharmacy 136.7; Estimated Glomerular Filt Rate > 60; Glucose Random 115 mg/dL (60-115); Potassium 4.4 mmol/L (3.3-5.1); Sodium 136 mmol/L (135-145)
[2024-01-13 10:53] VITALS: BP 144/68; PULSE 76; RESP 15; TEMP 36.8; O2SAT 98
[2024-01-13 10:56] VITALS: BP 144/68; PULSE 74; RESP 19; TEMP 36.8; O2SAT 95
[2024-01-13 11:00] LABS: Troponin-I High Sensitivity < 2.7 ng/L (<3.5-35.0)
[2024-01-13] MEDS: Ketorolac Tromethamine 30 MG/ML VIAL IM (11:48)
--- NOTE | 2024-01-13 11:51 | ED.CHESTPAIN ---
HPI - Chest Pain General Chief Complaint: Chest Pain Stated Complaint: CP, headache Time Seen by Provider: 01/13/24 11:02 Source: patient, RN notes reviewed and old records reviewed Mode of arrival: ambulatory History of Present Illness ED Provider: Nidia Saucedo PA-C HPI narrative: 63-year-old male with a past medical history diverticulosis, HTN, arthritis, asthma, prediabetes, GERD, osteoarthritis, presenting to the ED complaining of left-sided chest pain worsening since this morning. Admits pain worse with palpation. Patient was seen and treated in our ED yesterday for headache/neck pain, states prescribed tramadol without relief. Denies headache at present. States chest pain is constant however fluctuates in intensity. Does report recent heavy lifting of groceries. Denies direct injury/trauma or fall, shortness of breath, nausea/vomiting, vision change or loss, weakness, abdominal pain, pedal edema Related Data Home Medications ?Medication ?Instructions ?Recorded ?Confirmed ascorbic acid (vitamin C) 1,000 mg 1,000 mg PO DAILY 08/15/20 04/25/23 tablet (Vitamin C) cholecalciferol (vitamin D3) 50 50 mcg PO DAILY 08/15/20 04/25/23 mcg (2,000 unit) capsule (Vitamin D3) montelukast 10 mg tablet 10 mg PO DAILY PRN Wheezing 08/15/20 04/25/23 (Singulair) rosuvastatin 10 mg tablet (Crestor) 10 mg PO DAILY 08/15/20 04/25/23 albuterol sulfate 90 mcg/actuation 2 puff inhalation Q4H PRN wheezing 10/06/22 04/25/23 aerosol inhaler (Ventolin HFA) aspirin 81 mg tablet,delayed 81 mg PO QAM 10/06/22 04/25/23 release baclofen 10 mg tablet 10 mg PO TID PRN Muscle Spasm 10/06/22 04/25/23 calcium carbonate (Calcium 600) 600 mg PO DAILY 10/06/22 04/25/23 cetirizine 10 mg tablet 10 mg PO QAM 10/06/22 04/25/23 ibuprofen 600 mg tablet 600 mg PO TID PRN Pain 10/06/22 04/25/23 lidocaine 5 % topical patch 1 patch topical DAILY 10/06/22 04/25/23 lisinopril 20 mg tablet 20 mg PO QAM 10/06/22 04/25/23 cefuroxime axetil 500 mg tablet 500 mg PO BID PRN 04/01/23 04/25/23 doxycycline hyclate 100 mg capsule 100 mg PO BID 04/25/23 Previous Rx's ?Medication ?Instructions ?Recorded walker #1 ea 07/17/20 acetaminophen 325 mg tablet 650 mg (2 x 325 mg) PO Q6H PRN 08/21/20 Pain, Mild (Pain Scale 1-3) 30 days #240 tabs docusate sodium 100 mg capsule 100 mg PO BID 14 days #28 caps 08/21/20 hydrocortisone 2.5 % topical cream 1 appl [place] BID-QID PRN hemorrhoids 04/16/21 with perineal applicator #30 grams (Proctosol HC) bisacodyl 5 mg tablet,delayed 10 mg (2 x 5 mg) PO ONCE 1 day #2 11/23/22 release (Dulcolax (bisacodyl)) tabs Lactobacillus rhamnosus GG 20 See Rx Instructions PO .COMPLEX 04/01/23 billion cell capsule (Probiotic #90 caps Digestive Care) methylcellulose (laxative) 500 mg 500 mg PO DAILY #90 tabs 04/01/23 tablet (Citrucel) cyclobenzaprine 10 mg tablet 10 mg PO Q8H #20 tabs 05/29/23 tramadol 50 mg tablet 50 mg PO Q6H PRN pain #20 tabs 05/29/23 oghztnvnfc-zdbmsbswhthdv-lnobvjdv 1 cap PO Q8H PRN pain (scale score 06/27/23 50 mg-300 mg-40 mg capsule 7-10) #10 caps (Fioricet) lidocaine 5 % topical patch 1 patch topical DAILY #15 ea 06/27/23 (Lidoderm) tadalafil 10 mg tablet 10 mg PO DAILY 90 days #90 tabs 07/19/23 cyclobenzaprine 10 mg tablet 10 mg PO TID PRN muscle spasm #15 09/13/23 tabs trazodone 50 mg tablet 50 mg PO BEDTIME PRN insomnia #14 09/13/23 tabs tamsulosin 0.4 mg capsule 0.4 mg PO DAILY 90 days #90 caps 11/09/23 omeprazole 40 mg capsule,delayed 40 mg PO DAILY Gastric Reflux 90 12/05/23 release days #90 caps tramadol 50 mg tablet 50 mg PO Q8H PRN pain #14 tabs 01/12/24 Allergies Allergy/AdvReac Type Severity Reaction Status Date / Time terazosin Allergy Severe Hypotension Verified 01/13/24 10:01 amlodipine AdvReac Intermediate Nausea Verified 01/13/24 10:01 Review of Systems Review of Systems: Yes all other systems are reviewed and are negative Constitutional: Constitutional: Reports as per [facility] Past Medical History Attestation statement: The following information was validated with the patient. Source: old records reviewed Medical History Infected cyst of skin Diverticulosis Back abscess Hypertension Heart murmur Hx of varicose veins Arthritis Asthma Pre-diabetes History of BPH GERD (gastroesophageal reflux disease) Elevated cholesterol HTN (hypertension) COVID-19 vaccine administered Osteochondral defect of femoral condyle Osteoarthritis of right knee Surgical History History of esophagogastroduodenoscopy (EGD) Hx of meniscectomy of right knee H/O colonoscopy History of right knee surgery Family History Family History Mother No problems noted. Father No problems noted. Social History Social History Household Members: None Housing: Apartment Are you a primary healthcare network pricing consultant to a significant other at home: No Do you presently have visiting nurse or other home services: No Alcohol intake: former Patient Tobacco Use Status: Never used Tobacco Smoked in Last 30 Days: No e-Cigarette/Vaping Use: Never Used Use of substances other than those prescribed or required for medical reasons: No Substance Use Type: Marijuana Advance Directives: Yes Advance Directives on File: Yes Advance Directives Date on File: 10/11/22 Do you have a plan to hurt others: No Plan service: No Current occupational status: unemployed Current occupation: right handed Physical Exam Vital Signs: Vital Signs: Last Vital Signs Temp 98.2 F 01/13/24 10:56 Pulse 74 01/13/24 10:56 Resp 19 01/13/24 10:56 BP 144/68 H 01/13/24 10:56 Pulse Ox 95 01/13/24 10:56 O2 Del Method Room Air 01/13/24 10:56 BMI result Body Mass Index 37.3 Const: General: cooperative, healthy appearing and no acute distress Orientation/consciousness: patient oriented x3 Limitations: no limitations HEENT: Head: Yes normal to inspection and Yes atraumatic Ears: hearing grossly normal bilaterally General nose exam: Normal external nose present Face and sinus: Yes normal facial exam Eyes: General: appearance normal, both eyes and all related structures EOM: EOMs intact bilaterally Neck: Neck: Yes normal visual inspection and Yes no meningeal signs Chest: Other: + reproducible tenderness to left anterior lateral chest wall. No crepitus. No rash. No ecchymosis or erythema Chest palpation & inspection: normal inspection of the chest, no crepitus and tenderness Resp: Effort & Inspection: normal respiratory effort and no respiratory distress Auscultation: clear to auscultation bilaterally, no crackles, no rhonchi and no wheezes Cardio: Rate: regular rate Heart sounds: S1 normal heart sound present and S2 normal heart sound present GI: Inspection: Yes normal to inspection Palpation (GI): Soft to palpation, nontender, no guarding and not rigid : General: Yes no CVA tenderness Back/Spine/Pelvis: Back: no CVA tenderness Skin: Rashes: no rashes Wounds: no wounds Neuro: General: patient oriented x3, tone normal and no meningeal signs Cranial nerves: Yes CN's II-XII intact bilaterally Gait exam (Neuro): Normal gait present Extrem: General: Yes normal to inspection and Yes no pedal edema Course Course Course Narrative: 1243--labs reassuring. Troponin x2 negative XR chest 1V IMPRESSION: Mild haziness in the right lung base likely related to overlapping vascular shadows. No dense focal consolidation. > 1254--on re-evaluation patient reports symptomatic improvement. States saw a sonar subsystem equipment operator recently, recommended close follow-up. Results discussed with patient including worrisome signs and symptoms and strict return precautions, and when to return to the emergency department. They verbalized understanding and feel safe for discharge at this time. Medications Administered Discontinued Medications Generic Name Dose Route Start Last Admin Trade Name Freq PRN Reason Stop Dose Admin Ketorolac Tromethamine 30 mg 01/13/24 11:27 01/13/24 11:48 Ketorolac Tromethamine 30 Mg/Ml Vial IM 01/13/24 11:28 30 mg ONCE ONE Administration Medical Decision Making Medical Decision Making MDM Narrative: 63-year-old male with a past medical history diverticulosis, HTN, arthritis, asthma, prediabetes, GERD, osteoarthritis, presenting to the ED complaining of left-sided chest pain worsening since this morning. On exam vital signs stable, NAD, nontoxic appearing, reproducible chest pain as depicted above, lungs CTA, abdomen soft/nontender. No pedal edema. Denies headache at present. Concern for atypical ACS vs costochondritis vs pneumonia. Lower suspicion for myocarditis/pericarditis, CHF, PE or DVT Plan: EKG, labs, CXR, pain control Please refer to course for remaining clinical decision making, interpretation of labs/imaging results, and discussions with consultants and/or family members. Differential Diagnosis Differential Diagnoses: The differential diagnosis associated with the presentation includes As above Admission/Observation Consideration of admission/observation: Escalation of care including admission/observation considered Lab Data MDM Lab Attestation statement: I reviewed the patient's lab results. 01/13/24 10:11 01/13/24 10:11 Labs: Lab Results 01/13/24 01/13/24 Range/Units 10:11 11:50 WBC 5.0 (4.8-10.8) X10*3/uL RBC 4.62 (4.60-5.80) X10*6/uL Hgb 14.6 (14.0-18.0) g/dl Hct 42.8 (42.0-52.0) % MCV 92.6 (80.0-98.0) fL MCH 31.6 (27.0-33.0) pg MCHC 34.1 (31.0-36.0) g/dl RDW 13.2 (11.0-16.0) % Plt Count 200 (160-400) X10*3/uL MPV 8.9 L (9.4-12.4) fL Immature Gran % (Auto) 0.2 (0.0-0.4) % Neut % (Auto) 57.1 (45-73) % Lymph % (Auto) 29.3 (20-40) % [place] % (Auto) 11.0 (2-11) % Eos % (Auto) 1.8 (0-4) % Baso % (Auto) 0.6 (0-2) % Lymph # (Auto) 1.5 (1.2-4.9) X10*3/uL [place] # (Auto) 0.6 (0.1-1.2) X10*3/uL Eos # (Auto) 0.1 (0.0-0.4) X10*3/uL Baso # (Auto) 0.0 (0.0-0.2) X10*3/uL Abs Immat Gran (auto) 0.01 (0.00-0.03) X10*3/uL Absolute Neuts (auto) 2.9 (2.0-8.3) x10*3/uL Absolute Nucleated RBC 0.000 (0.0-0.012) X10*3/uL Nucleated RBC % (auto) 0.0 (0.0-0.2) /100WBC Sodium 136 (135-145) mmol/L Potassium 4.4 (3.3-5.1) mmol/L Chloride 103 (96-108) mmol/L Carbon Dioxide 24 (22-29) mmol/L Anion Gap 13 (12-20) BUN 14 (9-16) mg/dL Creatinine 0.69 (0.5-1.4) mg/dL Estim Creat Clear Calc 136.7 Estimated GFR > 60 Random Glucose 115 (60-115) mg/dL Calcium 9.5 D (8.4-10.2) mg/dL Total Bilirubin 1.4 H (0.0-1.0) mg/dL AST 30 (5-37) U/L ALT 46 H (0-40) U/L Alkaline Phosphatase 72 (39-117) U/L Troponin I High Sens < 2.7 < 2.7 (<3.5-35.0) ng/L Total Protein 7.0 (6.5-8.0) g/dL Albumin 4.6 (3.5-5.0) g/dL Independent Interpretation I performed an independent interpretation of an: EKG (My interpretation EKG normal sinus rhythm rate of 72. QRS 94. QTC 420. No STEMI ) Radiology Impression Discussion of test interpretation with radiology: I have reviewed the radiologist's reading. External Record Review External record reviewed: Inpatient record, Office record, Outpatient record, Prior outpatient labs, Prior outpatient radiology, Primary care record and Outside ED record Tests considered The following testing was considered but not selected: As above Prescription Management I considered prescription management with: Pain Medication Chronic Conditions Patient?s care impacted by: Hypertension Discharge Plan Discharge Clinical Impression: Chest pain Patient Disposition: Home, Self-Care Instructions: Chest Pain (DC) Additional Instructions: Your blood work and x-ray are reassuring. Please follow-up with your doctor as well as Cardiology If her symptoms persist or worsen, chest pain becomes more constant/unbearable, you have shortness of breath, lower extremity swelling return to the emergency department Prescriptions: No Action tamsulosin 0.4 mg capsule 0.4 mg PO DAILY 90 Days Qty: 90 3RF omeprazole 40 mg capsule,delayed release(DR/EC) 40 mg PO DAILY 90 Days Qty: 90 1RF ascorbic acid (vitamin C) [Vitamin C] 1,000 mg Tablet 1,000 mg PO DAILY rosuvastatin [Crestor] 10 mg Tablet 10 mg PO DAILY cholecalciferol (vitamin D3) [Vitamin D3] 50 mcg (2,000 unit) Capsule 50 mcg PO DAILY montelukast [Singulair] 10 mg Tablet 10 mg PO DAILY PRN (Reason: Wheezing) acetaminophen 325 mg Tablet 650 mg PO Q6H PRN (Reason: Pain, Mild (Pain Scale 1-3)) 30 Days Qty: 240 0RF docusate sodium 100 mg Capsule 100 mg PO BID 14 Days Qty: 28 0RF cyclobenzaprine 10 mg tablet 10 mg PO Q8H Qty: 20 0RF tramadol 50 mg tablet 50 mg PO Q6H PRN (Reason: pain) Qty: 20 0RF cyclobenzaprine 10 mg tablet 10 mg PO TID PRN (Reason: muscle spasm) Qty: 15 0RF trazodone 50 mg tablet 50 mg PO BEDTIME PRN (Reason: insomnia) Qty: 14 0RF tramadol 50 mg tablet 50 mg PO Q8H PRN (Reason: pain) Qty: 14 0RF cetirizine 10 mg tablet 10 mg PO QAM lisinopril 20 mg tablet 20 mg PO QAM aspirin 81 mg tablet,delayed release (DR/EC) 81 mg PO QAM lidocaine 5 % adhesive patch,medicated 1 patch topical DAILY ibuprofen 600 mg tablet 600 mg PO TID PRN (Reason: Pain) albuterol sulfate [Ventolin HFA] 90 mcg/actuation HFA aerosol inhaler 2 puff INHALATION Q4H PRN (Reason: wheezing) calcium carbonate [Calcium 600] 600 mg calcium (1,500 mg) Tablet 600 mg PO DAILY baclofen 10 mg Tablet 10 mg PO TID PRN (Reason: Muscle Spasm) [id number]-[id number] [Fioricet] 50-300-40 mg capsule 1 cap PO Q8H PRN (Reason: pain (scale score 7-10)) Qty: 10 0RF lidocaine [Lidoderm] 5 % adhesive patch,medicated 1 patch topical DAILY Qty: 15 0RF Rx Instructions: leave on most painful area for up to 12 hrs (DME) walker [facility] See Rx Instructions .MEDSUPPLY Qty: 1 0RF Rx Instructions: Folding Front wheeled walker hydrocortisone [Proctosol HC] 2.5 % cream with perineal applicator 1 appl [place] BID-QID PRN (Reason: hemorrhoids) Qty: 30 0RF bisacodyl [Dulcolax (bisacodyl)] 5 mg tablet,delayed release (DR/EC) 10 mg PO ONCE 1 Days Qty: 2 0RF Rx Instructions: take 2 tabs at noon the day before your colonoscopy cefuroxime axetil 500 mg tablet 500 mg PO BID PRN Citrucel 500 mg tablet 500 mg PO DAILY Qty: 90 2RF Rx Instructions: take it with full glass of water Probiotic Digestive Care 20 billion cell capsule See Rx Instructions PO .COMPLEX Qty: 90 2RF Rx Instructions: ONE CAP orally DAILY doxycycline hyclate 100 mg capsule 100 mg PO BID tadalafil 10 mg tablet 10 mg PO DAILY 90 Days Qty: 90 3RF [place] [facility] [Provider Group] Carmina Narayan MD [Primary Care Provider] - Print Language: Moroccan
[2024-01-13 12:29] LABS: Troponin-I High Sensitivity < 2.7 ng/L (<3.5-35.0)
[2024-01-13 13:01] VITALS: BP 140/68; PULSE 74; RESP 18; TEMP 36.8; O2SAT 95
== END 2024-01-13 13:03 | disposition home or self-care (01) ==
PROVIDERS: Physician Assistant; Emergency Provider Emergency Medicine; PCP Family Medicine
DX: R07.9 Chest pain, unspecified (principal); I10 Essential (primary) hypertension; K21.9 Gastro-esophageal reflux disease without esophagitis; J45.909 Unspecified asthma, uncomplicated; Z79.899 Other long term (current) drug therapy
CPT/HCPCS: 36415; 71045; 80053; 84484; 85025; 93005; 96372; 99284; 99285; J1885

== ENCOUNTER → 2024-01-13 09:52 | Outpatient (BNV) | payer MEDICAID, SELFPAY | PROVIDERS: Emergency Provider Emergency Medicine; PCP Family Medicine; Visit Provider Internal Medicine | DX: R07.9 Chest pain, unspecified (principal); R94.31 Abnormal electrocardiogram [ECG] [EKG] | CPT/HCPCS: 93010 ==

== ENCOUNTER 2024-02-01 08:10 | Outpatient (REF) | payer MEDICAID, SELFPAY ==
[2024-02-01 14:41] LABS: Estimated Average Glucose 131 mg/dL; Hemoglobin A1C 171.4323 umol/L; Hemoglobin A1c % 6.2 % (<6.0); Total Hemoglobin (HGBA1C) 3921.1732 umol/L
[2024-02-01 14:56] LABS: Cholesterol 170 mg/dL (<200); HDL Cholesterol 40 mg/dL (>40); LDL Cholesterol Calculated 113 mg/dL (<100); Triglycerides 89 mg/dL (<150)
[2024-02-01 15:12] LABS: Microalbum/Creatinine Ratio Ur 9.8 ug/mg cr (<30)
== END 2024-02-01 08:11 | disposition home or self-care (01) ==
LOC: HO.CHCLDS 08:10
PROVIDERS: Visit Provider Family Medicine
DX: E66.812 Obesity, class 2 (principal); R73.03 Prediabetes
CPT/HCPCS: 36415; 80061; 82043; 82570; 83036

== ENCOUNTER 2024-02-07 15:26 | Emergency (ER) | payer OTHER, MEDICAID, SELFPAY ==
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
[2024-02-07 16:05] VITALS: BP 143/81; PULSE 97; RESP 18; TEMP 36.8; O2SAT 95; BMI 36.5
[2024-02-07 17:47] LABS: MANUAL DIFF FLAG NO
[2024-02-07] MEDS: traMADoL HCL 50 MG TABLET PO (17:58)
[2024-02-07 18:01] LABS: Basophils Percent Auto 0.3 % (0-2); Eosinophils Absolute Auto 0.1 X10*3/uL (0.0-0.4); Eosinophils Percent Auto 1.8 % (0-4); Hematocrit 42.8 % (42.0-52.0); Hemoglobin 14.6 g/dl (14.0-18.0); Imm Gran Abs Auto 0.01 X10*3/uL (0.00-0.03); Imm Gran Pct Auto 0.2 % (0.0-0.4); Lymphocytes Absolute Auto 1.6 X10*3/uL (1.2-4.9); Lymphocytes Percent Auto 24.7 % (20-40); Mean Corpuscular HGB Conc 34.1 g/dl (31.0-36.0); Mean Corpuscular Hemoglobin 30.9 pg (27.0-33.0); Mean Corpuscular Volume 90.7 fL (80.0-98.0); Monocytes Absolute Auto 0.7 X10*3/uL (0.1-1.2); Monocytes Percent Auto 11.8 % (2-11); Neutrophils Absolute Auto 3.9 x10*3/uL (2.0-8.3); Neutrophils Percent Auto 61.2 % (45-73); Platelet Count 268 X10*3/uL (160-400); Red Blood Count 4.72 X10*6/uL (4.60-5.80); Red Cell Distribution Width 13.1 % (11.0-16.0); White Blood Count 6.3 X10*3/uL (4.8-10.8)
[2024-02-07 18:02] LABS: Alanine Aminotransferase 48 U/L (0-40); Albumin Level 4.6 g/dL (3.5-5.0); Alkaline Phosphatase 81 U/L (39-117); Anion Gap 9 (12-20); Aspartate Amino Transferase 30 U/L (5-37); Blood Urea Nitrogen 14 mg/dL (9-16); Calcium 9.4 mg/dL (8.4-10.2); Carbon Dioxide 25 mmol/L (22-29); Chloride 105 mmol/L (96-108); Creatinine Clr Calc Pharmacy 129.5; Estimated Glomerular Filt Rate > 60; Glucose Random 112 mg/dL (60-115); Lipase 17 U/L (8-78); Magnesium 2.1 mg/dL (1.6-2.6); Potassium 4.2 mmol/L (3.3-5.1); Sodium 135 mmol/L (135-145); Total Protein 7.1 g/dL (6.5-8.0)
[2024-02-07 18:04] VITALS: BP 139/79; PULSE 77; RESP 16; TEMP 36.8; O2SAT 97
[2024-02-07 20:00] VITALS: BP 139/79; PULSE 79; RESP 16; TEMP 36.8; O2SAT 96
[2024-02-07 21:00] VITALS: BP 136/79; PULSE 82; RESP 16; TEMP 36.8; O2SAT 98
[2024-02-07 21:08] VITALS: BP 136/79; PULSE 74; RESP 16; TEMP 36.8; O2SAT 98
== END 2024-02-07 21:09 | disposition home or self-care (01) ==
PROVIDERS: Physician Assistant Medical; Emergency Provider Emergency Medicine; PCP Family Medicine
DX: S00.93XA Contusion of unspecified part of head, initial encounter (principal); S13.4XXA Sprain of ligaments of cervical spine, initial encounter; V03.90XA Pedestrian on foot injured in collision with car, pick-up truck or van, unspecified whether traffic or nontraffic accident, initial encounter; Y93.89 Activity, other specified; Y92.488 Other paved roadways as the place of occurrence of the external cause; Y99.0 Civilian activity done for income or pay; M54.9 Dorsalgia, unspecified; M54.2 Cervicalgia; R11.0 Nausea; I10 Essential (primary) hypertension; M54.50 Low back pain, unspecified; Z79.899 Other long term (current) drug therapy
CPT/HCPCS: 36415; 70450; 71260; 72125; 73030; 74177; 80053; 83690; 83735; 85025; 99283; 99284

== ENCOUNTER 2024-02-20 18:06 | Outpatient (REF) | payer OTHER, MEDICAID, SELFPAY ==
[2024-02-21 12:00] LABS: Appearance Urine Cloudy; Color Urine Yellow; Glucose Urine UA Negative (Negative); Leukocyte Esterase Urine Negative (Negative); Nitrite Urine Negative (Negative); Specific Gravity - Urine 1.015 (1.005-1.025); Urine Blood Negative (Negative); Urine Ketones Negative (Negative); Urine Protein Negative (Neg-Trace)
[2024-02-21 12:06] LABS: Bacteria Urine None Seen (None Seen); Hyaline Casts Urine 0-2 /LPF (0-2); RBC Urine 0-2 /HPF (0-2); Squamous Epithelial Cell Urine 0-2 /HPF (0-2); WBC Urine 0-5 /HPF (0-5)
== END 2024-02-20 18:07 | disposition home or self-care (01) ==
LOC: HO.LNP 18:06
PROVIDERS: Visit Provider Family Medicine
DX: R30.0 Dysuria (principal)
CPT/HCPCS: 81001

== ENCOUNTER 2024-02-21 08:17 | Outpatient (REF) | payer OTHER, MEDICAID, SELFPAY ==
[2024-02-21 11:43] LABS: Appearance Urine Turbid; Color Urine Yellow; Glucose Urine UA Negative (Negative); Leukocyte Esterase Urine Negative (Negative); Nitrite Urine Negative (Negative); PH 8.5 (5.0-9.0); Specific Gravity - Urine 1.015 (1.005-1.025); Urine Blood Negative (Negative); Urine Ketones Negative (Negative); Urine Protein Negative (Neg-Trace)
[2024-02-21 11:49] LABS: Bacteria Urine None Seen (None Seen); Hyaline Casts Urine 0-2 /LPF (0-2); RBC Urine 0-2 /HPF (0-2); Squamous Epithelial Cell Urine 0-2 /HPF (0-2); WBC Urine 0-5 /HPF (0-5)
[2024-02-21 11:56] LABS: MANUAL DIFF FLAG NO
[2024-02-21 12:04] LABS: Basophils Percent Auto 0.6 % (0-2); Eosinophils Absolute Auto 0.2 X10*3/uL (0.0-0.4); Eosinophils Percent Auto 3.2 % (0-4); Hemoglobin 14.7 g/dl (14.0-18.0); Imm Gran Abs Auto 0.02 X10*3/uL (0.00-0.03); Imm Gran Pct Auto 0.4 % (0.0-0.4); Lymphocytes Absolute Auto 1.8 X10*3/uL (1.2-4.9); Mean Corpuscular HGB Conc 34.2 g/dl (31.0-36.0); Mean Corpuscular Hemoglobin 31.4 pg (27.0-33.0); Mean Corpuscular Volume 91.9 fL (80.0-98.0); Mean Platelet Volume 9.2 fL (9.4-12.4); Monocytes Absolute Auto 0.5 X10*3/uL (0.1-1.2); Monocytes Percent Auto 11.5 % (2-11); Neutrophils Absolute Auto 2.2 x10*3/uL (2.0-8.3); Neutrophils Percent Auto 46.3 % (45-73); Platelet Count 216 X10*3/uL (160-400); Red Blood Count 4.68 X10*6/uL (4.60-5.80); Red Cell Distribution Width 13.4 % (11.0-16.0); White Blood Count 4.7 X10*3/uL (4.8-10.8)
[2024-02-21 12:19] LABS: C Reactive Protein < 0.04 mg/dL (< or = 0.50)
[2024-02-21 12:36] LABS: Prostate Specific Antigen 1.68 ng/mL (<0.05-4.0)
== END 2024-02-21 08:18 | disposition home or self-care (01) ==
LOC: HO.HHCL 08:17
PROVIDERS: Urology; Visit Provider Family Medicine
DX: Z12.5 Encounter for screening for malignant neoplasm of prostate (principal); N32.0 Bladder-neck obstruction; R10.30 Lower abdominal pain, unspecified; R30.0 Dysuria
CPT/HCPCS: 36415; 81001; 84153; 85025; 86140

== ENCOUNTER → 2024-02-27 13:43 | Outpatient (BNVA) | payer OTHER, SELFPAY | PROVIDERS: PCP Family Medicine; Visit Provider Physician Assistant Medical | DX: S16.1XXA Strain of muscle, fascia and tendon at neck level, initial encounter (principal); S46.811A Strain of other muscles, fascia and tendons at shoulder and upper arm level, right arm, initial encounter; S46.812A Strain of other muscles, fascia and tendons at shoulder and upper arm level, left arm, initial encounter; S39.012A Strain of muscle, fascia and tendon of lower back, initial encounter; V09.9XXA Pedestrian injured in unspecified transport accident, initial encounter | CPT/HCPCS: 99203 ==

== ENCOUNTER → 2024-03-13 13:48 | Outpatient (BNVA) | payer OTHER, SELFPAY | PROVIDERS: PCP Family Medicine; Visit Provider Physician Assistant Medical | DX: S16.1XXD Strain of muscle, fascia and tendon at neck level, subsequent encounter (principal); S46.819D Strain of other muscles, fascia and tendons at shoulder and upper arm level, unspecified arm, subsequent encounter; S39.012D Strain of muscle, fascia and tendon of lower back, subsequent encounter; S46.911D Strain of unspecified muscle, fascia and tendon at shoulder and upper arm level, right arm, subsequent encounter; S46.912D Strain of unspecified muscle, fascia and tendon at shoulder and upper arm level, left arm, subsequent encounter; V09.00XD Pedestrian injured in nontraffic accident involving unspecified motor vehicles, subsequent encounter; F43.0 Acute stress reaction | CPT/HCPCS: 99213 ==

== ENCOUNTER → 2024-04-03 13:35 | Outpatient (BNVA) | payer OTHER, SELFPAY | PROVIDERS: PCP Family Medicine; Visit Provider Physician Assistant Medical | DX: S16.1XXD Strain of muscle, fascia and tendon at neck level, subsequent encounter (principal); S46.811D Strain of other muscles, fascia and tendons at shoulder and upper arm level, right arm, subsequent encounter; S46.812D Strain of other muscles, fascia and tendons at shoulder and upper arm level, left arm, subsequent encounter; S39.012D Strain of muscle, fascia and tendon of lower back, subsequent encounter; V03.0 Pedestrian injured in collision with car, pick-up truck or van in nontraffic accident | CPT/HCPCS: 99213 ==

== ENCOUNTER 2024-04-10 14:08 | Outpatient (AMB) | payer MEDICAID, SELFPAY ==
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
== END 2024-04-10 15:20 | disposition home or self-care (01) ==
PROVIDERS: PCP Family Medicine; Visit Provider Urology
DX: R39.15 Urgency of urination (principal); N32.0 Bladder-neck obstruction
CPT/HCPCS: 99213

== ENCOUNTER → 2024-04-10 14:08 | Outpatient (BNVA) | payer MEDICAID, SELFPAY | PROVIDERS: PCP Family Medicine; Visit Provider Urology | DX: R39.15 Urgency of urination (principal); N32.0 Bladder-neck obstruction | CPT/HCPCS: 51798; 81003; 99212 ==

== ENCOUNTER → 2024-04-24 13:53 | Outpatient (BNVA) | payer OTHER, SELFPAY | PROVIDERS: PCP Family Medicine; Visit Provider Physician Assistant Medical | DX: S16.1XXD Strain of muscle, fascia and tendon at neck level, subsequent encounter (principal); S46.812D Strain of other muscles, fascia and tendons at shoulder and upper arm level, left arm, subsequent encounter; S39.012D Strain of muscle, fascia and tendon of lower back, subsequent encounter; S46.911D Strain of unspecified muscle, fascia and tendon at shoulder and upper arm level, right arm, subsequent encounter; S46.912D Strain of unspecified muscle, fascia and tendon at shoulder and upper arm level, left arm, subsequent encounter; V09.9XXD Pedestrian injured in unspecified transport accident, subsequent encounter | CPT/HCPCS: 99213 ==

== ENCOUNTER → 2024-05-17 13:20 | Outpatient (BNVA) | payer OTHER, SELFPAY | PROVIDERS: PCP Family Medicine; Visit Provider Physician Assistant Medical | DX: S46.911D Strain of unspecified muscle, fascia and tendon at shoulder and upper arm level, right arm, subsequent encounter (principal); S46.912D Strain of unspecified muscle, fascia and tendon at shoulder and upper arm level, left arm, subsequent encounter; S39.012D Strain of muscle, fascia and tendon of lower back, subsequent encounter; S16.1XXD Strain of muscle, fascia and tendon at neck level, subsequent encounter; V09.00XD Pedestrian injured in nontraffic accident involving unspecified motor vehicles, subsequent encounter | CPT/HCPCS: 99213 ==

== ENCOUNTER 2024-06-07 08:20 | Outpatient (REF) | payer OTHER, SELFPAY ==
--- OUTSIDE RECORDS SUMMARY | 2024-06-07 08:46 | XMS_ITS | Encounter Summary ---
Author Organization [employer] [facility] Address [address] [place] [address] Care Team Providers Care Senior Maintenance Technician Name Role Phone Name, Irvin URBINA Primary Care Provider [phone] Carmina Narayan MD Primary Care Provider Encounter Details Date Type Department Care Team ([facility] st Contact Info) Description 04/22/2022 Telephone [facility] MEDICINE [address] [place], [place] [phone] Name, MD Irvin [address] [place], [place] [phone] Social History Tobacco Use Types Packs/Day Years Used Date Smoking Tobacco: Never Passive Smoke Exposure: Never Smokeless Tobacco: Never Alcohol Use Standard Drinks/Week Comments Never 0 (1 standard drink = 0.6 oz pur e alcohol) Depression Answer Date Recorded Patient Health Questionnaire-9 Score 0 04/23/2022 Depression Answer Date Recorded Patient Health Questionnaire-2 Score 0 04/23/2022 Sex and Gender Information Value Date Recorded Sex Assigned at Male 01/25/2022 10:37 AM EDT Legal Sex Male 10:37 AM EDT Gender Identity Male 01/25/2022 10:37 AM EDT Sexual Orientation Straight 01/25/2022 10 :37 AM EDT COVID-19 Exposure Response Date Recorded In the last 10 days, have yo u been in contact with someone who was confirmed or suspected to have Coronavirus/COVID-19? No / Unsure 04/23/2022 8:45 AM EST documented as of this encounter Plan of Treatment Not on file documented as of this encounter Visit Diagnoses Not on filedocumented in this encounter Care Teams Senior Maintenance Technician Relationship Specialty Start Date End Date Name, MD Irvin [address] [place] [address] PCP - General Family Medicine 12/13/19 09/13/22 Carmina Narayan MD [address] [place] [address] PCP - General Family Medicine 09/14/22 documented as of this encounter
--- OUTSIDE RECORDS SUMMARY | 2024-06-07 08:46 | XMS_ITS | Encounter Summary ---
Author Organization [employer] Address [address] [place] [address] Care Team Providers Care Cracker Off Name Role Phone Carmina Narayan MD Primary Care Provider [phone] Reason for Visit * Reason Onset Date Comments Med Refill 01/15/2024 Encounter Details Date Type Department Care Team ([facility] st Contact Info) Description 01/15/2024 Refill [facility] CHC MED & PEDS [address] [place], [place] [phone] Carmina Narayan MD [address] [place] [address] Social History Tobacco Use Types Packs/Day Years Used Date Smoking Tobacco: Never Passive Smoke Exposure: Never Smokeless Tobacco: Never Alcohol Use Standard Drinks/Week Comments Never 0 (1 standard drink = 0.6 oz pur e alcohol) Alcohol Answer Date Recorded Frequency of Alcohol Consumption Not on file 01/18/2024 Average Number of Drinks Not on file 024 Frequency of Binge Drinking Not on file 12/27 Score 0 01/18/2024 Depression Answer Date Recorded Patient Health Questionnaire-9 Score 1 06/07/2023 Patient Health Questionnaire-9 Score 1 06/07/2023 Last PHQ-9: Questionnaire Data Not on file 0 06/07/2023 Housing Stability Answer Date Recorded What is your housing situation today? I have manish arellano 06/07/[address] you li ve. Do you have problems with any of the following? None of the above 06/07/2023 Food Insecurity Answer Date Recorded Within the past 12 months, y ou worried that your food would run out before you got money to buy more: Never True 06/07/2023 Within the past 12 months,th e food you bought just didn't last and you didn't have enough money to get more: Never True 02/2024 Transportation Answer Date Recorded In the past 12 months, has l ack of transportation kept you from medical appts, meetings, work or from getting things needed for daily living? No 06/07/2023 Utilities Answer Date Recorded In the past 12 months, has t he electric, gas, oil or water company threatened to shut off services in your home? No 06/07/2023 Depression Answer Date Recorded Patient Health Questionnaire-2 Score 0 06/07/2023 Sex and Gender Information Value Date Recorded Sex Assigned at Male 01/25/2022 10:37 AM EDT Legal Sex Male 10:37 AM EDT Gender Identity Male 01/25/2022 10:37 AM EDT Sexual Orientation Straight 01/25/2022 10 :37 AM EDT documented as of this encounter Plan of Treatment Not on file documented as of this encounter Visit Diagnoses Not on filedocumented in this encounter Additional Health Concerns Assessment Noted Time PHQ-9 Depression Total Score: 1 06/07/19 24 3:32 PM EDT documented as of this encounter Care Teams Cracker Off Relationship Specialty Start Date End Date Carmina Narayan MD [address] [place] [address] PCP - General Family Medicine 09/14/22 documented as of this encounter
--- OUTSIDE RECORDS SUMMARY | 2024-06-07 08:46 | XMS_ITS | Encounter Summary ---
Author Organization [employer] Address [address] [place] [address] Care Team Providers Care Hot Mill Operator Name Role Phone Carmina Narayan MD Primary Care Provider [phone] Reason for Visit * Reason Comments Med Refill Encounter Details Date Type Department Care Team (Late st Contact Info) Description 10/31/2023 Refill [facility] MEDICINE [address] [place] [address] Name, MD Irvin [address] [place], [place] [phone] Hypertension, unspecified type Social History Tobacco Use Types Packs/Day Years [...] documented as of this encounter Visit Diagnoses Diagnosis Hypertension, unspecified type documented in this encounter Additional Health Concerns Assessment Noted Time PHQ-9 Depression Total Score: 1 06/07/19 24 3:32 PM EDT documented as of this encounter Care Teams Hot Mill Operator Relationship Specialty Start Date End Date Carmina Narayan MD [address] [place] [address] PCP - General Family Medicine 09/14/22 documented as of this encounter
--- OUTSIDE RECORDS SUMMARY | 2024-06-07 08:46 | XMS_ITS | Encounter Summary ---
Author Organization [employer] Address [address] [place] [address] Care Team Providers Care Data Control Clerk Supervisor Name Role Phone Carmina Narayan MD Primary Care Provider [phone] Reason for Visit * Reason Onset Date Comments Med Refill 11/18/2023 Encounter Details Date Type Department Care Team ([facility] st Contact Info) Description 11/18/2023 Refill [facility] CHC MED & PEDS [address] [place], [place] [phone] Carmina Narayan MD [address] [place] [address] Social History Tobacco Use Types Packs/Day Years [...] documented as of this encounter Care Teams Data Control Clerk Supervisor Relationship Specialty Start Date End Date Carmina Narayan MD [address] [place] [address] PCP - General Family Medicine 09/14/22 documented as of this encounter
--- OUTSIDE RECORDS SUMMARY | 2024-06-07 08:46 | XMS_ITS | Encounter Summary ---
Author Organization [employer] Address [address] [place] [address] Care Team Providers Care Certified Dialysis Technician Name Role Phone Carmina Narayan MD Primary Care Provider [phone] Reason for Visit * Reason Comments Med Refill Encounter Details Date Type Department Care Team ([facility] st Contact Info) Description 05/07/2024 Refill [facility] CHC MED & PEDS [address] [place], [place] [phone] Carmina Narayan MD [address] [place] [address] Social History Tobacco Use Types Packs/Day Years [...] documented as of this encounter Care Teams Certified Dialysis Technician Relationship Specialty Start Date End Date Carmina Narayan MD [address] [place] [address] PCP - General Family Medicine 09/14/22 documented as of this encounter
--- OUTSIDE RECORDS SUMMARY | 2024-06-07 08:46 | XMS_ITS | Encounter Summary ---
Author Organization [employer] [facility] Address [address] [place] [address] Care Team Providers Care Cable Operator Name Role Phone Name, Irvin URBINA Primary Care Provider [phone] Carmina Narayan MD Primary Care Provider [phone] Encounter Details Date Type Department Care Team (Late st Contact Info) Description 09/06/2022 Abstract [facility] MEDICINE [address] [place], [place] [phone] Name, MD Irvin [address] [place], [place] [phone] Social History Tobacco Use Types Packs/Day Years [...] suspected to have Coronavirus/COVID-19? No / Unsure 09/07/2022 10:55 AM EDT documented as of this encounter Plan of Treatment Not on file documented as of this encounter Visit Diagnoses Not on filedocumented in this encounter Additional Health Concerns Assessment Noted Time PHQ-9 Depression Total Score: 0 04/23/19 9:02 AM EST documented as of this encounter Care Teams Cable Operator Relationship Specialty Start Date End Date Name, MD Irvin [address] [place] [address] PCP - General Family Medicine 12/13/19 09/13/22 Carmina Narayan MD [address] [place] [address] PCP - General Family Medicine 09/14/22 documented as of this encounter
--- OUTSIDE RECORDS SUMMARY | 2024-06-07 08:46 | XMS_ITS | Encounter Summary ---
Author Organization [employer] Address [address] [place] [address] Care Team Providers Care Grinding Room Supervisor Name Role Phone Carmina Narayan MD Primary Care Provider [phone] Reason for Visit * Reason Onset Date Comments Med Refill 04/03/2024 Encounter Details Date Type Department Care Team ([facility] st Contact Info) Description 04/03/2024 Refill [facility] CHC MED & PEDS [address] [place], [place] [phone] Carmina Narayan MD [address] [place] [address] Social History Tobacco Use Types Packs/Day Years [...] documented as of this encounter Care Teams Grinding Room Supervisor Relationship Specialty Start Date End Date Carmina Narayan MD [address] [place] [address] PCP - General Family Medicine 09/14/22 documented as of this encounter
--- OUTSIDE RECORDS SUMMARY | 2024-06-07 08:46 | XMS_ITS | Clinical Summary ---
Author Organization [employer] Address [address] [facility] [address] [place] [address] Care Team Providers Care Roll Form Operator Name Role Phone Carmina Narayan MD Primary Care Provider [phone] Allergies Active Allergy Reactions Criticality Noted Date Comments Amlodipine Nausea Only 01/22/2020 Sulfamethoxazole-Trimethoprim Palpitations Low 09/09/2022 Terazosin Other High 01/13/2024 Medications ascorbic acid (Vitamin C) 250 MG tablet Take by mouth in the morning. Active cyanocobalamin (Vitamin B-12) 50 MCG tablet Take by mouth in the morning. Active lidocaine (Lidoderm) 5 % patchIndications: Chronic low back pain without sciatica, unspecified back pain laterality Apply 1 patch topically in the morning. Remove & discard patch within 12 hours or as directed by MD. 30 patch 2 04/23/19 23 Active albuterol 108 (90 Base) MCG/ACT inhaler Inhale 2 puffs every 4 (four) hours if needed for wheezing. 18 g 2 09/15/19 23 Active polyethylene glycol, PEG, 3350 (MiraLax) 17 GM/SCOOP powderIndications :Drug-induced constipation Take 17 g by mouth in the morning. 527 g 2 10/12/19 23 Active terazosin (Hytrin) 5 MG capsule Take 5 mg by mouth at bedtime. 10/22/19 23 Active Bisacodyl EC 5 MG EC tablet TAKE 2 TABLETS BY MOUTH AT NOON THE DAY BEFORE YOUR COLONOSCOPY 11/24/19 23 Active cetirizine (ZyrTEC) 10 MG tablet TAKE ONE TABLET BY MOUTH EVERY MORNING 30 tablet 5 01/08/20 23 Active montelukast (Singulair) 10 MG tablet TAKE 1 TABLET BY MOUTH EVERY DAY IN THE EVENING 90 tablet 1 02/02/20 23 Active acetaminophen (Tylenol) 500 MG tablet Take 2 tablets (1,000 mg) by mouth every 6 (six) hours if needed for moderate pain or fever for up to 25 doses. 50 tablet 02/10/20 23 Active tadalafil (Cialis) 10 MG tablet Take 10 mg by mouth in the morning. 01/14/20 23 Active Citrucel 500 MG tablet TAKE 1 TABLET BY MOUTH DAILY WITH FULL GLASS OF WATER 04/02/19 24 Active fluticasone furoate (Arnuity Ellipta) 100 MCG/ACT inhaler Inhale 1 puff in the morning. Rinse mouth with water after use to reduce aftertaste and incidence of candidiasis. Do not swallow. 1 each 04/07/19 24 Active Pramoxine HCl (CeraVe Itch Relief) 1 % cream Apply 10 g topically 4 times daily. 340 g 2 04/07/19 24 Active aspirin (Aspirin Adult Low Strength) 81 MG EC tablet Take 1 tablet (81 mg) by mouth in the morning. 90 tablet 1 06/06/19 24 Active cholecalciferol (Vitamin D-3) 50 MCG (2000 UT) tablet Take 1 tablet (50 mcg) by mouth in the morning. 120 tablet 3 06/17/19 24 Active meloxicam (Mobic) 15 MG tabletIndications :Neck pain on right side Take 1 tablet (15 mg) by mouth in the morning. 30 tablet 06/29/19 24 025 Active albuterol (2.5 MG/3ML) 0.083% nebulizer solution Take 3 mL (2.5 mg) by nebulization every 4 (four) hours if needed for wheezing. 75 mL 09/12/19 24 025 Active calcium carbonate 1500 (600 Ca) MG tablet TAKE ONE TABLET IN THE MORNING AND EVENING WITH MEALS 09/05/19 24 Active traZODone (Desyrel) 50 MG tablet Take 50 mg by mouth if needed at bedtime for sleep. 09/14/19 24 Active famotidine (Pepcid) 20 MG tablet Take 1 tablet (20 mg) by mouth every 12 (twelve) hours. 180 tablet 1 11/30/19 24 Active omeprazole (PriLOSEC) [address] capsule TAKE ONE CAPSULE EVERY DAY 90 capsule 1 12/05/19 24 Active sertraline (Zoloft) 50 MG tablet TAKE 1 TABLET BY MOUTH EVERY DAY 30 tablet 2 01/16/20 24 Active ipratropium (Atrovent) 0.03 % nasal spray USE 2 SPRAYS IN EACH NOSTRIL THREE TIMES DAILY 01/03/20 24 Active tiZANidine (Zanaflex) 4 MG tablet Take 1 tablet (4 mg) by mouth every 8 (eight) hours if needed for muscle spasms for up to 10 days. 30 tablet 01/18/20 24 Active diclofenac (Cataflam) 50 MG tablet Take 1 tablet (50 mg) by mouth 3 times daily. 90 tablet 01/18/20 24 Active rosuvastatin (Crestor) 20 MG tablet Take 1 tablet (20 mg) by mouth Once per day. 30 tablet 11 02/03/20 24 025 Active Calcium Polycarbophil (fiber) 625 MG tablet TAKE ONE TABLET EVERY DAY WITH GLASS OF WATER 02/13/20 24 Active cyclobenzaprine (Flexeril) 10 MG tablet TAKE ONE TABLET THREE TIMES DAILY NEEDED FOR MUSCLE SPASMS 02/08/20 24 Active ibuprofen 800 MG tablet Take 1 tablet by mouth every 8 (eight) hours if needed for pain. 08/25/19 24 Active fluticasone (Flonase) 50 MCG/ACT nasal spray USE ONE SPRAY IN EACH NOSTRIL TWICE DAILY 16 g 2 05/02/19 25 Active tamsulosin (Flomax) 0.4 MG 24 hr capsule TAKE ONE CAPSULE DAILY 30 MINUTES FOLLOWING THE SAME MEAL EACH DAY 90 capsule 2 05/02/19 25 Active lisinopril 20 MG tablet TAKE ONE TABLET EVERY DAY 90 tablet 1 05/08/19 25 Active Active Problems Problem Noted Date Diagnosed Date Transaminitis 03/30/2024 Lower abdominal pain 02/20/2024 Assessment & Plan (02/20/2024 5:46 PM EST): Differential includes UTI, early pyleo, diverticulitis vs other. -empiric tx with cipro and metronidazole -urine dip normal. Check UA/culture -labs ordered -has urology follow up in Mar 2024 -ER precautions discussed Tension headache 01/18/2024 Osteoarthritis of left knee 01/18/2024 Insomnia 01/18/2024 Diverticulosis 01/18/2024 Bladder outlet obstruction 01/18/2024 Chronic low back pain 01/18/2024 Acute cough 01/18/2024 Assessment & Plan (01/19/2024 6:09 PM EDT): -Pt tested negative for Influenza and Covid. Suspect pt has Adenovirus. -On PE pt was congested and lungs were clear on auscultation. -Advised the pt to drink lots of fluids and get plenty of rest. Instability of both knee joints 11/30/2023 Tinnitus of both ears 09/12/2023 Assessment & Plan (09/12/2023 3:05 PM EDT): Reports has appt with ENT on the of this month, will send to audiology. Acute on chronic issue Abscess 08/11/2023 Assessment & Plan (08/16/2023 11:31 AM EDT): We don't have at this point any available provider in site that can take care of I&D of abscess will need to refer to surgery. Declined referral to ED. Referred to General surgery Pt was prescribed cephalexin (Keflex) 500 MG capsule and doxycycline (Vibramycin) 100 MG capsule Itch of right eye 04/07/2023 Assessment & Plan (04/07/2023 4:48 PM EST): Bilateral R>L, after exposure to welding, will send to optometry for further w/u and assessment. Recurrent sinusitis 04/07/2023 Assessment & Plan (04/07/2023 4:49 PM EST): Patient requesting evaluation by specialist given recurrent sinusitis, reports also a hx of tinnitus. Acute conjunctivitis of both eyes 03/15/2023 Assessment & Plan (03/15/2023 1:35 PM EST): No foreign body visualized on physical exam If problem persist it was advise to go to the emergency room Palpitations 12/13/2022 Assessment & Plan (12/15/2022 3:02 PM EDT): Unknown etiology, reviewed recent labs. Will send for holter monitoring. Acute intractable headache 10/04/2022 Assessment & Plan (10/04/2022 2:56 PM EDT): Patient with persistent headaches with unknown etiology. Will start on sudafed 120 mg and sen for Xray of cervical spine. Neck pain 10/04/2022 Assessment & Plan (01/19/2024 6:05 PM EDT): -Pt was referred to Pain Medicine and MR Cervical spine w/o Contrast was ordered. -Ordered: Diclofenac (Cataflam) 50 MG tablet Tizanidine (Zanaflex) 4 MG tablet Assessment & Plan (10/04/2022 2:56 PM EDT): Patient with R sided neck pain, with temporary relief on ibuprofen 600 mg. Will start on diclofenac 1% cream and lioresal 10 mg. Hyperlipidemia 09/14/2022 Assessment & Plan (03/30/2024 1:47 PM EST): Ordering lab work for further evaluation. Assessment & Plan (02/06/2024 1:15 AM EST): -Discussed lab work results. LDL was a bit high. Advised pt on practicing healthy lifestyle choices including lowering carbohydrates and fats from diet. -Increased Rosuvastatin (Crestor) from 10 MG to 20 MG tablet Relevant orders: CBC auto differential Comprehensive Metabolic Panel Lipid Panel, Standard TSH W/Reflex to FT4 Osteochondral defect of femoral condyle 09/15/19 23 Class 2 obesity 09/14/2022 Assessment & Plan (06/07/2023 10:23 PM EDT): Discussed calorie deficit, recommended reduction of 20-30% of maintenance calories; field collector referral offered. Recommended to decrease soda and sugary beverage consumption. Recommended at least 20 g per meal of protein to assist with satiety. Recommended at least 150 min/week of moderate intensity exercise. Labs: CBC, Comprehensive Metabolic Panel, HIV 1/2, Hep C, Lipid Panel, Vitamin D, Vitamin B12 (serum panel) Assessment & Plan (09/14/2022 2:18 PM EDT): Will send labs to check levels. Status post unicompartmental knee replacement, r ight 09/14/2022 Osteopenia of multiple sites 09/14/2022 Assessment & Plan (09/14/2022 2:18 PM EDT): Will send for DEXA scan for further evaluation. History of colonic polyps 04/23/2022 Overview (04/23/2022): Colonoscopy 2021 at [facility], had 2 adenomatous polyps removed, was recommended repeat 1-2 years after Benign prostatic hyperplasia 03/11/2022 Erectile dysfunction 03/11/2022 Assessment & Plan (06/07/2023 10:25 PM EDT): Reports erectile dysfunction. Ordered labsdue further assess. Labs: Testosterone Hypertensive disorder 03/11/2022 Assessment & Plan (03/30/2024 1:46 PM EST): Continue on current medications and monitoring BP at home. Follow up in 6 months. Assessment & Plan (08/16/2023 11:32 AM EDT): Controlled. Cont current regimen Assessment & Plan (04/07/2023 4:48 PM EST): Close to controlled. Will f/up in 4 months. Assessment & Plan (11/01/2022 9:30 AM EDT): Blood pressure slightly elevated at time of visit with a reading of 140/78 mmHg. Will follow up in 6 weeks to recheck BP. Heartburn 03/11/2022 Keloid scar 03/11/2022 Assessment & Plan (09/14/2022 2:18 PM EDT): Patient with keloid scar on L forearm, please see media. Will refer to dermatology. Knee pain 03/11/2022 Assessment & Plan (11/30/2023 3:29 PM EDT): Referral to Orthopaedic for further investigation of Sx. Ordering US of the knees for further evaluation. Mild intermittent asthma 03/11/2022 Assessment & Plan (09/12/2023 3:07 PM EDT): Will order nebulizing solution and requested DME specialist to help obtaining machine Assessment & Plan (12/15/2022 3:01 PM EDT): Mild intermittent asthma with exacerbation, trial of steroid burst sent. rtc if worsening symptoms or no improvement Peripheral demyelinating neuropathy 03/11/2022 Prediabetes 03/11/2022 Assessment & Plan (02/06/2024 1:08 AM EST): A1c: 5.8 last lab work. Current lab work was 6.2. Pt was advised to practice healthy eating habits. Seasonal allergies 03/11/2022 Assessment & Plan (11/01/2022 9:34 AM EDT): Patient with asthma like symptoms. Will benefit from referral to associate sales manager for further evaluation. Referral placed. Vitamin D deficiency 03/11/2022 Chest pain 03/11/2022 Assessment & Plan (03/11/2022 11:46 AM EST): Likely MSK related. Patient concern and hx of anxiety. EKG w/o ST segment changes. Also recently seen by cardiology 12/2021. Right-sided low back pain without sciatica 03/11 Assessment & Plan (06/07/2023 10:26 PM EDT): Paraspinal spasms in thoracic area especially right sided, reports palpation and movement replicates his pain. Advised physical therapy exercises to help with pain. Assessment & Plan (03/11/2022 11:45 AM EST): Paraspinal spasms in thoracic area especially right sided, reports palpation and movement replicates his pain. Resolved Problems Problem Noted Date Diagnosed Date Resolved Date Abscess of right axilla 04/14/2023 11/0 10/2023 Assessment & Plan (04/14/2023 1:27 PM EST): Pt with c/o newly develop painful mass right axilla. On exam there is a round soft well delineated mass , tender to palpation approx 1 x 1.5 inch in size . Etiology ? Hydradenitis,abcess, lymph node ? Examination highly suggestive of abscess, although lymphadenopathy will need to be ruled out as well. Plan: warm compresses, Start Abx (Doxy BID x 7 days), NSAIDS. Urgent Surgical Consult for excision or I&D Soft tissues U/S to rule out lymph node SIRS (systemic inflammatory response syndrome) 11/01/2022 12/13/2022 Torticollis 10/04/2022 01/18/2024 Upper respiratory tract infection 03/11/2022 09/14/2022 Assessment & Plan (03/11/2022 11:47 AM EST): Traiged this way, but denies any URI symptoms Encounters Date Type Department Care Team Description 05/07/2024 Refill [facility] [address] [place] [address] Carmina Narayan MD 04/28/2024 Refill [facility] [address] [place] [address] Carmina Narayan MD 04/03/2024 Refill [facility] [address] [place] [address] Carmina Narayan MD 03/30/2024 3:00 PM EST Telemedicine [facility] [address] [place] [address] Carmina Narayan MD Hyperlipidemia, unspecified hyperlipidemia type (Primary Dx); Hypertension, unspecified type; Transaminitis 03/30/2024 Travel 03/29/2024 Travel 03/22/2024 Travel 03/19/2024 Telephone [facility] [address] [place] [address] Carmina Narayan MD from Last 3 Months Immunizations Name Administration Dates Next Due Influenza Injectable Quadriv alant Preservative Free IIV4 MDCK 01/28/2022 Influenza injectable quadriv alent preservative free 12/13/2022,01/03/2020 Influenza, IIV3, injectable 01/05/2021 Moderna Covid-19 Vaccine 12+ 07/28/2021, 02/20/2021,08/12/2020,2020 Pneumococcal Conjugate PCV 20 06/07/2023 RSV Bivalent 02/03/2024 Tdap 09/18/2020 Zoster, Recombinant 01/28/2022,11/23/2021 Family History Medical History Relation Name Comments Diabetes Father's Brother Relation Name Status Comments Father's Brother Social History Tobacco Use Types Packs/Day Years [...] Orientation Straight 01/25/2022 10 :37 AM EDT Last Filed Vital Signs Vital Sign Reading Time Taken Comments Blood Pressure 132/78 03/30/2024 12:57 PM EST Pulse 93 02/20/2024 4:54 PM EST Temperature 36.6 ??C (97.8 ??F) 02/20/2024 4:54 PM ES T Respiratory Rate 17 02/20/2024 4:54 PM EST Oxygen Saturation 97% 02/20/2024 4:54 PM EST Inhaled Oxygen Concentration - - Weight 111 kg (244 lb) 02/20/2024 4:54 PM EST Height 176.5 cm (5' 9.5 ) 02/13/2024 8:53 AM EST Body Mass Index 35.52 02/13/2024 8:53 AM EST Plan of Treatment Health Maintenance Due Date Last Done Comments CT Colonography 1960 FIT DNA/Cologuard 1960 FIT 1960 FOBT 1960 Sigmoidoscopy 1960 COVID-19 Vaccine ( season) 2023 07/28/2021, 02/20/2021, 08/12/2020, Additional history exists Influenza Vaccine (#1) 2023 , 01/28/2022, 01/05/2021, Additional history exists Depression Screening 06/06/2024 06/07/2023, 06/07/19 24 SDOH Screening 06/06/2024 06/07/2023 Alcohol/Substance Use Screening 01/17/2025 01/18/2024 Diabetes: Hemoglobin A1C 01/31/2025 024, 06/29/2023, 02/21/2023, Additional history exists Tobacco Screening 02/19/2025 02/20/2024 Colonoscopy 02/09/2028 02/08/2023, 04/02/2021 Colorectal Cancer Screening 02/09/2028 Lipid Panel 01/31/2029 02/01/2024, 05/26, 09/20/2022, Additional history exists DTaP/Tdap/Td Vaccines (2 - Td or Tdap) 09/18/2030 09/18/2020 Zoster Vaccines Completed 01/28/2022, 11/23/2021 Pneumococcal Vaccine: 50+ Years Completed 06/07/2023 HIV Screening Completed 06/10/2023 Hepatitis C Screening Completed 06/10/2023 RSV Patients and Patients Aged 60 years or older Completed 02/03/2024 HIB Vaccines Aged Out No longer eligi ble based on patient's age to complete this topic HPV Vaccines Aged Out No longer eligi ble based on patient's age to complete this topic Hepatitis A Vaccines Aged Out No long er eligible based on patient's age to complete this topic Hepatitis B Vaccines Aged Out No long er eligible based on patient's age to complete this topic IPV Vaccines Aged Out No longer eligi ble based on patient's age to complete this topic Meningococcal Vaccine Aged Out No horacio khanh eligible based on patient's age to complete this topic RSV under 20 months Aged Out No longe r eligible based on patient's age to complete this topic Rotavirus Vaccines Aged Out No longer eligible based on patient's age to complete this topic Procedures Procedure Name Priority Date/Time Associated Diagnosis Comments HEMOGLOBIN A1C Routine 02/01/2024 8:36 AM EST Prediabetes LIPID PANEL, STANDARD Routine 02/01/2024 8:36 AM EST Class 2 obesity HEPATITIS C AB W/REFL TO HCV RNA, QN, PCR Routine 06/10/2023 9:31 AM EDT Class 2 obesity HIV 1/2 ANTIGEN/ANTIBODY, FOURTH GENERATION W/RFL Routine 06/10/2023 9:31 AM EDT Class 2 obesity HM COLONOSCOPY Routine 02/08/2023 from Last 3 Months or Most Recently Relevant to Health Maintenance Results * (ABNORMAL) Hemoglobin A1c (02/01/2024 8:36 AM EST) Hemoglobin A1c 6.2(H) <6.0 % [facility] Comment:Hemoglobin A1C Refer ence Range Adults: 4.8 - 6.0 % Non diabetic: < 6.0 % Goal: < 7.0 %Additional Action Suggested: > 8.0 %Note: Hemoglobin A1c results are invalid for patients with abnormal amounts of HbF. Blood transfusions may impact the HbA1c concentration in the patient sample. Estimated Average Glucose 131 mg/dL [facility] Comment:eAG = Estimated ave rage glucose which is %A1C expressed asaverage glucose, using the formula of the [id number] Glucose study (ADAG), Diabetes Care, Vol.31,#8,Oct. 2007 Blood Venous blood specimen / Unknown 02/01/2024 8:36 AM EST 02/01/2024 2:18 PM EST us Carmina Narayan MD LAB BLOOD ORDERABLES Final Re sult [facility] [address] [place] [phone] * (ABNORMAL) Lipid Panel, Standard (02/01/2024 8:36 AM EST) Triglycerides 89 <150 mg/dL [facility] Comment:Desirable Triglyceri de: less than 150 mg/dLBorderline High Triglyceride 150-199 mg/dLHigh Triglyceride: 200-499 mg/dLVery High Triglyceride: greater than or equal to 5OO mg/dL Cholesterol 170 <200 mg/dL [facility] Comment:Desirable Cholestero l: less than 200 mg/dLBorderline High Cholesterol: 200-239 mg/dLHigh Cholesterol: greater than 239 mg/dL LDL Cholesterol Calculated 113(H) <100 mg/dL [facility] Comment:Desirable LDL: less than 100 mg/dLNear Optimal/Above Optimal LDL: 110- 129 mg/dLBorderline High LDL: 130-159 mg/dLHigh LDL: 160-189 mg/dLVery High LDL: greater than or equal to 190 mg/dL HDL Cholesterol 40(L) >40 mg/dL [facility] Comment:Desirable HDL: great er than 40 mg/dL Note: This HDL assay may give artificially low results in patients with liver disease. Blood Venous blood specimen / Unknown 02/01/2024 8:36 AM EST 02/01/2024 2:18 PM EST Carmina Narayan MD LAB BLOOD ORDERABLES Final Re sult Performing Organization Address [facility]/ZIP Co de Phone Number [facility] [address] [place] [phone] * Hepatitis C Antibody with Reflex to HCV, RNA, Quantitative, Real-Time PCR (06/10/2023 9:31 AM EDT) Hepatitis C Antibody Nonreactive Nonreactive [facility] Comment:Antibodies to HCV no t detected; does not exclude early acuteHCV infection. Blood Venous blood specimen / Unknown 06/10/2023 9:31 AM EDT 06/10/2023 2:01 PM EDT Carmina Narayan MD LAB BLOOD ORDERABLES Final Re sult Performing Organization Address [facility]/ZIP Co de Phone Number [facility] [address] [place] [address] [phone] * HIV-1/2 Antigen and Antibodies, Fourth Generation, with Reflexes (06/10/2023 9:31 AM EDT) HIV AB/AG Nonreactive Nonreactive [facility] Comment:HIV-1 p24 Ag and/or HIV-1/HIV-2 Ab not detected.A test result that is nonreactive does not exclude thepossibility of exposure to or infection with HIV-1 and/orHIV-2. Nonreactive results in this assay for individualswith prior exposure to HIV-1 and/or HIV-2 may be due toantigen and antibody levels that are below the limit ofdetection of this assay.The [employer]ocadeniYOGITECH HIV Ag/Ab Combo assay result andsupplemental assay results should be interpreted inconjunction with the patient's clinical presentation,history and other laboratory results. If the results areinconsistent with clinical evidence, additional testing issuggested to confirm the result. Blood Venous blood specimen / Unknown 06/10/2023 9:31 AM EDT 06/10/2023 2:01 PM EDT us Carmina Narayan MD LAB BLOOD ORDERABLES Final Re sult [facility] [address] [place] [phone] * (ABNORMAL) Hm Colonoscopy (02/08/2023) Colonoscopy Abnormal Normal, Abnormal, BIRADS 0 , BIRADS 1 , BIRADS 2, BIRADS 3 , BIRADS 4+ Narrative Carmina Narayan MD - 02/08/20232021 with varius polyps sessile 2022 tubular adenoma us Historical Provider HEALTH MAINTENANCE Final Result from Last 3 Months or Most Recently Relevant to Health Maintenance Insurance [facility] C3 Care Teams Roll Form Operator Relationship Specialty Start Date End Date Carmina Narayan MD [address], [place] [phone] PCP - General Family Medicine 09/14/22
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
--- OUTSIDE RECORDS SUMMARY | 2024-06-07 08:46 | XMS_ITS | Encounter Summary ---
Author Organization [employer] [facility] Address [address] [place] [address] 7t [place] [address] Care Team Providers Care Hot Tamale Man Name Role Phone Carmina Narayan MD Primary Care Provider [phone] Reason for Visit * Reason Onset Date Comments Results 10/12/2022 Encounter Details Date Type Department Care Team ([facility] Contact Info) Description 10/12/[address] [facility] CHC MED & PEDS [address] [place], [place] [phone] Carmina Narayan MD 505 [place] [address] Results Social History Tobacco Use Types Packs/Day Years [...] suspected to have Coronavirus/COVID-19? No / Unsure 10/04/2022 10:32 AM EDT documented as of this encounter Miscellaneous Notes * Telephone Encounter - Maria T Lees RN - 10/14/2022 10:26 AM EDT [facility] Labs are all within normal limit and have improved since hospitalization. Normal kidney function. Results are reassuring and patient should plan to follow up as scheduled with urology. Thank you! Call to pt and pt informed. Per pt, picked up a copy of results and and is concerned about RBC and hemoglobin results. Pt denies any s/s bleeding. Denies dizziness or lightheadedness. Per pt, does experience intermittent episodes of SOB. Reports use of inhalers with good effect. Pt also requesting Rx claritin for allergy symptoms. Reports occasional sneezing and nasal congestion. Denies itching, redness, irritation to eyes. Noted Rx Cetirizine sent on 09/27/22 to [facility] pharmacy. Per pt, unsure if he was given Rx. States he does not have it at home. Call to [facility] pharmacy. Rx, 90 day supply, picked up on 09/27/22. Per pt, cannot find Rx. RN advised will f/u with pharmacy in to inquire if refill can be given or if a new prescription should be sent. Attempted call to pharmacy but unable to reach staff. Pt informed and states he will f/u with the pharmacy. * Telephone Encounter - Maria T Lees RN - 10/12/2022 9:47 AM EDT Will forward to ordering provider to review results. Please advise. Thank you. * Telephone Encounter - Luzma Becerra - 10/12/2022 9:18 AM EDT Tc from pt requesting a call from a nurse to clarify lab results Please contact pt at [phone] Maldivian Speaker documented in this encounter Plan of Treatment Not on file documented as of this encounter Visit Diagnoses Not on filedocumented in this encounter Additional Health Concerns Assessment Noted Time PHQ-9 Depression Total Score: 0 04/23/19 9:02 AM EST documented as of this encounter Care Teams Hot Tamale Man Relationship Specialty Start Date End Date Carmina Narayan MD [address] [place] [address] PCP - General Family Medicine 09/14/22 documented as of this encounter
--- OUTSIDE RECORDS SUMMARY | 2024-06-07 08:46 | XMS_ITS | Encounter Summary ---
Author Organization [employer] Address [address] [facility] 7t [place] [address] Care Team Providers Care Ux Architect Name Role Phone Carmina Narayan MD Primary Care Provider [phone] Encounter Details Date Type Department Care Team ([facility] st Contact Info) Description 10/18/2022 Orders Only [facility] CHC MED & PEDS [address] [place], [place] [phone] Armando Carmona MD 505 [place] [address] Nasal congestion (Primary Dx) Social History Tobacco Use Types Packs/Day Years [...] as of this encounter Visit Diagnoses Diagnosis Nasal congestion- Primary Other diseases of nasal cavity and sinuses documented in this encounter Additional Health Concerns Assessment Noted Time PHQ-9 Depression Total Score: 0 04/23/19 23 9:02 AM EST documented as of this encounter Care Teams Ux Architect Relationship Specialty Start Date End Date Carmina Narayan MD [address] [place] [address] PCP - General Family Medicine 09/14/22 documented as of this encounter
[2024-06-07 14:21] LABS: MANUAL DIFF FLAG NO
[2024-06-07 14:29] LABS: Basophils Absolute Auto 0.1 X10*3/uL (0.0-0.2); Basophils Percent Auto 1.1 % (0-2); Eosinophils Absolute Auto 0.3 X10*3/uL (0.0-0.4); Eosinophils Percent Auto 5.9 % (0-4); Hemoglobin 14.5 g/dl (14.0-18.0); Imm Gran Abs Auto 0.01 X10*3/uL (0.00-0.03); Imm Gran Pct Auto 0.2 % (0.0-0.4); Lymphocytes Absolute Auto 1.6 X10*3/uL (1.2-4.9); Lymphocytes Percent Auto 35.9 % (20-40); Mean Corpuscular Hemoglobin 30.5 pg (27.0-33.0); Mean Corpuscular Volume 92.6 fL (80.0-98.0); Mean Platelet Volume 9.4 fL (9.4-12.4); Monocytes Absolute Auto 0.6 X10*3/uL (0.1-1.2); Monocytes Percent Auto 12.4 % (2-11); Neutrophils Percent Auto 44.5 % (45-73); Platelet Count 237 X10*3/uL (160-400); Red Blood Count 4.75 X10*6/uL (4.60-5.80); Red Cell Distribution Width 13.3 % (11.0-16.0); White Blood Count 4.4 X10*3/uL (4.8-10.8)
[2024-06-07 14:49] LABS: Alanine Aminotransferase 41 U/L (0-40); Albumin Level 4.4 g/dL (3.5-5.0); Alkaline Phosphatase 74 U/L (39-117); Anion Gap 11 (12-20); Aspartate Amino Transferase 34 U/L (5-37); Blood Urea Nitrogen 15 mg/dL (9-16); Calcium 9.4 mg/dL (8.4-10.2); Carbon Dioxide 25 mmol/L (22-29); Chloride 106 mmol/L (96-108); Cholesterol 181 mg/dL (<200); Estimated Glomerular Filt Rate > 60; Glucose Random 100 mg/dL (60-115); HDL Cholesterol 41 mg/dL (>40); LDL Cholesterol Calculated 118 mg/dL (<100); Potassium 3.9 mmol/L (3.3-5.1); Sodium 138 mmol/L (135-145); Total Protein 7.3 g/dL (6.5-8.0); Triglycerides 113 mg/dL (<150)
[2024-06-07 15:07] LABS: TSH reflex Free T4 1.15 uIU/mL (0.32-4.0)
== END 2024-06-07 08:21 | disposition home or self-care (01) ==
LOC: HO.CHCLDS 08:20
PROVIDERS: Visit Provider Family Medicine
DX: E78.5 Hyperlipidemia, unspecified (principal)
CPT/HCPCS: 36415; 80053; 80061; 84443; 85025

== ENCOUNTER → 2024-06-08 15:05 | Outpatient (BNVA) | payer OTHER, SELFPAY | PROVIDERS: PCP Family Medicine; Visit Provider Physician Assistant Medical | DX: S16.1XXD Strain of muscle, fascia and tendon at neck level, subsequent encounter (principal); S39.012D Strain of muscle, fascia and tendon of lower back, subsequent encounter; S46.819D Strain of other muscles, fascia and tendons at shoulder and upper arm level, unspecified arm, subsequent encounter; S46.911D Strain of unspecified muscle, fascia and tendon at shoulder and upper arm level, right arm, subsequent encounter; S46.912D Strain of unspecified muscle, fascia and tendon at shoulder and upper arm level, left arm, subsequent encounter; V09.9XXD Pedestrian injured in unspecified transport accident, subsequent encounter | CPT/HCPCS: 99213 ==

== ENCOUNTER → 2024-06-26 09:35 | Outpatient (BNVA) | payer OTHER, SELFPAY | PROVIDERS: PCP Family Medicine; Visit Provider Physician Assistant Medical | DX: S16.1XXD Strain of muscle, fascia and tendon at neck level, subsequent encounter (principal); S46.811D Strain of other muscles, fascia and tendons at shoulder and upper arm level, right arm, subsequent encounter; S46.812D Strain of other muscles, fascia and tendons at shoulder and upper arm level, left arm, subsequent encounter; S39.012D Strain of muscle, fascia and tendon of lower back, subsequent encounter; S46.911D Strain of unspecified muscle, fascia and tendon at shoulder and upper arm level, right arm, subsequent encounter; S46.912D Strain of unspecified muscle, fascia and tendon at shoulder and upper arm level, left arm, subsequent encounter; V09.9XXD Pedestrian injured in unspecified transport accident, subsequent encounter; Z02.79 Encounter for issue of other medical certificate | CPT/HCPCS: 99213 ==

== ENCOUNTER 2024-08-08 09:44 | Outpatient (AMB) | payer MEDICAID, SELFPAY ==
--- OUTSIDE RECORDS SUMMARY | 2024-08-08 10:22 | XMS_ITS | Encounter Summary ---
Author Organization [employer] Address [address] [facility] 7t [place] [address] Care Team Providers Care Store Operations Specialist Name Role Phone Carmina Narayan MD Primary Care Provider [phone] Reason for Visit * Reason Onset Date Comments Med Refill 11/18/2023 Encounter Details Date Type Department Care Team ([facility] st Contact Info) Description 11/18/2023 Refill [facility] CHC MED & PEDS [address] [place], [place] [phone] Carmina Narayan MD 505 [place] [address] Social History Tobacco Use Types Packs/Day Years [...] documented as of this encounter Care Teams Store Operations Specialist Relationship Specialty Start Date End Date Carmina Narayan MD [address] [place] [address] PCP - General Family Medicine 09/14/22 documented as of this encounter
--- OUTSIDE RECORDS SUMMARY | 2024-08-08 10:22 | XMS_ITS | Encounter Summary ---
Author Organization [employer] Address [address] [facility] 7t [place] [address] Care Team Providers Care Utility Agent Name Role Phone Carmina Narayan MD Primary Care Provider [phone] Reason for Visit * Reason Onset Date Comments Med Refill 07/29/2024 Encounter Details Date Type Department Care Team ([facility] st Contact Info) Description 07/29/2024 Refill [facility] CHC MED & PEDS [address] [place], [place] [phone] Carmina Narayan MD 505 [place] [address] Social History Tobacco Use Types Packs/Day Years [...] Answer Date Recorded Patient Health Questionnaire-9 Score 6 07/27/2024 Patient Health Questionnaire-9 Score 6 07/27/2024 Last PHQ-9: Questionnaire Data Not on file 0 07/27/2024 Housing Stability Answer Date Recorded What is your housing situation today? I have manish arellano 07/20/[address] you li ve. Do you have problems with any of the following? None of the above 07/20/2024 Food Insecurity Answer Date Recorded Within the past 12 months, y ou worried that your food would run out before you got money to buy more: Never True 07/20/2024 Within the past 12 months,th e food you bought just didn't last and you didn't have enough money to get more: Never True Transportation Answer Date Recorded In the past 12 months, has l ack of transportation kept you from medical appts, meetings, work or from getting things needed for daily living? No 07/20/2024 Utilities Answer Date Recorded In the past 12 months, has t he electric, gas, oil or water company threatened to shut off services in your home? No 07/20/2024 Depression Answer Date Recorded Patient Health Questionnaire-2 Score 0 07/27/2024 Internet Access Answer Date Recorded Internet Access Q1 Yes 07/20/2024 Internet Access Q2 Not on file 07/20/2024 Sex and Gender Information Value Date Recorded [...] Assessment Noted Time PHQ-9 Depression Total Score: 6 07/28/19 25 9:04 AM EDT documented as of this encounter Care Teams Utility Agent Relationship Specialty Start Date End Date Carmina Narayan MD [address] [place] [address] PCP - General Family Medicine 09/14/22 documented as of this encounter
--- OUTSIDE RECORDS SUMMARY | 2024-08-08 10:22 | XMS_ITS | Encounter Summary ---
Author Organization [employer] Address [address] [facility] 7t [place] [address] Care Team Providers Care Portal Administrator Name Role Phone Name, Irvin URBINA Primary Care Provider [phone] Carmina Narayan MD Primary Care Provider [phone] Encounter Details Date Type Department Care Team (Late st Contact Info) Description 09/06/2022 Abstract [facility] MEDICINE [address] [place], [place] [phone] Name, MD Irvin [address] [place], [place] [phone] Social History Tobacco Use Types Packs/Day Years [...] Noted Time PHQ-9 Depression Total Score: 0 01/27/20 23 9:02 AM EST documented as of this encounter Care Teams Portal Administrator Relationship Specialty Start Date End Date Name, MD Irvin [address] [place] [address] PCP - General Family Medicine 12/13/19 09/13/22 Carmina Narayan MD [address] [place] [address] PCP - General Family Medicine 09/14/22 documented as of this encounter
--- OUTSIDE RECORDS SUMMARY | 2024-08-08 10:22 | XMS_ITS | Encounter Summary ---
Author Organization [employer] Address [address] [facility] [address]t [place] [address] Care Team Providers Care Chief Bank Examiner Name Role Phone Carmina Narayan MD Primary Care Provider [phone] Reason for Visit * Reason Comments Med Refill Encounter Details Date Type Department Care Team (Late st Contact Info) Description 10/31/2023 Refill [facility] MEDICINE [address] [place] [address] Name, MD Irvin [address] [place], [place] [phone] Hypertension, unspecified type Social History Tobacco Use [...] documented as of this encounter Care Teams Chief Bank Examiner Relationship Specialty Start Date End Date Carmina Narayan MD [address] [place] [address] PCP - General Family Medicine 09/14/22 documented as of this encounter
--- OUTSIDE RECORDS SUMMARY | 2024-08-08 10:22 | XMS_ITS | Encounter Summary ---
Author Organization [employer] Address [address] [facility] 7t [place] [address] Care Team Providers Care Guard Sergeant Name Role Phone Name, Irvin URBINA Primary Care Provider [phone] Carmina Narayan MD Primary Care Provider Encounter Details Date Type Department Care Team (Late st Contact Info) Description 04/22/2022 Telephone [facility] MEDICINE [address] [place], [place] [phone] Name, MD Irvin [address] [place], [place] [phone] Social History Tobacco Use Types Packs/Day Years [...] AM EST documented as of this encounter Functional Status * Over the past 2 weeks, how often have you been bothered by any of the following problems? Question Answer Date of Assessment Author Little interest or pleasure in doing things Not at all 04/23/2022 9:02 AM Lise Rodrigues [place] Feeling down, depressed, or hopeless Not at all 04/23/2022 9:02 AM Lise Rodrigues [place] Patient Health Questionnaire-2 Score 0 04/23/2022 9:02 AM Lise Rodrigues [place] * Over the past 2 weeks, how often have you been bothered by any of the following problems? Question Answer Date of Assessment Author Trouble falling or staying asleep, or sleeping too much Not at all 04/23/2022 9:02 AM Lise Salter [place] Feeling tired or having little energy Not at all 04/23/2022 9:02 AM Lise Rodrigues [place] Poor appetite or overeating Not at all 04/23/2022 9: 02 AM Lise Rodrigues [place] Feeling bad about yourself - or that you are a failure or have let yourself or your family down Not at all 04/23/2022 9:02 AM Lise Rodrigues [place] Trouble concentrating on things, such as reading the newspaper or watching television Not at all 04/23/2022 9:02 AM Lise Rodrigues [place] Moving or speaking so slowly that other people could have noticed? Or the opposite - being so fidgety or restless that you have been moving around a lot more than usual. Not at all 04/23/2022 9:02 AM Lise Carlson MA Thoughts that you would be better off or hurting yourself in some way Not at all 04/23/2022 9:02 AM Lise Rodrigues [place] Patient Health Questionnaire-9 Score 0 04/23/2022 9:02 AM Lise Rodrigues [place] documented as of this encounter Plan of Treatment Not on file documented as of this encounter Visit Diagnoses Not on filedocumented in this encounter Care Teams Guard Sergeant Relationship Specialty Start Date End Date Name, MD Irvin [address] [place] [address] [place] [address] PCP - General Family Medicine 12/13/19 09/13/22 Carmina Narayan MD [address] [place] [address] PCP - General Family Medicine 09/14/22 documented as of this encounter
--- OUTSIDE RECORDS SUMMARY | 2024-08-08 10:22 | XMS_ITS | Encounter Summary ---
Author Organization [employer] Address [address] [facility] 7t [place] [address] Care Team Providers Care Photocopy Operator Name Role Phone Carmina Narayan MD Primary Care Provider Reason for Visit * Reason Onset Date Comments Med Refill 01/15/2024 Encounter Details Date Type Department Care Team ([facility] st Contact Info) Description 01/15/2024 Refill [facility] CHC MED & PEDS [address] [place], [place] [phone] Carmina Narayan MD 505 [place] [address] Social History Tobacco Use Types Packs/Day Years [...] documented as of this encounter Care Teams Photocopy Operator Relationship Specialty Start Date End Date Carmina Narayan MD [address] [place] [address] PCP - General Family Medicine 09/14/22 documented as of this encounter
--- OUTSIDE RECORDS SUMMARY | 2024-08-08 10:22 | XMS_ITS | Encounter Summary ---
Author Organization [employer] Address [address] [facility] [address] 7t [place] [address] Care Team Providers Care Skating Rink Ice Maker Name Role Phone Carmina Narayan MD Primary Care Provider [phone] Reason for Visit * Reason Onset Date Comments Referral 06/22/2024 Encounter Details Date Type Department Care Team ([facility] st Contact Info) Description 06/22/2024 Telephone [facility] MEDICINE [address] [place] [address] Carmina Narayan MD [address] [place] [address] Referral Social History Tobacco Use Types Packs/Day Years [...] encounter Miscellaneous Notes * Telephone Encounter - Dolly Whipple - 06/22/2024 11:32 AM EDT Tc from pt requesting referral for Physical Therapy, [facility] regarding back pain. *same reason, same location. documented in this encounter Plan of Treatment Not on file documented as of this encounter Visit Diagnoses Not on filedocumented in this encounter Additional Health Concerns Assessment Noted Time PHQ-9 Depression Total Score: 1 06/07/19 24 3:32 PM EDT documented as of this encounter Care Teams Skating Rink Ice Maker Relationship Specialty Start Date End Date Carmina Narayan MD [address] [place] [address] PCP - General Family Medicine 09/14/22 documented as of this encounter
--- OUTSIDE RECORDS SUMMARY | 2024-08-08 10:22 | XMS_ITS | Encounter Summary ---
Author Organization [employer] Address [address] [facility] 7t [place] [address] Care Team Providers Care Orthodontist Vice President Name Role Phone Carmina Narayan MD Primary Care Provider [phone] Reason for Visit * Reason Onset Date Comments Med Refill 07/09/2024 Encounter Details Date Type Department Care Team ([facility] st Contact Info) Description 07/09/[address] [facility] CHC MED & PEDS [address] [place], [place] [phone] Carmina Narayan MD 505 [place] [address] Social History Tobacco Use Types Packs/Day Years [...] documented as of this encounter Care Teams Orthodontist Vice President Relationship Specialty Start Date End Date Carmina Narayan MD [address] [place] [address] PCP - General Family Medicine 09/14/22 documented as of this encounter
--- OUTSIDE RECORDS SUMMARY | 2024-08-08 10:23 | XMS_ITS | Encounter Summary ---
Author Organization [employer] Address [address] [facility] 7t [place] [address] Care Team Providers Care Master Rigger Name Role Phone Carmina Narayan MD Primary Care Provider Reason for Visit * Reason Onset Date Comments Med Refill 04/03/2024 Encounter Details Date Type Department Care Team ([facility] st Contact Info) Description 04/03/2024 Refill [facility] CHC MED & PEDS 505 [place], [place] [phone] Carmina Narayan MD 505 [place] [address] Social History Tobacco Use Types Packs/Day Years [...] documented as of this encounter Care Teams Master Rigger Relationship Specialty Start Date End Date Carmina Narayan MD [address] [place] [address] PCP - General Family Medicine 09/14/22 documented as of this encounter
--- OUTSIDE RECORDS SUMMARY | 2024-08-08 10:23 | XMS_ITS | Encounter Summary ---
Author Organization [employer] Address [address] [place] [address] 7t [place] [address] Care Team Providers Care Construction Sales Representative Name Role Phone Carmina Narayan MD Primary Care Provider [phone] Reason for Visit * Reason Onset Date Comments Results 10/12/2022 Encounter Details Date Type Department Care Team ([facility] Contact Info) Description 10/12/2022 Telephone [facility] CHC MED & PEDS 505 [place], [place] [phone] Carmina Narayan MD [address] [place] [address] Results Social History Tobacco Use Types Packs/Day [...] 10/14/2022 10:26 AM EDT Incoming message from [facility], [facility]: Labs are all within normal limit and [...] Noted Rx Cetirizine sent on 09/27/22 to [facility] pharmacy. Per pt, unsure if he was given Rx. States he does not have it at home. Call to [facility] pharmacy. Rx, 90 day supply, picked up [...] Thank you. * Telephone Encounter - Luzma Becrera - 10/12/2022 9:18 AM EDT Tc from pt requesting a call from a nurse to clarify lab results Please contact pt at [phone] Azeri Speaker documented in this encounter Plan of Treatment Not on file documented as of this encounter Visit Diagnoses Not on filedocumented in this encounter Additional Health Concerns Assessment Noted Time PHQ-9 Depression Total Score: 0 04/23/19 9:02 AM EST documented as of this encounter Care Teams Construction Sales Representative Relationship Specialty Start Date End Date Carmina Narayan MD [address] [place] [address] PCP - General Family Medicine 09/14/22 documented as of this encounter
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
--- OUTSIDE RECORDS SUMMARY | 2024-08-08 10:23 | XMS_ITS | Encounter Summary ---
Author Organization [employer] Address [address] [place] [address] Care Team Providers Care Ward Maid Name Role Phone Carmina Narayan MD Primary Care Provider [phone] Encounter Details Date Type Department Care Team ([facility] st Contact Info) Description 10/18/2022 Orders Only [facility] [address] [place], [place] [phone] Armando Carmona MD [address] [place] [address] Nasal congestion (Primary Dx) Social History Tobacco [...] documented as of this encounter Care Teams Ward Maid Relationship Specialty Start Date End Date Carmina Narayan MD [address] [place] [address] PCP - General Family Medicine 09/14/22 documented as of this encounter
--- OUTSIDE RECORDS SUMMARY | 2024-08-08 10:23 | XMS_ITS | Data Portability ---
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 Patient Instructions Encounter Date Encounter Id Patient Instructions Last Modified By Organization Details Last Modified Time 09/22/2023 [id number] Patient presents with non-pulsatile tinnitus. Audiometric testing [...] Details Recorded Time Otalgia of right ear 2905735162 Active 2021 Otalgia, right ear; Note: Date Diagnosed : 12/24/2021 12:18 PM (H92.01) Not Available [facility] 4 02:13:43 Noise effects on inner ear 16861225 Active 2021 Noise effects on right inner ear; Note: Date Diagnosed : 10/01/2021 4:00 PM (H83.3X1) Not Available [facility] 4 02:13:16 Tinnitus of right ear 46309383491 08 Active 2021 Tinnitus, right ear; Note: Date Diagnosed : 10/01/2021 4:00 PM (H93.11) Not Available [facility] 4 02:15:45 Pain of right temporoma ndibular joint 03592301910 223705 Active 2021 Arthralgi a of right temporoma ndibular joint; Note: Date Diagnosed : 12/24/2021 12:18 PM (M26.621) Not Available [facility] 4 02:15:33 Sensorine ural hearing loss of bilateral ears 537643199 Active 2021 Sensorine ural hearing loss, bilateral ; Note: Date Diagnosed : 10/01/2021 3:49 PM (H90.3) Not Available [facility] 4 02:14:51 Disorder of tympanic membrane 39216466 Active 2023 CÉSAR GONZALEZ MA, CCC-A [address], [place], [address] , [place] - [facility] 4 12:23:57 Bilateral tinnitus 59829884081 02 [facility] 2023 DUKE FRANCES PA-C [address], [place], [address] , [place] - [facility] 4 13:00:12 Vasomotor rhinitis 7591051 Active 2023 DUKE FRANCES PA-C [address], [place], [address] , [place] - [facility] 4 13:28:04 Allergic rhinitis 80332129 Active 2023 DUKE FRANCES PA-C [address], [place], [address] , [place] - [facility] 4 13:30:48 Deviated nasal septum 798094759 [facility] 2023 DUKE FRANCES PA-C [address], [place], [address] , [place] LISA - [facility] 4 13:33:44 Hypertrop hy of nasal turbinate s 24524958 [facility] 2023 DUKE FRANCES PA-C [address],[place] [address], [place], [address] , [place] - [facility] 13:33:48 Impacted cerumen in right ear 91156187534 76994 Active 2023 CÉSAR SCHULERC [address],[facility] [address], [place], [address] , [place] - [facility] 11:05:20 Problem Notes None recorded. Procedures Surgical History Date Name Laterality Status Provider Name and Address Organization Details Recorded Time Cerumen removal without microscope right completed DUKE FRANECS PA-C 100 [facility],[place] [address], [place], [address], [facility] - [facility] 03/06/2024 09:47:34 Comp Audio with Tymps - 05172 & 16941 completed CÉSAR GONZALEZ MA, CCC-A [address] [facility],[place] [address], [place], [address], [facility] - [facility] 09/22/2023 12:21:46 Imaging Results Imaging Date [...] 40 mg tablet active Medicatio n ID: [id number] Br and Name: famotidin e Send Method: [...] 10 mg tablet active Medicatio n ID: [id number] Br and Name: lisinopri l Send Method: [...] 10 mg tablet active Medicatio n ID: [id number] Br and Name: mont[facility] st Send Method: E-Prescri bed Subs Allowed: subs OK Specia l Instructi on: TAKE 1 TABLET BY MOUTH EVERY EVENING M edgagandeep GenericNa me: jf dolan Not Available Not Available Not Available ammonium [...] DRINK DIRECTED BY GASTROENT EROLOGY DEPT AT [facility] active Not Available Not Available No [...] 600 mg capsule active Medicatio n ID: [id number] Br and Name: alpha lipoic acid Send [...] Updated DateTime 09/22/2023 175.26 cm 35.4 kg/m2 036023.[address] - [facility] 09/22/2023 11:22:15 Date Recorded Body height Body mass index (BMI) Body weight Provider Name and Address Organization Details Last Updated DateTime 01/02/2024 175.26 cm 35.4 kg/m2 177052.[address] - [facility] 01/02/2024 13:08:54 Date Recorded Body height Body mass index (BMI) Body weight Provider Name and Address Organization Details Last Updated DateTime 03/06/2024 175.26 cm 35.4 kg/m2 237677.[address] - [facility] 03/06/2024 09:36:06 Social History None recorded. Functional Status None recorded. Mental Status None recorded. Family History Nothing Reported. Medical History No medical history recorded. Past Encounters Encounter ID Performer Location Encounter Start Date Encounter Closed Date Diagnosis/Indication Diagnosis SNOMED-CT Code Diagnosis ICD10 Code Diagnosis Note [id number] DUKE FRANCES PA-C [facility] [address] [address] 09/22/2023 11:03:38 09/22/2023 12:43:30 Disorder of tympanic membrane 81727049 H73.93 Hypercompl iant tympanic membranes Bilateral tinnitus 25659 81542 102 H93.13 [id number] DUKE FRANCES PA-C [facility] [address] [address] 01/02/2024 13:03:10 01/02/2024 13:33:22 Vasomotor rhinitis 3215316 J30.0 Allergic rhinitis 381191 04 J30.9 Deviated nasal septum 12 7725784 J34.2 Hypertroph y of nasal turbinates 38633668 J34.3 [id number] DUKE FRANCES PA-C [facility] [address] [address] 03/06/2024 09:20:55 03/06/2024 09:56:10 Sensorineural hearing loss of bilateral ears 495763705 H90.3 Tinnitus of right ear 48 50009744 108 H93.11 Noise effe cts on inner ear 39159974 H83.3X1 Impacted c erumen in right ear 2404395756 161725 H61.21 Health Concerns Section Related Observation LastModified by Organization Detai ls LastModified Time None Recorded Concern Status LastModified by Organization Details LastModified Time None Recorded Advance Directives Directive None Recorded Payers Insurance Date Sequence Insurance Name Policy Number Policy Tucker Covered Member ID Tucker Member ID Guarantor Name 03/19/2024 1 [place] [facility] Donny Valdez [id number] Donny Valdez Notes Date Note Type Note [...] no ear surgeries. JUAN VALIENTE MD [address] [place] [address], [place], [address], [facility] 09/22/2023 17:12:17 01/02/2024 text/html 63 year [...] at meal times. MIRIAM MCNULTY MD 100 [facility],[address], [address], [facility] 01/02/2024 16:07:56 03/06/2024 text/html 63-year-old male [...] Denies Q-tip use. JUAN VALIENTE MD [address] [facility],[place] [address], [place], [address], [facility] 03/06/2024 13:44:58
--- NOTE | 2024-08-08 10:36 | MHC.OFFVIS ---
Intake Visit Reasons: 4 month follow up/ PVR/ UA Intake Note: Patient is present for 4M/PVR/UA Urology Medication:TAMSULOSIN,FINASTERIDE,TADALAFIL Antibiotic Allergy:TERAZOSIN Blood Thinner:ASPIRIN Allergies terazosin Allergy (Severe, Verified 04/10/24 14:11) Hypotension amlodipine Adverse Reaction (Intermediate, Verified 04/10/24 14:11) Nausea HPI Comments Details: Donny is a pleasant Luxembourger-speaking male. He is a patient of Dr. Elena. He is seen for the following urologic conditions - erectile dysfunction - Peyronie's - lower urinary tract symptoms Four month follow-up UA no blood Has been on Flomax with finasteride Continue with daily 10 mg tadalafil - good effect Prior discussion - venous leak, constriction band recommended Lower urinary tract symptoms Reporting weakness of stream Nocturia x2 No prior prostate medications Continue Flomax with finasteride Imaging - 02/18 CT scan with enlarged prostate and small stone left side Erectile dysfunction Has been progressive Response to Cialis 10 mg daily Noted to have curvature that he says happened after trauma as a child Is noting that blood flow to penis does not allow maintenance of erection PFSH Medical History Infected cyst of skin Diverticulosis Back abscess Hypertension Heart murmur Hx of varicose veins Arthritis Asthma Pre-diabetes History of BPH GERD (gastroesophageal reflux disease) Elevated cholesterol HTN (hypertension) COVID-19 vaccine administered Osteochondral defect of femoral condyle Osteoarthritis of right knee Surgical History History of esophagogastroduodenoscopy (EGD) Hx of meniscectomy of right knee H/O colonoscopy History of right knee surgery Family History Mother No problems noted. Father No problems noted. Social History Household Members: None Housing: Apartment Are you a primary child day care provider to a significant other at home: No Do you presently have visiting nurse or other home services: No Alcohol intake: former Patient Tobacco Use Status: Never used Tobacco e-Cigarette/Vaping Use: Never Used Substance Use Type: Marijuana Advance Directives Date on File: 10/11/22 service: No Current occupational status: unemployed Current occupation: right handed Review of Systems Const Denies chills and Denies fever(s) Card Reports no additional complaints and Denies syncope Resp Denies cough GI Denies abdominal pain and Denies heartburn Reports as per HPI and Denies change in libido Neuro Denies syncope Psych Denies change in libido Endo Denies change in libido Physical Exam Const General: cooperative, healthy appearing, comfortable and no acute distress Orientation/consciousness: patient oriented x3 HEENT Face and sinus: Yes normal facial exam Mouth: moist mucous membranes Neck Neck: Yes normal visual inspection, Yes full ROM and Yes trachea midline Chest Chest palpation & inspection: normal inspection of the chest Resp Effort & Inspection: normal respiratory effort, able to speak in complete sentences and no respiratory distress GI Inspection: Yes normal to inspection Back/Spine/Pelvis Cervical Spine: normal cervical lordosis Thoracic/Lumbar Spine: thoracic and lumbar spine normal to inspection Skin General skin exam: no rashes or lesions noted Neuro General: patient oriented x3, gait normal, tone normal and moves all extremities Extrem General: Yes normal to inspection and Yes capillary refill normal Results AMB Urinalysis, Automated UA Leukoctes 0 Jose F/uL Last Edit by RASHEEDA Mendez on 08/08/24 13:00 UA Nitrite Negative Last Edit by RASHEEDA Mendez on 08/08/24 13:00 UA Urobilinogen 3.5 mg/dL Last Edit by RASHEEDA Mendez on 08/08/24 13:00 UA Protein 0 mg/dL Last Edit by RASHEEDA Mendez on 08/08/24 13:00 UA pH 6.0 Last Edit by RASHEEDA Mendez on 08/08/24 13:00 UA Blood 0 Michael/uL Last Edit by RASHEEDA Mendez on 08/08/24 13:00 UA Specific [place] 1.020 Last Edit by RASHEEDA Mendez on 08/08/24 13:00 UA Ketone Negative Last Edit by RASHEEDA Mendez on 08/08/24 13:00 UA Bilirubin 0 mg/dL Last Edit by RASHEEDA Mendez on 08/08/24 13:00 UA Glucose 0 mg/dL Last Edit by RASHEEDA Mendez on 08/08/24 13:00 Results Reviewed Results Reviewed: Laboratory Last Values Urine pH (Auto) 6.0 08/08/24 12:59 Specific [place] (Auto) 1.020 08/08/24 12:59 Urine Protein (Auto) 0 mg/dL 08/08/24 12:59 Glucose (UA)(Auto) 0 mg/dL 08/08/24 12:59 Urine Ketones (Auto) Negative 08/08/24 12:59 Urine Blood (Auto) 0 Michael/uL 08/08/24 12:59 Urine Nitrite (Auto) Negative 08/08/24 12:59 Urine Bilirubin (Auto) 0 mg/dL 08/08/24 12:59 Urine Urobilinogen (Auto) 3.5 mg/dL 08/08/24 12:59 Leukocyte Esterase (Auto) 0 Jose F/uL 08/08/24 12:59 Assessment & Plan Assessment & Plan (1) Erectile dysfunction: Code(s): N52.9 - Male erectile dysfunction, unspecified Category: Medical Qualifiers: Erectile dysfunction type: vasculogenic Vasculogenic erectile dysfunction type: due to combined arterial insufficiency and corporo-venous occlusion Qualified Code(s): N52.03 - Combined arterial insufficiency and corporo-venous occlusive erectile dysfunction (2) Bladder outlet obstruction: Code(s): N32.0 - Bladder-neck obstruction Category: Medical (3) Urinary urgency: Code(s): R39.15 - Urgency of urination Category: Medical Plan Continue tamsulosin and finasteride Orders: Orders AMB Urinalysis Automated Today Z13.9 - Encounter for screening, unspecified Medications: Refilled tamsulosin 0.4 mg PO DAILY 90 days 90 caps 3RF N32.0 - Bladder-neck obstruction finasteride 5 mg PO DAILY 90 days 90 tabs 3RF N13.8 - Other obstructive and reflux uropathy, N40.1 - Benign prostatic hyperplasia with lower urinary tract symptoms, R33.9 - Retention of urine, unspecified, R39.15 - Urgency of urination Patient Instructions: This note is constructed using voice recognition software. While every effort has been made to ensure accuracy heavy antiarmor weapons infantryman errors may have been included. Imaging studies, laboratory and physical exam results were discussed and reviewed in detail. No major barriers to patient understanding were identified. An opportunity to ask questions regarding the treatment plan was provided. All questions were answered. The patient expressed understanding and agreement with the above treatment plan. The patient is aware they should contact our office by phone for worsening of their current condition or the appearance of new urologic symptoms. Compliance is encouraged with any medications and followup testing that is ordered. It is a privilege to participate in the urologic care of your patient. If you have any questions or concerns regarding treatment for the above conditions, or other urologic issues, please do not hesitate to contact me. The office telephone contact is [phone]. Sincerely, Dr Tommie Del Cid MD, [facility] - Urology Compassionate Specialist Care for the Genitourinary System Coding Level of Care Code Est Pt Level 3 (82865) Diagnoses Combined arterial insufficiency and corporo-venous occlusive erectile dysfunction N52.03 Erectile dysfunction type: vasculogenic Vasculogenic erectile dysfunction type: due to combined arterial insufficiency and corporo-venous occlusion Bladder outlet obstruction N32.0 Urinary urgency R39.15
== END 2024-08-08 11:35 | disposition home or self-care (01) ==
LOC: HO.HUSH 09:45
PROVIDERS: PCP Family Medicine; Visit Provider Urology
DX: N52.03 Combined arterial insufficiency and corporo-venous occlusive erectile dysfunction (principal); N32.0 Bladder-neck obstruction; R39.15 Urgency of urination; Z13.9 Encounter for screening, unspecified
CPT/HCPCS: 99213

== ENCOUNTER → 2024-08-08 09:44 | Outpatient (BNVA) | payer MEDICAID, SELFPAY | PROVIDERS: PCP Family Medicine; Visit Provider Urology | DX: N52.03 Combined arterial insufficiency and corporo-venous occlusive erectile dysfunction (principal); N48.6 Induration penis plastica; N32.0 Bladder-neck obstruction; R39.15 Urgency of urination; N40.1 Benign prostatic hyperplasia with lower urinary tract symptoms; N13.8 Other obstructive and reflux uropathy; R33.8 Other retention of urine | CPT/HCPCS: 81003; 99212 ==

== ENCOUNTER 2024-09-08 13:09 | Emergency (ER) | payer MEDICAID, SELFPAY ==
--- NOTE | ~2024-09-08 | CT_ITS ---
CLINICAL HISTORY: R sided neck head pain post chiropractor, ear pain CT Head without contrast. CT angiography head and neck with contrast. 3D Postprocessing. Comparison: None Findings: HEAD CT: No intra-axial mass, midline shift, hydrocephalus, or acute hemorrhage. No significant atrophy-like change or white matter disease. There is no sinus or mastoid fluid. The orbits are within normal limits. No skull fracture. HEAD AND NECK CTA: Aortic arch and cervical great vessels are patent. Intracranial arteries are patent. No aneurysm, dissection, or occlusion. No abnormal intracranial enhancement. The visualized thyroid gland is unremarkable. No cervical mass or fluid collection. Lung apices clear. No acute fracture. IMPRESSION: 1. Unremarkable head CT. 2. Patent head and neck CTA. This document has been electronically signed by: John Dinero MD on 09/08/2024 17:24:04
--- NOTE | 2024-09-08 13:10 | ED.GENADULT ---
HPI - General Adult General Chief complaint: Ear Problems Stated complaint: headache, ear and neck pain Time Seen by Provider: 09/08/24 13:51 Source: patient and old records reviewed Mode of arrival: ambulatory Limitations: no limitations History of Present Illness ED Provider: STANLEY HEATH narrative: 63 yo male with PMH of UTI, bladder outlet obstruction, HTN, GERD, HLD, not on thinners here with c/o R sided headache for 3 weeks ago after chiropractor he has pain in R ear and R head/neck. He has no numbness, weakness. He reports he has been on 3 days of amoxicillin for ear infection. He notes no improvement and no response to tylenol. No fevers. MD complaint: neck head pain Onset (ago): week(s) (3) Location: head and neck Radiation: non-radiation Severity: moderate Quality: aching Pain Consistency: constant Relieving factors: none Exacerbating factors: none Associated symptoms: other (ringing in R ear, ear pain) Treatments prior to arrival: none Related Data Home Medications ?Medication ?Instructions ?Recorded ?Confirmed ascorbic acid (vitamin C) 1,000 mg 1,000 mg PO DAILY 08/15/20 04/25/23 tablet (Vitamin C) cholecalciferol (vitamin D3) 50 50 mcg PO DAILY 08/15/20 04/25/23 mcg (2,000 unit) capsule (Vitamin D3) montelukast 10 mg tablet 10 mg PO DAILY PRN Wheezing 08/15/20 04/25/23 (Singulair) rosuvastatin 10 mg tablet (Crestor) 10 mg PO DAILY 08/15/20 04/25/23 albuterol sulfate 90 mcg/actuation 2 puff inhalation Q4H PRN wheezing 10/06/22 04/25/23 aerosol inhaler (Ventolin HFA) aspirin 81 mg tablet,delayed 81 mg PO QAM 10/06/22 04/25/23 release baclofen 10 mg tablet 10 mg PO TID PRN Muscle Spasm 10/06/22 04/25/23 calcium carbonate (Calcium 600) 600 mg PO DAILY 10/06/22 04/25/23 cetirizine 10 mg tablet 10 mg PO QAM 10/06/22 04/25/23 ibuprofen 600 mg tablet 600 mg PO TID PRN Pain 10/06/22 04/25/23 lidocaine 5 % topical patch 1 patch topical DAILY 10/06/22 04/25/23 lisinopril 20 mg tablet 20 mg PO QAM 10/06/22 04/25/23 cefuroxime axetil 500 mg tablet 500 mg PO BID PRN 04/01/23 04/25/23 doxycycline hyclate 100 mg capsule 100 mg PO BID 04/25/23 Previous Rx's ?Medication ?Instructions ?Recorded walker #1 ea 07/17/20 acetaminophen 325 mg tablet 650 mg (2 x 325 mg) PO Q6H PRN 08/21/20 Pain, Mild (Pain Scale 1-3) 30 days #240 tabs docusate sodium 100 mg capsule 100 mg PO BID 14 days #28 caps 08/21/20 hydrocortisone 2.5 % topical cream 1 appl CA BID-QID PRN hemorrhoids 04/16/21 with perineal applicator #30 grams (Proctosol HC) bisacodyl 5 mg tablet,delayed 10 mg (2 x 5 mg) PO ONCE 1 day #2 11/23/22 release (Dulcolax (bisacodyl)) tabs Lactobacillus rhamnosus GG 20 See Rx Instructions PO .COMPLEX 04/01/23 billion cell capsule (Probiotic #90 caps [facility]) cyclobenzaprine 10 mg tablet 10 mg PO Q8H #20 tabs 05/29/23 tramadol 50 mg tablet 50 mg PO Q6H PRN pain #20 tabs 05/29/23 cqzjnrxkbe-etusxlljfwcxf-xxfknrby 1 cap PO Q8H PRN pain (scale score 06/27/23 50 mg-300 mg-40 mg capsule 7-10) #10 caps (Fioricet) lidocaine 5 % topical patch 1 patch topical DAILY #15 ea 06/27/23 (Lidoderm) cyclobenzaprine 10 mg tablet 10 mg PO TID PRN muscle spasm #15 09/13/23 tabs trazodone 50 mg tablet 50 mg PO BEDTIME PRN insomnia #14 09/13/23 tabs omeprazole 40 mg capsule,delayed 40 mg PO DAILY Gastric Reflux 90 12/05/23 release days #90 caps tramadol 50 mg tablet 50 mg PO Q8H PRN pain #14 tabs 01/12/24 cyclobenzaprine 10 mg tablet 10 mg PO TID PRN muscle spasm #10 02/07/24 tabs lidocaine 5 % topical patch 1 patch topical DAILY #15 ea 02/07/24 (Lidoderm) methylcellulose (laxative) 500 mg 500 mg PO DAILY #90 tabs 02/13/24 tablet (Citrucel) tadalafil 10 mg tablet 10 mg PO DAILY 90 days #90 tabs 04/12/24 finasteride 5 mg tablet 5 mg PO DAILY 90 days #90 tabs 08/08/24 tamsulosin 0.4 mg capsule 0.4 mg PO DAILY 90 days #90 caps 08/08/24 cyclobenzaprine 10 mg tablet 10 mg PO Q8H #20 tabs 09/08/24 tramadol 50 mg tablet 50 mg PO Q6H PRN pain #20 tabs 09/08/24 Allergies Allergy/AdvReac Type Severity Reaction Status Date / Time terazosin Allergy Severe Hypotension Verified 09/08/24 13:12 amlodipine AdvReac Intermediate Nausea Verified 09/08/24 13:12 Review of Systems Review of Systems: Constitutional : No Fever, No Chills, No Fatigue ENT/Mouth : No sore throat, No Rhinorrhea Eyes: No Eye Pain, No Swelling, No Redness Cardiovascular : No Chest Pain, No SOB, No Dyspnea on Exertion Respiratory : No Cough, No Sputum Gastrointestinal : No Nausea, No Vomiting, No Diarrhea, No abdominal Pain Genitourinary : No Dysuria, No Urinary Frequency, No Hematuria, Musculoskeletal : No joint pain, No Myalgias, No Joint Swelling, pos neck pain Skin : No Skin Lesions, No rash Neuro : No Weakness, No Numbness, No Dizziness, positive Headache All other systems reviewed and are negative PMFSH Past Medical History Attestation statement: The following information was validated with the patient. Source: old records reviewed Medical History Infected cyst of skin Diverticulosis Back abscess Hypertension Heart murmur Hx of varicose veins Arthritis Asthma Pre-diabetes History of BPH GERD (gastroesophageal reflux disease) Elevated cholesterol HTN (hypertension) COVID-19 vaccine administered Osteochondral defect of femoral condyle Osteoarthritis of right knee Surgical History History of esophagogastroduodenoscopy (EGD) Hx of meniscectomy of right knee H/O colonoscopy History of right knee surgery Family History Family History Mother No problems noted. Father No problems noted. Social History Social History Household Members: None Housing: Apartment Are you a primary child care attendant school to a significant other at home: No Do you presently have visiting nurse or other home services: No Alcohol intake: former Patient Tobacco Use Status: Never used Tobacco Smoked in Last 30 Days: No e-Cigarette/Vaping Use: Never Used Use of substances other than those prescribed or required for medical reasons: No Substance Use Type: Marijuana Advance Directives: Yes Advance Directives on File: Yes Advance Directives Date on File: 10/11/22 service: No Current occupational status: unemployed Current occupation: right handed Physical Exam ED Vital Signs: Vital Signs - 24 hr 09/08/24 13:12 09/08/24 13:43 09/08/24 17:18 Temperature 98.5 F 98.6 F 97.8 F Pulse Rate 89 84 76 Respiratory Rate 22 H 18 16 Blood Pressure 147/84 H 132/71 123/76 Pulse Oximetry 96 97 98 Oxygen Delivery Method Room Air Room Air Room Air 09/08/24 17:57 Temperature 97.8 F Pulse Rate 76 Respiratory Rate 16 Blood Pressure 123/76 Pulse Oximetry 98 Oxygen Delivery Method Room Air BMI result Body Mass Index 37.0 Appearance: Alert. Oriented X3. No acute distress. Eyes: Pupils equal, round and reactive to light. ENT: Pharynx normal. TMs normal bilaterally, no temporal artery ttp, no mastoid ttp, ext ear normal Neck: Normal inspection. Neck supple. pain on R upper neck just inferior to R earlobe CVS: Normal heart rate and rhythm. Pulses normal. Respiratory: No respiratory distress. Breath sounds normal. Abdomen: Soft and nontender. Skin: Skin warm and dry. Normal skin color. Normal skin turgor. Extremities: No lower extremity edema. No calf ttp Neuro: Oriented X 3. No motor deficit. No sensory deficit. CN2-12 intact Course Course Course Narrative: This is a rapid medical exam performed by Cliff Yang NP: Additional HPI, ROS, PE not included below will be deferred to primary provider. Patient is a 63-year-old male presenting with complaint of headache, right ear pain, and neck/shoulder pain for the past 2 weeks. Saw PCP who treated with antibiotics for ear infections. Symptoms began after going to chiropractor who cracked his neck, also having associated tinnitus. Plan: labs, will defer imaging to primary provider Medications Administered Discontinued Medications Generic Name Dose Route Start Last Admin Trade Name Tiffanie PRN Reason Stop Dose Admin Iohexol 70 ml 09/08/24 16:01 09/08/24 16:01 Iohexol 350 Mg/Ml 100 Ml Infus..Btl IV 09/08/24 16:02 70 ml ONCE ONE Administration Oxycodone HCl 5 mg 09/08/24 14:23 09/08/24 14:34 Oxycodone Hcl Immed Release 5 Mg Tablet PO 09/08/24 14:24 5 mg ONCE ONE Administration Medical Decision Making Medical Decision Making [facility] Narrative: 63 yo male with PMH of UTI, bladder outlet obstruction, HTN, GERD, HLD, here with c/o R sided neck, ear pain, ringing in R ear at this time it did start after chiropractor but no other trauma. He is neuro intact, his ear exam is normal. Given his complaint and findings I am going to order labs and CTA of head and neck. CTA head and neck negative with patent arteries patient is feeling much better after taking oxycodone gait is stable Differential Diagnosis Differential Diagnoses: The differential diagnosis associated with the presentation includes dissection, trauma, ear pain, mastoiditis Admission/Observation Consideration of admission/observation: Escalation of care including admission/observation considered Lab Data [facility] Lab Attestation statement: I reviewed the patient's lab results. 09/08/24 13:21 09/08/24 13:21 Labs: Lab Results 09/08/24 Range/Units 13:21 WBC 5.7 (4.8-10.8) X10*3/uL RBC 4.67 (4.60-5.80) X10*6/uL Hgb 14.2 (14.0-18.0) g/dl Hct 41.7 L (42.0-52.0) % MCV 89.3 (80.0-98.0) fL MCH 30.4 (27.0-33.0) pg MCHC 34.1 (31.0-36.0) g/dl RDW 13.2 (11.0-16.0) % Plt Count 209 (160-400) X10*3/uL MPV 8.6 L (9.4-12.4) fL Immature Gran % (Auto) 0.2 (0.0-0.4) % Neut % (Auto) 50.7 (45-73) % Lymph % (Auto) 34.7 (20-40) % Hendry % (Auto) 10.3 (2-11) % Eos % (Auto) 3.4 (0-4) % Baso % (Auto) 0.7 (0-2) % Lymph # (Auto) 2.0 (1.2-4.9) X10*3/uL Hendry # (Auto) 0.6 (0.1-1.2) X10*3/uL Eos # (Auto) 0.2 (0.0-0.4) X10*3/uL Baso # (Auto) 0.0 (0.0-0.2) X10*3/uL Abs Immat Gran (auto) 0.01 (0.00-0.03) X10*3/uL Absolute Neuts (auto) 2.9 (2.0-8.3) x10*3/uL Absolute Nucleated RBC 0.000 (0.0-0.012) X10*3/uL Nucleated RBC % (auto) 0.0 (0.0-0.2) /100WBC Sodium 137 (135-145) mmol/L Potassium 4.0 (3.3-5.1) mmol/L Chloride 105 (96-108) mmol/L Carbon Dioxide 22 (22-29) mmol/L Anion Gap 14 (12-20) BUN 18 H (9-16) mg/dL Creatinine 0.68 (0.5-1.4) mg/dL Estim Creat Clear Calc 138.2 Estimated GFR > 60 Random Glucose 186 H (60-115) mg/dL Calcium 9.9 (8.4-10.2) mg/dL Independent Interpretation I performed an independent interpretation of an: CT Scan Radiology Impression Discussion of test interpretation with radiology: I have reviewed the radiologist's reading. Radiologist Impression: Negative Independent Historian Clinical information obtained from an independent historian. History obtained from or confirmed by: EMS External Record Review External record reviewed: Outpatient record Discharge Plan Discharge Clinical Impression: Acute cervical myofascial strain Patient Disposition: Home, Self-Care Instructions: Cervical Strain (DC) Additional Instructions: Take pain medication and muscle relaxant as prescribed Follow with your PCP if not better Report to ER if weakness hands or tingling sensation Prescriptions: New cyclobenzaprine 10 mg tablet 10 mg PO Q8H Qty: 20 0RF tramadol 50 mg tablet 50 mg PO Q6H PRN (Reason: pain) Qty: 20 0RF No Action omeprazole 40 mg capsule,delayed release(DR/EC) 40 mg PO DAILY 90 Days Qty: 90 1RF Citrucel 500 mg tablet 500 mg PO DAILY Qty: 90 2RF Rx Instructions: take it with full glass of water tadalafil 10 mg tablet 10 mg PO DAILY 90 Days Qty: 90 3RF Rx Instructions: use coupon attached not insurance ascorbic acid (vitamin C) [Vitamin C] 1,000 mg Tablet 1,000 mg PO DAILY rosuvastatin [Crestor] 10 mg Tablet 10 mg PO DAILY cholecalciferol (vitamin D3) [Vitamin D3] 50 mcg (2,000 unit) Capsule 50 mcg PO DAILY montelukast [Singulair] 10 mg Tablet 10 mg PO DAILY PRN (Reason: Wheezing) acetaminophen 325 mg Tablet 650 mg PO Q6H PRN (Reason: Pain, Mild (Pain Scale 1-3)) 30 Days Qty: 240 0RF docusate sodium 100 mg Capsule 100 mg PO BID 14 Days Qty: 28 0RF cyclobenzaprine 10 mg tablet 10 mg PO Q8H Qty: 20 0RF tramadol 50 mg tablet 50 mg PO Q6H PRN (Reason: pain) Qty: 20 0RF cyclobenzaprine 10 mg tablet 10 mg PO TID PRN (Reason: muscle spasm) Qty: 15 0RF trazodone 50 mg tablet 50 mg PO BEDTIME PRN (Reason: insomnia) Qty: 14 0RF tramadol 50 mg tablet 50 mg PO Q8H PRN (Reason: pain) Qty: 14 0RF cyclobenzaprine 10 mg tablet 10 mg PO TID PRN (Reason: muscle spasm) Qty: 10 0RF lidocaine [Lidoderm] 5 % adhesive patch,medicated 1 patch topical DAILY Qty: 15 0RF Rx Instructions: leave on most painful area for up to 12 hrs cetirizine 10 mg tablet 10 mg PO QAM lisinopril 20 mg tablet 20 mg PO QAM aspirin 81 mg tablet,delayed release (DR/EC) 81 mg PO QAM lidocaine 5 % adhesive patch,medicated 1 patch topical DAILY ibuprofen 600 mg tablet 600 mg PO TID PRN (Reason: Pain) albuterol sulfate [Ventolin HFA] 90 mcg/actuation HFA aerosol inhaler 2 puff INHALATION Q4H PRN (Reason: wheezing) calcium carbonate [Calcium 600] 600 mg calcium (1,500 mg) Tablet 600 mg PO DAILY baclofen 10 mg Tablet 10 mg PO TID PRN (Reason: Muscle Spasm) pbsvuovvlb-mfjgxkzpyfhgx-rrat [Fioricet] 50-300-40 mg capsule 1 cap PO Q8H PRN (Reason: pain (scale score 7-10)) Qty: 10 0RF lidocaine [Lidoderm] 5 % adhesive patch,medicated 1 patch topical DAILY Qty: 15 0RF Rx Instructions: leave on most painful area for up to 12 hrs (DME) walker [facility] See Rx Instructions .MEDSUPPLY Qty: 1 0RF Rx Instructions: Folding Front wheeled walker hydrocortisone [Proctosol HC] 2.5 % cream with perineal applicator 1 appl CA BID-QID PRN (Reason: hemorrhoids) Qty: 30 0RF bisacodyl [Dulcolax (bisacodyl)] 5 mg tablet,delayed release (DR/EC) 10 mg PO ONCE 1 Days Qty: 2 0RF Rx Instructions: take 2 tabs at noon the day before your colonoscopy cefuroxime axetil 500 mg tablet 500 mg PO BID PRN Probiotic [facility] 20 billion cell capsule See Rx Instructions PO .COMPLEX Qty: 90 2RF Rx Instructions: ONE CAP orally DAILY doxycycline hyclate 100 mg capsule 100 mg PO BID finasteride 5 mg tablet 5 mg PO DAILY 90 Days Qty: 90 3RF tamsulosin 0.4 mg capsule 0.4 mg PO DAILY 90 Days Qty: 90 3RF Interventions: ED Discharge Assessment Last Done: 09/08/24 17:57 Discharge Date/Time: 09/08/24 17:58 Print Language: Uruguayan
[2024-09-08 13:12] VITALS: BP 147/84; PULSE 89; RESP 22; TEMP 36.9; O2SAT 96; BMI 37.0
[2024-09-08 13:25] LABS: MANUAL DIFF FLAG NO
[2024-09-08 13:28] LABS: Basophils Percent Auto 0.7 % (0-2); Eosinophils Absolute Auto 0.2 X10*3/uL (0.0-0.4); Eosinophils Percent Auto 3.4 % (0-4); Hematocrit 41.7 % (42.0-52.0); Hemoglobin 14.2 g/dl (14.0-18.0); Imm Gran Abs Auto 0.01 X10*3/uL (0.00-0.03); Imm Gran Pct Auto 0.2 % (0.0-0.4); Lymphocytes Percent Auto 34.7 % (20-40); Mean Corpuscular HGB Conc 34.1 g/dl (31.0-36.0); Mean Corpuscular Hemoglobin 30.4 pg (27.0-33.0); Mean Corpuscular Volume 89.3 fL (80.0-98.0); Mean Platelet Volume 8.6 fL (9.4-12.4); Monocytes Absolute Auto 0.6 X10*3/uL (0.1-1.2); Monocytes Percent Auto 10.3 % (2-11); Neutrophils Absolute Auto 2.9 x10*3/uL (2.0-8.3); Neutrophils Percent Auto 50.7 % (45-73); Platelet Count 209 X10*3/uL (160-400); Red Blood Count 4.67 X10*6/uL (4.60-5.80); Red Cell Distribution Width 13.2 % (11.0-16.0); White Blood Count 5.7 X10*3/uL (4.8-10.8)
[2024-09-08 13:43] VITALS: BP 132/71; PULSE 84; RESP 18; TEMP 37; O2SAT 97
[2024-09-08 13:46] LABS: Anion Gap 14 (12-20); Blood Urea Nitrogen 18 mg/dL (9-16); Calcium 9.9 mg/dL (8.4-10.2); Carbon Dioxide 22 mmol/L (22-29); Chloride 105 mmol/L (96-108); Creatinine Clr Calc Pharmacy 138.2; Estimated Glomerular Filt Rate > 60; Glucose Random 186 mg/dL (60-115); Sodium 137 mmol/L (135-145)
[2024-09-08] MEDS: oxyCODONE HCl Immed Release 5 MG TABLET PO (14:34)
[2024-09-08] MEDS: iohexoL 350 MG/ML 100 ML INFUS..BTL 70 ML IV (16:01)
[2024-09-08 17:18] VITALS: BP 123/76; PULSE 76; RESP 16; TEMP 36.6; O2SAT 98
[2024-09-08 17:57] VITALS: BP 123/76; PULSE 76; RESP 16; TEMP 36.6; O2SAT 98
== END 2024-09-08 17:58 | disposition home or self-care (01) ==
PROVIDERS: Registered Nurse Emergency; Emergency Provider Internal Medicine; PCP Family Medicine
DX: S16.1XXA Strain of muscle, fascia and tendon at neck level, initial encounter (principal); X50.9XXA Other and unspecified overexertion or strenuous movements or postures, initial encounter; E11.9 Type 2 diabetes mellitus without complications; I10 Essential (primary) hypertension; E78.5 Hyperlipidemia, unspecified; J45.909 Unspecified asthma, uncomplicated; Y93.89 Activity, other specified; Y92.9 Unspecified place or not applicable; Y99.9 Unspecified external cause status
CPT/HCPCS: 36415; 70496; 70498; 80048; 85025; 99284; Q9967

== ENCOUNTER → 2024-09-08 14:23 | Outpatient (BNV) | payer MEDICAID, SELFPAY | PROVIDERS: Emergency Provider Internal Medicine; PCP Family Medicine; Visit Provider Radiology Diagnostic Radiology | DX: M54.2 Cervicalgia (principal); R51.9 Headache, unspecified; H92.01 Otalgia, right ear | CPT/HCPCS: 70496; 70498 ==

== ENCOUNTER 2024-09-14 08:04 | Outpatient (REF) | payer MEDICAID, SELFPAY ==
--- OUTSIDE RECORDS SUMMARY | 2024-09-14 08:07 | XMS_ITS | Encounter Summary ---
Author Organization [employer] Address [address] [facility] [address] [place] [address] Care Team Providers Care Medical Librarian Name Role Phone Carmina Narayan MD Primary Care Provider [phone] Reason for Visit * Reason Onset Date Comments Med Refill 07/29/2024 Encounter Details Date Type Department Care Team ([facility] st Contact Info) Description 07/29/2024 Refill [facility] [address] [place], [place] [phone] Carmina Narayan MD [address] [place] [address] Social History Tobacco Use Types Packs/Day Years [...] as of this encounter Plan of Treatment Upcoming Encounters Date Type Department Care Team (Late st Contact Info) Description 10/24/2024 2:30 PM EDT Office Visit [facility] [address] [place] [address] Carmina Narayan MD [address] [place] [address] 12/31/2024 10:30 AM EDT Office Visit [facility] OPTOMETRY [address] [place] [address] Kia Carvalho, OD [address] [place] [address] documented as of this encounter Visit Diagnoses Not on filedocumented in this encounter Additional Health Concerns Assessment Noted Time PHQ-9 Depression Total Score: 6 07/28/19 25 9:04 AM EDT documented as of this encounter Care Teams Medical Librarian Relationship Specialty Start Date End Date Carmina Narayan MD [address] [place] [address] PCP - General Family Medicine 09/14/22 documented as of this encounter
[2024-09-14 14:35] LABS: MANUAL DIFF FLAG NO
[2024-09-14 14:37] LABS: Basophils Percent Auto 0.9 % (0-2); Eosinophils Absolute Auto 0.2 X10*3/uL (0.0-0.4); Eosinophils Percent Auto 4.4 % (0-4); Hematocrit 43.2 % (42.0-52.0); Hemoglobin 14.7 g/dl (14.0-18.0); Imm Gran Abs Auto 0.01 X10*3/uL (0.00-0.03); Imm Gran Pct Auto 0.2 % (0.0-0.4); Lymphocytes Absolute Auto 1.7 X10*3/uL (1.2-4.9); Lymphocytes Percent Auto 38.4 % (20-40); Mean Corpuscular Hemoglobin 30.4 pg (27.0-33.0); Mean Corpuscular Volume 89.4 fL (80.0-98.0); Monocytes Absolute Auto 0.5 X10*3/uL (0.1-1.2); Monocytes Percent Auto 11.7 % (2-11); Neutrophils Percent Auto 44.4 % (45-73); Platelet Count 227 X10*3/uL (160-400); Red Blood Count 4.83 X10*6/uL (4.60-5.80); Red Cell Distribution Width 13.4 % (11.0-16.0); White Blood Count 4.5 X10*3/uL (4.8-10.8)
[2024-09-14 14:48] LABS: Appearance Urine Clear; Color Urine Yellow; Glucose Urine UA Negative (Negative); Leukocyte Esterase Urine Negative (Negative); Nitrite Urine Negative (Negative); PH 6.5 (5.0-9.0); Urine Blood Negative (Negative); Urine Ketones Negative (Negative); Urine Protein Negative (Neg-Trace)
[2024-09-14 14:51] LABS: Bacteria Urine None Seen (None Seen); Hyaline Casts Urine 0-2 /LPF (0-2); RBC Urine 0-2 /HPF (0-2); Squamous Epithelial Cell Urine 0-2 /HPF (0-2); WBC Urine 0-5 /HPF (0-5)
[2024-09-14 15:02] LABS: Alanine Aminotransferase 48 U/L (0-40); Albumin Level 4.8 g/dL (3.5-5.0); Alkaline Phosphatase 67 U/L (39-117); Anion Gap 11 (12-20); Aspartate Amino Transferase 37 U/L (5-37); Blood Urea Nitrogen 14 mg/dL (9-16); Calcium 9.6 mg/dL (8.4-10.2); Carbon Dioxide 24 mmol/L (22-29); Chloride 105 mmol/L (96-108); Cholesterol 117 mg/dL (<200); Estimated Glomerular Filt Rate > 60; Glucose Random 107 mg/dL (60-115); HDL Cholesterol 45 mg/dL (>40); LDL Cholesterol Calculated 61 mg/dL (<100); Potassium 4.2 mmol/L (3.3-5.1); Sodium 136 mmol/L (135-145); Total Protein 7.1 g/dL (6.5-8.0); Triglycerides 56 mg/dL (<150)
== END 2024-09-14 08:05 | disposition home or self-care (01) ==
LOC: HO.CHCLDS 08:04
PROVIDERS: Internal Medicine; Visit Provider Family Medicine
DX: R35.1 Nocturia (principal); E78.5 Hyperlipidemia, unspecified
CPT/HCPCS: 36415; 80053; 80061; 81001; 85025

== ENCOUNTER 2024-09-21 22:50 | Emergency (ER) | payer MEDICAID, SELFPAY ==
--- NOTE | ~2024-09-21 | CT_ITS ---
CLINICAL HISTORY: Abnormal Chest X-ray CT chest with contrast Comparison: CT - CT CHEST W IV CON - 09/22/24 02:10 EDT Findings: The heart is normal size. The visualized thyroid and mediastinum are unremarkable. The pulmonary parenchyma demonstrates dependent atelectasis and left basilar pleural-parenchymal scarring. No nodular masses. No hilar adenopathy. Study is not optimized for the evaluation of pulmonary arteries. No pleural effusions. No significant thickening of the interlobular septa. There is a left upper lobe calcified nodule. No consolidation or effusion. The visualized upper abdomen is unremarkable. There are maribel hepatis nodes. Spine demonstrates bridging syndesmophytes with osseous fusion extending from T3 through T11. IMPRESSION: 1. Unremarkable chest CT. Dependent atelectasis. 2. Diffuse idiopathic skeletal hyperostosis. This document has been electronically signed by: Dc Hoover III, MD PHD on 09/22/2024 04:02:54
--- NOTE | ~2024-09-21 | XR_ITS ---
CLINICAL HISTORY: Weakness; Body Aches 2 view chest x-ray Comparison: CT/SR - CT ANGIO HEAD NECK - 09/08/24 15:[address]/SR - CT CHEST W IV CON - 02/07/24 18:32 EST Findings: Lung inflation is normal. Cardiac and mediastinal silhouettes are normal. No consolidation or effusion. Bilateral reticular opacities are present. No acute fracture. IMPRESSION: 1. Bilateral reticular and peribronchovascular opacities may represent sequelae of interstitial edema. 2. No pleural effusion or consolidative opacities. This document has been electronically signed by: Dc Hoover III, MD PHD on 09/22/2024 01:15:17
[2024-09-21 22:52] VITALS: BP 146/80; PULSE 78; RESP 20; TEMP 36.3; O2SAT 97; BMI 36.2
[2024-09-21 23:07] LABS: MANUAL DIFF FLAG NO
[2024-09-21 23:08] LABS: Basophils Percent Auto 0.6 % (0-2); Eosinophils Absolute Auto 0.2 X10*3/uL (0.0-0.4); Hematocrit 41.3 % (42.0-52.0); Hemoglobin 14.3 g/dl (14.0-18.0); Imm Gran Abs Auto 0.01 X10*3/uL (0.00-0.03); Imm Gran Pct Auto 0.2 % (0.0-0.4); Lymphocytes Absolute Auto 2.2 X10*3/uL (1.2-4.9); Lymphocytes Percent Auto 35.1 % (20-40); Mean Corpuscular HGB Conc 34.6 g/dl (31.0-36.0); Mean Corpuscular Hemoglobin 30.6 pg (27.0-33.0); Mean Corpuscular Volume 88.2 fL (80.0-98.0); Mean Platelet Volume 8.8 fL (9.4-12.4); Monocytes Absolute Auto 0.7 X10*3/uL (0.1-1.2); Monocytes Percent Auto 10.9 % (2-11); Neutrophils Absolute Auto 3.2 x10*3/uL (2.0-8.3); Neutrophils Percent Auto 50.2 % (45-73); Platelet Count 211 X10*3/uL (160-400); Red Blood Count 4.68 X10*6/uL (4.60-5.80); Red Cell Distribution Width 13.4 % (11.0-16.0); White Blood Count 6.3 X10*3/uL (4.8-10.8)
[2024-09-21 23:15] LABS: IDNOW Serial# 6674DD1D; Strep A Nucleic Acid Negative (Negative)
--- NOTE | 2024-09-21 23:22 | ED.GENADULT ---
HPI - General Adult General Chief complaint: General Medical Stated complaint: badyaches and pain Time Seen by Provider: 09/21/24 23:22 Source: patient Mode of arrival: ambulatory Limitations: language barrier (Shoes Hand Sewer Used) History of Present Illness ED Provider: Anthony MARIO HPI narrative: The patient is a 63-year-old male with history of previous UTIs, bladder outlet obstruction, hypertension, hyperlipidemia, GERD, and recurrent cervical myalgias currently being treated by a chiropractor who presents to the ED for evaluation of sudden onset generalized body aches with associated headache, dizziness, dry mouth, right ear pain, ringing in the ears, and nausea without associated objective fever, abdominal pain, vomiting, diarrhea, chest pain, cough, recent sick contacts, or recent trauma. The patient was seen here on 09/08 for similar right-sided neck and ear complaints, at that time symptoms have been ongoing for approximately 3 weeks after manipulation by a chiropractor. The patient at that time underwent CTA of the head and neck which was unremarkable and patient was discharged home after improvement in symptoms with oxycodone. Patient was discharged with Ultram and Flexeril. The patient reports he went to bed feeling well tonight however awoke suddenly at approximately 22:00 with the above-stated symptoms. The patient reports he took his lisinopril and some Tylenol and symptoms have begun to improve but have not entirely resolved. The patient did not take the previously prescribed Flexeril or Ultram. Of note the patient reports he was seen again by his chiropractor on , however reports he informed his chiropractor of his previous symptoms/evaluation and the chiropractor adjusted his treatment. Patient denies any abnormal symptoms following the most recent chiropractic treatment until this evening. Related Data Home Medications ?Medication ?Instructions ?Recorded ?Confirmed ascorbic acid (vitamin C) 1,000 mg 1,000 mg PO DAILY 08/15/20 04/25/23 tablet (Vitamin C) cholecalciferol (vitamin D3) 50 50 mcg PO DAILY 08/15/20 04/25/23 mcg (2,000 unit) capsule (Vitamin D3) montelukast 10 mg tablet 10 mg PO DAILY PRN Wheezing 08/15/20 04/25/23 (Singulair) rosuvastatin 10 mg tablet (Crestor) 10 mg PO DAILY 08/15/20 04/25/23 albuterol sulfate 90 mcg/actuation 2 puff inhalation Q4H PRN wheezing 10/06/22 04/25/23 aerosol inhaler (Ventolin HFA) aspirin 81 mg tablet,delayed 81 mg PO QAM 10/06/22 04/25/23 release baclofen 10 mg tablet 10 mg PO TID PRN Muscle Spasm 10/06/22 04/25/23 calcium carbonate (Calcium 600) 600 mg PO DAILY 10/06/22 04/25/23 cetirizine 10 mg tablet 10 mg PO QAM 10/06/22 04/25/23 ibuprofen 600 mg tablet 600 mg PO TID PRN Pain 10/06/22 04/25/23 lidocaine 5 % topical patch 1 patch topical DAILY 10/06/22 04/25/23 lisinopril 20 mg tablet 20 mg PO QAM 10/06/22 04/25/23 cefuroxime axetil 500 mg tablet 500 mg PO BID PRN 04/01/23 04/25/23 doxycycline hyclate 100 mg capsule 100 mg PO BID 04/25/23 Previous Rx's ?Medication ?Instructions ?Recorded walker #1 ea 07/17/20 acetaminophen 325 mg tablet 650 mg (2 x 325 mg) PO Q6H PRN 08/21/20 Pain, Mild (Pain Scale 1-3) 30 days #240 tabs docusate sodium 100 mg capsule 100 mg PO BID 14 days #28 caps 08/21/20 hydrocortisone 2.5 % topical cream 1 appl NC BID-QID PRN hemorrhoids 04/16/21 with perineal applicator #30 grams (Proctosol HC) bisacodyl 5 mg tablet,delayed 10 mg (2 x 5 mg) PO ONCE 1 day #2 11/23/22 release (Dulcolax (bisacodyl)) tabs Lactobacillus rhamnosus GG 20 See Rx Instructions PO .COMPLEX 04/01/23 billion cell capsule (Probiotic #90 caps [facility]) cyclobenzaprine 10 mg tablet 10 mg PO Q8H #20 tabs 05/29/23 tramadol 50 mg tablet 50 mg PO Q6H PRN pain #20 tabs 05/29/23 [id number] 1 cap PO Q8H PRN pain (scale score 06/27/23 50 mg-300 mg-40 mg capsule 7-10) #10 caps (Fioricet) lidocaine 5 % topical patch 1 patch topical DAILY #15 ea 06/27/23 (Lidoderm) cyclobenzaprine 10 mg tablet 10 mg PO TID PRN muscle spasm #15 09/13/23 tabs trazodone 50 mg tablet 50 mg PO BEDTIME PRN insomnia #14 09/13/23 tabs omeprazole 40 mg capsule,delayed 40 mg PO DAILY Gastric Reflux 90 12/05/23 days #90 caps tramadol 50 mg tablet 50 mg PO Q8H PRN pain #14 tabs 01/12/24 cyclobenzaprine 10 mg tablet 10 mg PO TID PRN muscle spasm #10 02/07/24 tabs lidocaine 5 % topical patch 1 patch topical DAILY #15 ea 02/07/24 (Lidoderm) methylcellulose (laxative) 500 mg 500 mg PO DAILY #90 tabs 02/13/24 tablet (Citrucel) tadalafil 10 mg tablet 10 mg PO DAILY 90 days #90 tabs 04/12/24 finasteride 5 mg tablet 5 mg PO DAILY 90 days #90 tabs 08/08/24 tamsulosin 0.4 mg capsule 0.4 mg PO DAILY 90 days #90 caps 08/08/24 cyclobenzaprine 10 mg tablet 10 mg PO Q8H #20 tabs 09/08/24 tramadol 50 mg tablet 50 mg PO Q6H PRN pain #20 tabs 09/08/24 Allergies Allergy/AdvReac Type Severity Reaction Status Date / Time terazosin Allergy Severe Hypotension Verified 09/21/24 22:53 amlodipine AdvReac Intermediate Nausea Verified 09/21/24 22:53 Review of Systems Review of Systems: Yes all other systems are reviewed and are negative [facility] Past Medical History Medical History Infected cyst of skin Diverticulosis Back abscess Hypertension Heart murmur Hx of varicose veins Arthritis Asthma Pre-diabetes History of BPH GERD (gastroesophageal reflux disease) Elevated cholesterol HTN (hypertension) COVID-19 vaccine administered Osteochondral defect of femoral condyle Osteoarthritis of right knee Surgical History History of esophagogastroduodenoscopy (EGD) Hx of meniscectomy of right knee H/O colonoscopy History of right knee surgery Family History Family History Mother No problems noted. Father No problems noted. Social History Social History Household Members: None Housing: Apartment Are you a primary career coordinator to a significant other at home: No Do you presently have visiting nurse or other home services: No Alcohol intake: former Patient Tobacco Use Status: Never used Tobacco e-Cigarette/Vaping Use: Never Used Substance Use Type: Marijuana Advance Directives: Yes Advance Directives on File: Yes Advance Directives Date on File: 10/11/22 service: No Current occupational status: unemployed Current occupation: right handed Physical Exam ED Vital Signs: Vital Signs - 24 hr 09/21/24 22:52 09/22/24 02:28 Temperature 97.3 F 98.1 F Pulse Rate 78 73 Respiratory Rate 20 20 Blood Pressure 146/80 H 130/79 Pulse Oximetry 97 96 Oxygen Delivery Method Room Air Room Air BMI result Body Mass Index 36.2 CONSTITUTIONAL: The patient appears non-toxic, well nourished and in no acute distress. Vital signs as documented. HEAD: Atraumatic, normocephalic. EYES: EOMs grossly intact, pupils equal, conjunctiva clear, no exudate. ENT: Nares patent, no discharge. Airway patent, no audible stridor, visible mucosa is pink and moist without noted lesions. NECK: Trachea is midline, no obvious masses or gross abnormalities. No midline spinous process tenderness, no crepitus or step-off. Full nonpainful range of motion, no meningismus. CHEST: Symmetric movement, normal appearance. LUNGS: LS present and CTAB, no w/r/r. Non-labored work of breathing. CARDIAC: Regular Rhythm, S1/S2 appreciated, no murmurs, rubs or gallops. ABDOMEN: Abdomen soft and non-tender x4 quadrants, no palpable masses or organomegaly. : Deferred. EXTREMITIES: Normal tone, moves all extremities spontaneously without reported pain. No obvious acute injury or deformity noted. NEURO: Alert and oriented x3, CN II-XII appear intact. Cerebellar Functioning intact. Strength 5/5 x4, no sensory deficits. Speech clear and appropriate. PSYCH: normal affect, appropriate eye contact, fluid speech, with appropriate response to questioning. No reported suicidality or homicidality. SKIN: Warm, dry, color appropriate, normal turgor. No rashes noted. Medications Administered Discontinued Medications Generic Name Dose Route Start Last Admin Trade Name Tiffanie PRN Reason Stop Dose Admin Ibuprofen 600 mg 09/22/24 00:46 09/22/24 01:27 Ibuprofen 600 Mg Tablet PO 09/22/24 00:47 600 mg ONCE ONE Administration Iohexol 75 ml 09/22/24 02:40 09/22/24 02:40 Iohexol 350 Mg/Ml 100 Ml Infus..Btl IV 09/22/24 02:41 75 ml ONCE ONE Administration Medical Decision Making Medical Decision Making MDM Narrative: 12:40 AM 09/22/2024: The patient is a 63-year-old male presenting to the ED for evaluation of multiple complaints that began at approximately 22:00 when he woke from sleep. Patient reports right ear pain, dizziness, generalized body aches, nausea, and ringing in the ears. The patient reports feeling well prior to going to sleep tonight. Patient's symptoms have begun to improve following taking Tylenol and his lisinopril. In the ED the patient is markedly well-appearing, exam is benign, no focal neurological deficit, bilateral TMs and EACs are unremarkable, there is no neck stiffness or meningismus, no other acute findings. The patient's laboratory evaluation shows no leukocytosis, anemia, electrolyte abnormality, or EMI. Swabs are negative for group a strep, COVID, RSV, and influenza. The patient will be further evaluated with a chest x-ray and we will add Motrin to Tylenol taken prior to arrival. The patient is likely suffering from a viral syndrome, pending unremarkable chest x-ray and continued improvement in symptoms the patient will be appropriate for discharge home with outpatient follow up with PCP. Based on exam, presentation, and reassuring laboratory evaluation, there is no indication for repeating CT imaging of the head at this time. 1:34 AM 09/22/2024: Patient's x-ray has been interpreted and shows question of interstitial edema. We will add on BNP and obtain CT of the chest to further evaluate/clarify this finding. 4:06 AM 09/22/2024 (Simón MARIO): Patient's CT chest shows no acute process, no acute abnormality. Patient will be discharged with instructions follow up with PCP for likely viral syndrome. Differential Diagnosis Differential Diagnoses: The differential diagnosis associated with the presentation includes Viral syndrome, otitis media, otitis externa, viral labyrinthitis. Central neurologic process less likely. Admission/Observation Consideration of admission/observation: Escalation of care including admission/observation considered Lab Data MDM Lab Attestation statement: I reviewed the patient's lab results. 09/21/24 23:02 09/21/24 23:02 Labs: Lab Results 09/21/24 Range/Units 23:02 WBC 6.3 (4.8-10.8) X10*3/uL RBC 4.68 (4.60-5.80) X10*6/uL Hgb 14.3 (14.0-18.0) g/dl Hct 41.3 L (42.0-52.0) % MCV 88.2 (80.0-98.0) fL MCH 30.6 (27.0-33.0) pg MCHC 34.6 (31.0-36.0) g/dl RDW 13.4 (11.0-16.0) % Plt Count 211 (160-400) X10*3/uL MPV 8.8 L (9.4-12.4) fL Immature Gran % (Auto) 0.2 (0.0-0.4) % Neut % (Auto) 50.2 (45-73) % Lymph % (Auto) 35.1 (20-40) % [place] % (Auto) 10.9 (2-11) % Eos % (Auto) 3.0 (0-4) % Baso % (Auto) 0.6 (0-2) % Lymph # (Auto) 2.2 (1.2-4.9) X10*3/uL [place] # (Auto) 0.7 (0.1-1.2) X10*3/uL Eos # (Auto) 0.2 (0.0-0.4) X10*3/uL Baso # (Auto) 0.0 (0.0-0.2) X10*3/uL Abs Immat Gran (auto) 0.01 (0.00-0.03) X10*3/uL Absolute Neuts (auto) 3.2 (2.0-8.3) x10*3/uL Absolute Nucleated RBC 0.000 (0.0-0.012) X10*3/uL Nucleated RBC % (auto) 0.0 (0.0-0.2) /100WBC Sodium 136 (135-145) mmol/L Potassium 4.1 (3.3-5.1) mmol/L Chloride 105 (96-108) mmol/L Carbon Dioxide 23 (22-29) mmol/L Anion Gap 12 (12-20) BUN 11 (9-16) mg/dL Creatinine 0.64 (0.5-1.4) mg/dL Estim Creat Clear Calc 145.1 Estimated GFR > 60 Random Glucose 164 H (60-115) mg/dL Calcium 9.6 (8.4-10.2) mg/dL Total Bilirubin 1.0 (0.0-1.0) mg/dL AST 26 (5-37) U/L ALT 41 H (0-40) U/L Alkaline Phosphatase 70 (39-117) U/L B-Natriuretic Peptide < 10 (<100) pg/mL Total Protein 7.1 (6.5-8.0) g/dL Albumin 4.8 (3.5-5.0) g/dL Influenza Type A (PCR) NEGATIVE (Negative) Influenza Type B (PCR) NEGATIVE (Negative) RSV RNA Qual (PCR) NEGATIVE (Negative) SARS-CoV-2 RNA (RT-PCR) NEGATIVE (Negative) S. pyogenes GrpA MARIAH Negative (Negative) Radiology Impression Discussion of test interpretation with radiology: I have reviewed the radiologist's reading. Radiologist Impression: CLINICAL HISTORY: Weakness; Body Aches 2 view chest x-ray Comparison: CT/SR - CT ANGIO HEAD NECK - 09/08/24 15:[address]/SR - CT CHEST W IV CON - 02/07/24 18:32 EST Findings: Lung inflation is normal. Cardiac and mediastinal silhouettes are normal. No consolidation or effusion. Bilateral reticular opacities are present. No acute fracture. IMPRESSION: 1. Bilateral reticular and peribronchovascular opacities may represent sequelae of interstitial edema. 2. No pleural effusion or consolidative opacities. This document has been electronically signed by: Dc Hoover III, MD PHD on 09/22/2024 01:15:17 CT chest with contrast Comparison: CT - CT CHEST W IV CON - 09/22/24 02:10 EDT Findings: The heart is normal size. The visualized thyroid and mediastinum are unremarkable. The pulmonary parenchyma demonstrates dependent atelectasis and left basilar pleural-parenchymal scarring. No nodular masses. No hilar adenopathy. Study is not optimized for the evaluation of pulmonary arteries. No pleural effusions. No significant thickening of the interlobular septa. There is a left upper lobe calcified nodule. No consolidation or effusion. The visualized upper abdomen is unremarkable. There are maribel hepatis nodes. Spine demonstrates bridging syndesmophytes with osseous fusion extending from T3 through T11. IMPRESSION: 1. Unremarkable chest CT. Dependent atelectasis. 2. Diffuse idiopathic skeletal hyperostosis. This document has been electronically signed by: Dc Hoover III, MD PHD on 09/22/2024 04:02:54 External Record Review External record reviewed: Inpatient record and Outpatient record Prescription Management I considered prescription management with: Pain Medication Chronic Conditions Patient?s care impacted by: Hypertension Discharge Plan Discharge Clinical Impression: Acute viral syndrome Patient Disposition: Home, Self-Care Instructions: Viral Syndrome (ED) Additional Instructions: Thank you for choosing 's Emergency Department for your care today. Thankfully your laboratory evaluation, throat swab, viral swab, and exam today are all markedly reassuring. Your chest x-ray showed question of fluid on your lungs so a chest CT was performed and shows no fluid or any other acute process. Your symptoms are most likely related to a viral infection other than COVID, influenza, or RSV. At this time there is no evidence of an acute process requiring admission to the hospital or continued ED observation, and it is safe to discharge you home. You may take alternating (staggered) doses of ibuprofen 600mg and Tylenol 1000mg every 4 hours as needed for any additional pain. Please stay well hydrated and get plenty of rest. Please follow up with your primary care physician for re-evaluation, additional management of your symptoms, and continued preventative care. If you do not have a primary care physician, please call the [facility] at [phone] to establish a new primary care physician. While waiting to establish your new primary care physician, you can call our [facility] at [phone] for non-emergency needs. Please return to the emergency department if you develop a severe or sudden change in your symptoms, a fever over 100.4 that does not improve with Tylenol or Ibuprofen, recurrent vomiting, or any other new or worsening symptoms or concerns. Prescriptions: No Action omeprazole 40 mg capsule,delayed release(DR/EC) 40 mg PO DAILY 90 Days Qty: 90 1RF Citrucel 500 mg tablet 500 mg PO DAILY Qty: 90 2RF Rx Instructions: take it with full glass of water tadalafil 10 mg tablet 10 mg PO DAILY 90 Days Qty: 90 3RF Rx Instructions: use coupon attached not insurance ascorbic acid (vitamin C) [Vitamin C] 1,000 mg Tablet 1,000 mg PO DAILY rosuvastatin [Crestor] 10 mg Tablet 10 mg PO DAILY cholecalciferol (vitamin D3) [Vitamin D3] 50 mcg (2,000 unit) Capsule 50 mcg PO DAILY montelukast [Singulair] 10 mg Tablet 10 mg PO DAILY PRN (Reason: Wheezing) acetaminophen 325 mg Tablet 650 mg PO Q6H PRN (Reason: Pain, Mild (Pain Scale 1-3)) 30 Days Qty: 240 0RF docusate sodium 100 mg Capsule 100 mg PO BID 14 Days Qty: 28 0RF cyclobenzaprine 10 mg tablet 10 mg PO Q8H Qty: 20 0RF tramadol 50 mg tablet 50 mg PO Q6H PRN (Reason: pain) Qty: 20 0RF cyclobenzaprine 10 mg tablet 10 mg PO TID PRN (Reason: muscle spasm) Qty: 15 0RF trazodone 50 mg tablet 50 mg PO BEDTIME PRN (Reason: insomnia) Qty: 14 0RF tramadol 50 mg tablet 50 mg PO Q8H PRN (Reason: pain) Qty: 14 0RF cyclobenzaprine 10 mg tablet 10 mg PO TID PRN (Reason: muscle spasm) Qty: 10 0RF lidocaine [Lidoderm] 5 % adhesive patch,medicated 1 patch topical DAILY Qty: 15 0RF Rx Instructions: leave on most painful area for up to 12 hrs cetirizine 10 mg tablet 10 mg PO QAM lisinopril 20 mg tablet 20 mg PO QAM aspirin 81 mg tablet,delayed release (DR/EC) 81 mg PO QAM lidocaine 5 % adhesive patch,medicated 1 patch topical DAILY ibuprofen 600 mg tablet 600 mg PO TID PRN (Reason: Pain) albuterol sulfate [Ventolin HFA] 90 mcg/actuation HFA aerosol inhaler 2 puff INHALATION Q4H PRN (Reason: wheezing) calcium carbonate [Calcium 600] 600 mg calcium (1,500 mg) Tablet 600 mg PO DAILY baclofen 10 mg Tablet 10 mg PO TID PRN (Reason: Muscle Spasm) [id number] [Fioricet] 50-300-40 mg capsule 1 cap PO Q8H PRN (Reason: pain (scale score 7-10)) Qty: 10 0RF lidocaine [Lidoderm] 5 % adhesive patch,medicated 1 patch topical DAILY Qty: 15 0RF Rx Instructions: leave on most painful area for up to 12 hrs cyclobenzaprine 10 mg tablet 10 mg PO Q8H Qty: 20 0RF tramadol 50 mg tablet 50 mg PO Q6H PRN (Reason: pain) Qty: 20 0RF (DME) walker Misc See Rx Instructions .MEDSUPPLY Qty: 1 0RF Rx Instructions: Folding Front wheeled walker hydrocortisone [Proctosol HC] 2.5 % cream with perineal applicator 1 appl NC BID-QID PRN (Reason: hemorrhoids) Qty: 30 0RF bisacodyl [Dulcolax (bisacodyl)] 5 mg tablet,delayed release (DR/EC) 10 mg PO ONCE 1 Days Qty: 2 0RF Rx Instructions: take 2 tabs at noon the day before your colonoscopy cefuroxime axetil 500 mg tablet 500 mg PO BID PRN Probiotic [facility] Care 20 billion cell capsule See Rx Instructions PO .COMPLEX Qty: 90 2RF Rx Instructions: ONE CAP orally DAILY doxycycline hyclate 100 mg capsule 100 mg PO BID finasteride 5 mg tablet 5 mg PO DAILY 90 Days Qty: 90 3RF tamsulosin 0.4 mg capsule 0.4 mg PO DAILY 90 Days Qty: 90 3RF Print Language: Montserratian
[2024-09-21 23:24] LABS: Alanine Aminotransferase 41 U/L (0-40); Albumin Level 4.8 g/dL (3.5-5.0); Alkaline Phosphatase 70 U/L (39-117); Anion Gap 12 (12-20); Aspartate Amino Transferase 26 U/L (5-37); Blood Urea Nitrogen 11 mg/dL (9-16); Calcium 9.6 mg/dL (8.4-10.2); Carbon Dioxide 23 mmol/L (22-29); Chloride 105 mmol/L (96-108); Creatinine Clr Calc Pharmacy 145.1; Estimated Glomerular Filt Rate > 60; Glucose Random 164 mg/dL (60-115); Potassium 4.1 mmol/L (3.3-5.1); Sodium 136 mmol/L (135-145); Total Protein 7.1 g/dL (6.5-8.0)
[2024-09-21 23:46] LABS: Influenza A PCR NEGATIVE (Negative); Influenza B PCR NEGATIVE (Negative); Resp Syncy Virus RNA Qual PCR NEGATIVE (Negative); SARS COV2 PCR INHOUSE NEGATIVE (Negative)
[2024-09-22] MEDS: Ibuprofen 600 MG TABLET PO (01:27)
[2024-09-22 02:12] LABS: B Type Natriuretic Peptide < 10 pg/mL (<100)
[2024-09-22 02:28] VITALS: BP 130/79; PULSE 73; RESP 20; TEMP 36.7; O2SAT 96
[2024-09-22] MEDS: iohexoL 350 MG/ML 100 ML INFUS..BTL 75 ML IV (02:40)
[2024-09-22 04:48] VITALS: BP 138/82; PULSE 75; RESP 20; TEMP 36.6; O2SAT 97
== END 2024-09-22 04:49 | disposition home or self-care (01) ==
PROVIDERS: Physician Assistant; Emergency Provider Emergency Medicine
DX: B34.9 Viral infection, unspecified (principal); R51.9 Headache, unspecified; R42 Dizziness and giddiness; Z03.818 Encounter for observation for suspected exposure to other biological agents ruled out; I10 Essential (primary) hypertension; J45.909 Unspecified asthma, uncomplicated; Z79.899 Other long term (current) drug therapy
CPT/HCPCS: 0241U; 71046; 71260; 80053; 83880; 85025; 87651; 99283; 99284; Q9967

== ENCOUNTER → 2024-09-22 00:46 | Outpatient (BNV) | payer MEDICAID, SELFPAY | PROVIDERS: Emergency Provider Emergency Medicine; Visit Provider Radiology Diagnostic Radiology | DX: J98.11 Atelectasis (principal); M48.14 Ankylosing hyperostosis [Forestier], thoracic region; R91.8 Other nonspecific abnormal finding of lung field | CPT/HCPCS: 71046; 71260 ==

== ENCOUNTER 2024-10-25 10:05 | Outpatient (REF) | payer MEDICAID, SELFPAY ==
--- OUTSIDE RECORDS SUMMARY | 2024-10-23 10:00 | XMS_ITS | Encounter Summary ---
Author Organization [facility] Address [address] [place] [address] Care Team Providers Care Inventory Control Planner Name Role Phone Unavailable Primary Care Provider Unavailabl e Reason for Visit * Reason Comments Callouses * Consultation (Routine) - Authorized Specialty Diagnoses / Procedures Referred By Contact Referred To Contact Podiatry / Orthopaedic Surgery Diagnoses Callus of heel Carmina Narayan MD [address] [place] [address] Phone: tel: fax: Garry Reed DPM [address] [address] Phone: tel: fax: Referral ID Status Reason Start Date Expiration Date Visits Requested Visits Authorized [id number] Authorized Specialty Services Required 08/04/2024 08/04/2025 1 1 Encounter Details Date Type Department Care Team ([facility] Contact Info) Description 10/23/2024 10:00 AM EDT Consult Orthopedic Surgery - [place] [address] [address] Garry Reed DPM [address] [address] Dermatophytosis of nail (Primary Dx); Callus of heel Social History Tobacco Use Types Packs/Day Years Used Date Smoking Tobacco: Never Assessed Sex and Gender Information Value Date Recorded Sex Assigned at Not on file Legal Sex Male 11:51 AM EDT Gender Identity Not on file Sexual Orientation Not on file documented as of this encounter Ordered Prescriptions Prescription Sig Dispense Quantity Refills Last Filled Start Date End Date ammonium lactate (AmLactin) 12 % lotion Apply topically if needed for dry skin. 400 g 10/23/2024 07/29/202 6 ciclopirox (LOPROX) 0.77 % gel Apply topically 2 (two) times a day. 45 g 10/23/2024 5 documented in this encounter Progress Notes * Garry Reed DPM - 10/23/2024 10:00 AM EDT Last PCP visit:Referring MD: Carmina Narayan MD IDENTIFIER: José Miguel Xie is a 63 y.o. year old male who presents for consultation. CC: Foot pain HPI: José Miguel Xie is a 63 y.o. year old male presents complaining of thick dry skin of both heels states athick cracking skin has been bothering for prolonged period time also reports his nails of discoloration he states they have been going on for over a year he like to know what can be done about it denies trauma to his feet ROS: GENERAL: Pt denies nausea, fever, vomiting, chills, or shortness of breath. Pt in NAD. CARDIOLOGY: pt denies chest pain, palpitations LUNGS: pt denies shortness of breath MUSCULOSKELETAL: See HPI, otherwise no joint pain or swelling, back pain, or muscle pain. SKIN: see HPI, otherwise no lesions, rash or itching NEURO: No persistent headache, weakness or numbness The remainder of the review of systems is noncontributory PAST MEDICAL HISTORY: There is no problem list on file for this patient. SOCIAL HISTORY: Social History Tobacco Use Smoking status: Not on file Smokeless tobacco: Not on file Substance Use Topics Alcohol use: Not on file ACTIVE MEDICATIONS: No outpatient medications have been marked as taking for the 10/23/24 encounter (Consult) with Garry Reed DPM. ALLERGIES: Allergies Allergen Reactions Amlodipine Sulfa (Sulfonamide Antibiotics) Terazosin PHYSICAL EXAM: There were no vitals taken for this visit. PODIATRIC EXAMINATION: GENERAL: Patient appears well nourished, with NAD. VASCULAR: Dorsalis pedis pulses are 2/4 bilaterally and Posterior tibial pulses are 2/4 bilaterally. Capillary filling time within normal limits the digits. No pallor on elevation or rubor on dependency. No varicosities. Denies rest pain or claudication pain. NEUROLOGICAL: Sharp/dull sensation intact, protective sensation intact 10/10 with Ipswitch touch test bilaterally, vibratory sensation intact to the tibial tuberosity. ORTHOPEDIC: Good muscle strength 5/5 of all flexors and extensors. Dorsi flexion of ankle ,10 degrees, plantar flexion WNL. No muscle atrophy. DERMATOLOGICAL: Hypertrophic calluses bilateral heels with cirrhosis and thickening yellow discoloration thickening subungual debris both great toenails BIOMECHANICS: Ankle ROM WNL, STJ ROM wnl, MTJ ROM wnl, 1st MPJ ROM wnl. IMAGING: IMPRESSION: 1. Dermatophytosis of nail 2. Callus of heel PLAN: Pt was seen and examined, history reviewed. Calluses pared both heels to optimize topical therapy Ammonium lactate prescribed Ciclopirox prescribed for toenails Oral antifungal medications were discussed if fails topical therapy Follow-up in 6 weeks Garry Reed DPM documented in this encounter Plan of Treatment Upcoming Encounters Date Type Department Care Team (Late st Contact Info) Description 12/11/2024 10:00 AM EDT Office Visit Orthopedic Surgery - [place] [address] [phone] Garry Reed DPM [address] [address] documented as of this encounter Visit Diagnoses Diagnosis Dermatophytosis of nail- Primary Callus of heel Corns and callosities documented in this encounter Orders Outpatient Referral Count Last Ordered Date Fir st Ordered Date AMB REFERRAL TO ORTHOPEDIC SURGERY 1 2024 documented in this encounter
--- OUTSIDE RECORDS SUMMARY | 2024-10-25 10:48 | XMS_ITS | Encounter Summary ---
Author Organization [employer] Address [address] [facility] [address] [place] [address] Care Team Providers Care Check Airman Name Role Phone Carmina Narayan MD Primary Care Provider [phone] Reason for Visit * Reason Onset Date Comments Med Refill 07/29/2024 Encounter Details Date Type Department Care Team ([facility] st Contact Info) Description 07/29/2024 Refill [facility] CH[facility] MED & PEDS [address] [place], [place] [phone] Carmina Narayan MD [address] [place] [address] Social History Tobacco Use Types Packs/Day Years [...] Care Team (Late st Contact Info) Description 12/31/2024 10:30 AM EDT Office Visit [facility] OPTOMETRY [address] [place] [address] Kia Carvalho, OD [address] [place] [address] documented as of this encounter Visit Diagnoses Not on filedocumented in this encounter Additional Health Concerns Assessment Noted Time PHQ-9 Depression Total Score: 6 07/28/19 9:04 AM EDT documented as of this encounter Care Teams Check Airman Relationship Specialty Start Date End Date Carmina Narayan MD [address] [place] [address] PCP - General Family Medicine 09/14/22 documented as of this encounter
[2024-10-25 11:36] LABS: Alanine Aminotransferase 37 U/L (0-40); Albumin Level 4.9 g/dL (3.5-5.0); Alkaline Phosphatase 80 U/L (39-117); Aspartate Amino Transferase 31 U/L (5-37); Cholesterol 159 mg/dL (<200); HDL Cholesterol 46 mg/dL (>40); Total Protein 7.3 g/dL (6.5-8.0); Triglycerides 74 mg/dL (<150)
[2024-10-25 12:26] LABS: PSA,Total (Free>4and<10) 2.01 ng/mL (0.00-4.00)
[2024-10-26 14:43] LABS: EBV-NA IgG Index >600.00 U/mL; EBV-VCA IgG Ab 100.00 U/mL; EBV-VCA IgM Ab <36.00 U/mL
== END 2024-10-25 10:06 | disposition home or self-care (01) ==
LOC: HO.HHCL 10:05
PROVIDERS: PCP Family Medicine; Visit Provider Family Medicine
DX: D72.829 Elevated white blood cell count, unspecified (principal); E78.5 Hyperlipidemia, unspecified; R39.9 Unspecified symptoms and signs involving the genitourinary system
CPT/HCPCS: 80061; 80076; 84153; 85652; 86140; 86644; 86645; 86664; 86665

== ENCOUNTER 2024-11-02 09:06 | Outpatient (AMB) | payer MEDICAID, SELFPAY ==
--- OUTSIDE RECORDS SUMMARY | 2024-11-02 09:15 | XMS_ITS | Clinical Summary ---
Author Organization [address] [facility] Address [address] [place] [address] Phone Care Team Providers Care Chute Puller Name Role Phone Unavailable Primary Care Provider Unavailabl e Allergies Active Allergy Reactions Criticality Noted Date Comments Amlodipine 10/23/2024 Sulfa (Sulfonamide Antibiotics) 09/26 Terazosin 10/23/2024 Medications ciclopirox (LOPROX) 0.77 % gel Apply topically 2 (two) times a day. 45 g 5 01/22/20 25 Active ammonium lactate (AmLactin) 12 % lotion Apply topically if needed for dry skin. 400 g 5 10/24/19 26 Active Encounters Date Type Department Care Team Description 10/23/2024 10:00 AM EDT Consult Orthopedic [facility] [address] [phone] Garry Reed DPM Dermatophytosis of nail (Primary Dx); Callus of heel from Last 3 Months Social History Tobacco Use Types Packs/Day Years Used Date Smoking Tobacco: Never Assessed Sex and Gender Information Value Date Recorded Sex Assigned at Not on file Legal Sex Male 11:51 AM EDT Gender Identity Not on file Sexual Orientation Not on file Plan of Treatment Upcoming Encounters Date Type Department Care Team ([facility] st Contact Info) Description 12/11/2024 10:00 AM EDT Office Visit Orthopedic [facility] [address] [phone] Garry Reed DPM [address] [address] Health Maintenance Due Date Last Done Comments COVID-19 Vaccine ( season) 2023 07/28/2021, 02/20/2021, 08/12/2020, Additional history exists Depression Screening 03/28/2024 Colorectal Cancer Screening: Colonoscopy 08/04/2024 Social Influencers of Health Screening 08/04/2024 Influenza Vaccine (#1) 2024 , 01/28/2022, 01/05/2021, Additional history exists Hypertension/CHF/CAD Annual BMP Blood Test 09/14/2025 09/14/2024, 09/08/2024 Cholesterol Screening (Lipid Panel) 09/14/2029 09/14/2024 DTaP,Tdap,and Td Vaccines (2 - Td or Tdap) 09/18/2030 09/18/2020 Zoster Vaccines Completed 01/28/2022, 11/23/2021 Pneumococcal Vaccine: 50+ Years Completed 06/07/2023 HIV Screening Completed 06/10/2023 Hepatitis C Screening Completed 06/10/2023 RSV Immunization Adult Patients Completed 02/03/2024 HIB Vaccines Aged Out No [...] on patient's age to complete this topic MMR Vaccines Aged Out No longer eligi ble based on patient's age to complete this topic Meningococcal ACWY Vaccine Aged Out N o longer eligible based on patient's age to complete this topic Meningococcal B Vaccine Aged Out No l onger eligible based on patient's age to complete this topic RSV Immunization Patients Under 20 months Aged Out No longer eligible based on patient's age to complete this topic Varicella Vaccines Aged Out No longer eligible based on patient's age to complete this topic Insurance MEDICAID - [place]
--- OUTSIDE RECORDS SUMMARY | 2024-11-02 09:15 | XMS_ITS | Encounter Summary ---
Author Organization [employer] Address [address] [facility] 7[address] [place] [address] Care Team Providers Care Line Decorator Name Role Phone Carmina Narayan MD Primary Care Provider [phone] Reason for Visit * Reason Onset Date Comments Med Refill 07/29/2024 Encounter Details Date Type Department Care Team ([facility] st Contact Info) Description 07/29/2024 Refill [facility] CHC MED & PEDS [address] [place], [place] [phone] Carmina Narayan MD [address] [place] [address] Social History Tobacco Use Types Packs/Day Years [...] Care Team (Late st Contact Info) Description 11/02/2024 11:15 AM EDT Office Visit [facility] CHC MED & PEDS [address] [place] [address] Carmina Narayan MD [address] [place] [address] 12/31/2024 10:30 AM EDT Office Visit [facility] OPTOMETRY [address] [place] [address] Kia Carvalho, OD [address] [place] [address] documented as of this encounter Visit Diagnoses Not on filedocumented in this encounter Additional Health Concerns Assessment Noted Time PHQ-9 Depression Total Score: 6 07/28/19 25 9:04 AM EDT documented as of this encounter Care Teams Line Decorator Relationship Specialty Start Date End Date Carmina Naryaan MD [address] [place] [address] PCP - General Family Medicine 09/14/22 documented as of this encounter
[2024-11-02 09:36] VITALS: BMI 36.2
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
== END 2024-11-02 09:56 | disposition home or self-care (01) ==
LOC: HO.HOS 09:07
PROVIDERS: PCP Family Medicine; Visit Provider Physical Medicine & Rehabilitation
DX: M54.2 Cervicalgia (principal); G89.29 Other chronic pain
CPT/HCPCS: 99203

== ENCOUNTER → 2024-11-02 09:06 | Outpatient (BNVA) | payer MEDICAID, SELFPAY | PROVIDERS: PCP Family Medicine; Visit Provider Physical Medicine & Rehabilitation | DX: M54.2 Cervicalgia (principal); G89.29 Other chronic pain | CPT/HCPCS: 99202 ==

== ENCOUNTER 2024-11-06 09:20 | Outpatient (AMB) | payer MEDICAID, SELFPAY ==
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
[2024-11-06 09:26] VITALS: BP 158/91; PULSE 79; O2SAT 97; BMI 35.9
--- OUTSIDE RECORDS SUMMARY | 2024-11-06 09:53 | XMS_ITS | Clinical Summary ---
Author Organization [address] [facility] Address [address] [place] [address] Phone Care Team Providers Care Special Services Coordinator Name Role Phone Unavailable Primary Care Provider [...] Description 10/23/2024 10:00 AM EDT Consult [facility] [address] [phone] Garry Reed DPM Dermatophytosis of nail (Primary [...] Upcoming Encounters Date Type Department Care Team ([facility] st Contact Info) Description 12/11/2024 10:00 AM EDT Office Visit [facility] [address] [phone] Garry Reed DPM [address] [address] Health Maintenance Due Date Last Done Comments [...]
== END 2024-11-06 09:52 | disposition home or self-care (01) ==
LOC: HO.PMC 09:20
PROVIDERS: PCP Family Medicine; Visit Provider Nurse Practitioner Family
DX: M54.2 Cervicalgia (principal); G89.29 Other chronic pain; M50.30 Other cervical disc degeneration, unspecified cervical region; M47.812 Spondylosis without myelopathy or radiculopathy, cervical region; M62.838 Other muscle spasm; M54.12 Radiculopathy, cervical region
CPT/HCPCS: 99204

== ENCOUNTER → 2024-11-06 09:20 | Outpatient (BNVA) | payer MEDICAID, SELFPAY | PROVIDERS: PCP Family Medicine; Visit Provider Nurse Practitioner Family | DX: M54.2 Cervicalgia (principal); G89.29 Other chronic pain; M47.812 Spondylosis without myelopathy or radiculopathy, cervical region; M54.12 Radiculopathy, cervical region; M62.838 Other muscle spasm | CPT/HCPCS: 99212 ==

== ENCOUNTER 2025-01-01 09:18 | Outpatient (AMB) | payer MEDICAID, SELFPAY ==
--- OUTSIDE RECORDS SUMMARY | 2024-12-31 10:30 | XMS_ITS | Encounter Summary ---
Author Organization [employer] Address [address] [facility] [address] [place] [address] Care Team Providers Care Potato Spotter Name Role Phone Carmina Narayan MD Primary Care Provider [phone] Reason for Visit * Reason Comments Glaucoma Suspect Encounter Details Date Type Department Care Team (Late st Contact Info) Description 12/31/2024 10:30 AM EDT Office Visit [facility] OPTOMETRY [address] [place], [place] [phone] Deven, Kia, OD [address] [place] [address] Presbyopia (Primary Dx); Glaucoma suspect of both eyes; Retinal hole, left; Age-related nuclear cataract of both eyes; Congenital sutural cataract Social History Tobacco Use Types Packs/Day Years [...] Care Team (Late st Contact Info) Description 01/14/2025 11:30 AM EDT Office Visit [facility] P[facility] [address] [place] [address] Carmina Narayan MD [address] [place] [address] 02/07/2025 10:00 AM EST Nutrition [facility] DI[facility]ET[facility]TR[facility] [address] [place] [address] Katherine Crow, RD [address] [place] [address] 07/08/2025 9:00 AM EDT Office Visit [facility] OPTOMETRY [address] [place] [address] Kia Carvalho, OD [address] [place] [address] Pending Results Name Type Priority Associated Diagnoses Date /Time OCT, Optic Nerve - OU - Both Eyes Ophthalmology Routine Glaucoma suspect of both eyes 12/31/2024 11:30 AM EDT documented as of this encounter Visit Diagnoses Diagnosis Presbyopia- Primary Glaucoma suspect of both eyes Unspecified preglaucoma Retinal hole, left Age-related nuclear cataract of both eyes Congenital sutural cataract documented in this encounter Additional Health Concerns Assessment Noted Time PHQ-9 Depression Total Score: 6 07/28/19 25 9:04 AM EDT documented as of this encounter Care Teams Potato Spotter Relationship Specialty Start Date End Date Carmina Narayan MD [address] [place] [address] PCP - General Family Medicine 09/14/22 documented as of this encounter
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
--- OUTSIDE RECORDS SUMMARY | 2025-01-01 10:20 | XMS_ITS | Encounter Summary ---
Author Organization [employer] Address [address] [place] [address] Care Team Providers Care Cosmetician Apprentice Name Role Phone Carmina Narayan MD Primary Care Provider [phone] Reason for Visit * Reason Onset Date Comments Med Refill 07/09/2024 Encounter Details Date Type Department Care Team ([facility] st Contact Info) Description 07/09/2024 Refill [facility] MED & PEDS [address] [place], [place] [phone] Carmina Narayan MD [address] [place] [address] Social History Tobacco Use Types Packs/Day Years [...] Description 01/14/2025 11:30 AM EDT Office Visit [facility] [address] [place] [address] Carmina Narayan MD [address] [place] [address] 02/07/2025 10:00 AM EST Nutrition [facility] DI[facility]ETES/NTRN [address] [place] [address] Katherine Crow, RD [address] [place] [address] 07/08/2025 9:00 AM EDT Office Visit [facility] OPTOMETRY [address] [place] [address] Kia Carvalho, OD [address] [place] [address] documented as of this encounter Visit Diagnoses Not on filedocumented in this encounter Additional Health Concerns Assessment Noted Time PHQ-9 Depression Total Score: 1 06/07/19 24 3:32 PM EDT documented as of this encounter Care Teams Cosmetician Apprentice Relationship Specialty Start Date End Date Carmina Narayan MD [address] [place] [address] PCP - General Family Medicine 09/14/22 documented as of this encounter
--- OUTSIDE RECORDS SUMMARY | 2025-01-01 10:20 | XMS_ITS | Encounter Summary ---
Author Organization [employer] Address [address] [facility] [address] [place] [address] Care Team Providers Care House Rn Name Role Phone Carmina Narayan MD Primary Care Provider [phone] Reason for Visit * Reason Comments Med Refill Encounter Details Date Type Department Care Team (Late st Contact Info) Description 10/31/2023 Refill [facility] MEDICINE [address] [place] [address] Name, MD Irvin [address] [place], [place] [phone] Hypertension, unspecified type Social History Tobacco Use [...] Description 01/14/2025 11:30 AM EDT Office Visit [facility] MED & PEDS [address] [place] [address] Carmina Narayan MD [address] [place] [address] 02/07/2025 10:00 AM EST Nutrition [facility] DIABETES/NTRN [address] [place] [address] Katherine Crow, RD [address] [place] [address] 07/08/2025 9:00 AM EDT Office Visit [facility] OPTOMETRY [address] [place] [address] Deven, Kia, OD [address] [place] [address] documented as of this encounter Visit Diagnoses Diagnosis Hypertension, unspecified type documented in this encounter Additional Health Concerns Assessment Noted Time PHQ-9 Depression Total Score: 1 06/07/19 24 3:32 PM EDT documented as of this encounter Care Teams House Rn Relationship Specialty Start Date End Date Carmina Narayan MD [address] [place] [address] PCP - General Family Medicine 09/14/22 documented as of this encounter
--- OUTSIDE RECORDS SUMMARY | 2025-01-01 10:20 | XMS_ITS | Encounter Summary ---
Author Organization [employer] Address [address] [facility] [address] [place] [address] Care Team Providers Care Haul Driver Name Role Phone Carmina Narayan MD Primary Care Provider [phone] Reason for Visit * Reason Onset Date Comments Med Refill 07/29/2024 Encounter Details Date Type Department Care Team ([facility] st Contact Info) Description 07/29/2024 Refill [facility] CH[facility] MED & PEDS [address] [place], [place] [phone] Carmina Narayan MD [address] [place] [address] Social History Tobacco Use Types Packs/Day Years [...] [facility] [address] [place] [address] Carmina Narayan MD [address] [place] [address] 02/07/2025 10:00 AM EST Nutrition [facility] DIABETES/NTRN [address] [place] [address] Katherine Crow, RD [address] [place] [address] 07/08/2025 9:00 AM EDT Office Visit [facility] OPTOMETRY [address] [place] [address] Kia Carvalho, OD [address] [place] [address] documented as of this encounter Visit Diagnoses Not on filedocumented in this encounter Additional Health Concerns Assessment Noted Time PHQ-9 Depression Total Score: 6 05/02/20 25 9:04 AM EDT documented as of this encounter Care Teams Haul Driver Relationship Specialty Start Date End Date Carmina Narayan MD [address] [place] [address] PCP - General Family Medicine 09/14/22 documented as of this encounter
--- OUTSIDE RECORDS SUMMARY | 2025-01-01 10:20 | XMS_ITS | Encounter Summary ---
Author Organization [employer] Address [address] [facility] [address] [place] [address] Care Team Providers Care Land Surveyor Assistant Name Role Phone Carmina Narayan MD Primary Care Provider [phone] Reason for Visit * Reason Onset Date Comments Med Refill 11/10/2024 Encounter Details Date Type Department Care Team ([facility] st Contact Info) Description 11/10/2024 Refill [facility] MED & PEDS [address] [place] [address] Carmina Narayan MD [address] [place] [address] Social History Tobacco Use Types Packs/Day Years [...] Description 01/14/2025 11:30 AM EDT Office Visit [facility] MED & PEDS [address] [place] [address] Carmina Narayan MD [address] [place] [address] 02/07/2025 10:00 AM EST Nutrition [facility] DIABETES/NTRN [address] [place] [address] Katherine Crow, RD [address] [place] [address] 07/08/2025 9:00 AM EDT Office Visit [facility] OPTOMETRY [address] [place] [address] Kia Carvalho, OD [address] [place] [address] documented as of this encounter Visit Diagnoses Not on filedocumented in this encounter Additional Health Concerns Assessment Noted Time PHQ-9 Depression Total Score: 6 05/02/20 25 9:04 AM EDT documented as of this encounter Care Teams Land Surveyor Assistant Relationship Specialty Start Date End Date Carmina Narayan MD [address] [place] [address] PCP - General Family Medicine 09/14/22 documented as of this encounter
--- OUTSIDE RECORDS SUMMARY | 2025-01-01 10:20 | XMS_ITS | Encounter Summary ---
Author Organization [employer] Address [address] [place] [address] Care Team Providers Care Car Dispatcher Name Role Phone Carmina Narayan MD Primary Care Provider [phone] Reason for Visit * Reason Onset Date Comments Referral 06/22/2024 Encounter Details Date Type Department Care Team ([facility] st Contact Info) Description 06/22/2024 Telephone [facility] MEDICINE [address] [place] [address] Carmina Narayan MD [address] [place], [place] [id number] Referral Social History Tobacco Use Types Packs/Day [...] Upcoming Encounters Date Type Department Care Team ([facility] st Contact Info) Description 01/14/2025 11:30 AM EDT Office Visit [facility] [address] [place] [address] Carmina Narayan MD [address] [place], [place] 02/07/2025 10:00 AM EST Nutrition [facility] [address] [place] [address] Katherine Crow, RD [address] [place] [address] 07/08/2025 9:00 AM EDT Office Visit [facility] OPTOMETRY [address] [place] [address] Kia Carvalho, OD [address] [place] [address] documented as of this encounter Visit Diagnoses Not on filedocumented in this encounter Additional Health Concerns Assessment Noted Time PHQ-9 Depression Total Score: 1 06/07/19 24 3:32 PM EDT documented as of this encounter Care Teams Car Dispatcher Relationship Specialty Start Date End Date Carmina Narayan MD [address] [place] [address] PCP - General Family Medicine 09/14/22 documented as of this encounter
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
--- OUTSIDE RECORDS SUMMARY | 2025-01-01 10:21 | XMS_ITS | Encounter Summary ---
Author Organization [employer] Address [address] [facility] 7t [place] [address] Care Team Providers Care Tutorial Laboratory Supervisor Name Role Phone Name, Irvin URBINA Primary Care Provider Carmina Narayan MD Primary Care Provider [phone] Encounter Details Date Type Department Care Team (Late Contact Info) Description 09/06/2022 Abstract [facility] MEDICINE [address] [place], [place] [phone] Name, MD Irvin [address] [place] [address] Social History Tobacco Use Types Packs/Day Years [...] Description 01/14/2025 11:30 AM EDT Office Visit [facility] MED & PEDS [address] [place] [address] Carmina Narayan MD 505 [place] [address] 02/07/2025 10:00 AM EST Nutrition [facility] DIABETES/NTRN [address] [place] [address] Katherine Crow, OG [address] [place] [address] 07/08/2025 9:00 AM EDT Office Visit [facility] OPTOMETRY [address] [place] [address] Kia Carvalho, OD 230 [place] [address] documented as of this encounter Visit Diagnoses Not on filedocumented in this encounter Additional Health Concerns Assessment Noted Time PHQ-9 Depression Total Score: 0 04/23/19 9:02 AM EST documented as of this encounter Care Teams Tutorial Laboratory Supervisor Relationship Specialty Start Date End Date Name, MD Irvin [address] [place] [address] PCP - General Family Medicine 12/13/19 09/13/22 Carmina Narayan MD [address] [place], [place] [phone] PCP - General Family Medicine 09/14/22 documented as of this encounter
--- OUTSIDE RECORDS SUMMARY | 2025-01-01 10:21 | XMS_ITS | Encounter Summary ---
Author Organization [employer] Address 75 [facility] 7t [place] [address] Care Team Providers Care Hospital Cna Name Role Phone Carmina Narayan MD Primary Care Provider Encounter Details Date Type Department Care Team (Late st Contact Info) Description 11/29/2024 Orders Only [facility] [address] [place], [place] [phone] Provider, MD Yanique Social History Tobacco Use Types Packs/Day Years [...] [facility] MED & PEDS [address] [place] [address] Carmina Narayan MD 505 [place] [address] 02/07/2025 10:00 AM EST Nutrition [facility] DIABETES/NTRN [address] [place] [address] Katherine Crow, RD 230 [place] [address] 07/08/2025 9:00 AM EDT Office Visit [facility] OPTOMETRY [address] [place] [address] DevenKia, OD 230 [place] [address] documented as of this encounter Procedures Procedure Name Priority Date/Time Associated Diagnosis Comments MRI AND MRA BRAIN W/CONTRAST Routine 11/17/2024 10:52 AM EDT MR BRAIN W AND WO CONTRAST Routine 11/17/2024 10:48 AM EDT documented in this encounter Results * MRI and MRA Brain w/o Contrast (11/17/2024 10:52 AM EDT) Anatomical Region Laterality Modality Brain Magnetic Resonan ce us Historical Provider MD GAXIOLA MRI PROCEDURES Final Result * Mr Brain w/ and w/o Contrast (11/17/2024 10:48 AM EDT) Anatomical Region Laterality Modality Brain Magnetic Resonan ce us Historical Provider MD GAXIOLA MRI PROCEDURES Final Result documented in this encounter Visit Diagnoses Not on filedocumented in this encounter Additional Health Concerns Assessment Noted Time PHQ-9 Depression Total Score: 6 07/28/19 25 9:04 AM EDT documented as of this encounter Care Teams Hospital Cna Relationship Specialty Start Date End Date Carmina Narayan MD [address] [place] [address] PCP - General Family Medicine 09/14/22 documented as of this encounter
--- OUTSIDE RECORDS SUMMARY | 2025-01-01 10:21 | XMS_ITS | Encounter Summary ---
Author Organization [employer] Address [address] [facility] 7t [place] [address] Care Team Providers Care Audio/Video Engineer Name Role Phone Carmina Narayan MD Primary Care Provider [phone] Reason for Visit * Reason Onset Date Comments Med Refill 12/21/2024 Encounter Details Date Type Department Care Team ([facility] st Contact Info) Description 12/21/2024 Refill [facility] CHC MED & PEDS [address] [place], [place] [phone] Saloni Washington MD 505 [place] [address] Social History Tobacco Use Types Packs/Day Years [...] 11:30 AM EDT Office Visit [facility] MED & PEDS [address] [place] [address] Carmina Narayan MD 505 [place] [address] 02/07/2025 10:00 AM EST Nutrition [facility] DIABETES/NTRN [address] [place] [address] Katherine Crow, RD 230 [place] [address] 07/08/2025 9:00 AM EDT Office Visit [facility] OPTOMETRY [address] [place] [address] Kia Carvalho, OD [address] [place] [address] documented as of this encounter Visit Diagnoses Not on filedocumented in this encounter Additional Health Concerns Assessment Noted Time PHQ-9 Depression Total Score: 6 07/28/19 9:04 AM EDT documented as of this encounter Care Teams Audio/Video Engineer Relationship Specialty Start Date End Date Carmina Narayan MD 230 [place] [address] PCP - General Family Medicine 09/14/22 documented as of this encounter
--- OUTSIDE RECORDS SUMMARY | 2025-01-01 10:21 | XMS_ITS | Encounter Summary ---
Author Organization [employer] Address [address] [place] [address] 7t [place] [address] Care Team Providers Care Donor Services Manager Name Role Phone Carmina Narayan MD Primary Care Provider [phone] Reason for Visit * Reason Onset Date Comments Results 10/12/2022 Encounter Details Date Type Department Care Team ([facility] Contact Info) Description 10/12/2022 Telephone [facility] CHC MED & PEDS [address] [place], [place] [phone] Carmina Narayan MD 505 [place] [address] Results Social History Tobacco Use Types Packs/Day [...] AM EDT [facility] Labs are all within normal limit [...] Noted Rx Cetirizine sent on 09/27/22 to [facility] pharmacy. Per pt, unsure if he was given Rx. States he does not have it at home. Call to [facility] pharmacy. Rx, 90 day supply, picked [...] clarify lab results Please contact pt at [phone] Hungarian Speaker documented in this encounter Plan of Treatment Upcoming Encounters Date Type Department Care Team ([facility] st Contact Info) Description 01/14/2025 11:30 AM EDT Office Visit [facility] MED & PEDS [address] [place] [address] Carmina Narayan MD 505 [place] [address] 02/07/2025 10:00 AM EST Nutrition [facility] CHC DIABETES/NTRN [address] [place], [place] [phone] Katherine Crow, RD 230 [place] [address] 07/08/2025 9:00 AM EDT Office Visit [facility] OPTOMETRY [address] [place] [address] DevenKia encinas, OD 230 [place] [address] documented as of this encounter Visit Diagnoses Not on filedocumented in this encounter Additional Health Concerns Assessment Noted Time PHQ-9 Depression Total Score: 0 04/23/19 9:02 AM EST documented as of this encounter Care Teams Donor Services Manager Relationship Specialty Start Date End Date Carmina Narayan MD 230 [place] [address] PCP - General Family Medicine 09/14/22 documented as of this encounter
--- OUTSIDE RECORDS SUMMARY | 2025-01-01 10:21 | XMS_ITS | Encounter Summary ---
Author Organization [employer] Address [address] [facility] 7t [place] [address] Care Team Providers Care Grants Specialist Name Role Phone Name, Irvin URBINA Primary Care Provider [phone] Carmina Narayan MD Primary Care Provider [phone] Encounter Details Date Type Department Care Team (Late st Contact Info) Description 04/22/2022 Telephone [facility] MEDICINE [address] [place], [place] [phone] Name, MD Irvin [address] [place], [place] [phone] Social History Tobacco Use Types Packs/Day Years [...] [facility] [address] [place] [address] Carmina Narayan MD [address] [place] [address] 02/07/2025 10:00 AM EST Nutrition [facility] CHC DIABETES/NTRN [address] [place] [address] Katherine Crow, RD 230 [place] [address] 07/08/2025 9:00 AM EDT Office Visit [facility] OPTOMETRY [address] [place] [address] DevenKia encinas, OD [address] [place] [address] documented as of this encounter Visit Diagnoses Not on filedocumented in this encounter Care Teams Grants Specialist Relationship Specialty Start Date End Date Name, MD Irvin [address] [place] [address] PCP - General Family Medicine 12/13/19 09/13/22 Carmina Narayan MD [address] [place] [address] PCP - General Family Medicine 09/14/22 documented as of this encounter
--- OUTSIDE RECORDS SUMMARY | 2025-01-01 10:21 | XMS_ITS | Clinical Summary ---
Author Organization 175 [facility] Address [address] [place] [address] Phone Care Team Providers Care Metal Bumper Name Role Phone Unavailable Primary Care Provider Unavailabl e Allergies Active Allergy Reactions Criticality Noted Date Comments Amlodipine 10/23/2024 Sulfa (Sulfonamide Antibiotics) 09/26 Terazosin 10/23/2024 Medications ciclopirox (LOPROX) 0.77 % gel Apply topically 2 (two) times a day. 45 g 5 01/22/20 25 Active ammonium lactate (AmLactin) 12 % lotion Apply topically if needed for dry skin. 400 g 5 10/24/19 26 Active doxycycline (VIBRAMYCIN) 100 mg capsule TAKE 1 CAPSULE TWICE DAILY WITH WATER UNTIL FINISHED, DO NOT LIE DOWN FOR 30 MINUTES AFTER Active diclofenac (CATAFLAM) 50 mg tablet Take 1 tablet (50 mg total) by mouth. 4 Active clotrimazole (LOTRIMIN) 1 % cream Apply topically 2 (two) times a day. 30 g 3 5 01/11/20 25 Active Encounters Date Type Department Care Team Description 12/11/2024 10:00 AM EDT Office Visit [facility]opedic [facility] [address] [phone] Garry Reed, DPM Dermatophytosis of nail (Primary Dx); Callus of heel 10/23/2024 10:00 AM EDT Consult Orthopedic [facility] [address] [phone] Garry Reed DPM Dermatophytosis of nail (Primary [...] Upcoming Encounters Date Type Department Care Team ([facility] st Contact Info) Description 01/24/2025 9:45 AM EDT Office Visit [facility] [place] 250 175 [facility] 250 [place] [phone] Garry Reed DPM [address] [phone] Health Maintenance Due Date Last Done Comments Colorectal Cancer Screening: Colonoscopy 1960 Depression Screening 03/28/2024 Social Influencers of Health Screening 08/04/2024 COVID-19 Vaccine ( season) 2024 07/28/2021, 02/20/2021, 08/12/2020, Additional history exists Influenza Vaccine (#1) 2024 , 01/28/2022, 01/05/2021, Additional history exists Hypertension/CHF/CAD Annual BMP Blood Test 09/14/2025 09/14/2024, 09/08/2024 Cholesterol Screening (Lipid Panel) 10/25/2029 10/25/2024, 09/14/2024 DTaP,Tdap,and Td Vaccines (2 - Td [...]
--- OUTSIDE RECORDS SUMMARY | 2025-01-01 10:21 | XMS_ITS | Encounter Summary ---
Author Organization [employer] Address 75 [facility] 7t [place] [address] Care Team Providers Care Stone Layer Name Role Phone Carmina Narayan MD Primary Care Provider [phone] Reason for Visit * Reason Onset Date Comments Med Refill 01/15/2024 Encounter Details Date Type Department Care Team ([facility] st Contact Info) Description 01/15/2024 Refill [facility] CHC MED & PEDS [address] [place], [place] [phone] Carmina Narayan MD 505 [place] [address] Social History Tobacco Use Types Packs/Day Years [...] Description 01/14/2025 11:30 AM EDT Office Visit [facility] MED & PEDS [address] [place] [address] Carmina Narayan MD 505 [place] [address] 02/07/2025 10:00 AM EST Nutrition [facility] DIABETES/NTRN 505 [place] [address] Katherine Crow, RD 230 [place] [address] 07/08/2025 9:00 AM EDT Office Visit [facility] OPTOMETRY [address] [place] [address] Kia Carvalho, OD 230 [place] [address] documented as of this encounter Visit Diagnoses Not on filedocumented in this encounter Additional Health Concerns Assessment Noted Time PHQ-9 Depression Total Score: 1 06/07/19 24 3:32 PM EDT documented as of this encounter Care Teams Stone Layer Relationship Specialty Start Date End Date Carmina Narayan MD 230 [place] [address] PCP - General Family Medicine 09/14/22 documented as of this encounter
--- OUTSIDE RECORDS SUMMARY | 2025-01-01 10:21 | XMS_ITS | Encounter Summary ---
Author Organization [employer] Address 75 [facility] 7t [place] [address] Care Team Providers Care Field Care Manager Name Role Phone Carmina Narayan MD Primary Care Provider [phone] Reason for Visit * Reason Onset Date Comments Med Refill 11/18/2023 Encounter Details Date Type Department Care Team ([facility] st Contact Info) Description 11/18/2023 Refill [facility] CHC MED & PEDS [address] [place] [address] Carmina Narayan MD [address] [place] [address] Social History Tobacco Use Types Packs/Day Years [...] Description 01/14/2025 11:30 AM EDT Office Visit [facility] MED & PEDS [address] [place] [address] Carmina Narayan MD 505 [place] [address] 02/07/2025 10:00 AM EST Nutrition [facility] DIABETES/NTRN [address] [place] [address] Katherine Crow, RD 230 [place] [address] 07/08/2025 9:00 AM EDT Office Visit [facility] OPTOMETRY [address] [place] [address] Deven, Kia, OD 230 [place] [address] documented as of this encounter Visit Diagnoses Not on filedocumented in this encounter Additional Health Concerns Assessment Noted Time PHQ-9 Depression Total Score: 1 06/07/19 24 3:32 PM EDT documented as of this encounter Care Teams Field Care Manager Relationship Specialty Start Date End Date Carmina Narayan MD 230 [place] [address] PCP - General Family Medicine 09/14/22 documented as of this encounter
--- OUTSIDE RECORDS SUMMARY | 2025-01-01 10:21 | XMS_ITS | Encounter Summary ---
Author Organization [employer] Address [address] [facility] [address] 7t [place] [address] Care Team Providers Care Air And Water Tester Name Role Phone Carmina Narayan MD Primary Care Provider [phone] Encounter Details Date Type Department Care Team (Latest Contact Info) Description 12/31/2024 Travel Social History Tobacco Use Types Packs/Day Years [...] 11:30 AM EDT Office Visit [facility] MED & PEDS [address] [place] [address] Carmina Narayan MD 505 [place] [address] 02/07/2025 10:00 AM EST Nutrition [facility] DIABETES/NTRN [address] [place] [address] Katherine Crow, RD 230 [place] [address] 07/08/2025 9:00 AM EDT Office Visit [facility] OPTOMETRY [address] [place] [address] Deven, Kia, OD [address] [place] [address] documented as of this encounter Visit Diagnoses Not on filedocumented in this encounter Additional Health Concerns Assessment Noted Time PHQ-9 Depression Total Score: 6 07/28/19 9:04 AM EDT documented as of this encounter Care Teams Air And Water Tester Relationship Specialty Start Date End Date Carmina Narayan MD [address] [place] [address] PCP - General Family Medicine 09/14/22 documented as of this encounter
--- OUTSIDE RECORDS SUMMARY | 2025-01-01 10:22 | XMS_ITS | Encounter Summary ---
Author Organization [employer] Address [address] [place] [address] 7t [place] [address] Care Team Providers Care Mortuary Technician Name Role Phone Carmina Narayan MD Primary Care Provider [phone] Encounter Details Date Type Department Care Team (Late st Contact Info) Description 10/18/2022 Orders Only [facility] CHC MED & PEDS [address] [place], [place] [phone] Armando Carmona MD [address] [place] [address] Nasal congestion (Primary Dx) Social History Tobacco [...] Description 01/14/2025 11:30 AM EDT Office Visit [facility]C MED & PEDS [address] [place] [address] Carmina Narayan MD 505 [place], [place] 02/07/2025 10:00 AM EST Nutrition [facility] DIABETES/NTRN 505 [place] [address] Katherine Crow, RD 230 [place] [address] 07/08/2025 9:00 AM EDT Office Visit [facility] OPTOMETRY [address] [place] [address] Kia Carvalho, OD 230 [place] [address] documented as of this encounter Visit Diagnoses Diagnosis Nasal congestion- Primary Other diseases of nasal cavity and sinuses documented in this encounter Additional Health Concerns Assessment Noted Time PHQ-9 Depression Total Score: 0 04/23/19 9:02 AM EST documented as of this encounter Care Teams Mortuary Technician Relationship Specialty Start Date End Date Carmina Narayan MD 230 [place] [address] PCP - General Family Medicine 09/14/22 documented as of this encounter
--- OUTSIDE RECORDS SUMMARY | 2025-01-01 10:22 | XMS_ITS | Encounter Summary ---
Author Organization [employer] Address [address] [facility] 7t [place] [address] Care Team Providers Care Ski Base Trimmer Name Role Phone Carmina Narayan MD Primary Care Provider [phone] Reason for Visit * Reason Onset Date Comments Med Refill 04/03/2024 Encounter Details Date Type Department Care Team ([facility] st Contact Info) Description 04/03/2024 Refill [facility] CHC MED & PEDS [address] [place], [place] [phone] Carmina Narayan MD 505 [place] [address] Social History Tobacco Use Types Packs/Day Years [...] 11:30 AM EDT Office Visit [facility] MED & PEDS [address] [place] [address] Carmina Narayan MD [address] [place] [address] 02/07/2025 10:00 AM EST Nutrition [facility] DIABETES/NTRN [address] [place] [address] Katherine Crow, RD 230 [place] [address] 07/08/2025 9:00 AM EDT Office Visit [facility] OPTOMETRY [address] [place] [address] Kia Carvalho, OD 230 [place] [address] documented as of this encounter Visit Diagnoses Not on filedocumented in this encounter Additional Health Concerns Assessment Noted Time PHQ-9 Depression Total Score: 1 06/07/19 24 3:32 PM EDT documented as of this encounter Care Teams Ski Base Trimmer Relationship Specialty Start Date End Date Carmina Narayan MD 230 [place] [address] PCP - General Family Medicine 09/14/22 documented as of this encounter
== END 2025-01-01 10:00 | disposition home or self-care (01) ==
PROVIDERS: PCP Family Medicine; Visit Provider Urology
DX: N32.0 Bladder-neck obstruction (principal); N52.03 Combined arterial insufficiency and corporo-venous occlusive erectile dysfunction; Z13.9 Encounter for screening, unspecified
CPT/HCPCS: 99213

== ENCOUNTER → 2025-01-01 09:18 | Outpatient (BNVA) | payer MEDICAID, SELFPAY | PROVIDERS: PCP Family Medicine; Visit Provider Urology | DX: N40.1 Benign prostatic hyperplasia with lower urinary tract symptoms (principal); N13.8 Other obstructive and reflux uropathy; N32.0 Bladder-neck obstruction; N48.6 Induration penis plastica; N52.03 Combined arterial insufficiency and corporo-venous occlusive erectile dysfunction; Z13.9 Encounter for screening, unspecified | CPT/HCPCS: 51798; 81003; 99212 ==

== ENCOUNTER 2025-03-26 09:07 | Outpatient (REF) | payer OTHER, MEDICAID, SELFPAY ==
--- OUTSIDE RECORDS SUMMARY | 2025-03-25 10:15 | XMS_ITS | Encounter Summary ---
Author Organization [employer] Address [address] [place] [address] 7t [place] [address] Care Team Providers Care Kettle Worker Name Role Phone Carmina Narayan MD Primary Care Provider [phone] Reason for Referral * Consultation (Routine) - Authorized Specialty Diagnoses / Procedures Referred By Contac t Referred To Contact Cardiology Diagnoses Palpitations Carmina Narayan MD [address] [place] [address] Phone: tel: fax: [facility] [address] [place] [address] Phone: tel: fax: Referral ID Status Reason Start Date Expiration Date Visits Requested Visits Authorized [id number] Authorized Specialty Services Required 03/25/2026 1 1 Reason for Visit * Reason Comments Follow-up Encounter Details Date Type Department Care Team ([facility] st Contact Info) Description 03/25/2025 10:15 AM EST Office Visit [facility] MED & PEDS [address] [place], [place] [phone] Carmina Narayan MD [address] [place], [place] [phone] Class 2 obesity (Primary Dx); Lower urinary tract symptoms (LUTS); Hypertension, unspecified type; Hyperbilirubinemia; Palpitations Social History Tobacco Use Types Packs/Day Years [...] AM EDT documented as of this encounter Last Filed Vital Signs Vital Sign Reading Time Taken Comments Blood Pressure 123/77 03/25/2025 10:22 AM EST Pulse 80 03/25/2025 10:22 AM EST Temperature - - Respiratory Rate 20 03/25/2025 10:22 AM EST Oxygen Saturation 97% 03/25/2025 10:22 AM EST Inhaled Oxygen Concentration - - Weight 106 kg (233 lb 6.4 oz) 03/25/2025 10:22 A M EST Height 177.8 cm (5' 10 ) 03/25/2025 10:22 AM EST Body Mass Index 33.49 03/25/2025 10:22 AM EST documented in this encounter Progress Notes * Carmina Narayan MD - 03/25/2025 10:15 AM EST Subjective Patient ID: Donny Xie is a 64 y.o. male who presents for Follow-up. Donny Xie is a 64-year-old male who presents for follow-up of multiple medical conditions including hypertension and cardiac issues. The patient reports that he saw a foam cutting supervisor who made changes to his blood pressure medication. The foam cutting supervisor increased his lisinopril to 40mg and instructed him to take half of a 20mg medication in the morning and half at night. However, the patient stopped taking his previous 30mg medication. He was originally seeing the foam cutting supervisor for palpitations. The patient mentions weight loss since his last visit. He has been dealing with scheduling challenges as his foam cutting supervisor moved from [place] to [place], making it difficult for him to attend appointments due to the distance and his work schedule. Despite the inconvenience, he plans to keep his cardiology appointment. The patient also reports seeing other specialists including a plastics nurse for a rash and mentionshaving an upcoming appointment that he initially considered postponing due to work conflicts but ultimately decided to keep. He references seeing a specialist named Presley Corea who provided drops and pills and mentioned potential surgery in March to help him breathe better, which the patient is still considering. The patient notes some swelling that he has observed, though he acknowledges it could be related tothe viewing angle. He mentions having this condition for a long time but notices it appears more swollen recently. Review of Systems General: Positive for weight loss. Cardiovascular: Positive for palpitations. Respiratory: Positive for nasal congestion. Review of Systems Objective BP 123/77 Pulse 80 Resp 20 Ht 5' 10 (1.778 m) Wt 233 lb 6.4 oz (106 kg) SpO2 97% BMI 33.49 kg/m?? Physical Exam Constitutional: General: He is not in acute distress. Appearance: He is obese. He is not ill-appearing. HENT: Head: Normocephalic and atraumatic. Nose: No congestion. Pulmonary: Effort: Pulmonary effort is normal. No respiratory distress. Breath sounds: Normal breath sounds. Musculoskeletal: Cervical back: Normal range of motion. Neurological: General: No focal deficit present. Mental Status: He is alert. Psychiatric: Mood and Affect: Mood normal. Assessment/Plan Problem List Items Addressed This Visit Hypertensive disorder Relevant Medications lisinopril 30 MG tablet Other Relevant Orders Comprehensive Metabolic Panel Class 2 obesity - Primary Relevant Orders CBC auto differential Vitamin D, 25-Hydroxy, Total, Immunoassay Palpitations Relevant Orders Referral to Cardiology Lower urinary tract symptoms (LUTS) Relevant Orders Culture, Urine, Routine Other Visit Diagnoses Hyperbilirubinemia Relevant Orders Bilirubin, Direct 64-year-old male with hypertension, elevated bilirubin, and cardiac palpitations requiring foam cutting supervisor follow-up and laboratory monitoring. Hypertension Assessment: Patient reports foam cutting supervisor increased lisinopril to 40 mg daily, with instructions to take half of a 20 mg tablet in the morning and half at night. Patient discontinued previous 30 mg dose. Blood pressure appears well controlled on current regimen. 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 This is a benign condition where the body breaks down bilirubin differently, causing persistently mild elevations that are not clinically significant. Plan: - Recheck liver function tests and bilirubin levels - Monitor for Gilbert's syndrome Cardiac palpitations Assessment: Patient has been experiencing palpitations and is currently under cardiology care. Imager has relocated from [place] to [place], creating access concerns for the patient. Plan: - Continue with scheduled foam cutting supervisor appointment despite location change - Consider referral to local foam cutting supervisor if access becomes problematic Hyperlipidemia monitoring Assessment: Recent cholesterol panel showed normal results with HDL at 46, which is very good. C-reactive protein was also normal. Given normal results, repeat testing is not urgently needed within one year. Plan: - Cholesterol monitoring not required within one year given normal recent results - Can repeat lipid panel at patient's convenience for routine monitoring Follow-up appointment scheduled in 4 months. documented in this encounter Plan of Treatment Upcoming Encounters Date Type Department Care Team (Late st Contact Info) Description 04/05/2025 9:45 AM EST Office Visit [facility] [address] [place] [address] Destiny Durham MD [address] [place] [address] 07/08/2025 9:00 AM EDT Office Visit [facility] [address] [place] [address] Deven, Kia, OD 230 [place] [address] Scheduled Orders Name Type Priority Associated Diagnoses Orde r Schedule CBC auto differential Lab Routine Class 2 obesity Expected: 03/25/2025 (Approximate), Expires: 03/25/2026 Comprehensive Metabolic Panel Lab Routine Hypertension, unspecified type Expected: 03/25/2025 (Approximate), Expires: 03/25/2026 Bilirubin, Direct Lab Routine Hyperbilirubinemia Expected: 03/25/2025 (Approximate), Expires: 03/25/2026 Culture, Urine, Routine Microbiology Routine Lower urinary tract symptoms (LUTS) Expected: 03/25/2025 (Approximate), Expires: 03/25/2026 Vitamin D, 25-Hydroxy, Total, Immunoassay Lab Routine Class 2 obesity Expected: 03/25/2025 (Approximate), Expires: 03/25/2026 Scheduled Referrals Name Type Priority Associated Diagnoses Order Schedule Referral to Cardiology Outpatient Referral Routine Palpitations Expected: 03/25/2025 (Approximate), Expires: 03/25/2026 documented as of this encounter Visit Diagnoses Diagnosis Class 2 obesity- Primary Lower urinary tract symptoms (LUTS) Hypertension, unspecified type Hyperbilirubinemia Disorders of bilirubin excretion Palpitations documented in this encounter Additional Health Concerns Assessment Noted Time PHQ-9 Depression Total Score: 6 07/28/19 25 9:04 AM EDT documented as of this encounter Care Teams Kettle Worker Relationship Specialty Start Date End Date Carmina Narayan MD [address] [place], [place] [phone] PCP - General Family Medicine 09/14/22 documented as of this encounter
--- OUTSIDE RECORDS SUMMARY | 2025-03-26 11:25 | XMS_ITS | Encounter Summary ---
Author Organization [employer] Address [address] [facility] [address] 7t [place] [address] Care Team Providers Care Minor League Baseball Player Name Role Phone Carmina Narayan MD Primary Care Provider [phone] Encounter Details Date Type Department Care Team (Latest Contact Info) Description 03/25/2025 Travel Social History Tobacco Use Types Packs/Day [...] Description 04/05/2025 9:45 AM EST Office Visit [facility] 230 [place] [address] Destiny Durham MD [address] [place] [address] 07/08/2025 9:00 AM EDT Office Visit [facility] [address] [place] [address] Deven, Kia, OD [address] [place] [address] documented as of this encounter Visit Diagnoses Not on filedocumented in this encounter Additional Health Concerns Assessment Noted Time PHQ-9 Depression Total Score: 6 07/28/19 9:04 AM EDT documented as of this encounter Care Teams Minor League Baseball Player Relationship Specialty Start Date End Date Carmina Narayan MD [address] [place] [address] PCP - General Family Medicine 09/14/22 documented as of this encounter
--- OUTSIDE RECORDS SUMMARY | 2025-03-26 11:25 | XMS_ITS | Encounter Summary ---
Author Organization [employer] Address [address] [facility] 7t [place] [address] Care Team Providers Care Merchandise Shopper Name Role Phone Carmina Narayan MD Primary Care Provider [phone] Reason for Visit * Reason Onset Date Comments Med Refill 01/15/2024 Encounter Details Date Type Department Care Team ([facility] st Contact Info) Description 01/15/2024 Refill [facility] MED & PEDS 505 [place], [place] [phone] Carmina Narayan MD 505 [place] [address] Social History Tobacco Use Types Packs/Day Years [...] Description 04/05/2025 9:45 AM EST Office Visit [facility] 230 [place] [address] Destiny Durham MD 230 [place] [address] 07/08/2025 9:00 AM EDT Office Visit [facility] [address] [place] [address] Deven, Kia, OD [address] [place] [address] documented as of this encounter Visit Diagnoses Not on filedocumented in this encounter Additional Health Concerns Assessment Noted Time PHQ-9 Depression Total Score: 1 06/07/19 24 3:32 PM EDT documented as of this encounter Care Teams Merchandise Shopper Relationship Specialty Start Date End Date Carmina Narayan MD [address] [place] [address] PCP - General Family Medicine 09/14/22 documented as of this encounter
--- OUTSIDE RECORDS SUMMARY | 2025-03-26 11:25 | XMS_ITS | Encounter Summary ---
Author Organization [employer] Address 75 [facility] 7t [place] [address] Care Team Providers Care Superintendent Job Name Role Phone Carmina Narayan MD Primary Care Provider [phone] Reason for Visit * Reason Onset Date Comments Med Refill 03/16/2025 Encounter Details Date Type Department Care Team ([facility] st Contact Info) Description 03/16/2025 Refill [facility] CH[facility] MED & PEDS [address] [place], [place] [phone] Saloni Washington MD 505 [place] [address] Social History Tobacco Use Types Packs/Day Years [...] Description 04/05/2025 9:45 AM EST Office Visit [facility] MED[facility] 230 [place] [address] Destiny Durham MD [address] [place] [address] 07/08/2025 9:00 AM EDT Office Visit [facility] OPT[facility] [address] [place] [address] Deven, Kia, OD [address] [place] [address] documented as of this encounter Visit Diagnoses Not on filedocumented in this encounter Additional Health Concerns Assessment Noted Time PHQ-9 Depression Total Score: 6 07/28/19 9:04 AM EDT documented as of this encounter Care Teams Superintendent Job Relationship Specialty Start Date End Date Carmina Narayan MD 230 [place] [address] PCP - General Family Medicine 09/14/22 documented as of this encounter
--- OUTSIDE RECORDS SUMMARY | 2025-03-26 11:25 | XMS_ITS | Encounter Summary ---
Author Organization [employer] Address 75 [facility] 7t [place] [address] Care Team Providers Care Radioactivity Technician Name Role Phone Carmina Narayan MD Primary Care Provider [phone] Reason for Visit * Reason Onset Date Comments Med Refill 07/09/2024 Encounter Details Date Type Department Care Team ([facility] st Contact Info) Description 07/09/2024 Refill [facility] MED & PEDS 505 [place], [place] [phone] Carmina Narayan MD 505 [place] [address] Social History Tobacco Use Types Packs/Day Years [...] Description 04/05/2025 9:45 AM EST Office Visit [facility] MEDICINE 230 [place] [address] Destiny Durham MD [address] [place] [address] 07/08/2025 9:00 AM EDT Office Visit [facility] OPTOM[facility] [address] [place] [address] Deven, Kia, OD 230 [place] [address] documented as of this encounter Visit Diagnoses Not on filedocumented in this encounter Additional Health Concerns Assessment Noted Time PHQ-9 Depression Total Score: 1 06/07/19 24 3:32 PM EDT documented as of this encounter Care Teams Radioactivity Technician Relationship Specialty Start Date End Date Carmina Narayan MD 230 [place] [address] PCP - General Family Medicine 09/14/22 documented as of this encounter
--- OUTSIDE RECORDS SUMMARY | 2025-03-26 11:25 | XMS_ITS | Encounter Summary ---
Author Organization [employer] Address [address] [facility] 7t [place] [address] Care Team Providers Care Pencil Sorter Name Role Phone Carmina Narayan MD Primary Care Provider [phone] Reason for Visit * Reason Onset Date Comments Med Refill 12/21/2024 Encounter Details Date Type Department Care Team ([facility] st Contact Info) Description 12/21/2024 Refill [facility] CH[facility] MED & PEDS 505 [place], [place] [phone] Saloni Washington MD 505 [place] [address] Social History Tobacco Use Types Packs/Day Years [...] Description 04/05/2025 9:45 AM EST Office Visit [facility] MEDICINE 230 [place] [address] Destiny Durham MD [address] [place] [address] 07/08/2025 9:00 AM EDT Office Visit [facility] OPT[facility] [address] [place] [address] Deven, Kia, OD 230 [place] [address] documented as of this encounter Visit Diagnoses Not on filedocumented in this encounter Additional Health Concerns Assessment Noted Time PHQ-9 Depression Total Score: 6 07/28/19 9:04 AM EDT documented as of this encounter Care Teams Pencil Sorter Relationship Specialty Start Date End Date Carmina Narayan MD [address] [place] [address] PCP - General Family Medicine 09/14/22 documented as of this encounter
--- OUTSIDE RECORDS SUMMARY | 2025-03-26 11:25 | XMS_ITS | Encounter Summary ---
Author Organization [employer] Address [address] [place] [address] 7t [place] [address] Care Team Providers Care Cane Cutter Name Role Phone Carmina Narayan MD Primary Care Provider [phone] Reason for Visit * Reason Onset Date Comments Results 10/12/2022 Encounter Details Date Type Department Care Team ([facility] Contact Info) Description 10/12/2022 Telephone [facility] MED & PEDS [address] [place], [place] [phone] Carmina Narayan MD 505 [place] [address] Results Social History Tobacco Use Types Packs/Day [...] 10/14/2022 10:26 AM EDT [facility] Labs are all within normal limit [...] Noted Rx Cetirizine sent on 09/27/22 to [facility] pharmacy. Per pt, unsure if he was given Rx. States he does not have it at home. Call to [facility] pharmacy. Rx, 90 day supply, picked [...] clarify lab results Please contact pt at [phone] Japanese Speaker documented in this encounter Plan of Treatment Upcoming Encounters Date Type Department Care Team (Late st Contact Info) Description 04/05/2025 9:45 AM EST Office Visit [facility] MEDICINE [address] [place] [address] Destiny Durham MD 230 [place] [address] 07/08/2025 9:00 AM EDT Office Visit [facility] OPTOMETRY [address] [place], [place] [phone] Deven, Kia, OD [address] [place], [place] [phone] documented as of this encounter Visit Diagnoses Not on filedocumented in this encounter Additional Health Concerns Assessment Noted Time PHQ-9 Depression Total Score: 0 04/23/19 9:02 AM EST documented as of this encounter Care Teams Cane Cutter Relationship Specialty Start Date End Date Carmina Narayan MD 230 [place] [address] PCP - General Family Medicine 09/14/22 documented as of this encounter
--- OUTSIDE RECORDS SUMMARY | 2025-03-26 11:25 | XMS_ITS | Encounter Summary ---
Author Organization [employer] Address 75 [facility] 7t [place] [address] Care Team Providers Care Stave Cutter Name Role Phone Carmina Narayan MD Primary Care Provider [phone] Reason for Visit * Reason Onset Date Comments Med Refill 11/10/2024 Encounter Details Date Type Department Care Team ([facility] st Contact Info) Description 11/10/2024 Refill [facility] CH[facility] MED & PEDS 505 [place], [place] [phone] Carmina Narayan MD 505 [place] [address] Social History Tobacco Use Types Packs/Day Years [...] Description 04/05/2025 9:45 AM EST Office Visit [facility] MEDICINE 230 [place] [address] Destiny Durham MD 230 [place] [address] 07/08/2025 9:00 AM EDT Office Visit [facility] OPTOMETRY [address] [place] [address] Deven, Kia, OD 230 [place] [address] documented as of this encounter Visit Diagnoses Not on filedocumented in this encounter Additional Health Concerns Assessment Noted Time PHQ-9 Depression Total Score: 6 07/28/19 25 9:04 AM EDT documented as of this encounter Care Teams Stave Cutter Relationship Specialty Start Date End Date Carmina Narayan MD 230 [place] [address] PCP - General Family Medicine 09/14/22 documented as of this encounter
--- OUTSIDE RECORDS SUMMARY | 2025-03-26 11:25 | XMS_ITS | Clinical Summary ---
Author Organization [address] [facility] Address [address] [place] [address] Phone Care Team Providers Care Database Programmer Name Role Phone Unavailable Primary Care Provider Unavailabl e Allergies Active Allergy Reactions Criticality Noted Date Comments Amlodipine 10/23/2024 Sulfa (Sulfonamide Antibiotics) 09/26 Terazosin 10/23/2024 Medications ammonium lactate (AmLactin) 12 % lotion Apply topically if needed for dry skin. 400 g 5 10/24/19 26 Active doxycycline (VIBRAMYCIN) 100 mg capsule TAKE 1 CAPSULE TWICE DAILY WITH WATER UNTIL FINISHED, DO NOT LIE DOWN FOR 30 MINUTES AFTER Active diclofenac (CATAFLAM) 50 mg tablet Take 1 tablet (50 mg total) by mouth. 4 Active Social History Tobacco Use Types Packs/Day Years Used Date Smoking Tobacco: Never Assessed Sex and Gender Information Value Date Recorded Sex Assigned at Not on file Legal Sex Male 11:51 AM EDT Gender Identity Not on file Sexual Orientation Not on file Plan of Treatment Health Maintenance Due Date Last Done Comments Colorectal Cancer Screening: Colonoscopy 1960 Depression Screening 03/28/2024 Social Influencers of Health Screening 08/04/2024 COVID-19 Vaccine ( season) 2024 07/28/2021, 02/20/2021, 08/12/2020, Additional history exists Influenza Vaccine (#1) 2024 3, 01/28/2022, 01/05/2021, Additional history exists Hypertension/CHF/CAD Annual [...]
--- OUTSIDE RECORDS SUMMARY | 2025-03-26 11:25 | XMS_ITS | Encounter Summary ---
Author Organization [employer] Address [address] [place] [address] 7t [place] [address] Care Team Providers Care Vice President Safety Name Role Phone Carmina Narayan MD Primary Care Provider [phone] Encounter Details Date Type Department Care Team (Late Contact Info) Description 10/18/2022 Orders Only [facility] CHC MED & PEDS 505 [place], [place] [phone] Armando Carmona MD 505 [place] [address] Nasal congestion (Primary Dx) Social History Tobacco [...] Description 04/05/2025 9:45 AM EST Office Visit [facility] MEDICINE [address] [place] [address] Destiny Durham MD [address] [place], [place] [phone] 07/08/2025 9:00 AM EDT Office Visit [facility] OPTOMETRY [address] [place], [place] [phone] Kia Carvalho, OD [address] [place], [place] [phone] documented as of this encounter Visit Diagnoses Diagnosis Nasal congestion- Primary Other diseases of nasal cavity and sinuses documented in this encounter Additional Health Concerns Assessment Noted Time PHQ-9 Depression Total Score: 0 04/23/19 9:02 AM EST documented as of this encounter Care Teams Vice President Safety Relationship Specialty Start Date End Date Carmina Narayan MD [address] [place] [address] PCP - General Family Medicine 09/14/22 documented as of this encounter
--- OUTSIDE RECORDS SUMMARY | 2025-03-26 11:25 | XMS_ITS | Encounter Summary ---
Author Organization [employer] Address [address] [facility] 7t [place] [address] Care Team Providers Care Senior Product Consultant Name Role Phone Carmina Narayan MD Primary Care Provider [phone] Reason for Visit * Reason Onset Date Comments Referral 06/22/2024 Encounter Details Date Type Department Care Team ([facility] st Contact Info) Description 06/22/2024 Telephone [facility] MEDICINE [address] [place] [address] Carmina Narayan MD [address] [place], [place] [phone] Referral Social History Tobacco Use Types Packs/Day [...] Description 04/05/2025 9:45 AM EST Office Visit [facility] MEDIC[facility] [address] [place] [address] Destiny Durham MD [address] [place] [address] 07/08/2025 9:00 AM EDT Office Visit [facility] OPTOMETRY [address] [place], [place] [phone] Kia Carvalho OD [address] [place] [address] documented as of this encounter Visit Diagnoses Not on filedocumented in this encounter Additional Health Concerns Assessment Noted Time PHQ-9 Depression Total Score: 1 06/07/19 24 3:32 PM EDT documented as of this encounter Care Teams Senior Product Consultant Relationship Specialty Start Date End Date Carmina Narayan MD [address] [place] [address] PCP - General Family Medicine 09/14/22 documented as of this encounter
--- OUTSIDE RECORDS SUMMARY | 2025-03-26 11:25 | XMS_ITS | Encounter Summary ---
Author Organization [employer] Address 75 [facility] 7t [place] [address] Care Team Providers Care Gear Repair Supervisor Name Role Phone Carmina Narayan MD Primary Care Provider [phone] Reason for Visit * Reason Onset Date Comments Med Refill 11/18/2023 Encounter Details Date Type Department Care Team ([facility] st Contact Info) Description 11/18/2023 Refill [facility] CHC MED & PEDS [address] [place], [place] [phone] Carmina Narayan MD 505 [place] [address] Social History Tobacco Use Types Packs/Day Years [...] Description 04/05/2025 9:45 AM EST Office Visit [facility] MEDICINE 230 [place] [address] Destiny Durham MD [address] [place] [address] 07/08/2025 9:00 AM EDT Office Visit [facility] OPTOMETRY [address] [place] [address] Kia Carvalho, OD [address] [place] [address] documented as of this encounter Visit Diagnoses Not on filedocumented in this encounter Additional Health Concerns Assessment Noted Time PHQ-9 Depression Total Score: 1 06/07/19 24 3:32 PM EDT documented as of this encounter Care Teams Gear Repair Supervisor Relationship Specialty Start Date End Date Carmina Narayan MD [address] [place] [address] PCP - General Family Medicine 09/14/22 documented as of this encounter
--- OUTSIDE RECORDS SUMMARY | 2025-03-26 11:25 | XMS_ITS | Encounter Summary ---
Author Organization [employer] Address [address] [facility] 7t [place] [address] Care Team Providers Care Subsorter Name Role Phone Carmina Narayan MD Primary Care Provider [phone] Reason for Visit * Reason Onset Date Comments Med Refill 01/19/2025 Encounter Details Date Type Department Care Team ([facility] st Contact Info) Description 01/19/2025 Refill [facility] CHC MED & PEDS [address] [place], [place] [phone] Saloni Washington MD [address] [place] [address] Social History Tobacco Use Types Packs/Day Years [...] Description 04/05/2025 9:45 AM EST Office Visit [facility] MEDICINE [address] [place] [address] Destiyn Durham MD [address] [place] [address] 07/08/2025 9:00 AM EDT Office Visit [facility] OPTOMETRY [address] [place] [address] Deven, Kia, OD [address] [place] [address] documented as of this encounter Visit Diagnoses Not on filedocumented in this encounter Additional Health Concerns Assessment Noted Time PHQ-9 Depression Total Score: 6 07/28/19 9:04 AM EDT documented as of this encounter Care Teams Subsorter Relationship Specialty Start Date End Date Carmina Narayan MD [address] [place] [address] PCP - General Family Medicine 09/14/22 documented as of this encounter
--- OUTSIDE RECORDS SUMMARY | 2025-03-26 11:25 | XMS_ITS | Encounter Summary ---
Author Organization [facility] [employer] Address [address] [facility] 7t [place] [address] Care Team Providers Care Tube Blower Name Role Phone Carmina Narayan MD Primary Care Provider [phone] Reason for Visit * Reason Onset Date Comments Med Refill 04/03/2024 Encounter Details Date Type Department Care Team ([facility] st Contact Info) Description 04/03/2024 Refill [facility] CHC MED & PEDS [address] [place], [place] [phone] Carmina Narayan MD [address] [place] [address] Social History Tobacco Use Types Packs/Day Years [...] Description 04/05/2025 9:45 AM EST Office Visit [facility] MEDICINE [address] [place] [address] Destiny Durham MD [address] [place] [address] 07/08/2025 9:00 AM EDT Office Visit [facility] OPTOMETRY [address] [place] [address] Deven, Kia, OD [address] [place] [address] documented as of this encounter Visit Diagnoses Not on filedocumented in this encounter Additional Health Concerns Assessment Noted Time PHQ-9 Depression Total Score: 1 06/07/19 24 3:32 PM EDT documented as of this encounter Care Teams Tube Blower Relationship Specialty Start Date End Date Carmina Narayan MD [address] [place] [address] PCP - General Family Medicine 09/14/22 documented as of this encounter
--- OUTSIDE RECORDS SUMMARY | 2025-03-26 11:25 | XMS_ITS | Encounter Summary ---
Author Organization [employer] Address [address] [facility] 7t [place] [address] Care Team Providers Care Water Valve Repairer Name Role Phone Carmina Narayan MD Primary Care Provider [phone] Reason for Visit * Reason Comments Med Refill Encounter Details Date Type Department Care Team (Late st Contact Info) Description 10/31/2023 Refill [facility] MEDICINE [address] [place] [address] Name, MD Irvin [address] [place], [place] [phone] Hypertension, unspecified type Social History Tobacco Use [...] Description 04/05/2025 9:45 AM EST Office Visit [facility] MEDICINE [address] [place] [address] Destiny Durham MD [address] [place] [address] 07/08/2025 9:00 AM EDT Office Visit [facility] OPTOMETRY [address] [place] [address] Deven, Kia, OD [address] [place] [address] documented as of this encounter Visit Diagnoses Diagnosis Hypertension, unspecified type documented in this encounter Additional Health Concerns Assessment Noted Time PHQ-9 Depression Total Score: 1 06/07/19 24 3:32 PM EDT documented as of this encounter Care Teams Water Valve Repairer Relationship Specialty Start Date End Date Carmina Narayan MD [address] [place] [id number] PCP - General Family Medicine 09/14/22 documented as of this encounter
--- OUTSIDE RECORDS SUMMARY | 2025-03-26 11:25 | XMS_ITS | Encounter Summary ---
Author Organization [employer] Address [address] [facility] 7t [place] [address] Care Team Providers Care Sharepoint Consultant Name Role Phone Carmina Narayan MD Primary Care Provider [phone] Reason for Visit * Reason Onset Date Comments Appointment Request 02/13/2025 Encounter Details Date Type Department Care Team ([facility] Contact Info) Description 02/13/2025 Telephone [facility] MEDICINE [address] [place] [address] Carmina Narayan MD [address] [place] [address] Appointment Request Social History Tobacco Use Types Packs/Day Years [...] encounter Miscellaneous Notes * Telephone Encounter - Jasmin Booth - 02/13/2025 9:13 AM EST TC from pt stated on last visit on 01/14 PCP want to saw his on 4 weeks but PCP doesn't have nothing available until end of February. PCP Dr. Narayan documented in this encounter Plan of Treatment Upcoming Encounters Date Type Department Care Team (Late st Contact Info) Description 04/05/2025 9:45 AM EST Office Visit [facility] MEDICINE [address] [place] [address] LilyRamDestiny ayala MD [address] [place] [address] 07/08/2025 9:00 AM EDT Office Visit [facility] OPTOMETRY [address] [place] [address] Kia Carvalho, OD [address] [place] [address] documented as of this encounter Visit Diagnoses Not on filedocumented in this encounter Additional Health Concerns Assessment Noted Time PHQ-9 Depression Total Score: 6 07/28/19 25 9:04 AM EDT documented as of this encounter Care Teams Sharepoint Consultant Relationship Specialty Start Date End Date Carmina Narayan MD [address] [place] [address] PCP - General Family Medicine 09/14/22 documented as of this encounter
--- OUTSIDE RECORDS SUMMARY | 2025-03-26 11:25 | XMS_ITS | Encounter Summary ---
Author Organization [employer] Address [address] [facility] 7t [place] [address] Care Team Providers Care Assembler Small Products Name Role Phone Name, Irvin URBINA Primary Care Provider [phone] Carmina Narayan MD Primary Care Provider [phone] Encounter Details Date Type Department Care Team ([facility] Contact Info) Description 04/22/[address] [phone] Name, MD Irvin [address] [place] [address] [phone] Social History Tobacco Use Types Packs/Day Years [...] Encounters Date Type Department Care Team (Late Contact Info) Description 04/05/2025 9:45 AM EST Office Visit [facility] MEDICINE [address] [place] [address] Destiny Durham MD [address] [place] [address] 07/08/2025 9:00 AM EDT Office Visit [facility] OPTOMETRY [address] [place] [address] Kia Carvalho, OD [address] [place] [address] documented as of this encounter Visit Diagnoses Not on filedocumented in this encounter Care Teams Assembler Small Products Relationship Specialty Start Date End Date Name, MD Irvin [address] [place] [address] PCP - General Family Medicine 12/13/19 09/13/22 Carmina Narayan MD [address] [place] [address] PCP - General Family Medicine 09/14/22 documented as of this encounter
--- OUTSIDE RECORDS SUMMARY | 2025-03-26 11:25 | XMS_ITS | Encounter Summary ---
Author Organization [employer] Address [address] [facility] 7t [place] [address] Care Team Providers Care Recenterer Name Role Phone Name, Irvin URBINA Primary Care Provider Carmina Narayan MD Primary Care Provider [phone] Encounter Details Date Type Department Care Team (Late Contact Info) Description 09/06/2022 Abstract [facility] MEDICINE [address] [place] [address] [phone] Name, MD Irvin [address] [place], [place] [phone] Social History Tobacco Use Types Packs/Day Years [...] Description 04/05/2025 9:45 AM EST Office Visit [facility] MEDICINE [address] [place] [address] Destiny Durham MD [address] [place] [address] 07/08/2025 9:00 AM EDT Office Visit [facility] OPTOMETRY [address] [place] [address] Deven, Kia, OD [address] [place] [address] documented as of this encounter Visit Diagnoses Not on filedocumented in this encounter Additional Health Concerns Assessment Noted Time PHQ-9 Depression Total Score: 0 04/23/19 9:02 AM EST documented as of this encounter Care Teams Recenterer Relationship Specialty Start Date End Date Name, MD Irvin [address] [place] [id number] PCP - General Family Medicine 12/13/19 09/13/22 Carmina Narayan MD [address] [place] [address] [phone] PCP - General Family Medicine 09/14/22 documented as of this encounter
--- OUTSIDE RECORDS SUMMARY | 2025-03-26 11:25 | XMS_ITS | Clinical Summary ---
Author Organization [employer] Address [address] [facility] [address] [place] [address] Care Team Providers Care Oleo Hasher And Renderer Name Role Phone Carmina Narayan MD Primary Care Provider [phone] Allergies Active Allergy Reactions Criticality Noted Date Comments Amlodipine Nausea Only 01/22/2020 Sulfamethoxazole-Trimethop rim Palpitations Low 12/02/2022 Terazosin Other High 01/13/2024 Other Reaction(s): other Medications * This document contains information received from the source organization and may not represent a complete record from that organization. ascorbic acid (Vitamin C) 250 MG tablet Take by mouth in the morning. Active cyanocobalamin (Vitamin B-12) 50 MCG tablet Take by mouth in the morning. Active polyethylene glycol, PEG, 3350 (MiraLax) 17 GM/SCOOP powderIndications :Drug-induced constipation Take 17 g by mouth in the morning. 527 g 2 023 Active Bisacodyl EC 5 MG EC tablet TAKE 2 TABLETS BY MOUTH AT NOON THE DAY BEFORE YOUR COLONOSCOPY 023 Active cetirizine (ZyrTEC) 10 MG tablet TAKE ONE TABLET BY MOUTH EVERY MORNING 30 tablet 5 023 Active Citrucel 500 MG tablet TAKE 1 TABLET BY MOUTH DAILY WITH FULL GLASS OF WATER 024 Active fluticasone furoate (Arnuity Ellipta) 100 MCG/ACT inhaler Inhale 1 puff in the morning. Rinse mouth with water after use to reduce aftertaste and incidence of candidiasis. Do not swallow. 1 each 024 Active Pramoxine HCl (CeraVe Itch Relief) 1 % cream Apply 10 g topically 4 times daily. 340 g 2 024 Active aspirin (Aspirin Adult Low Strength) 81 MG EC tablet Take 1 tablet (81 mg) by mouth in the morning. 90 tablet 1 024 Active albuterol (2.5 MG/3ML) 0.083% nebulizer solution Take 3 mL (2.5 mg) by nebulization every 4 (four) hours if needed for wheezing. 75 mL 11 024 Active calcium carbonate 1500 (600 Ca) MG tablet TAKE ONE TABLET IN THE MORNING AND EVENING WITH MEALS Active traZODone (Desyrel) 50 MG tablet Take 50 mg by mouth if needed at bedtime for sleep. 024 Active famotidine (Pepcid) 20 MG tablet Take 1 tablet (20 mg) by mouth every 12 (twelve) hours. 180 tablet 1 024 Active sertraline (Zoloft) 50 MG tablet TAKE 1 TABLET BY MOUTH EVERY DAY 30 tablet 2 024 Active diclofenac (Cataflam) 50 MG tablet Take 1 tablet (50 mg) by mouth 3 times daily. 90 tablet 024 Active azelastine (Astelin) 0.1 % nasal spray use 2 sprays in each nostril twice daily 025 Active fluticasone (Flonase) 50 MCG/ACT nasal spray USE ONE SPRAY IN EACH NOSTRIL TWICE DAILY 48 g 025 Active finasteride (Proscar) 5 MG tabletIndications :Lower urinary tract symptoms (LUTS) Take 1 tablet (5 mg) by mouth Once per day. 90 tablet 025 Active ipratropium (Atrovent) 0.03 % nasal sprayIndications: [...] mouth Once per day. 30 tablet 11 03/25/20 25 11:05 AM EST 025 2025 Active Diclofenac Sodium (Voltaren) 1 % gel Use topical BID 100 g 3 Active montelukast (Singulair) 10 MG tablet Take 1 tablet (10 mg) by mouth in the evening. 90 tablet 1 Active omeprazole (PriLOSEC) [address] capsule Take 1 capsule (40 mg) by mouth Once per day. 90 capsule 1 Active lidocaine (Lidoderm) 5 % patchIndications: Chronic low back pain without sciatica, unspecified back pain laterality Apply 1 patch topically Once per day. Remove & discard patch within 12 hours or as directed by MD. 30 patch 2 025 Active methocarbamol (Robaxin) 750 MG tabletIndications :Muscle tension pain Take 1 tablet (750 mg) by mouth 4 times daily for 10 days. 40 tablet Active tadalafil (Cialis) 20 MG tablet TAKE 1 TABLET BY MOUTH ONCE NEEDED FOR SEXUAL ACTIVITY Active tadalafil (Cialis) 5 MG tablet Take 1 tablet by mouth Once per day. 025 Active hydrocortisone 2.5 % cream Apply topically 2 times daily. 15 g 1 025 Active tamsulosin (Flomax) 0.4 MG 24 hr capsule Take 1 capsule (0.4 mg) by mouth Once per day. TAKE ONE CAPSULE DAILY 30 MINUTES FOLLOWING THE SAME MEAL EACH DAY 90 capsule 1 02/27/20 25 10:11 AM EST Active ammonium lactate (Lac-Hydrin) 12 % lotion Apply topically if needed for dry skin. 396 g 1 03/04/20 25 1:19 PM EST 025 2025 Active triamcinolone (Kenalog) 0.1 % cream Apply topically if needed in the morning and at bedtime (pain and swelling). 30 g 03/04/20 25 1:19 PM EST 025 Active rosuvastatin (Crestor) 20 MG tabletIndications :Hyperlipidemia, unspecified hyperlipidemia type Take 1 tablet (20 mg) by mouth Once per day. 90 tablet 1 03/08/20 25 4:00 PM EST Active lisinopril 30 MG tablet Take 1 tablet (30 mg) by mouth Once per day. 90 tablet 1 03/25/20 25 11:05 AM EST Active rosuvastatin (Crestor) 20 MG tabletIndications :Hyperlipidemia, unspecified hyperlipidemia type Take 1 tablet (20 mg) by mouth Once per day. 90 tablet 1 025 2024 Discontinued(R eorder (will not trigger notification to Pharmacy)) ammonium lactate (Lac-Hydrin) 12 % lotion Apply topically if needed. 2024 Discontinued(T herapy completed) lisinopril 30 MG tablet Take 30 mg by mouth Once per day. 2024 Discontinued(R eorder (will not trigger notification to Pharmacy)) mupirocin (Bactroban) 2 % ointment Apply topically 2 times daily for 5 days. Apply in each nostril 2x/day for 5 days. 22 g 025 2024 Active Problems Problem Noted Date Diagnosed Date Xerosis of skin 03/04/2025 Itch of skin 03/04/2025 Skin lesion of scalp 03/04/2025 Nasal obstruction 02/11/2025 Deviated nasal bone 02/11/2025 Other polyp of sinus 02/11/2025 Snoring 12/04/2024 Tinnitus of vascular origin 11/05/2024 Subjective pulsatile tinnitus of right ear 11/05 Refractory migraine 11/05/2024 Anxiety 11/02/2024 Other specified anxiety disorders 11/02/2024 [...] requesting continued treatment. Plan: - Referral to [facility]ropractor for continued treatment - Address [...] 2024 -ER precautions discussed Tension headache 01/18/2024 Assessment & Plan (01/03/2025 10:30 AM EDT): - Headache attributed to muscle tension in the neck and trapezius area. -recommend oral analgesic as previously prescribed -intervention for muscle tension as describe above headache red flags discussed: report to ED immediately if headache characteristics intensify within 5 mins of onset, if associated with intense nausea and vomiting or confusion Osteoarthritis of left knee 01/18/2024 Insomnia 01/18/2024 [...] rest. Instability of both knee joints 11/30/2023 Abscess 08/11/2023 Assessment & Plan (08/16/2023 11:31 [...] to optometry for further w/u and assessment. Chronic sinusitis 04/07/2023 Assessment & Plan (04/07/2023 4:49 [...] and sen for Xray of cervical spine. Cervicalgia 10/04/2022 Assessment & Plan (01/19/2024 6:05 PM [...] Lipid Panel, Standard TSH W/Reflex to FT4 Temporomandibular joint disorder 09/14/2022 Class 2 obesity 09/14/2022 Assessment & Plan (01/14/2025 12:11 PM EDT): Reviewed indications for pharmacotherapy with [...] or MEN 2. Phentermine contraindicated, due to his UNCONTROLLED ANXIETY DESPITE BEING ON SERTRALINE & TRAZODONE and having therapy,. as it may exacerbate his symptoms. Patient also has UNCONTROLLED HYPERTENSION FOLLOWING DESPITE BEING ON LISINOPRIL. Discussed calorie deficit, recommended reduction of 20-30% of maintenance calories; cross country/track and field coach referral offered. Recommended to decrease soda and sugary beverage consumption. Recommended at least 20 g per meal of protein to assist with satiety. Recommended at least 150 min/week of moderate intensity exercise. Assessment & Plan (06/07/2023 10:23 PM EDT): Discussed calorie deficit, recommended reduction of 20-30% of maintenance calories; cross country/track and field coach referral offered. Recommended to decrease soda and [...] polyps 04/23/2022 Overview (04/23/2022): [place] [facility] 2 adenomatous polyps removed, was recommended repeat 1-2 years after Erectile dysfunction 03/11/2022 Assessment & Plan (06/07/2023 10:25 PM EDT): Reports erectile dysfunction. Ordered labsdue further assess. Labs: Testosterone Hypertensive disorder 03/11/2022 Assessment & Plan (01/03/2025 10:30 AM EDT): -lisinopril prescription updated to 30 mg daily -recommend two times daily home monitoring with record keeping to be brought to upcoming PCP appointment -lifestyle and diet reviewed -recommend stress management -SR on 12 lead EKG which was completed per patient request -encouraged to call the clinic with BP reading persistently above 140/90 mmHg -ED precautions were reviewed and patient verbalized understanding Orders: ECG 12 lead lisinopril 20 MG tablet; Take 1.5 tablets (30 mg) by mouth Once per day. Assessment & Plan (07/27/2024 9:19 AM EDT): [...] like symptoms. Will benefit from referral to carton gluing machine operator for further evaluation. Referral placed. Vitamin D [...] reports palpation and movement replicates his pain. Tinnitus of right ear 10/01/2021 Overview (01/14/2025): Tinnitus, right ear; Note: Date Diagnosed: 10/01/2021 4:00 PM (H93.11) Assessment & Plan (09/12/2023 3:05 PM EDT): Reports has appt with ENT on the of this month, will send to audiology. Acute on chronic issue Sensorineural hearing loss (SNHL) of both ears 0 10/01/2021 Overview (01/14/2025): Sensorineural hearing loss, bilateral; Note: Date Diagnosed: 10/01/2021 3:49 PM (H90.3) Resolved Problems Problem Noted Date Diagnosed Date [...] lymph node SIRS (systemic inflammatory response syndrome) ([facility]) 11/01/2022 12/13/2022 Torticollis 10/04/2022 01/18/2024 Benign prostatic hyperplasia 03/11/2022 07/27/2024 Upper respiratory tract infection 03/11/2022 09/14/2022 Assessment & Plan (03/11/2022 11:47 AM EST): Traiged this way, but denies any URI symptoms Encounters Date Type Department Care Team Description 03/25/2025 10:15 AM EST Office Visit [facility] [address] [place] [address] Carmina Narayan MD Class 2 obesity (Primary Dx); Lower urinary tract symptoms (LUTS); Hypertension, unspecified type; Hyperbilirubinemia; Palpitations 03/25/2025 Travel 03/19/2025 Telephone [facility] [address] [place] [address] Carmina Narayan MD chart prep 03/18/2025 Travel 03/16/2025 Refill [facility] [address] [place] [address] Saloni Washignton MD 03/07/2025 Refill [facility] [address] [place] [address] Carmina Narayan MD Hyperlipidemia, unspecified hyperlipidemia type 03/04/2025 9:20 AM EST Office Visit [facility] [address] [place] [phone] Elida Lu FNP Xerosis of skin (Primary Dx); Itch of skin; Skin lesion of scalp; Skin lesions 03/04/2025 Travel 02/24/2025 Refill [facility] [address] [place] [phone] Carmina Narayan MD 02/20/2025 9:00 AM EST Office Visit [facility] [address] [address] Jose David Hopkins MD Rash (Primary Dx); Hypertension, unspecified type 02/20/2025 Travel 02/13/[address] [address] Carmina Narayan MD Appointment Request 01/31/2025 Travel 01/19/2025 Refill [facility] [address] [place] [address] Saloni Washington MD 01/15/[address] [address] Carmina Narayan MD FYI 01/14/2025 11:30 AM EDT Office Visit [facility] [address] [place] [address] Carmina Narayan MD Cervicalgia (Primary Dx) 01/14/2025 Travel 01/11/2025 Telephone [facility] [address] [place] [address] Carmina Narayan MD Chart Prep 01/07/2025 Travel 01/04/2025 Patient Outreach [address] [address] Carmina Narayan MD Pre-visit Planning (SDOH screening completed on 07/20/24 ) 01/02/2025 5:00 PM EDT [facility] [address] [address] Sanam Lang NP Primary hypertension (Primary Dx); Muscle tension pain; Cardiac murmur; Tension headache; Encounter for medication counseling 01/02/2025 Travel 01/02/[address] [address] Carmina Narayan MD triage 12/31/2024 10:30 AM EDT Office Visit [facility] [address] [place] [place], [place] [phone] Deven, Kia, OD Glaucoma suspect of both eyes (Primary Dx); Retinal hole, left; Combined forms of age-related cataract of both eyes; Bilateral dry eyes; Presbyopia 12/31/2024 Travel 12/25/2024 Telephone [facility] [address] [place], [place] [phone] Katherine Crow RD Nutrition referral from Last 3 Months Immunizations Immunization Administration [...] Passive Smoke Exposure: Never Smokeless Tobacco: Never Tobacco Cessation:Counseling Given: Not Answered Alcohol Use Standard Drinks/Week Comments Never 0 [...] Pulse 80 03/25/2025 10:22 AM EST Temperature 36.7 C (98 F) 03/04/2025 9:11 AM EST Respiratory Rate 20 03/25/2025 10:22 AM EST Oxygen Saturation 97% 03/25/2025 10:22 AM EST Inhaled Oxygen Concentration - - Weight 106 kg (233 lb 6.4 oz) 03/25/2025 10:22 A M EST Height 177.8 cm (5' 10 ) 03/25/2025 10:22 AM EST Body Mass Index 33.49 03/25/2025 10:22 AM EST Plan of Treatment Upcoming Encounters Date Type Department Care Team (Late st Contact Info) Description 04/05/2025 9:45 AM EST Office Visit [facility] [address] [place], [place] [phone] Destiny Durham MD [address] [place] [address] 07/08/2025 9:00 AM EDT Office Visit [facility] [address] [place] [address] Kia Carvalho, OD [address] [place] [address] Health Maintenance Due Date Last Done Comments CT Colonography 1960 FIT DNA/Cologuard 1960 FIT 1960 FOBT 1960 Sigmoidoscopy 1960 Alcohol/Substance Use Screening 1972 SDOH Screening 07/20/2025 07/20/2024 Depression Screening 07/27/2025 07/27/2024, 07/28/19 Diabetes: Hemoglobin A1C 09/12/2025 025, 02/01/2024, 06/29/2023, Additional history exists Influenza Vaccine (#1) 2025 , 01/28/2022, 01/05/2021, Additional history exists Postponed from 11/26/2024 (Patient Refused) COVID-19 Vaccine ( season) 2026 07/28/2021, 02/20/2021, 08/12/2020, Additional history exists Postponed from 11/26/2024 (Patient Refused) Disability Screening 01/14/2026 01/14/2025 Tobacco Screening 03/25/2026 03/25/2025 Colonoscopy 02/09/2028 02/08/2023, 01/0 08/2021, 04/02/2021 Colorectal Cancer Screening 02/09/2028 Lipid Panel [...] Procedure Name Priority Date/Time Associated Diagnosis Comments ECG 12-LEAD Routine 01/02/2025 7:56 PM EDT Primary hypertension OCT, OPTIC NERVE - OU - BOTH EYES Routine 12/31/2024 10:30 AM EDT Glaucoma suspect of both eyes LIPID PANEL, STANDARD Routine 10/25/2024 10:18 AM EDT Hyperlipidemia, unspecified hyperlipidemia type POCT GLYCATED HEMOGLOBIN, TOTAL Routine 09/12/2024 2:47 PM EDT Class 2 obesity HEPATITIS C AB W/REFL TO HCV RNA, QN, PCR Routine 06/10/2023 9:31 AM EDT Class 2 obesity HIV 1/2 ANTIGEN/ANTIBODY, FOURTH GENERATION W/RFL Routine 06/10/2023 9:31 AM EDT Class 2 obesity HM COLONOSCOPY Routine 02/08/2023 from Last 3 Months or Most Recently Relevant to Health Maintenance Results * ECG 12 lead (01/02/2025 7:56 PM EDT) Narrative Appraabilio, JOSÉ ANTONIO Marion - 01/02/2025 7:56 PM EDT HR 72 bpm, normal axis, interval, morphology. Sinus rhythm ECG us Sanam Lang HEALTH AND WELLNESS COORDINATOR ECG ORDERABLES Final Result * OCT, Optic Nerve - OU - Both Eyes (12/31/2024 10:30 AM EDT) Kia Jurado, OD - 01/15/2025 3:46 PM EDT Images from the original result were not included. OCT OPTIC NERVE INTERPRETATION Optical Coherence Tomography Interpretation Report Test Details: Measurements: OD OS C/D Horizontal 0.81 0.83 C/D Vertical 0.75 0.73 Disc area 3.23 mm 2 2.89 mm 2 RNFL Average 116 microns 124 microns Test findings: OD: Normal RNFL thickness in all quadrants OS: Normal RNFL thickness in all quadrants Impression and Plan: Large optic nerves with large cupping in both eyes. Will have him return in 6 months for a visual field test. Kia Carvalho OD OPHTH TOMOGRAPHY Final Result * Lipid Panel, Standard (10/25/2024 10:18 AM EDT) Triglycerides 74 <150 mg/dL [facility] Comment:Desirable Triglyceri de: less than 150 mg/dLBorderline High Triglyceride 150-199 mg/dLHigh Triglyceride: 200-499 mg/dLVery High Triglyceride: greater than or equal to 5OO mg/dL Cholesterol 159 <200 mg/dL [facility] Comment:Desirable Cholestero l: less than 200 mg/dLBorderline High Cholesterol: 200-239 mg/dLHigh Cholesterol: greater than 239 mg/dL LDL Cholesterol Calculated 99 <100 mg/dL [facility] Comment:Desirable LDL: less than 100 mg/dLNear Optimal/Above Optimal LDL: 110- 129 mg/dLBorderline High LDL: 130-159 mg/dLHigh LDL: 160-189 mg/dLVery High LDL: greater than or equal to 190 mg/dL HDL Cholesterol 46 >40 mg/dL [facility] Comment:Desirable HDL: great er than 40 mg/dL Note: This HDL assay may give artificially low results in patients with liver disease. Blood Venous blood specimen / Unknown 10/25/2024 10:18 AM EDT 10/25/2024 10:54 AM EDT Carmina Narayan MD LAB BLOOD ORDERABLES Final Re sult Performing Organization Address [facility]/ZIP Co de Phone Number [facility] [address] [place] [address] [phone] * POCT HGB A1C (09/12/2024 2:47 PM EDT) Pathologist [facility] Hemoglobin A1C 5.8 4.0 - 6.0 % QC Media Lot # [id number] Lot# Expiration Date 024 Blood 09/12/2024 2:47 PM EDT Result [facility] Armando Carmona MD POINT OF CARE TEST ENTER/ED IT ORDERABLES Final Result * Hepatitis C Antibody with Reflex to HCV, RNA, Quantitative, Real-Time PCR (06/10/2023 9:31 AM EDT) [facility] Hepatitis C Antibody Nonreactive Nonreactive [facility] Comment:Antibodies to HCV no t detected; does not exclude early acuteHCV infection. Blood Venous blood specimen / Unknown 06/10/2023 9:31 AM EDT 06/10/2023 2:01 PM EDT Carmina Narayan MD LAB BLOOD ORDERABLES Final Re sult Performing Organization Address [facility] Co de Phone Number [facility] [address] [place] [phone] * HIV-1/2 Antigen and Antibodies, Fourth Generation, with Reflexes (06/10/2023 9:31 AM EDT) Pathologist [facility] HIV AB/AG Nonreactive Nonreactive [facility] Comment:HIV-1 p24 Ag and/or HIV-1/HIV-2 Ab not detected.A test result that is nonreactive does not exclude thepossibility of exposure to or infection with HIV-1 and/orHIV-2. Nonreactive results in this assay for individualswith prior exposure to HIV-1 and/or HIV-2 may be due toantigen and antibody levels that are below the limit ofdetection of this assay.The [employer] Alinity HIV Ag/Ab Combo assay result andsupplemental assay results should be interpreted inconjunction with the patient's clinical presentation,history and other laboratory results. If the results areinconsistent with clinical evidence, additional testing issuggested to confirm the result. Blood Venous blood specimen / Unknown 06/10/2023 9:31 AM EDT 06/10/2023 2:01 PM EDT Carmina Narayan MD LAB BLOOD ORDERABLES Final Re sult [facility] [address] [place] [phone] * (ABNORMAL) Colonoscopy (02/08/2023) Colonoscopy Abnormal Normal, Abnormal, BIRADS 0 , BIRADS 1 , BIRADS 2, BIRADS 3 , BIRADS 4+ Narrative Carmina Narayan MD - 02/08/20232021 with varius polyps sessile 2022 tubular adenoma Historical Provider HEALTH MAINTENANCE Final Result from Last 3 Months or Most Recently Relevant to Health Maintenance Insurance [facility] , [address] [place] [address] * Guarantor: Donny Ellis Account Type Relation to Patient Date of Phone Billing Address Personal/Family Self [address] Care Teams Oleo Hasher And Renderer Relationship Specialty Start Date End Date Carmina Narayan MD [address] [place] [phone] PCP - General Family Medicine 09/14/22
--- OUTSIDE RECORDS SUMMARY | 2025-03-26 11:25 | XMS_ITS | Encounter Summary ---
Author Organization [employer] Address [address] [facility] [address] [place] [address] Care Team Providers Care Traffic Agent Name Role Phone Carmina Narayan MD Primary Care Provider [phone] Reason for Visit * Reason Onset Date Comments Med Refill 07/29/2024 Encounter Details Date Type Department Care Team ([facility] st Contact Info) Description 07/29/2024 Refill [facility] [address] [place], [place] [phone] Carmina Narayan MD [address] [place] [address] Social History Tobacco Use Types Packs/Day Years [...] EST Office Visit [facility] [address] [place] [address] Destiny Durham MD [address] [place] [address] 07/08/2025 9:00 AM EDT Office Visit [facility] [address] [place] [address] Deven, Kia, OD [address] [place] [address] documented as of this encounter Visit Diagnoses Not on filedocumented in this encounter Additional Health Concerns Assessment Noted Time PHQ-9 Depression Total Score: 6 07/28/19 25 9:04 AM EDT documented as of this encounter Care Teams Traffic Agent Relationship Specialty Start Date End Date Carmina Narayan MD [address] [place] [address] PCP - General Family Medicine 09/14/22 documented as of this encounter
--- OUTSIDE RECORDS SUMMARY | 2025-03-26 11:25 | XMS_ITS | Encounter Summary ---
Author Organization [employer] Address [address] [facility] 7t [place] [address] Care Team Providers Care Neurology Technician Name Role Phone Carmina Narayan MD Primary Care Provider [phone] Encounter Details Date Type Department Care Team (Late st Contact Info) Description 11/29/2024 Orders Only [facility] [address] [place], [place] [phone] Provider, MD Yanique Social History Tobacco Use [...] Description 04/05/2025 9:45 AM EST Office Visit [facility] [address] [place] [address] Destiny Durham MD [address] [place] [address] 07/08/2025 9:00 AM EDT Office Visit [facility] [address] [place] [address] Deven, Kia, OD [address] [place] [address] documented as of this encounter Procedures Procedure [...] documented as of this encounter Care Teams Neurology Technician Relationship Specialty Start Date End Date Carmina Narayan MD [address] [place] [address] PCP - General Family Medicine 09/14/22 documented as of this encounter
[2025-03-26 15:09] LABS: MANUAL DIFF FLAG NO
[2025-03-26 15:18] LABS: Hematocrit 44.1 % (42.0-52.0); Hemoglobin 14.5 g/dl (14.0-18.0); Imm Gran Abs Auto 0.04 X10*3/uL (0.00-0.03); Imm Gran Pct Auto 0.7 % (0.0-0.4); Lymphocytes Absolute Auto 1.9 X10*3/uL (1.2-4.9); Mean Corpuscular HGB Conc 32.9 g/dl (31.0-36.0); Mean Corpuscular Hemoglobin 30.9 pg (27.0-33.0); Mean Corpuscular Volume 94.0 fL (80.0-98.0); NRBC Abs Auto 0.000 X10*3/uL (0.0-0.012); NRBC Pct Auto 0.0 /100WBC (0.0-0.2); Platelet Count 271 X10*3/uL (160-400); Red Blood Count 4.69 X10*6/uL (4.60-5.80); White Blood Count 5.4 X10*3/uL (4.8-10.8)
[2025-03-26 16:00] LABS: Alanine Aminotransferase 43 U/L (0-40); Albumin Level 4.8 g/dL (3.5-5.0); Alkaline Phosphatase 73 U/L (39-117); Anion Gap 10 (12-20); Aspartate Amino Transferase 38 U/L (5-37); Blood Urea Nitrogen 14 mg/dL (9-16); Calcium 9.9 mg/dL (8.4-10.2); Carbon Dioxide 25 mmol/L (22-29); Chloride 105 mmol/L (96-108); Estimated Glomerular Filt Rate > 60; Potassium 3.9 mmol/L (3.3-5.1); Sodium 136 mmol/L (135-145); Total Protein 6.9 g/dL (6.5-8.0)
== END 2025-03-26 09:08 ==
LOC: HO.CHCLDS 09:07
PROVIDERS: Visit Provider Family Medicine
DX: E66.812 Obesity, class 2 (principal); E80.6 Other disorders of bilirubin metabolism; I10 Essential (primary) hypertension; R39.9 Unspecified symptoms and signs involving the genitourinary system; Z13.21 Encounter for screening for nutritional disorder
CPT/HCPCS: 36415; 80053; 82248; 82306; 85025; 87086